=== PATIENT | female | born 1950 | race Caucasian/White ===

== ENCOUNTER → 2018-09-05 | Outpatient (CLI) | payer MEDICARE, OTHER ==
[2018-09-05 11:11] LABS: Basophils # (A) 0.1 k/uL (0-0.2); Basophils % (A) 1 %; Eosinophils # (A) 0.5 k/uL (0-0.7); Eosinophils % (A) 5 %; HGB 12.2 gm/dL (11.4-16.0); Lymphocytes # (A) 1.4 k/uL (1.0-4.8); Lymphocytes % (A) 13 %; MCH 28.2 pg (25.0-35.0); MCHC 31.3 g/dL (31.0-37.0); MCV 90.1 fL (80.0-100.0); Mean Platelet Volume 8.2; Monocytes # (A) 0.6 k/uL (0-1.0); Monocytes % (A) 5 %; Neutrophils # (A) 7.9 k/uL (1.3-7.7); Neutrophils % (A) 74 %; Platelet Count 255 k/uL (150-450); RBC 4.33 m/uL (3.80-5.40); RDW 14.7 % (11.5-15.5); WBC 10.7 k/uL (3.8-10.6)
[2018-09-05 11:19] LABS: Calcium 9.4 mg/dL (8.4-10.2); Potassium 4.6 mmol/L (3.5-5.1)
--- NOTE | 2018-09-05 11:22 | XR ---
EXAMINATION TYPE: XR chest 2V DATE OF EXAM: 09/05/2018 COMPARISON: NONE HISTORY: Preadmission testing. History of COPD. TECHNIQUE: Frontal and lateral views of the chest are obtained. FINDINGS: There is no focal air space opacity, pleural effusion, or pneumothorax seen. Bibasilar per ibronchial cuffing is more pronounced on the lateral view. The cardiac silhouette size is upper limi ts of normal. Mild to moderate degenerative changes of the spine are noted moderate degenerative herrera ges of the shoulders are also seen. IMPRESSION: Bibasilar peribronchial cuffing on the lateral view may represent reactive airway diseas e and COPD or infectious airway disease. No focal consolidation to suggest pneumonia.
[2018-09-05 11:44] LABS: INR 0.9 (<1.2); Partial Thromboplastin Time 23.2 sec (22.0-30.0); Prothrombin Time 9.7 sec (9.0-12.0)
[2018-09-05 12:51] LABS: Appearance,Urine Clear (Clear); Bacteria,Urine Occasional /hpf; Bilirubin,Urine Negative (Negative); Blood,Urine Negative (Negative); Color,Urine Yellow; Glucose,Urine (UA) Negative (Negative); Hyaline Casts,Urine 13 /lpf (0-2); Ketones,Urine Negative (Negative); Leukocyte Esterase,Urine Moderate (Negative); Mucus,Urine Rare /hpf; Nitrite,Urine Negative (Negative); Protein,Urine Negative (Negative); RBC,Urine 2 /hpf (0-5); Specific Gravity,Urine 1.021 (1.001-1.035); Squamous Epithelial Cell,Urine 3 /hpf (0-4); Urobilinogen,Urine <2.0 mg/dL (<2.0); WBC,Urine 6 /hpf (0-5)
== END ==
LOC: LABPAT 10:21
PROVIDERS: ATTEND Orthopaedic Surgery Orthopaedic Surgery of the Spine
DX: Z01.818 Encounter for other preprocedural examination (principal)
CPT/HCPCS: 71046; 80048; 81001; 85025; 85610; 85730; 86850; 86900; 86901; 93005

== ENCOUNTER → 2018-09-14 | Outpatient (CLI) | payer MEDICARE, OTHER ==
[2018-09-14 10:30] LABS: Anion Gap 7 mmol/L; Blood Urea Nitrogen 29 mg/dL (7-17); Calcium 9.7 mg/dL (8.4-10.2); Carbon Dioxide 30 mmol/L (22-30); Chloride 102 mmol/L (98-107); Glucose 126 mg/dL (74-99); Potassium 4.5 mmol/L (3.5-5.1); Sodium 139 mmol/L (137-145)
== END | disposition home or self-care (01) ==
LOC: LABWHC1 09:32
PROVIDERS: ATTEND Internal Medicine Nephrology
DX: N18.3 Chronic kidney disease, stage 3 (moderate) (principal)
CPT/HCPCS: 36415; 80048

== ENCOUNTER 2018-09-16 11:21 | Day surgery (SDC) | payer MEDICARE, OTHER ==
[~2018-09-16 11:21] MED LIST: BACITRACIN 50,000 UNIT, POLYMYXIN B 500,000 UNIT in SODIUM CHLORIDE 0.9% IRRIGATIO 1,00... IRRIGATION ONE; LIDOCAINE 1% 20 ML VIAL (10MG/ML) FOR IV START INTRADERMA PRN; ONDANSETRON 4 MG/2 ML VIAL IVP ONE; ceFAZolin IN SWFI 2 GM/20 ML SYRINGE IVP ONE
[2018-09-16] MEDS: LACTATED RINGERS 1,000 ML IV SCH (11:56)
[2018-09-16] MEDS ORDERED: SCOPOLAMINE 1.5MG/72HR PATCH TRANSDERM ONE (12:03)
[2018-09-16] MEDS ORDERED: SUCCINYLCHOLINE CHLORIDE 100 MG/5 ML SYR IV ONE (12:50)
[2018-09-16] MEDS ORDERED: KETAMINE 10 MG/ML 20 ML VIAL ONE (12:50)
[2018-09-16] MEDS ORDERED: PROPOFOL 10 MG/ML 20 ML VIAL IV ONE (12:50)
[2018-09-16] MEDS ORDERED: MIDAZOLAM 2 MG/2 ML VIAL ONE (12:50)
[2018-09-16] MEDS ORDERED: LIDOCAINE 1% INJ 10MG/ML (20 ML MDV) ONE (12:50)
[2018-09-16] MEDS ORDERED: fentaNYL (PF) 50 MCG/ML 2 ML AMP ONE (12:50)
[2018-09-16] MEDS ORDERED: ePHEDrine SULFATE/0.9% NACL/PF 50 MG/5 ML SYRINGE IV ONE (12:50)
[2018-09-16] MEDS ORDERED: DEXAMETHASONE SOD PHOS (MDV) 100 MG/10 ML VIAL ONE (12:50)
[2018-09-16] MEDS ORDERED: ceFAZolin 1,000 MG VIAL ONE (12:50)
[2018-09-16] MEDS ORDERED: PHENYLEPHRINE-0.9% NACL SYG 1 MG/10 ML SYRINGE ONE (12:50)
[2018-09-16] MEDS ORDERED: BUPIVACAINE-EPI 0.5%-1:200,000 10 ML VIAL SQ ONE (13:33)
[2018-09-16] MEDS ORDERED: GELATIN SPONGE,ABSORB (LARGE) 1 EACH SPONGE MISCELLANE ONE (13:56)
[2018-09-16] MEDS ORDERED: THROMBIN (BOVINE) 5,000 UNIT VIAL TOPICAL ONE (14:20)
--- NOTE | 2018-09-16 14:20 | XR ---
Cervical spine HISTORY: Needle placement Single lateral view of the cervical spine submitted. There is a probe present within the posterior nasopharynx region or oropharynx. Endotracheal tube is in place. There is a needle present overlying the region of the C3-4 disc space, superimposed soft ti ssues limits the exam. There are overlying artifacts, leads. IMPRESSION: Orthopedic localization.
[2018-09-16] MEDS ORDERED: LACTATED RINGERS 1,000 ML IV ONE (14:34)
--- NOTE | 2018-09-16 15:33 | XR ---
EXAMINATION TYPE: XR cervical spine 1V DATE OF EXAM: 09/16/2018 COMPARISON: NONE HISTORY: 68-year-old female heart replacement TECHNIQUE: Crosstable lateral intraoperative view FINDINGS: Very limited assessment due to large patient body habitus. There seems to be ACDF placement from C3 t hrough C6 levels. IMPRESSION: Very limited assessment due to large patient body habitus. ACDF C6 to be present from C3 through C6 l evels. Exact positioning of the hardware is difficult to evaluate.
[2018-09-16] MEDS ORDERED: HYDROmorphone 0.5 MG/0.5 ML SYRINGE IVP PRN (15:44)
[2018-09-16] MEDS ORDERED: MAGNESIUM HYDROXIDE 2,400 MG/10 ML CUP PO PRN (15:44)
[2018-09-16] MEDS ORDERED: BENZOCAINE/MENTHOL LOZENG 1 EACH LOZENGE MUCOUS MEM PRN (15:44)
[2018-09-16] MEDS ORDERED: ONDANSETRON 4 MG/2 ML VIAL IVP PRN (15:44)
[2018-09-16] MEDS ORDERED: LISINOPRIL-HCTZ 20-25 MG 1 EACH TAB PO PRN (15:45)
[2018-09-16] MEDS ORDERED: HYDROcodone/APAP 7.5-325MG 1 EACH TAB PO PRN (15:45)
[2018-09-16] MEDS ORDERED: ALBUTEROL NEBULIZED 2.5 MG/3 ML INHALATION PRN (15:45)
--- NOTE | 2018-09-16 15:52 | P.OP ---
Date of Procedure: 09/16/18 Preoperative Diagnosis: Cervical stenosis C3 4 C4 5 C5 6, cervical myelopathy, herniated nucleus pulposis C3 4 C4 5 C5 6, upper tremor radiculopathy, neck pain, degenerative disc disease Postoperative Diagnosis: Same Anesthesia: GETA Pathology: none sent Condition: stable Disposition: PACU Description of Procedure: BRIEF OPERATIVE NOTE Preoperative Diagnosis:Cervical stenosis C3 4 C4 5 C5 6, cervical myelopathy, herniated nucleus pulposis C3 4 C4 5 C5 6, upper tremor radiculopathy, neck pain, degenerative disc disease Postoperative Diagnosis: Same Procedure: Anterior cervical decompression with discectomy and fusion C3 4 C4 5 C5 6 Placement of interbody graft C3 4 C4 5 C5 6 Application of anterior cervical plate C3 4 5 6 Surgeon: Dr. Rivers Power Brake Operator: Daniel Krishnamurthy is present throughout the entire the case persistence during positioning, dissection, exposure, visualization, and all crucial elements of the case as well as closure. Anesthesia: General anesthesia per Dr. Scott Estimated blood loss: Approximately 200 mL K2M [place] anterior cervical plate system measuring 54 mm screws measuring 12 and 14 mm and Vikos interbody allograft bone graft with 1 mL of DBX bone putty to supplemental allograft bone graft Complications: None apparent Components implanted: Disposition: To recovery room in good stable condition. OPERATIVE INDICATIONS The patient has had long-standing issues in their neck and upper extremities. She is having worsening symptoms and demonstrating some early myelopathic issues. She was found have disc herniation at C3 4 C4 5 C5 6 with stenosis at those levels which correlated with her neck and upper extremity symptoms. She is having worsening despite aggressive conservative care. The patient has been through conservative treatment. We discussed various treatment options including surgery, and the patient wishes to proceed with surgery We discussed the risk, patient's alternatives and benefits of surgery including but not limited to, risk of bleeding risk of infection, risk of need for further surgery, risk of decreased, loss of motion, muscle function, malunion nonunion, hardware failure, nerve damage, paralysis, heart attack, and . OPERATIVE SUMMARY After discussing all the risks, patient alternatives and benefits at length, the patient elected to proceed with surgical intervention, signed informed consent, and presented for their procedure. The patient was seen and examined in the preoperative holding area and the surgical site was marked. The patient was given antibiotics and brought to the operating room. The patient was positioned on the operating room table in a supine position being careful to pad any bony prominences and pressure points. The patient was sedated and intubated by anesthesia in standard fashion. Once the airway and C- spine were stabilized the patient's arms were padded and tucked at her side, with her shoulders gently taped. The head was placed in a donut pad with the neck in good neutral alignment and position. We were careful to maintain the patient's cervical spine and good neutral alignment and position throughout. The patient was prepped and draped in a normal standard fashion. An appropriate timeout and keystone protocol performed. We were able to proceed with the surgery. The local wound area was infiltrated with local anesthetic. An incision was made transversely approximately 2-1/2 cm over the appropriate levels at approximately C4. Dissection was taken down subcutaneously to the level of the platysma which was split in line with its fibers. Dissection was taken with a carotid approach, with the trachea and esophagus medial and the carotid sheath laterally. We dissected down to the anterior surface of the vertebral bodies. Intraoperative x-ray was taken which showed a marker at the appropriate level of C4 5. With the appropriate level positively confirmed, we were able to proceed with discectomy at the appropriate levels starting at C3 4 and then moving C4 5 and then C5 6. All of the operative levels were exposed appropriately. The patient had all their twitches back, and there was no evidence of recurrent laryngeal issue. The wound was copiously irrigated and suctioned dry as had been done periodically throughout the case. At the appropriate level/levels, starting at C3 4 and C4 5 and C5 6 I established an annulotomy with an 11 blade scalpel. A discectomy was performed with a combination of pituitary rongeurs, curettes, a high-speed bur, and Kerrison rongeurs. The posterior longitudinal ligament was taken down as were any posterior osteophytes. This gave good central and bilateral foraminal decompression. There is no evidence of any dural tear or leak. The endplates were prepared with a high-speed bur. With the endplates in good parallel position, I was able to size for the appropriate size interbody graft. The wound was irrigated and suctioned dry the graft was prepared and malleted into position. It had good alignment and position with the anterior surface flush with the anterior surface of the vertebral bodies. This was done similarly the appropriate levels at C3 4 C4 5 C5 6. With the grafts intact, I was able to measure and contour and appropriate sized plate. The plate was positioned at the midline over the appropriate levels from C3 to C6. Screw holes were established with a hand drill and drill guide. Screws were placed in good alignment and position with excellent bony purchase. They were seated under the locking device. The construct was checked and found to be stable. Intraoperative x-ray was taken which showed good alignment and position of the implants at the appropriate levels. It seemed as though the lef t-sided screws were slightly long in a switch them out from 14 mm screws to 12 mm screws on the left screws at C3 4 5 and 6. Repeat imaging showed excellent alignment and positioning with no evidence of proud screws. There was no evidence of any dural tear or leak. Good hemostasis was maintained. The wound was copiously irrigated and suctioned dry as had been done periodically throughout the case. The platysma was closed with absorbable suture. The subcutaneous tissue was closed. The subcuticular tissue was closed with absorbable suture. The wound was cleaned and dried and dressed appropriately. A soft cervical collar was placed appropriately. The patient was woken up by anesthesia, extubated, transferred back gently to their hospital bed and brought to the recovery room in good stable condition. The patient will be admitted to the hospital for appropriate postoperative care, medical management and monitoring. We will continue to follow them closely about the postoperative course.
--- NOTE | 2018-09-16 15:56 | XR ---
Cervical spine HISTORY: Hardware placement Single lateral cervical spine view submitted and correlated to prior exam the same dated earlier time . Patient is status post anterior cervical fusion and discectomy at what is believed to be C3-C5. Detai ls obscured by overlying soft tissue. Underlying degenerative disc changes and facet arthropathy note d. There appears to be satisfactory alignment in this single view. IMPRESSION: Limitations as described. Orthopedic follow-up.
[2018-09-16] MEDS: HYDROmorphone 0.5 MG/0.5 ML SYRINGE IVP PRN ×5 (16:07→16:35)
[2018-09-16] MEDS ORDERED: MEPERIDINE 50 MG/ML SYRINGE IVP ONE (16:44)
[2018-09-16 16:48] VITALS: RESP 16
[2018-09-16] MEDS: CARVEDILOL 12.5 MG TAB PO SCH (18:08)
[2018-09-16] MEDS: GABAPENTIN 300 MG CAP PO SCH ×2 (18:09→21:09)
[2018-09-16] MEDS: SODIUM CHLORIDE 0.9% 1,000 ML IV SCH (18:12)
[2018-09-16] MEDS: SYMBICORT 80-4.5 MCG INHALER INHALATION SCH (19:45)
[2018-09-16] MEDS ORDERED: CITALOPRAM HYDROBROMIDE 20 MG TAB PO SCH (21:00)
[2018-09-16] MEDS: HYDROcodone/APAP 5-325MG 1 EACH TAB PO PRN (21:09)
[2018-09-16 22:44] VITALS: BMI 55.7
[2018-09-16] MEDS: ceFAZolin 3 GM in SODIUM CHLORIDE 0.9% 100 ML IVPB SCH (23:09)
[2018-09-17] MEDS: SODIUM CHLORIDE 0.9% 1,000 ML IV SCH (05:14)
[2018-09-17] MEDS: LACTATED RINGERS 1,000 ML IV SCH (05:14)
[2018-09-17] MEDS: CARVEDILOL 12.5 MG TAB PO SCH (08:36)
[2018-09-17] MEDS: GABAPENTIN 300 MG CAP PO SCH (08:37)
[2018-09-17] MEDS: ceFAZolin 3 GM in SODIUM CHLORIDE 0.9% 100 ML IVPB SCH (08:39)
[2018-09-17] MEDS ORDERED: SENNOSIDES-DOCUSATE SODIUM 1 EACH TAB PO SCH (09:00)
[2018-09-17] MEDS ORDERED: CYANOCOBALAMIN 500 MCG TAB PO SCH (09:00)
[2018-09-17] MEDS ORDERED: LISINOPRIL-HCTZ 20-25 MG 1 EACH TAB PO SCH (09:00)
--- NOTE | 2018-09-17 09:06 | P.DS ---
Providers Date of admission: 09/16/2018 Expected date of discharge: 09/17/18 Attending physician: Olesya Rivers Primary care physician: Sheeba Nathan Charbal - Discharge Diagnosis(es) (1) Cervical myelopathy Current Visit: Yes Status: Acute (2) Degenerative disc disease, cervical Current Visit: Yes Status: Acute (3) Herniated nucleus pulposus, cervical Current Visit: Yes Status: Acute (4) Cervicalgia Current Visit: Yes Status: Acute (5) Radiculopathy affecting upper extremity Current Visit: Yes Status: Acute (6) Hypertension Current Visit: Yes Status: Acute (7) Cervical stenosis of spine Current Visit: Yes Status: Acute Hospital Course: This is a pleasant 68-year-old female who presented with C3-4, C4-5, C5-6 herniated nucleus pulposus and cervical canal stenosis with cervical myelopathy, cervical pain, cervical degenerative disc disease, and upper extremity radiculopathy who failed outpatient conservative therapy. She was admitted for a C3-4, C4-5, and C5-6 anterior cervical decompression and fusion. Her symptoms continue to be present postoperatively. She does feel her pain has been adequately controlled. She's been able to eat and void without difficulty. She does have some increased hoarseness of her voice postoperatively. She has been to tolerate a soft cervical collar. She does feel she is ready for discharge home today. Condition on day of discharge stable. Patient will be discharged home. Patient was cleared preoperatively for surgery by Dr. Aly and Dr. Stephens. Patient currently denies any nausea, vomiting, fever, or chills. Patient is eating and voiding freely without difficulty. Patient may shower Tegaderm dressing intact. Patient may remove Tegaderm dressing in 3 days and shower without a dressing at that time. Patient should keep Steri-Strips intact and allow them to fall off naturally. Patient should refrain from driving until at least after their first follow-up appointment in the office. Patient should avoid excessive neck flexion, extension, rotation, and lateral sidebending; no overhead lifting; no lifting greater than 10 pounds. MAPS has been reviewed today, 09/17/2018, with an Overall Overdose Risk Score of 260. An "Opiod Start Talking" Forn has been signed by the patient and myself in place in the patient's chart. A prescription has been written for Hugoton 7.5 mg /325 mg take 1 tablet every 6 hours as needed for pain, dispensed #28. She does follow with Dr. Flores in the outpatient setting for pain control. He is where she may receive a prescription for narcotics postoperatively. After the completion of her prescription by myself she'll plan to continue following with Dr. Flores for long-term pain control. Patient does have a past medical history which includes hypertension and takes lisinopril and Cozaar in the outpatient setting. She states her lisinopril was reduced prior to surgical intervention and she has had slightly increased blood pressure since that time. Her 2 pills per day had been resumed yesterday. She was experiencing some increased systolic blood pressure postoperatively which has improved today. Her most recent dictated blood pressure was 127/64. We discussed she should continue to follow primary care providers in the outpatient setting for her other medical diagnoses including hypertension. Physical Exam on day of discharge: Patient is awake, alert, and oriented 3 Vital signs stable Good chest excursion with deep inspiration and expiration Abdomen soft nontender No signs or symptoms of DVT; no calf pain Full range of motion of the cervical spine with adequate flexion, extension, and bilateral rotation Shuttlecock Feather Trimmer strength, thumb strength, interosseous strength, biceps strength, triceps strength, and shoulder strength positive sustained bilaterally Soft cervical collar intact Incision is clean, dry, and intact; no erythema, purulence, or signs of infection Tegaderm dressing and non-stick Telfa intact Procedures: C3-4, C4-5, and C5-6 anterior cervical decompression and fusion Patient Condition at Discharge: Stable Plan - Discharge Summary Discharge Rx Participant: No New Discharge Prescriptions: New HYDROcodone/APAP 7.5-325MG [Hugoton 7.5-325] 1 each PO Q6HR PRN #28 tab PRN Reason: Pain No Action Fluticasone/Salmeterol [Advair 250-50 Diskus] 1 inhalation PO BID rOPINIRole HCL [Requip] 0.5 - 1 mg PO HS PRN PRN Reason: restless leg Citalopram Hydrobromide [CeleXA] 20 mg PO HS Meloxicam 7.5 mg PO BID HYDROcodone/APAP 7.5-325MG [Hugoton 7.5-325] 1 tab PO TID PRN PRN Reason: Pain Gabapentin 300 mg PO TID Carvedilol 25 mg PO BID Lisinopril-Hctz 20-25 mg [Zestoretic 20-25] 1 tab PO QAM Albuterol Sulfate [Proair Hfa] 2 puff INHALATION Q6H PRN PRN Reason: sob Cyanocobalamin (Vitamin B-12) [Vitamin B-12] 1,000 mcg PO DAILY Lisinopril-Hctz 20-25 mg [Zestoretic 20-25] 1 tab PO HS PRN PRN Reason: elevated b/p Discharge Medication List Albuterol Sulfate [Proair Hfa] 2 puff INHALATION Q6H PRN 09/11/18 [History] Carvedilol 25 mg PO BID 09/11/18 [History] Citalopram Hydrobromide [CeleXA] 20 mg PO HS 09/11/18 [History] Cyanocobalamin (Vitamin B-12) [Vitamin B-12] 1,000 mcg PO DAILY 09/11/18 [History] Fluticasone/Salmeterol [Advair 250-50 Diskus] 1 inhalation PO BID 09/11/18 [History] Gabapentin 300 mg PO TID 09/11/18 [History] HYDROcodone/APAP 7.5-325MG [Hugoton 7.5-325] 1 tab PO TID PRN 09/11/18 [History] Lisinopril-Hctz 20-25 mg [Zestoretic 20-25] 1 tab PO QAM 09/11/18 [History] Meloxicam 7.5 mg PO BID 09/11/18 [History] rOPINIRole HCL [Requip] 0.5 - 1 mg PO HS PRN 09/11/18 [History] Lisinopril-Hctz 20-25 mg [Zestoretic 20-25] 1 tab PO HS PRN 09/12/18 [History] HYDROcodone/APAP 7.5-325MG [Hugoton 7.5-325] 1 each PO Q6HR PRN #28 tab 09/17/18 [Rx] Follow up Appointment(s)/Referral(s): Daniel Roth, LIV [PHYSICIAN COMPACT ASSEMBLER] - 2 Weeks (Patient may follow-up with Daniel Roth PA-C or Dr. Kamron Rivers at [facility] in 2-3 weeks following discharge. ) Patient Instructions/Handouts: *Surgery [facility] - Scopalamine Patch Instructions Activity/Diet/Wound Care/Special Instructions: 1. Patient may shower with Tegaderm dressing intact. 2. Patient may remove Tegaderm dressing in 3 days and shower without a dressing at that time. 3. Patient should keep Steri-Strips intact and allow them to fall off naturally. 4. Patient should refrain from driving until at least after their first follow- up appointment in the office. 5. Patient should avoid excessive cervical flexion, extension, rotation, sidebending; avoid overhead lifting; no lifting greater than 10 pounds 6. May soft cervical collar for comfort support as needed 7. Take medications as prescribed 8. Do not soak in tub Discharge Disposition: HOME SELF-CARE
[2018-09-17] MEDS: HYDROcodone/APAP 5-325MG 1 EACH TAB PO PRN (09:15)
[2018-09-17] MEDS: SYMBICORT 80-4.5 MCG INHALER INHALATION SCH (09:17)
[2018-09-17 10:52] VITALS: BP 152/82; PULSE 91; TEMP 98.2
== END 2018-09-17 12:07 | disposition home or self-care (01) ==
LOC: OR 11:21 → 4SSUR 15:37 → OR 09-17 12:07
PROVIDERS: ATTEND Orthopaedic Surgery Orthopaedic Surgery of the Spine
DX: M50.01 Cervical disc disorder with myelopathy, high cervical region (principal); M50.11 Cervical disc disorder with radiculopathy, high cervical region; I10 Essential (primary) hypertension; M48.02 Spinal stenosis, cervical region; J44.9 Chronic obstructive pulmonary disease, unspecified; G47.33 Obstructive sleep apnea (adult) (pediatric); F39 Unspecified mood [affective] disorder; Z79.899 Other long term (current) drug therapy; Z79.1 Long term (current) use of non-steroidal anti-inflammatories (NSAID); Z79.891 Long term (current) use of opiate analgesic
CPT/HCPCS: 94640; 94760 ×2; 72020; 22551; 22552 ×2; 22845; 20930; C1713 ×2; C1762 ×2; J2250; J2175; J0690 ×3; J2405; J2001; J3010; J1100; J2370; J0330; J2704; J1170; 86850; 86900; 86901

== ENCOUNTER 2019-03-24 08:46 | Emergency (ER) | payer MEDICARE, OTHER ==
[2019-03-24 09:02] VITALS: RESP 18; TEMP 98
--- NOTE | 2019-03-24 09:27 | ED ---
General Adult HPI - General Chief complaint: Fall Stated complaint: FALL, LEFT ANKLE, KNEE AND HIP PAIN Time Seen by Provider: 03/24/19 08:53 Source: patient, EMS, RN notes reviewed Mode of arrival: EMS Limitations: no limitations - History of Present Illness Initial comments: Patient is a pleasant 6 he 9-year-old female presenting to the emergency [facility] following fall. Incident occurred or to arrival. Patient was walking on her ramp when she slipped and fell. Patient states he inverted her left ankle. Patient had some discomfort of her left hip and left knee however those have essentially resolved. No head injury or loss of consciousness. No neck or back pain. No chest pain or dyspnea. No abdominal pain. No history of significant injury to this area previously. - Related Data Home Medications Medication Instructions Recorded Confirmed Albuterol Sulfate [Proair Hfa] 2 puff INHALATION Q6H PRN 09/11/18 09/16/18 Carvedilol 25 mg PO BID 09/11/18 09/16/18 Citalopram Hydrobromide [CeleXA] 20 mg PO HS 09/11/18 09/16/18 Cyanocobalamin (Vitamin B-12) 1,000 mcg PO DAILY 09/11/18 09/16/18 [Vitamin B-12] Fluticasone/Salmeterol [Advair 1 inhalation PO BID 09/11/18 09/16/18 250-50 Diskus] Gabapentin 300 mg PO TID 09/11/18 09/16/18 HYDROcodone/APAP 7.5-325MG [[place] 1 tab PO TID PRN 09/11/18 09/16/18 7.5-325] Lisinopril-Hctz 20-25 mg 1 tab PO QAM 09/11/18 09/16/18 [Zestoretic 20-25] Meloxicam 7.5 mg PO BID 09/11/18 09/16/18 rOPINIRole HCL [Requip] 0.5 - 1 mg PO HS PRN 09/11/18 09/16/18 Lisinopril-Hctz 20-25 mg 1 tab PO HS PRN 09/12/18 09/16/18 [Zestoretic 20-25] Previous Rx's Medication Instructions Recorded HYDROcodone/APAP 7.5-325MG [[place] 1 each PO Q6HR PRN #28 tab 05/14/19 7.5-325] Allergies Allergy/AdvReac Type Severity Reaction Status Date / Time No Known Allergies Allergy Verified 09/16/18 11:41 Review of Systems ROS Statement: Those systems with pertinent positive or pertinent negative responses have been documented in the HPI. ROS Other: All systems not noted in ROS Statement are negative. Constitutional: Denies: fever Eyes: Denies: eye pain ENT: Denies: ear pain Respiratory: Denies: cough Cardiovascular: Denies: chest pain Endocrine: Denies: fatigue Gastrointestinal: Denies: abdominal pain Genitourinary: Denies: dysuria Musculoskeletal: Denies: back pain Skin: Denies: rash Neurological: Denies: weakness Past Medical History Past Medical History: Hypertension History of Any Multi-Drug Resistant Organisms: None Reported Past Surgical History: Hysterectomy, Tonsillectomy Additional Past Surgical History / Comment(s): Vertebrae surgery Past Psychological History: Anxiety Smoking Status: Never smoker Past Alcohol Use History: None Reported Past Drug Use History: None Reported General Exam Limitations: no limitations General appearance: alert, in no apparent distress Head exam: Present: normocephalic Eye exam: Present: normal appearance Neck exam: Present: normal inspection. Absent: tenderness Respiratory exam: Present: normal lung sounds bilaterally Cardiovascular Exam: Present: regular rate, normal rhythm Expanded Peripheral pulses: 2+: Dorsalis Pedis (L) GI/Abdominal exam: Present: soft. Absent: tenderness Extremities exam: Present: full ROM, tenderness (Tenderness limited to the medial and lateral ankle. No foot tenderness. No other lower extremity tenderness. No knee or hip tenderness.), other (Distally the extremity is neurovascular intact.) Neurological exam: Present: alert Psychiatric exam: Present: normal affect, normal mood Skin exam: Present: normal color Course Vital Signs 03/24/19 03/24/19 08:54 09:53 Temperature 98.0 F Pulse Rate 69 79 Respiratory 18 18 Rate Blood Pressure 176/81 172/79 O2 Sat by Pulse 98 98 Oximetry Medical Decision Making - Medical Decision Making Patient reevaluated and updated. Patient states she has a walker at home. - Radiology Data Interpreted by me: (Ankle x-ray shows distal fibula fracture Disposition Clinical Impression: Fall, Fractured lateral malleolus Disposition: HOME SELF-CARE Condition: Stable Instructions (If sedation given, give patient instructions): Ankle Fracture (ED) Additional Instructions: Please follow-up with orthopedics in the next couple days for recheck. Return for increased pain, swelling, worsening symptoms or other concerns. [id number] Tylenol or Motrin as needed. Ice to affected area. No weightbearing on the left leg. Is patient prescribed a controlled substance at d/c from ED?: No Referrals: Tobias Aly MD [Primary Care Provider] - 1-2 days Michel Castro MD [STAFF PHYSICIAN] - 1-2 days Time of Disposition: 10:03
[2019-03-24 09:54] VITALS: BP 172/79; PULSE 79
[2019-03-24] MEDS ORDERED: ACET/COD 300 MG/30 MG STARTER PACK 6 TAB BTL PO STA (10:03)
--- NOTE | 2019-03-24 10:05 | XR ---
EXAMINATION TYPE: XR ankle complete LT, 3 views DATE OF EXAM: 03/24/2019 COMPARISON: NONE HISTORY: 69-year-old female with slip and twisting injury, pain and swelling. TECHNIQUE: 3 views FINDINGS: Generalized soft tissue swelling at the ankle. Minimally offset oblique fracture distal fibula. Addit ional minimally offset fracture posterior malleolus. No medial clear space widening is apparent. Marge r dome is intact. Small plantar calcaneal spur. IMPRESSION: Minimally offset posterior malleolar and oblique distal fibular fractures. Correlate as to mechanism of injury and possible Maisonneuve injury pattern. Imaging to exclude a proximal fibular fracture may be indicated.
== END 2019-03-24 10:16 | disposition home or self-care (01) ==
LOC: EC 08:46
DX: S82.62XA Displaced fracture of lateral malleolus of left fibula, initial encounter for closed fracture (principal); I10 Essential (primary) hypertension; F41.9 Anxiety disorder, unspecified; Z79.899 Other long term (current) drug therapy; Z79.1 Long term (current) use of non-steroidal anti-inflammatories (NSAID); W01.0XXA Fall on same level from slipping, tripping and stumbling without subsequent striking against object, initial encounter; Y93.01 Activity, walking, marching and hiking; Y92.009 Unspecified place in unspecified non-institutional (private) residence as the place of occurrence of the external cause
CPT/HCPCS: 99284

== ENCOUNTER → 2019-03-27 | Outpatient (CLI) | payer MEDICARE, OTHER ==
--- NOTE | 2019-03-27 13:15 | CT ---
EXAMINATION TYPE: CT ankle LT wo con DATE OF EXAM: 03/27/2019 COMPARISON: 03/24/2019 radiographs HISTORY: 69 year-old female left ankle pain after fall TECHNIQUE: Contiguous axial scanning of the left ankle without IV contrast. Coronal and sagittal haider nstructions performed. 3-D reconstructions generated on a dedicated independent workstation. CT DLP: 229 mGycm Automated exposure control for dose reduction was used. FINDINGS: Redemonstrated oblique fracture of the distal fibula with minimal posterior offset of 3 mm. Also, red emonstrated nondisplaced fracture of the posterior malleolus. The fracture fragment measures 2.4 cm w cristina by 2.5 cm craniocaudal by 0.7 cm AP. The fracture extends to the margin of the posterior articula r surface. Additional punctate avulsion fracture fragments in the region of the anterior inferior tibiofibular l igament. No additional acute fracture is seen. Plantar calcaneal spur. Smooth delineation to the Achilles tend on. Subtalar joint is aligned. Dorsal mid to hindfoot soft tissue swelling. Suspect a 1.5 cm ganglion cyst dorsal laterally extendin g from the sinus Tarsi. IMPRESSION: 1. OBLIQUE FRACTURE OF THE DISTAL FIBULA WITH MINIMAL POSTERIOR OFFSET OF 3 MM. 2. NONDISPLACED FRACTURE OF THE POSTERIOR MALLEOLUS. FRACTURE EXTENDS TO THE MARGIN OF THE POSTERIOR ARTICULAR SURFACE. 3. ADDITIONAL PUNCTATE AVULSION FRACTURE FRAGMENTS IN THE REGION OF THE AITFL.
== END ==
LOC: RADCTMAIN 09:52
PROVIDERS: ATTEND Orthopaedic Surgery
DX: S82.432A Displaced oblique fracture of shaft of left fibula, initial encounter for closed fracture (principal); S82.892A Other fracture of left lower leg, initial encounter for closed fracture

== ENCOUNTER → 2019-05-15 | Outpatient (CLI) | payer MEDICARE, OTHER ==
--- NOTE | 2019-05-15 23:47 | CONS ---
CONSULTATION DATE OF SERVICE: 05/15/2019 69-year-old lady who has [facility] for obstructive sleep apnea- hypopnea syndrome. HISTORY OF PRESENT ILLNESS/SLEEP WAKE EVALUATION: The patient has history of obstructive sleep apnea for 3 years, is on treatment with CPAP every night for the whole night. SLEEP SCHEDULE: Her sleep schedule usually from 1 to 2:00 am until 9:00 or 10 am. FALLING ASLEEP: No problems with falling asleep although she has TV in bedroom. DURING SLEEP: She sleeps in different positions. She wakes up from sleep up to 2 times with nocturia. She has history of restless legs and she is taking ropinirole at bedtime to prevent any symptoms from the legs. On a dopaminergic agonist, she feels better. She sleeps better with relationship to her symptoms of her legs. [place] Sleepiness Scale today is 2, which is absolutely normal. I checked her CPAP unit. CPAP pressure is 12 cm of water. Ramp in automatic regimen. Usage is 30 out of 30 nights for more than 4 hours with average usage 9.9 hours per night. Leak is 19 L/minute, which is borderline. She is using the nasal pillow mask. Apnea-hypopnea index only 1.2, which is absolutely perfect. PAST MEDICAL HISTORY: Positive for hypertension, anxiety, neck problems recently, fracture of left lower leg. PAST SURGICAL HISTORY: Neck surgery with 4 discs replaced in September of 2018. MEDICATIONS: Citalopram, ropinirole, carvedilol, lisinopril, meloxicam, tramadol, trazodone. SOCIAL HISTORY: Positive for smoking in the past; quit 15 years ago. Alcohol consumption none at the present time. FAMILY HISTORY: Hypertension, fibromyalgia, arthritis, pneumonia, lung problems, restless legs. REVIEW OF SYSTEMS: Some awakenings from sleep with nocturia. PHYSICAL EXAM: lady without distress. BP 147/61, HR 70, RR 18, height 5 feet 1-1/2 inches, weight 285 pounds. Body mass index 52.9, temperature 98.4, oxygen saturation at room air 95%. Oropharynx extremely low position of soft palate. [place] 4. PERRLA positive for white neck, 17 inches in circumference. ABDOMEN: Obese. EXTREMITIES: 1+ ankle edema. IMPRESSION: 1. Obstructive sleep apnea-hypopnea syndrome for 3 years. The patient demonstrated 100% compliance with treatment benefitting from treatment on CPAP with CPAP pressure 12 cm of water. No history of snoring. Apnea-hypopnea index only 1.2. 2. History of restless legs syndrome on sufficient control with epidural. 3. History of anxiety. 4. Hypertension. 5. Status post neck surgery for four discs replacement in September of 2018. PLAN: 1. Patient will continue to use her CPAP equipment every night for the whole night. 2. Losing weight. 3. Sleep hygiene with regular time in bed for at least 7.5 to 8 hours. 4. No driving if feeling sleepiness. 5. Prescription for all necessary CPAP supplies including heated to a [employer] FX medium size nasal pillow mask filters. 6. 7. Sincerely. MMODL / IJN: [id number] /
== END | disposition home or self-care (01) ==
LOC: SLEEP 15:24
PROVIDERS: ATTEND Internal Medicine
DX: G47.33 Obstructive sleep apnea (adult) (pediatric) (principal); I10 Essential (primary) hypertension; Z86.69 Personal history of other diseases of the nervous system and sense organs; Z86.59 Personal history of other mental and behavioral disorders; Z87.891 Personal history of nicotine dependence; Z98.890 Other specified postprocedural states; Z99.89 Dependence on other enabling machines and devices; Z79.1 Long term (current) use of non-steroidal anti-inflammatories (NSAID); Z79.891 Long term (current) use of opiate analgesic; Z79.899 Other long term (current) drug therapy
CPT/HCPCS: 99211

== ENCOUNTER 2019-06-08 15:21 | Inpatient (IN) | payer MEDICARE, OTHER ==
[2019-06-08] MEDS ORDERED: HYDROmorphone 0.5 MG/0.5 ML SYRINGE IVP STA (15:58)
[2019-06-08] MEDS ORDERED: SODIUM CHLORIDE 0.9% 500 ML 500 ML IV STA (15:58)
[2019-06-08] MEDS ORDERED: PANTOPRAZOLE 40 MG/10 ML VIAL IVP STA (16:00)
--- NOTE | 2019-06-08 16:03 | ED ---
General Adult HPI - General Chief complaint: Abdominal Pain Stated complaint: Abd pain Time Seen by Provider: 06/08/19 15:53 Source: patient, RN notes reviewed, old records reviewed Mode of arrival: ambulatory Limitations: no limitations - History of Present Illness Initial comments: 69-year-old female presenting for evaluation of epigastric and left upper abdominal pain. Pain has been present for 36 hours. She describes it as a constant pain similar to previous peptic ulcer. She has had nausea and dry heaving. No blood and no bile in her emesis. She has had normal bowel movements, 3 bowel movements yesterday and one today, no melena, no rectal bleeding, no diarrhea. She denies fever or chills. She does describe the pain as epigastric and lower chest. She has had 2 crackers approximately 12 hours ago with immediate nausea and vomiting. Denies history of CAD, currently on lisinopril for hypertension. - Related Data Home Medications Medication Instructions Recorded Confirmed Albuterol Sulfate [Proair Hfa] 2 puff INHALATION RT-Q6H PRN 09/11/18 06/08/19 Carvedilol 25 mg PO BID 09/11/18 06/08/19 Citalopram Hydrobromide [CeleXA] 20 mg PO DAILY 09/11/18 06/08/19 Fluticasone/Salmeterol [Advair 1 puff INHALATION RT-BID PRN 09/11/18 06/08/19 250-50 Diskus] Lisinopril-Hctz 20-25 mg 1 tab PO BID 09/11/18 06/08/19 [Zestoretic 20-25] Meloxicam 7.5 mg PO DAILY 09/11/18 06/08/19 Acetaminophen Tab [Tylenol Tab] 650 mg PO Q6H PRN 06/08/19 06/08/19 Artificial Tears-Hypromellose 1 drop BOTH EYES TID PRN 06/08/19 06/08/19 [Artificial Tear Drops] Lidocaine HCl [Aspercreme] 1 applic TOPICAL DAILY PRN 06/08/19 06/08/19 Magnesium 400 mg PO HS 06/08/19 06/08/19 rOPINIRole HCL [Requip] 2 mg PO HS 06/08/19 06/08/19 traZODone HCL 50 mg PO HS 06/08/19 06/08/19 Allergies Allergy/AdvReac Type Severity Reaction Status Date / Time No Known Allergies Allergy Verified 06/08/19 17:58 Review of Systems ROS Statement: Those systems with pertinent positive or pertinent negative responses have been documented in the HPI. ROS Other: All systems not noted in ROS Statement are negative. Past Medical History Past Medical History: Hypertension History of Any Multi-Drug Resistant Organisms: None Reported Past Surgical History: Hysterectomy, Tonsillectomy Additional Past Surgical History / Comment(s): Vertebrae surgery Past Psychological History: Anxiety Smoking Status: Never smoker Past Alcohol Use History: None Reported Past Drug Use History: None Reported General Exam Limitations: no limitations General appearance: alert, in no apparent distress Head exam: Present: atraumatic, normocephalic Eye exam: Present: normal appearance, PERRL ENT exam: Present: normal exam Neck exam: Present: normal inspection. Absent: tenderness, meningismus Respiratory exam: Present: normal lung sounds bilaterally. Absent: respiratory distress, wheezes Cardiovascular Exam: Present: regular rate, normal rhythm GI/Abdominal exam: Present: soft, distended, tenderness (Epigastric and left upper quadrant abdominal tenderness). Absent: guarding, rebound Extremities exam: Present: normal inspection, normal capillary refill. Absent: pedal edema, calf tenderness Back exam: Present: normal inspection, full ROM Neurological exam: Present: alert, oriented X3, CN II-XII intact. Absent: motor sensory deficit Psychiatric exam: Present: normal affect, normal mood Skin exam: Present: warm, dry, intact. Absent: cyanosis, diaphoretic Course Vital Signs 06/08/19 06/08/19 15:25 17:21 Temperature 99.2 F 98.4 F Pulse Rate 73 78 Respiratory 16 18 Rate Blood Pressure 146/74 142/82 O2 Sat by Pulse 96 95 Oximetry EKG Findings - EKG Comments: EKG Findings:: EKG: Normal sinus rhythm, sinus arrhythmia, no ST segment elevation, rate of 72, DC interval 168, QRS duration 80, QTC 459 Medical Decision Making - Medical Decision Making 69-year-old female presenting for evaluation of epigastric and left upper quadrant abdominal pain. Laboratory testing reveals white blood cell count 16.4. Mil elevations or creatinine 1.18. She has elevation of both amylase and lipase consistent with an acute pancreatitis. X-rays obtained is negative for obstruction or free air. Ultrasound is negative for gallstones or acute cholecystitis, the radiologist does indicate that there is some heterogeneity to the pancreas consistent with acute pancreatitis. Patient will be admitted for symptom control, IV fluids, and GI consultation. - Lab Data Result diagrams: 06/08/19 15:37 06/08/19 15:37 Lab Results 06/08/19 06/08/19 06/08/19 Range/Units 15:37 15:37 15:37 WBC 16.4 H (3.8-10.6) k/uL RBC 4.73 (3.80-5.40) m/uL Hgb 13.0 (11.4-16.0) gm/dL Hct 41.0 (34.0-46.0) % MCV 86.7 (80.0-100.0) fL MCH 27.6 (25.0-35.0) pg MCHC 31.8 (31.0-37.0) g/dL RDW 12.8 (11.5-15.5) % Plt Count 326 (150-450) k/uL Neutrophils % 81 % Lymphocytes % 10 % Monocytes % 6 % Eosinophils % 2 % Basophils % 2 % Neutrophils # 13.2 H (1.3-7.7) k/uL Lymphocytes # 1.6 (1.0-4.8) k/uL Monocytes # 1.0 (0-1.0) k/uL Eosinophils # 0.3 (0-0.7) k/uL Basophils # 0.3 H (0-0.2) k/uL PT (9.0-12.0) sec INR (<1.2) APTT (22.0-30.0) sec Sodium 137 (137-145) mmol/L Potassium 3.9 (3.5-5.1) mmol/L Chloride 98 (98-107) mmol/L Carbon Dioxide 29 (22-30) mmol/L Anion Gap 10 mmol/L BUN 17 (7-17) mg/dL Creatinine 1.18 H (0.52-1.04) mg/dL Est GFR (CKD-EPI)AfAm 55 (>60 ml/min/1.73 sqM) Est GFR (CKD-EPI)NonAf 47 (>60 ml/min/1.73 sqM) Glucose 116 H (74-99) mg/dL Plasma Lactic Acid [place] 1.7 (0.7-2.0) mmol/L Calcium 9.4 (8.4-10.2) mg/dL Total Bilirubin 0.7 (0.2-1.3) mg/dL AST 22 (14-36) U/L ALT 13 (4-34) U/L Alkaline Phosphatase 76 (38-126) U/L Troponin I (0.000-0.034) ng/mL Total Protein 7.0 (6.3-8.2) g/dL Albumin 4.0 (3.5-5.0) g/dL Amylase 525 H* (30-110) U/L Lipase 1773 H (23-300) U/L Urine Color Urine Appearance (Clear) Urine pH (5.0-8.0) Ur Specific [place] (1.001-1.035) Urine Protein (Negative) Urine Glucose (UA) (Negative) Urine Ketones (Negative) Urine Blood (Negative) Urine Nitrite (Negative) Urine Bilirubin (Negative) Urine Urobilinogen (<2.0) mg/dL Ur Leukocyte Esterase (Negative) Urine RBC (0-5) /hpf Urine WBC (0-5) /hpf Ur Squamous Epith Cells (0-4) /hpf Urine Bacteria (None) /hpf Hyaline Casts (0-2) /lpf Urine Mucus (None) /hpf 06/08/19 06/08/19 06/08/19 Range/Units 15:37 15:37 15:37 WBC (3.8-10.6) k/uL RBC (3.80-5.40) m/uL Hgb (11.4-16.0) gm/dL Hct (34.0-46.0) % MCV (80.0-100.0) fL MCH (25.0-35.0) pg MCHC (31.0-37.0) g/dL RDW (11.5-15.5) % Plt Count (150-450) k/uL Neutrophils % % Lymphocytes % % Monocytes % % Eosinophils % % Basophils % % Neutrophils # (1.3-7.7) k/uL Lymphocytes # (1.0-4.8) k/uL Monocytes # (0-1.0) k/uL Eosinophils # (0-0.7) k/uL Basophils # (0-0.2) k/uL PT 10.3 (9.0-12.0) sec INR 1.0 (<1.2) APTT 24.1 (22.0-30.0) sec Sodium (137-145) mmol/L Potassium (3.5-5.1) mmol/L Chloride (98-107) mmol/L Carbon Dioxide (22-30) mmol/L Anion Gap mmol/L BUN (7-17) mg/dL Creatinine (0.52-1.04) mg/dL Est GFR (CKD-EPI)AfAm (>60 ml/min/1.73 sqM) Est GFR (CKD-EPI)NonAf (>60 ml/min/1.73 sqM) Glucose (74-99) mg/dL Plasma Lactic Acid [place] (0.7-2.0) mmol/L Calcium (8.4-10.2) mg/dL Total Bilirubin (0.2-1.3) mg/dL AST (14-36) U/L ALT (4-34) U/L Alkaline Phosphatase (38-126) U/L Troponin I <0.012 (0.000-0.034) ng/mL Total Protein (6.3-8.2) g/dL Albumin (3.5-5.0) g/dL Amylase (30-110) U/L Lipase (23-300) U/L Urine Color Yellow Urine Appearance Cloudy H (Clear) Urine pH 6.5 (5.0-8.0) Ur Specific [place] 1.012 (1.001-1.035) Urine Protein Trace H (Negative) Urine Glucose (UA) Negative (Negative) Urine Ketones Negative (Negative) Urine Blood Negative (Negative) Urine Nitrite Negative (Negative) Urine Bilirubin Negative (Negative) Urine Urobilinogen <2.0 (<2.0) mg/dL Ur Leukocyte Esterase Large H (Negative) Urine RBC 3 (0-5) /hpf Urine WBC 111 H (0-5) /hpf Ur Squamous Epith Cells 9 H (0-4) /hpf Urine Bacteria Many H (None) /hpf Hyaline Casts 1 (0-2) /lpf Urine Mucus Rare H (None) /hpf Disposition Clinical Impression: Acute appendicitis Disposition: ADMITTED IP TO THIS HOSP Condition: Stable Is patient prescribed a controlled substance at d/c from ED?: No Referrals: Tobias Aly MD [Primary Care Provider] - 1-2 days Decision to Admit Reason: Admit from EC Decision Date: 06/08/19 Decision Time: 18:12
[2019-06-08 16:19] LABS: Basophils # (A) 0.3 k/uL (0-0.2); Basophils % (A) 2 %; Eosinophils # (A) 0.3 k/uL (0-0.7); Eosinophils % (A) 2 %; Lymphocytes # (A) 1.6 k/uL (1.0-4.8); Lymphocytes % (A) 10 %; MCH 27.6 pg (25.0-35.0); MCHC 31.8 g/dL (31.0-37.0); MCV 86.7 fL (80.0-100.0); Mean Platelet Volume 10.1; Monocytes % (A) 6 %; Neutrophils # (A) 13.2 k/uL (1.3-7.7); Neutrophils % (A) 81 %; Platelet Count 326 k/uL (150-450); RBC 4.73 m/uL (3.80-5.40); RDW 12.8 % (11.5-15.5); WBC 16.4 k/uL (3.8-10.6)
[2019-06-08 16:29] LABS: Partial Thromboplastin Time 24.1 sec (22.0-30.0); Prothrombin Time 10.3 sec (9.0-12.0)
[2019-06-08 16:32] LABS: Calcium 9.4 mg/dL (8.4-10.2); Potassium 3.9 mmol/L (3.5-5.1); Total Bilirubin 0.7 mg/dL (0.2-1.3)
[2019-06-08 16:38] LABS: Appearance,Urine Cloudy (Clear); Bacteria,Urine Many /hpf; Bilirubin,Urine Negative (Negative); Blood,Urine Negative (Negative); Color,Urine Yellow; Glucose,Urine (UA) Negative (Negative); Hyaline Casts,Urine 1 /lpf (0-2); Ketones,Urine Negative (Negative); Leukocyte Esterase,Urine Large (Negative); Mucus,Urine Rare /hpf; Nitrite,Urine Negative (Negative); PH, Urine 6.5 (5.0-8.0); Protein,Urine Trace (Negative); RBC,Urine 3 /hpf (0-5); Specific Gravity,Urine 1.012 (1.001-1.035); Squamous Epithelial Cell,Urine 9 /hpf (0-4); Urobilinogen,Urine <2.0 mg/dL (<2.0); WBC,Urine 111 /hpf (0-5)
--- NOTE | 2019-06-08 17:00 | XR ---
EXAMINATION TYPE: XR KUB DATE OF EXAM: 06/08/2019 4:54 PM CLINICAL HISTORY: Mid abdominal pain TECHNIQUE: Single upright image of the abdomen is obtained. COMPARISON: None. FINDINGS: Scattered gas is seen in non-distended small bowel loops. Gas and fecal material is seen in non-distended colon. No abnormal calcification or pneumoperitoneum. The lung bases are clear and the osseous structures are intact. Moderate degenerative changes of lumbar spine and hips. IMPRESSION: Nonobstructive bowel gas pattern.
[2019-06-08] MEDS ORDERED: cefTRIAXone IN SWFI 1,000 MG/10 ML SYRINGE IVP STA (17:17)
--- NOTE | 2019-06-08 17:55 | US ---
EXAMINATION TYPE: US gallbladder DATE OF EXAM: 06/08/2019 COMPARISON: NONE CLINICAL HISTORY: Acute pancreatitis. EXAM MEASUREMENTS: Liver Length: 14.9 cm Gallbladder Wall: 0.2 cm CBD: 0.6 cm Right Kidney: 10.9 x 5.5 x 5.4 cm Pancreas: visualized portions appear echogenic Liver: There is increased echogenicity of the hepatic parenchyma with diminished visualization of th e portal triads most commonly relating to hepatic steatosis and limiting evaluation for underlying he patic masses. Gallbladder: No stones seen Evidence for sonographic Castro's sign: No CBD: wnl Right Kidney: No hydronephrosis or masses seen IMPRESSION: 1. Heterogenous echotexture of the visualized pancreas, although some portions are obscured by bowel gas. Findings are likely on the basis of this patient's known pancreatitis. No peripancreatic fluid c ollection is imaged. 2. Diffusely heterogenous coarsened echotexture of the liver. This may be on the basis of hepatic shivani atosis or other hepatocellular disease.
[2019-06-08] MEDS ORDERED: NALOXONE 0.4 MG/ML 1 ML VIAL IV PRN (18:07)
[2019-06-08] MEDS ORDERED: ARTIFICIAL TEARS-HYPROMELLOSE DROPS 15 ML BTL BOTH EYES PRN (19:11)
[2019-06-08] MEDS ORDERED: LIDOCAINE 4% CREAM 5 GM TUBE TOPICAL PRN (19:11)
[2019-06-08] MEDS: SODIUM CHLORIDE 0.9% 1,000 ML IV SCH (19:20)
[2019-06-08] MEDS: CARVEDILOL 12.5 MG TAB PO SCH (22:31)
[2019-06-08] MEDS: traZODone HCL 50 MG TAB PO SCH (22:31)
[2019-06-08] MEDS: LISINOPRIL-HCTZ 20-25 MG 1 EACH TAB PO SCH (22:32)
[2019-06-08] MEDS: MAGNESIUM OXIDE 400 MG TAB PO SCH (22:32)
[2019-06-08] MEDS: HYDROmorphone 0.5 MG/0.5 ML SYRINGE IVP PRN (22:39)
[2019-06-09] MEDS: HYDROmorphone 0.5 MG/0.5 ML SYRINGE IVP PRN ×5 (03:02→20:11)
[2019-06-09] MEDS: SODIUM CHLORIDE 0.9% 1,000 ML IV SCH ×2 (03:28→12:51)
[2019-06-09] MEDS: ALBUTEROL NEBULIZED 2.5 MG/3 ML INHALATION PRN ×2 (07:22→19:25)
[2019-06-09] MEDS: SYMBICORT 80-4.5 MCG INHALER INHALATION PRN ×2 (07:23→19:25)
[2019-06-09] MEDS: CITALOPRAM HYDROBROMIDE 20 MG TAB PO SCH (07:52)
[2019-06-09] MEDS: CARVEDILOL 12.5 MG TAB PO SCH ×2 (07:52→15:37)
[2019-06-09] MEDS: PANTOPRAZOLE 40 MG/10 ML VIAL IV SCH (07:52)
[2019-06-09] MEDS: LISINOPRIL-HCTZ 20-25 MG 1 EACH TAB PO SCH ×2 (07:53→20:24)
[2019-06-09 10:00] LABS: Basophils # (A) 0.1 k/uL (0-0.2); Basophils % (A) 1 %; Eosinophils # (A) 0.4 k/uL (0-0.7); Eosinophils % (A) 3 %; HGB 11.5 gm/dL (11.4-16.0); Lymphocytes # (A) 1.2 k/uL (1.0-4.8); Lymphocytes % (A) 9 %; MCH 27.5 pg (25.0-35.0); MCHC 31.2 g/dL (31.0-37.0); MCV 88.1 fL (80.0-100.0); Mean Platelet Volume 9.4; Monocytes # (A) 0.7 k/uL (0-1.0); Monocytes % (A) 5 %; Neutrophils # (A) 10.5 k/uL (1.3-7.7); Neutrophils % (A) 81 %; Platelet Count 202 k/uL (150-450); RBC 4.19 m/uL (3.80-5.40); RDW 13.1 % (11.5-15.5)
--- NOTE | 2019-06-09 10:14 | P.HPIM ---
History of Present Illness This is a pleasant 69 years old female with past medical history of asthma/COPD, GI bleed, hypertension, osteoarthritis, sleep apnea on CPAP, tinnitus. Presents because of abdominal pain of 2 day duration, the patient is an epigastric, radiating to the left flank and to the back, felt like dull with statin., It was severe when she came in currently is better with pain medication associated with nausea but no vomiting, and regular bowel movements. No urinary symptoms like no dysuria or change in frequency No chest pain or dyspnea. No previous episodes of similar pain or increasing otitis No smoking alcohol or illicit drugs Vitals stable and patient is afebrile. On admission her WBC was 16.4 K, currently 13 K. Risks of CBC, INR are unremarkable. Creatinine 1.18 which is slightly elevated over its at baseline of 1.3-1.4. Amylase is 525, lipase elevated at 1773,urinalysis is suspicious of infection, urine culture is pending. EKG showing normal sinus rhythm at [address]-T changes. KUB: Nonobstructive bowel gas pattern. Gallbladder ultrasound: Common bile duct within normal limits at 0.6 cm, possible pancreatitis and hepatic steatosis or hepatocellular disease In the emergency room patient was started on Rocephin, started on Dilaudid and IV fluids normal saline at 200 mL per hour, also she is on IV Protonix Review of Systems CONSTITUTIONAL: No fever, no malaise, no fatigue. HEENT: No recent visual problems or hearing problems. Denied any sore throat. CARDIOVASCULAR: No orthopnea, PND, no palpitations, no syncope. PULMONARY: No shortness of breath, no cough, no hemoptysis. GASTROINTESTINAL: No diarrhea, Normoactive bowel sounds. NEUROLOGICAL: No headaches, no weakness, no numbness. HEMATOLOGICAL: Denies any bleeding or petechiae. GENITOURINARY: Denies any burning micturition, frequency, or urgency. MUSCULOSKELETAL/RHEUMATOLOGICAL: Denies any joint pain, swelling, or any muscle pain. ENDOCRINE: Denies any polyuria or polydipsia. Past Medical History Past Medical History: Asthma, COPD, GI Bleed, Hypertension, Osteoarthritis (OA), Sleep Apnea/CPAP/BIPAP Additional Past Medical History / Comment(s): Tinnitus; OA in backs, knees, hands; COPD; uses home CPAP; gastric ulcers in her 30s History of Any Multi-Drug Resistant Organisms: None Reported Past Surgical History: Hysterectomy, Tonsillectomy Additional Past Surgical History / Comment(s): Vertebral (neck) surgery Past Psychological History: Anxiety Smoking Status: Former smoker Past Alcohol Use History: None Reported Past Drug Use History: None Reported - Past Family History Father Family Medical History: Unable to Obtain Mother Family Medical History: No Reported History, Cancer Additional Family Medical History / Comment(s): Esophageal cancer, arthritis Medications and Allergies Home Medications Medication Instructions Recorded Confirmed Type Albuterol Sulfate [Proair Hfa] 2 puff INHALATION RT-Q6H PRN 09/11/18 06/08/19 History Carvedilol 25 mg PO BID 09/11/18 06/08/19 History Citalopram Hydrobromide [CeleXA] 20 mg PO DAILY 09/11/18 06/08/19 History Fluticasone/Salmeterol [Advair 1 puff INHALATION RT-BID PRN 09/11/18 06/08/19 History 250-50 Diskus] Lisinopril-Hctz 20-25 mg 1 tab PO BID 09/11/18 06/08/19 History [Zestoretic 20-25] Meloxicam 7.5 mg PO DAILY 09/11/18 06/08/19 History Acetaminophen Tab [Tylenol Tab] 650 mg PO Q6H PRN 06/08/19 06/08/19 History Artificial Tears-Hypromellose 1 drop BOTH EYES TID PRN 06/08/19 06/08/19 History [Artificial Tear Drops] Lidocaine HCl [Aspercreme] 1 applic TOPICAL DAILY PRN 06/08/19 06/08/19 History Magnesium 400 mg PO HS 06/08/19 06/08/19 History rOPINIRole HCL [Requip] 2 mg PO HS 06/08/19 06/08/19 History traZODone HCL 50 mg PO HS 06/08/19 06/08/19 History Allergies Allergy/AdvReac Type Severity Reaction Status Date / Time No Known Allergies Allergy Verified 06/08/19 17:58 Physical Exam Vitals: Vital Signs Temp Pulse Pulse Resp BP BP Pulse Ox 06/09/19 07:33 84 06/09/19 07:23 83 18 06/09/19 04:45 97.8 F 80 20 106/64 92 L 06/09/19 00:00 72 20 06/08/19 21:00 98.6 F 72 20 148/66 95 06/08/19 19:36 18 06/08/19 19:35 98.1 F 74 18 142/82 93 L 06/08/19 17:21 98.4 F 78 18 142/82 95 06/08/19 15:25 99.2 F 73 16 146/74 96 Intake and Output 06/08/19 06/09/19 06/09/19 22:59 06:59 14:59 Intake Total 0 0 Balance 0 0 Intake: Oral 0 0 Other: # Voids 2 # Bowel Movements 0 0 Weight 133.81 kg GENERAL: The patient is alert and oriented x3, not in any acute distress. Well developed, well nourished. HEENT: Pupils are round and equally reacting to light. EOMI. No scleral icterus. No conjunctival pallor. Normocephalic, atraumatic. No pharyngeal erythema. No thyromegaly. CARDIOVASCULAR: S1 and S2 present. No murmurs, rubs, or gallops. PULMONARY: Chest is clear to auscultation, no wheezing or crackles. -ABDOMEN: Soft, mild epigastric tenderness with no guarding or rebound tenderness, nondistended, normoactive bowel sounds. No palpable organomegaly. 2 vertebral angle tenderness, mild left flank tenderness MUSCULOSKELETAL: No joint swelling or deformity. EXTREMITIES: No cyanosis, clubbing, or pedal edema. NEUROLOGICAL: Gross neurological examination did not reveal any focal deficits. SKIN: No rashes. No petechiae Results CBC & Chem 7: 06/09/19 09:11 06/08/19 15:37 Labs: Abnormal Lab Results - Last 24 Hours (Table) 06/08/19 06/08/19 06/08/19 Range/Units 15:37 15:37 15:37 WBC 16.4 H (3.8-10.6) k/uL Neutrophils # 13.2 H (1.3-7.7) k/uL Basophils # 0.3 H (0-0.2) k/uL Creatinine 1.18 H (0.52-1.04) mg/dL Glucose 116 H (74-99) mg/dL Amylase 525 H* (30-110) U/L Lipase 1773 H (23-300) U/L Urine Appearance Cloudy H (Clear) Urine Protein Trace H (Negative) Ur Leukocyte Esterase Large H (Negative) Urine WBC 111 H (0-5) /hpf Ur Squamous Epith Cells 9 H (0-4) /hpf Urine Bacteria Many H (None) /hpf Urine Mucus Rare H (None) /hpf 06/09/19 Range/Units 09:11 WBC 13.0 H (3.8-10.6) k/uL Neutrophils # 10.5 H (1.3-7.7) k/uL Basophils # (0-0.2) k/uL Creatinine (0.52-1.04) mg/dL Glucose (74-99) mg/dL Amylase (30-110) U/L Lipase (23-300) U/L Urine Appearance (Clear) Urine Protein (Negative) Ur Leukocyte Esterase (Negative) Urine WBC (0-5) /hpf Ur Squamous Epith Cells (0-4) /hpf Urine Bacteria (None) /hpf Urine Mucus (None) /hpf Microbiology - Last 24 Hours (Table) 06/08/19 15:37 Urine Culture - Preliminary Urine,Voided Thrombosis Risk Factor Assmnt - Choose All That Apply Any of the Below Risk Factors Present?: Yes Each Factor Represents 1 point: Obesity (BMI >25) Other Risk Factors: Yes Each Risk Factor Represents 2 Points: Age 61-74 years Other congenital or acquired thrombophilia - If yes, enter type in comment: No Thrombosis Risk Factor Assessment Total Risk Factor Score: 3 Thrombosis Risk Factor Assessment Level: Moderate Risk Assessment and Plan Assessment: Acute pancreatitis Possible Acute urinary tract infection Hypertension Osteoarthritis History of asthma/COPD, not in acute process History of GI bleed secondary to peptic ulcer disease, not an active issue Sleep apnea on CPAP History of tinnitus Plan: This is a pleasant 69 years old female who presents with acute pancreatitis. Continue with IV fluids, pain management, bowel rest. GI consult Labs and medication were reviewed.. Continue same treatment. Continue with symptomatic treatment. Resume home medication. Monitor lytes and vitals. DVT and GI prophylaxis. Further recommendations of the clinical course of the patient DVT prophylaxis: Subcutaneous heparin GI Prophylaxis: Pepcid
[2019-06-09 10:24] LABS: Albumin 3.3 g/dL (3.5-5.0); Calcium 8.4 mg/dL (8.4-10.2); Potassium 3.3 mmol/L (3.5-5.1); Total Bilirubin 0.8 mg/dL (0.2-1.3)
[2019-06-09] MEDS ORDERED: Potassium Replacement Protocol 1 EACH MISC MISCELLANE PRN (12:56)
[2019-06-09] MEDS: POTASSIUM CHLORIDE ER 20 MEQ TAB.ER PO SCH ×2 (13:38→14:20)
--- NOTE | 2019-06-09 19:03 | CONS ---
CONSULTATION DATE OF DICTATION: June 09, 2019. REASON FOR CONSULTATION: Acute pancreatitis. HISTORY OF PRESENT ILLNESS: The patient is a 69-year-old pleasant white female admitted to hospital with acute onset of severe epigastric pain that started at 2:00 am yesterday. The pain continued to progressively get worse and the pain radiated to the left upper quadrant and into her back. She had some nausea but no emesis. Never had these symptoms in the past. She came into the emergency room and was noted to have elevated lipase consistent with acute pancreatitis. The patient is feeling somewhat better today. Still has some epigastric discomfort. No further episodes of nausea, vomiting. She has no history of alcohol use. No history of hypercholesterolemia. No history of gallbladder pathology. She did have an ultrasound of the gallbladder done that showed normal gallbladder with no gallstones or biliary ductal dilation. No family history of acute pancreatitis. PAST MEDICAL HISTORY: Significant for hypertension, COPD, degenerative joint disease, anxiety, depression. MEDICATIONS: At home include albuterol, carvedilol, Celexa, Advair, Zestoretic, meloxicam, Tylenol, Artificial Tears, magnesium, Requip, and trazodone. ALLERGIES: None. SOCIAL HISTORY: Former smoker. No alcohol use. FAMILY HISTORY: Father unable to obtain. Mother had esophageal cancer. PAST SURGICAL HISTORY: Hysterectomy tonsillectomy and neck surgery. REVIEW OF SYMPTOMS: CARDIOPULMONARY: No chest pain, shortness of breath. no dysuria or hematuria. MUSCULOSKELETAL unremarkable. SKIN unremarkable. ENDOCRINE unremarkable. PSYCHIATRIC unremarkable other than anxiety and depression. NEUROLOGY unremarkable. ENT/vision unremarkable. CONSTITUTIONAL: No recent weight loss. No fever, chills, night sweats. PHYSICAL EXAMINATION: Blood pressure is 106/64, pulse rate 80, temperature 97.8. HEENT examination unremarkable. Conjunctivae pink. Sclerae anicteric. Oral cavity no lesions. NECK: No JVD or lymph node enlargement. CHEST: Clear to auscultation. HEART: Regular rate and rhythm. ABDOMEN: Soft, it was obese. There was mild tenderness in the epigastric area and in the left upper quadrant area. The rest of the abdomen was benign. Bowel sounds are positive. No organomegaly. EXTREMITIES: No pedal edema. SKIN: No rashes. NEUROLOGIC: Alert and oriented x3. No focal deficits. LABS: WBC at the time of admission, 16.4, hemoglobin 13, platelets normal, basic metabolic panel is within normal limits. PT/INR normal. ALT, AST, T-bilirubin and alkaline phosphatase are normal. Amylase 525, lipase is 1773. Repeat labs today, amylase is down to 202 and lipase is 316. Rest of the labs are within normal limits. WBC count is 13. IMPRESSION: 1. This lady presents to the hospital with acute onset of severe epigastric pain, left upper quadrant abdominal pain radiating to the back for the last 2 days duration with the sudden onset of symptoms and elevated lipase and amylase consistent with acute pancreatitis. She has no history of alcohol use. Ultrasound of the gallbladder did not show any evidence of gallstones or biliary ductal dilation. She has no history of hypercholesteremia in the past. No family history of acute pancreatitis. At this time, etiology of pancreatitis remains unclear, which needs to be investigated. The symptoms have significantly improved and so did the lipase and amylase. 2. History of hypertension. 3. Anxiety and depression. 4. Chronic obstructive pulmonary disease. RECOMMENDATIONS: 1. We will start on a clear liquid diet. 2. Repeat labs in the morning. 3. Requested for fasting serum triglycerides and IgG4 levels to evaluate for autoimmune pancreatitis. 4. If labs improve by tomorrow, she can be discharged home with an outpatient followup for possible endoscopic ultrasound of the pancreas on an outpatient basis. Thank you for this consultation. MMQUINNL / MARION: [id number] /
[2019-06-09] MEDS: traZODone HCL 50 MG TAB PO SCH (20:15)
[2019-06-09] MEDS: MAGNESIUM OXIDE 400 MG TAB PO SCH (20:15)
[2019-06-09] MEDS: ONDANSETRON 4 MG/2 ML VIAL IVP PRN (21:10)
[2019-06-10] MEDS: SODIUM CHLORIDE 0.9% 1,000 ML IV SCH ×3 (02:49→22:17)
[2019-06-10] MEDS: HYDROmorphone 0.5 MG/0.5 ML SYRINGE IVP PRN ×4 (03:19→20:58)
--- NOTE | 2019-06-10 07:13 | P.PN ---
Subjective This is a pleasant 69 years old female with past medical history of asthma/COPD, GI bleed, hypertension, osteoarthritis, sleep apnea on CPAP, tinnitus. Presents because of abdominal pain of 2 day duration, the patient is an epigastric, radiating to the left flank and to the back, felt like dull with statin., It was severe when she came in currently is better with pain medication associated with nausea but no vomiting, and regular bowel movements. No urinary symptoms like no dysuria or change in frequency No chest pain or dyspnea. No previous episodes of similar pain or increasing otitis No smoking alcohol or illicit drugs Vitals stable and patient is afebrile. On admission her WBC was 16.4 K, currently 13 K. Risks of CBC, INR are unremarkable. Creatinine 1.18 which is slightly elevated over its at baseline of 1.3-1.4. Amylase is 525, lipase elevated at 1773,urinalysis is suspicious of infection, urine culture is pending. EKG showing normal sinus rhythm at [address]-T changes. KUB: Nonobstructive bowel gas pattern. Gallbladder ultrasound: Common bile duct within normal limits at 0.6 cm, possible pancreatitis and hepatic steatosis or hepatocellular disease In the emergency room patient was started on Rocephin, started on Dilaudid and IV fluids normal saline at 200 mL per hour, also she is on IV Protonix 06/10/2019 Patient has slight worsening of epigastric abdominal pain after started on a clear liquid diet yesterday. No nausea vomiting, no change in bowel movement. Urine culture are still pending and patient remains on Rocephin for now. Patient remains on IV fluids and to 100 and pain medication. gi input is appreciated and they recommended outpatient follow-up, patient informed and agr ees Review of systems CONSTITUTIONAL: No fever, no malaise, no fatigue. HEENT: No recent visual problems or hearing problems. Denied any sore throat. CARDIOVASCULAR: No orthopnea, PND, no palpitations, no syncope. PULMONARY: No shortness of breath, no cough, no hemoptysis. GASTROINTESTINAL: No diarrhea, Normoactive bowel sounds. NEUROLOGICAL: No headaches, no weakness, no numbness. HEMATOLOGICAL: Denies any bleeding or petechiae. GENITOURINARY: Denies any burning micturition, frequency, or urgency. MUSCULOSKELETAL/RHEUMATOLOGICAL: Denies any joint pain, swelling, or any muscle pain. ENDOCRINE: Denies any polyuria or polydipsia. Objective - Vital Signs Vital signs: Vital Signs Temp 98.4 F 06/10/19 04:45 Pulse 75 06/10/19 04:45 Resp 20 06/10/19 04:45 BP 117/71 06/10/19 04:45 Pulse Ox 92 L 06/10/19 04:45 Intake & Output 06/09/19 06/10/19 06/10/19 18:59 06:59 18:59 Intake Total 1390 300 Output Total 1 Balance 1390 299 Intake: IV 850 Sodium Chloride 0.9% 1, 800 000 ml @ 100 mls/hr IV . Q10H LOIS Rx#:[id number] cefTRIAXone 1 gm In 50 Sodium Chloride 0.9% 50 ml @ 100 mls/hr IVPB Q24H LOIS Rx#:[id number] Oral 540 300 Output: Stool 1 Other: # Voids 3 1 # Bowel Movements 0 - Exam GENERAL: The patient is alert and oriented x3, not in any acute distress. Well developed, well nourished. HEENT: Pupils are round and equally reacting to light. EOMI. No scleral icterus. No conjunctival pallor. Normocephalic, atraumatic. No pharyngeal erythema. No thyromegaly. CARDIOVASCULAR: S1 and S2 present. No murmurs, rubs, or gallops. PULMONARY: Chest is clear to auscultation, no wheezing or crackles. -ABDOMEN: Soft, mild epigastric tenderness with no guarding or rebound tenderness, nondistended, normoactive bowel sounds. No palpable organomegaly. 2 vertebral angle tenderness, mild left flank tenderness MUSCULOSKELETAL: No joint swelling or deformity. EXTREMITIES: No cyanosis, clubbing, or pedal edema. NEUROLOGICAL: Gross neurological examination did not reveal any focal deficits. SKIN: No rashes. No petechiae - Labs CBC & Chem 7: 06/09/19 09:11 06/09/19 17:16 Labs: Abnormal Lab Results - Last 24 Hours (Table) 06/09/19 06/09/19 Range/Units 09:11 09:11 WBC 13.0 H (3.8-10.6) k/uL Neutrophils # 10.5 H (1.3-7.7) k/uL Potassium 3.3 L (3.5-5.1) mmol/L Creatinine 1.27 H (0.52-1.04) mg/dL Glucose 114 H (74-99) mg/dL Total Protein 6.0 L (6.3-8.2) g/dL Albumin 3.3 L (3.5-5.0) g/dL LDL Cholesterol, Calc 117 H (0-99) mg/dL Amylase 202 H (30-110) U/L Lipase 316 H (23-300) U/L Microbiology - Last 24 Hours (Table) 06/08/19 15:37 Urine Culture - Final Urine,Voided Assessment and Plan Assessment: Acute pancreatitis Possible Acute urinary tract infection Hypertension Osteoarthritis History of asthma/COPD, not in acute process History of GI bleed secondary to peptic ulcer disease, not an active issue Sleep apnea on CPAP History of tinnitus Plan: This is a pleasant 69 years old female who presents with acute pancreatitis. Continue with IV fluids, pain management, bowel rest. GI consult Labs and medication were reviewed.. Continue same treatment. Continue with symptomatic treatment. Resume home medication. Monitor lytes and vitals. DVT and GI prophylaxis. Further recommendations of the clinical course of the patient DVT prophylaxis: Subcutaneous heparin GI Prophylaxis: Pepcid
[2019-06-10 07:51] LABS: Basophils # (A) 0.1 k/uL (0-0.2); Basophils % (A) 0 %; Eosinophils # (A) 0.6 k/uL (0-0.7); Eosinophils % (A) 5 %; HCT 34.9 % (34.0-46.0); HGB 10.9 gm/dL (11.4-16.0); Lymphocytes # (A) 1.5 k/uL (1.0-4.8); Lymphocytes % (A) 13 %; MCH 28.1 pg (25.0-35.0); MCHC 31.4 g/dL (31.0-37.0); MCV 89.7 fL (80.0-100.0); Mean Platelet Volume 9.6; Monocytes # (A) 0.6 k/uL (0-1.0); Monocytes % (A) 5 %; Neutrophils # (A) 8.6 k/uL (1.3-7.7); Neutrophils % (A) 75 %; Platelet Count 196 k/uL (150-450); RBC 3.89 m/uL (3.80-5.40); RDW 13.1 % (11.5-15.5); WBC 11.5 k/uL (3.8-10.6)
[2019-06-10 08:03] LABS: Calcium 8.1 mg/dL (8.4-10.2); Potassium 3.5 mmol/L (3.5-5.1); Total Bilirubin 0.7 mg/dL (0.2-1.3); Total Protein 5.6 g/dL (6.3-8.2)
[2019-06-10] MEDS: LISINOPRIL-HCTZ 20-25 MG 1 EACH TAB PO SCH ×3 (08:38→21:12)
[2019-06-10] MEDS: PANTOPRAZOLE 40 MG/10 ML VIAL IV SCH (08:38)
[2019-06-10] MEDS: CITALOPRAM HYDROBROMIDE 20 MG TAB PO SCH (08:38)
[2019-06-10] MEDS: CARVEDILOL 12.5 MG TAB PO SCH ×2 (08:38→17:47)
[2019-06-10] MEDS: ACETAMINOPHEN TAB 325 MG TAB PO PRN (08:49)
--- NOTE | 2019-06-10 17:24 | PN ---
PROGRESS NOTE DATE OF DICTATION: 06/10/2019 Patient is a 69-year-old pleasant white female admitted to the hospital with acute onset of severe epigastric pain radiating to the left upper quadrant area and to the back for the last 2 days' duration. She was noted to have elevated lipase consistent with acute pancreatitis. The patient felt much better yesterday but this morning started having more epigastric pain and pain in the left back area. She denies any nausea or vomiting. She also feels very constipated and bloated; did not have any bowel movements for the last 2 days. She reports no fever, chills or night sweats. PHYSICAL EXAMINATION: She appears comfortable. No apparent distress. VITAL SIGNS: Stable. Blood pressure is 91/88, pulse rate 71, temperature 98.9. HEENT examination unremarkable. Conjunctivae pink. Sclerae anicteric. Oral cavity no lesions. NECK: No JVD or lymph node enlargement. CHEST: Clear to auscultation. HEART: Regular rate and rhythm. ABDOMEN: Soft. It was slightly distended. There was tenderness in the epigastric area. Tenderness in the left upper quadrant area. Bowel sounds were positive. EXTREMITIES: No pedal edema. SKIN: No rashes. NEUROLOGIC: Alert and oriented x3. No focal deficits. LABS: Labs from today show WBC 11.5, hemoglobin 10.9, platelets normal. BUN is 19, creatinine 1.42. Amylase is down to 76 and lipase is down to 144. IMPRESSION: 1. Acute pancreatitis with elevated amylase and lipase, which have normalized. The patient continues to have persistent epigastric pain radiating from the left upper quadrant area into the back, probably related to pancreatitis. She did have an ultrasound of the gallbladder done at the time of admission to the hospital that showed no gallstones. Her serum transaminases are within normal limits. Amylase and lipase have normalized. Presently on a low-fat diet, tolerating well. 2. Slightly elevated BUN and creatinine, which have been slowly progressively getting worse since admission to the hospital. RECOMMENDATIONS: 1. Continue with low-fat diet. 2. Pain medications as needed. 3. MiraLAX for constipation. 4. If she still has persistent symptoms requiring pain medications, we will consider a CT of the abdomen and pelvis to evaluate the pancreas. Plan was discussed with the patient. She is agreeable to it. Thank you for this consultation. MMODL / IJN: [id number] /
[2019-06-10] MEDS: POLYETHYLENE GLYCOL 3350 17 GM POWD.PACK PO SCH (17:47)
[2019-06-10] MEDS: traZODone HCL 50 MG TAB PO SCH (20:56)
[2019-06-10] MEDS: MAGNESIUM OXIDE 400 MG TAB PO SCH (20:56)
[2019-06-11] MEDS: HYDROmorphone 0.5 MG/0.5 ML SYRINGE IVP PRN ×3 (02:59→13:03)
[2019-06-11] MEDS: SODIUM CHLORIDE 0.9% 1,000 ML IV SCH ×3 (05:52→21:54)
--- NOTE | 2019-06-11 07:21 | P.PN ---
Subjective This is a pleasant 69 years old female with past medical history of asthma/COPD, GI bleed, hypertension, osteoarthritis, sleep apnea on CPAP, tinnitus. Presents because of abdominal pain of 2 day duration, the patient is an epigastric, radiating to the left flank and to the back, felt like dull with statin., It was severe when she came in currently is better with pain medication associated with nausea but no vomiting, and regular bowel movements. No urinary symptoms like no dysuria or change in frequency No chest pain or dyspnea. No previous episodes of similar pain or increasing otitis No smoking alcohol or illicit drugs Vitals stable and patient is afebrile. On admission her WBC was 16.4 K, currently 13 K. Risks of CBC, INR are unremarkable. Creatinine 1.18 which is slightly elevated over its at baseline of 1.3-1.4. Amylase is 525, lipase elevated at 1773,urinalysis is suspicious of infection, urine culture is pending. EKG showing normal sinus rhythm at [address]-T changes. KUB: Nonobstructive bowel gas pattern. Gallbladder ultrasound: Common bile duct within normal limits at 0.6 cm, possible pancreatitis and hepatic steatosis or hepatocellular disease In the emergency room patient was started on Rocephin, started on Dilaudid and IV fluids normal saline at 200 mL per hour, also she is on IV Protonix 06/10/2019 Patient has slight worsening of epigastric abdominal pain after started on a clear liquid diet yesterday. No nausea vomiting, no change in bowel movement. Urine culture are still pending and patient remains on Rocephin for now. Patient remains on IV fluids and to 100 and pain medication. gi input is appreciated and they recommended outpatient follow-up, patient informed and agr ees 06/11/2019 Patient still complaining of from abdominal pain in the upper abdomen and to the left side she needed pain medication and 3 AM, 5 AM, she is using ice pack and this morning which is down her pain. No nausea vomiting and she is tolerating soft diet, she had 1 dark brown bowel movement since yesterday. No fever and her blood pressure is 108/59. WBC is coming down to 11.5 K yesterday, however her creatinine went up to 1.4, however patient creatinine was ranging between 1.3-1.4 and 2019. She is on normal saline at 1 50 mL/h, Protonix daily and pain medication. GI team are following the case closely. No abdominal pain persists patient might need repeat CAT scan of the abdomen Objective - Vital Signs Vital signs: Vital Signs Temp 98.1 F 06/11/19 04:54 Pulse 73 06/11/19 04:54 Resp 18 06/11/19 04:54 BP 108/59 06/11/19 04:54 Pulse Ox 92 L 06/11/19 04:54 Intake & Output 06/10/19 06/11/19 06/11/19 18:59 06:59 18:59 Output Total 1 Balance -1 Output: Stool 1 Other: # Voids 3 3 # Bowel Movements 1 - Exam GENERAL: The patient is alert and oriented x3, not in any acute distress. Well developed, well nourished. HEENT: Pupils are round and equally reacting to light. EOMI. No scleral icterus. No conjunctival pallor. Normocephalic, atraumatic. No pharyngeal erythema. No thyromegaly. CARDIOVASCULAR: S1 and S2 present. No murmurs, rubs, or gallops. PULMONARY: Chest is clear to auscultation, no wheezing or crackles. -ABDOMEN: Soft, mild epigastric tenderness with no guarding or rebound tenderness, nondistended, normoactive bowel sounds. No palpable organomegaly. 2 vertebral angle tenderness, mild left flank tenderness MUSCULOSKELETAL: No joint swelling or deformity. EXTREMITIES: No cyanosis, clubbing, or pedal edema. NEUROLOGICAL: Gross neurological examination did not reveal any focal deficits. SKIN: No rashes. No petechiae - Labs CBC & Chem 7: 06/10/19 07:20 06/10/19 07:20 Labs: Abnormal Lab Results - Last 24 Hours (Table) 06/10/19 06/10/19 Range/Units 07:20 07:20 WBC 11.5 H (3.8-10.6) k/uL Hgb 10.9 L (11.4-16.0) gm/dL Neutrophils # 8.6 H (1.3-7.7) k/uL BUN 19 H (7-17) mg/dL Creatinine 1.42 H (0.52-1.04) mg/dL Calcium 8.1 L (8.4-10.2) mg/dL Total Protein 5.6 L (6.3-8.2) g/dL Albumin 3.0 L (3.5-5.0) g/dL Assessment and Plan Assessment: Acute pancreatitis Possible Acute urinary tract infection Hypertension Osteoarthritis possible chronic kidney disease, stage III History of asthma/COPD, not in acute process History of GI bleed secondary to peptic ulcer disease, not an active issue Sleep apnea on CPAP History of tinnitus Plan: This is a pleasant 69 years old female who presents with acute pancreatitis. Continue with IV fluids, pain management, advance diet as tolerated. GI consult. Patient might benefit from CAT scan of the abdomen if pain persists, follow-up recommendation by GI team Labs and medication were reviewed.. Continue same treatment. Continue with symptomatic treatment. Resume home medication. Monitor lytes and vitals. DVT and GI prophylaxis. Further recommendations of the clinical course of the patient DVT prophylaxis: Subcutaneous heparin GI Prophylaxis: Pepcid
[2019-06-11 08:30] LABS: IgG Subclass 3 45.8 mg/dL (11.0-85.0); IgG Subclass 4 28.5 mg/dL (3.0-175.0)
[2019-06-11] MEDS: CARVEDILOL 12.5 MG TAB PO SCH ×2 (08:58→17:24)
[2019-06-11] MEDS: PANTOPRAZOLE 40 MG/10 ML VIAL IV SCH (08:58)
[2019-06-11] MEDS: POLYETHYLENE GLYCOL 3350 17 GM POWD.PACK PO SCH (08:58)
[2019-06-11] MEDS: CITALOPRAM HYDROBROMIDE 20 MG TAB PO SCH (08:58)
[2019-06-11] MEDS: LISINOPRIL-HCTZ 20-25 MG 1 EACH TAB PO SCH ×2 (08:58→21:04)
[2019-06-11] MEDS: ONDANSETRON 4 MG/2 ML VIAL IVP PRN (09:07)
[2019-06-11 09:34] LABS: Basophils # (A) 0.2 k/uL (0-0.2); Basophils % (A) 2 %; Eosinophils # (A) 0.5 k/uL (0-0.7); Eosinophils % (A) 5 %; HCT 34.2 % (34.0-46.0); HGB 10.7 gm/dL (11.4-16.0); Hypochromasia Slight; Lymphocytes % (A) 10 %; MCH 28.1 pg (25.0-35.0); MCHC 31.2 g/dL (31.0-37.0); Mean Platelet Volume 10.2; Monocytes # (A) 0.6 k/uL (0-1.0); Monocytes % (A) 6 %; Neutrophils # (A) 7.5 k/uL (1.3-7.7); Neutrophils % (A) 75 %; Platelet Count 200 k/uL (150-450); RDW 13.3 % (11.5-15.5); WBC 9.9 k/uL (3.8-10.6)
[2019-06-11 09:48] LABS: Albumin 2.9 g/dL (3.5-5.0); Calcium 7.9 mg/dL (8.4-10.2); Magnesium 2.1 mg/dL (1.6-2.3); Potassium 3.7 mmol/L (3.5-5.1); Total Bilirubin 0.7 mg/dL (0.2-1.3); Total Protein 5.6 g/dL (6.3-8.2)
[2019-06-11] MEDS: IOPAMIDOL CONTRAST (ORAL USE) VIAL PO PRN ×2 (11:46→12:57)
--- NOTE | 2019-06-11 14:27 | CT ---
EXAMINATION TYPE: CT abdomen pelvis w con DATE OF EXAM: 06/11/2019 COMPARISON: None HISTORY: LUQ pain, pancreatitis CT DLP: 2516.5 mGycm CONTRAST: CT scan of the abdomen and pelvis is performed with Oral Contrast and with IV Contrast, patient injec codi with 80 mL of Isovue 300. FINDINGS: LUNG BASES-: No visible nodule. No infiltrate. LIVER/GB: No calcified gallstones. No space occupying hepatic lesion. Biliary tree is of normal ca liber. PANCREAS: There is edema and appear a pancreatic inflammatory change noted to involve the pancreatic tail and distal body. No evidence for a peripancreatic collection such as pseudocyst or abscess. SPLEEN: No splenic enlargement. No lesion seen. ADRENALS: No nodule. No thickening. KIDNEYS/BLADDER: Mild atrophic changes of the left kidney. No hydronephrosis. No nephrolithiasis. No distinct renal mass. Urinary bladder grossly unremarkable. BOWEL: Normal appendix. Normal bowel caliber. No inflammation. GENITAL ORGANS: No gross abnormality. LYMPH NODES: No greater than 1cm abdominal or pelvic lymph nodes are appreciated. AORTA: No significant abnormality. OSSEOUS STRUCTURES: No significant abnormality is seen. OTHER: No significant additional abnormality is seen. IMPRESSION: 1. Findings compatible with uncomplicated pancreatitis.
[2019-06-11] MEDS ORDERED: HYDROcodone/APAP 5-325MG 1 EACH TAB PO PRN (15:16)
--- NOTE | 2019-06-11 16:35 | PN ---
PROGRESS NOTE DATE OF SERVICE: 06/11/2019 Patient is a 69-year-old, pleasant, white female admitted to the hospital with acute pancreatitis. She was doing better until yesterday. This morning she had severe epigastric and left upper quadrant abdominal pain. She was scheduled for a CT of the abdomen and pelvis that showed inflammatory changes in the pancreas with edema noted in the pancreatic tail and distal body consistent with acute pancreatitis. No pancreatic fluid collection noted. No abscess identified. The rest of the CT scan was unremarkable. She got some pain medications and since then she is feeling much better. She denies any nausea or vomiting. PHYSICAL EXAMINATION: She appears comfortable. No apparent distress. VITAL SIGNS: Stable. Blood pressure 116/52, pulse rate 70, temperature 98.2. HEENT: Unremarkable. Conjunctivae pink. Sclerae anicteric. Oral cavity no lesions. NECK: No JVD or lymph node enlargement. CHEST: Clear to auscultation. HEART: Regular rate and rhythm. ABDOMEN: Soft. Mild tenderness in the left upper quadrant. EXTREMITIES: No pedal edema. SKIN: No rashes. NEUROLOGIC: Alert and oriented x3. No focal deficits. LABS: Labs done today show hemoglobin 10.7, WBC 9.9, platelets normal. Amylase and lipase yesterday were normal. ALT and AST were slightly elevated at 60 and 52 respectively. Alkaline phosphatase 135. IMPRESSION: Acute pancreatitis, gradually improving. She had some abdominal pain this morning. CT still shows persistent inflammatory changes in the pancreas. On a low fat diet, tolerating well with some abdominal pain. Etiology of pancreatitis remains unclear. RECOMMENDATIONS: Patient is requesting to be discharged home today. Suggested that she can take Tylenol for pain management at home. Advised on small, frequent meals and she can be discharged home today with an outpatient followup in two weeks. Thank you for this consultation. MMODL / IJN: [id number] /
[2019-06-11] MEDS: traZODone HCL 50 MG TAB PO SCH (21:04)
[2019-06-11] MEDS: MAGNESIUM OXIDE 400 MG TAB PO SCH (21:04)
[2019-06-11] MEDS: ACETAMINOPHEN TAB 325 MG TAB PO PRN (22:03)
[2019-06-12] MEDS: ONDANSETRON 4 MG/2 ML VIAL IVP PRN (02:23)
[2019-06-12] MEDS: HYDROmorphone 0.5 MG/0.5 ML SYRINGE IVP PRN (04:09)
[2019-06-12] MEDS: SODIUM CHLORIDE 0.9% 1,000 ML IV SCH ×2 (04:09→07:14)
[2019-06-12 05:31] VITALS: BP 113/64; PULSE 71; RESP 16; TEMP 97.7
[2019-06-12] MEDS ORDERED: HYDROcodone/APAP 7.5-325MG 1 EACH TAB PO PRN (07:13)
[2019-06-12] MEDS: POLYETHYLENE GLYCOL 3350 17 GM POWD.PACK PO SCH (07:13)
[2019-06-12] MEDS: LISINOPRIL-HCTZ 20-25 MG 1 EACH TAB PO SCH (07:13)
[2019-06-12] MEDS: CARVEDILOL 12.5 MG TAB PO SCH (07:13)
[2019-06-12] MEDS: CITALOPRAM HYDROBROMIDE 20 MG TAB PO SCH (07:13)
[2019-06-12] MEDS ORDERED: TRIMETHOBENZAMIDE 300 MG CAP PO PRN (07:18)
[2019-06-12] MEDS ORDERED: PANTOPRAZOLE 40 MG TABLET PO SCH (09:00)
[2019-06-12 10:28] LABS: Albumin 2.8 g/dL (3.5-5.0); Calcium 8.2 mg/dL (8.4-10.2); Magnesium 2.2 mg/dL (1.6-2.3); Total Bilirubin 0.5 mg/dL (0.2-1.3); Total Protein 5.4 g/dL (6.3-8.2)
--- NOTE | 2019-06-12 13:00 | P.DS ---
Providers Date of admission: 06/08/19 18:07 Attending physician: Callie Pardo Consults: 06/08/19 18:09 Consult Physician Routine Consulting Provider: Yanna Heredia Consult Reason/Comments: Acute pancreatitis Do you want consulting provider notified?: Yes Primary care physician: Sheeba Collado [facility] Course: Diagnoses: Acute pancreatitis Possible Acute urinary tract infection. Urine culture showing alyce, patient will finish her course of antibiotic therapy Hypertension Osteoarthritis possible chronic kidney disease, stage III History of asthma/COPD, not in acute process History of GI bleed secondary to peptic ulcer disease, not an active issue Sleep apnea on CPAP History of tinnitus Hospital course: This is a pleasant 69 years old female with past medical history of asthma/COPD, GI bleed, hypertension, osteoarthritis, sleep apnea on CPAP, tinnitus. Presents because of abdominal pain of 2 day duration, Amylase is 525, lipase elevated at 1773, Gallbladder ultrasound: Common bile duct within normal limits at 0.6 cm, possible pancreatitis and hepatic steatosis or hepatocellular disease, no history of alcoholism. Patient has been evaluated by GI team, patient has been treated with IV fluid, pain management and bowel rest, then diet is advanced gradually, patient had persistent abdominal pain, so CAT scan of the abdomen is ordered showing pancreatitis with no abscess or pseudocyst. Eventually patient keep improving and spark plug tester Dr. Heredia cleared her for discharge. On the day of discharge patient denies other symptoms like no chest pain or dyspnea, no fever, she is tolerating diet well, her abdominal pain is controlled, no diarrhea, patient is passing gases. Patient feels she can go home today. Problems and management plan were discussed with the patient and he verbalized understanding and acceptance Patient was found stable and can be discharged home however he needs follow-up as an outpatient. Patient was instructed to follow up with PCP within one week a nd patient agrees. Patient also instructed to follow up with GI team Dr. Heredia as an outpatient in 2 weeks and she agrees, i informed pt about her 2 appointments with on 06/19 and on 06/23 and she agrees with them and their timing Gen: patient is a AAOx3, no distress CVS: S1-S2, RRR, no murmur Lungs: B/L CTA, no wheezing Abdomen: soft, no distention, no tenderness, positive bowel sounds Extremity: no leg edema or induration Time spent more than 35 minutes Patient Condition at Discharge: Stable Plan - Discharge Summary New Discharge Prescriptions: New Cefuroxime Axetil [Ceftin] 500 mg PO BID 3 Days #6 tab Polyethylene Glycol 3350 [Miralax] 17 gm PO DAILY PRN 2 Days #2 powd.pack PRN Reason: Constipation HYDROcodone/APAP 7.5-325MG [Douglas 7.5-325] 1 each PO Q8H PRN 3 Days #8 tab PRN Reason: Pain Pantoprazole [Protonix] 40 mg PO DAILY #21 tablet.dr Continue Fluticasone/Salmeterol [Advair 250-50 Diskus] 1 puff INHALATION RT-BID PRN PRN Reason: Shortness Of Breath Citalopram Hydrobromide [CeleXA] 20 mg PO DAILY Carvedilol 25 mg PO BID Lisinopril-Hctz 20-25 mg [Zestoretic 20-25] 1 tab PO BID Albuterol Sulfate [Proair Hfa] 2 puff INHALATION RT-Q6H PRN PRN Reason: Shortness Of Breath Magnesium 400 mg PO HS Lidocaine HCl [Aspercreme Lidocaine] 1 applic TOPICAL DAILY PRN PRN Reason: Pain Artificial Tears-Hypromellose [Artificial Tear Drops] 1 drop BOTH EYES TID PRN PRN Reason: Allergy Symptoms Acetaminophen Tab [Tylenol] 650 mg PO Q6H PRN PRN Reason: Pain traZODone HCL 50 mg PO HS rOPINIRole HCL [Requip] 2 mg PO HS Discontinued Meloxicam 7.5 mg PO DAILY Discharge Medication List Albuterol Sulfate [Proair Hfa] 2 puff INHALATION RT-Q6H PRN 09/11/18 [History] Carvedilol 25 mg PO BID 09/11/18 [History] Citalopram Hydrobromide [CeleXA] 20 mg PO DAILY 09/11/18 [History] Fluticasone/Salmeterol [Advair 250-50 Diskus] 1 puff INHALATION RT-BID PRN 09/11/18 [History] Lisinopril-Hctz 20-25 mg [Zestoretic 20-25] 1 tab PO BID 09/11/18 [History] Acetaminophen Tab [Tylenol] 650 mg PO Q6H PRN 06/08/19 [History] Artificial Tears-Hypromellose [Artificial Tear Drops] 1 drop BOTH EYES TID PRN 06/08/19 [History] Lidocaine HCl [Aspercreme Lidocaine] 1 applic TOPICAL DAILY PRN 06/08/19 [History] Magnesium 400 mg PO HS 06/08/19 [History] rOPINIRole HCL [Requip] 2 mg PO HS 06/08/19 [History] traZODone HCL 50 mg PO HS 06/08/19 [History] Cefuroxime Axetil [Ceftin] 500 mg PO BID 3 Days #6 tab 06/12/19 [Rx] HYDROcodone/APAP 7.5-325MG [Douglas 7.5-325] 1 each PO Q8H PRN 3 Days #8 tab 06/12/19 [Rx] Pantoprazole [Protonix] 40 mg PO DAILY #21 tablet.dr 06/12/19 [Rx] Polyethylene Glycol 3350 [Miralax] 17 gm PO DAILY PRN 2 Days #2 powd.pack 06/12/19 [Rx] Follow up Appointment(s)/Referral(s): Tobias Aly MD [Primary Care Provider] - 06/19/19 1:30 pm Yanna Heredia MD [STAFF PHYSICIAN] - 06/23/19 4:00 pm Patient Instructions/Handouts: Pancreatitis (DC) Discharge Disposition: HOME SELF-CARE
== END 2019-06-12 13:28 | disposition home or self-care (01) | DRG 439 ==
LOC: EC 15:21 → 6NMEDSUR 18:07
PROVIDERS: ADMIT Hospitalist; ATTEND Hospitalist
DX: K85.90 Acute pancreatitis without necrosis or infection, unspecified (principal); N39.0 Urinary tract infection, site not specified; N18.3 Chronic kidney disease, stage 3 (moderate); F32.9 Major depressive disorder, single episode, unspecified; I12.9 Hypertensive chronic kidney disease with stage 1 through stage 4 chronic kidney disease, or unspecified chronic kidney disease; F41.9 Anxiety disorder, unspecified; J44.9 Chronic obstructive pulmonary disease, unspecified; K59.00 Constipation, unspecified; M17.0 Bilateral primary osteoarthritis of knee; G47.30 Sleep apnea, unspecified; H93.19 Tinnitus, unspecified ear; M19.042 Primary osteoarthritis, left hand; M19.041 Primary osteoarthritis, right hand; M47.9 Spondylosis, unspecified; Z79.1 Long term (current) use of non-steroidal anti-inflammatories (NSAID); Z79.899 Other long term (current) drug therapy; Z90.710 Acquired absence of both cervix and uterus; Z87.11 Personal history of peptic ulcer disease; Z87.891 Personal history of nicotine dependence; Z82.61 Family history of arthritis; Z80.0 Family history of malignant neoplasm of digestive organs
CPT/HCPCS: 36415; 74018; 74177; 76705; 80053; 80061; 81001; 82150; 82787; 83605; 83690; 83735; 84132; 84484; 85025; 85610; 85730; 87086; 93005; 94640; 94660; 96361; 96374; 96375; 99285

== ENCOUNTER → 2020-04-02 | Outpatient (CLI) | payer MEDICARE, OTHER ==
--- NOTE | 2020-04-02 10:30 | ECHOF ---
Referral Reason:R07.9 Chest Pain,R06.02 Short of Breath MEASUREMENTS -------- HEIGHT: 152.4 cm WEIGHT: 136.1 kg BP: IVSd: 1.4 cm (0.6 - 1.1) LVIDd: 4.5 cm (3.9 - 5.3) LVPWd: 1.4 cm (0.6 - 1.1) EDV(Teich): 92 ml IVSs: 1.9 cm LVIDs: 3.5 cm LVPWs: 1.8 cm %IVS Thck: 32 % ESV(Teich): 49 ml EF(Teich): 46 % %FS: 23 % SV(Teich): 42 ml RVIDd: 3.2 cm (< 3.3) Ao Diam: 3.0 cm (2.0 - 3.7) LA Diam: 3.9 cm (2.7 - 3.8) EPSS: 0.9 cm MV E Ahmet: 0.70 m/s MV DecT: 187 ms MV Dec [place]: 3.8 m/s MV A Ahmet: 0.58 m/s MV E/A Ratio: 1.21 MV PHT: 54 ms MR Vmax: 1.04 m/s MR maxP.35 mmHg AV Vmax: 1.15 m/s AV maxP.33 mmHg TR Vmax: 1.47 m/s TR maxP.59 mmHg RAP: 5.00 mmHg RVSP: 13.59 mmHg MV EF SLOPE: 59.24 mm/s (70 - 150) MV EXCURSION: 12.49 mm (> 18.000) FINDINGS -------- Sinus rhythm. This was a technically difficult study with suboptimal views. The left ventricular size is normal. There is moderate concentric left ventricular hypertrophy. O verall left ventricular systolic function is low-normal with, an EF between 50 - 55 %. The right ventricle is normal in size. The left atrial size is normal. The right atrial size is normal. 5.0mg OF [place] UTLIZED: 2 OR MORE WALL SEGMENTS NOT VISUALIZED. The aortic valve was not well visualized. The mitral valve is normal. There is trace mitral regurgitation. The tricuspid valve appears structurally normal. Trace tricuspid regurgitation present. Right iwona tricular systolic pressure is normal at < 35 mmHg. The pulmonic valve was not well visualized. There is no pulmonic regurgitation present. The aortic root size is normal. IVC Not well visulized. Echo free space may represent effusion or a pericardial fat pad. CONCLUSIONS -------- 1. This was a technically difficult study with suboptimal views. 2. There is moderate concentric left ventricular hypertrophy. 3. Overall left ventricular systolic function is low-normal with, an EF between 50 - 55 %. 4. The left atrial size is normal. 5. The aortic valve was not well visualized. 6. There is trace mitral regurgitation. 7. Trace tricuspid regurgitation present. 8. Echo free space may represent effusion or a pericardial fat pad. FIRE EXTINGUISHER REPAIRER INSPECTOR: Vilma Cunningham RDCS
== END | disposition home or self-care (01) ==
LOC: RADECHMAIN 07:59
PROVIDERS: ATTEND Internal Medicine
DX: I51.7 Cardiomegaly (principal)
CPT/HCPCS: C8929; Q9950; 93306

== ENCOUNTER 2020-05-13 08:00 | Emergency (ER) | payer MEDICARE, OTHER ==
[2020-05-13 08:13] VITALS: RESP 18
--- NOTE | 2020-05-13 08:14 | ED ---
General Adult HPI - General Stated complaint: hypertension, nausea/vomiting Time Seen by Provider: 05/13/20 08:00 Source: patient, RN notes reviewed, old records reviewed - History of Present Illness Initial comments: This is a 70-year-old female presents emergency department stating that she got up this morning and the whole room was spinning. Patient states she couldn't even get up and walk around because she was so spinning. Patient states she also had a mild headache. Patient denies any lightheadedness or weakness. P atient denies any fever chills or cough. Patient denies any chest pain palpitations difficulty breathing. Patient denies any abdominal pain patient denies nausea vomiting or diarrhea. She did not take her morning meds up if she states she takes about 10:00. - Related Data Home Medications Medication Instructions Recorded Confirmed Albuterol Sulfate [Proair Hfa] 2 puff INHALATION RT-Q6H PRN 09/11/18 05/13/20 Citalopram Hydrobromide [CeleXA] 20 mg PO DAILY 09/11/18 05/13/20 Fluticasone/Salmeterol [Advair 1 puff INHALATION RT-BID PRN 09/11/18 05/13/20 250-50 Diskus] Lisinopril-Hctz 20-25 mg 1 tab PO BID 09/11/18 05/13/20 [Zestoretic 20-25] carvediloL [Carvedilol] 25 mg PO BID 09/11/18 05/13/20 Artificial Tears-Hypromellose 1 drop BOTH EYES TID PRN 06/08/19 05/13/20 [Artificial Tear Drops] rOPINIRole HCL [Requip] 2 mg PO HS 06/08/19 05/13/20 traZODone HCL 50 mg PO HS 06/08/19 05/13/20 Acetaminophen Tab [Tylenol Tab] 1,000 mg PO Q6HR PRN 05/13/20 05/13/20 Allopurinol [Zyloprim] 100 mg PO DAILY 05/13/20 05/13/20 Diclofenac Sodium Gel [Voltaren 2 gm TOPICAL BID 05/13/20 05/13/20 Gel] Ergocalciferol [Vitamin D2] 50,000 unit PO WE 05/13/20 05/13/20 Meloxicam [Mobic] 7.5 mg PO BID 05/13/20 05/13/20 Previous Rx's Medication Instructions Recorded Meclizine [Antivert] 25 mg PO TID #20 tab 05/13/20 Allergies Allergy/AdvReac Type Severity Reaction Status Date / Time No Known Allergies Allergy Verified 05/13/20 09:08 Review of Systems ROS Statement: Those systems with pertinent positive or pertinent negative responses have been documented in the HPI. ROS Other: All systems not noted in ROS Statement are negative. Past Medical History Past Medical History: Asthma, COPD, GI Bleed, Hypertension, Osteoarthritis (OA), Sleep Apnea/CPAP/BIPAP Additional Past Medical History / Comment(s): Tinnitus; OA in backs, knees, hands; uses home CPAP; gastric ulcers in her 30s, HX LT MACULAR HOLE-REPAIRED History of Any Multi-Drug Resistant Organisms: None Reported Past Surgical History: Hysterectomy, Orthopedic Surgery, Tonsillectomy Additional Past Surgical History / Comment(s): Vertebral (neck) surgery. RT CTR. EGD. REPAIR LT MACULAR HOLE AND LT CATARACT REMOVED Past Anesthesia/Blood Transfusion Reactions: Motion Sickness Past Psychological History: Anxiety Past Alcohol Use History: None Reported Additional Past Alcohol Use History / Comment(s): QUIT SMOKING 1989 Past Drug Use History: None Reported - Past Family History Father Family Medical History: Unable to Obtain Mother History Unknown: Yes Family Medical History: No Reported History, Cancer Additional Family Medical History / Comment(s): Esophageal cancer, arthritis General Exam - General Exam Comments Initial Comments: GENERAL: Patient is well-developed and well-nourished. Patient is nontoxic and well- hydrated and is in no acute distress. ENT: Neck is soft and supple. No significant lymphadenopathy is noted. Oropharynx is clear. Moist mucous membranes. Neck has full range of motion without eliciting any pain. EYES: The sclera were anicteric and conjunctiva were pink and moist. Extraocular movements were intact and pupils were equal round and reactive to light. Eyelids were unremarkable. PULMONARY: Unlabored respirations. Good breath sounds bilaterally. No audible rales rhonchi or wheezing was noted. CARDIOVASCULAR: There is a regular rate and rhythm without any murmurs gallops or rubs. ABDOMEN: Soft and nontender with normal bowel sounds. SKIN: Skin is clear with no lesions or rashes and otherwise unremarkable. NEUROLOGIC: Patient is alert and oriented x3. Cranial nerves II through XII are grossly intact. Motor and sensory are also intact. Normal speech, volume and content. Symmetrical smile. Patient did not have good finger to nose testing. I reevaluated the patient finger testing and realized that the patient was not look at my finger for some reason and now she passed with flying colors. MUSCULOSKELETAL: Normal extremities with adequate strength and full range of motion. No lower extremity swelling or edema. No calf tenderness. LYMPHATICS: No significant lymphadenopathy is noted PSYCHIATRIC: Normal psychiatric evaluation. Course Vital Signs 05/13/20 05/13/20 08:03 08:07 Temperature 97.7 F Pulse Rate 63 Respiratory 18 Rate Blood Pressure 152/65 154/74 O2 Sat by Pulse 95 Oximetry Medical Decision Making - Medical Decision Making EKG shows sinus bradycardia at [address] interval is 102 QRS is 80 QT interval 436 QTC is 428. Patient's EKG shows no ST segment elevation or depression. Patient's CAT scan shows no acute abnormality. Patient's x-ray of the chest shows no acute abnormality. Patient received fluids and Zofran and Antivert in the emergency department. And prior to discharge patient was feeling considerably better. - Lab Data Result diagrams: 05/13/20 08:29 05/13/20 08:29 Lab Results 05/13/20 05/13/20 05/13/20 Range/Units 08:29 08:29 08:29 WBC 7.7 (3.8-10.6) k/uL RBC 4.33 (3.80-5.40) m/uL Hgb 12.6 (11.4-16.0) gm/dL Hct 38.2 (34.0-46.0) % MCV 88.2 (80.0-100.0) fL MCH 29.0 (25.0-35.0) pg MCHC 32.9 (31.0-37.0) g/dL RDW 13.9 (11.5-15.5) % Plt Count 189 (150-450) k/uL MPV 8.7 Neutrophils % 65 % Lymphocytes % 20 % Monocytes % 5 % Eosinophils % 8 % Basophils % 1 % Neutrophils # 5.0 (1.3-7.7) k/uL Lymphocytes # 1.6 (1.0-4.8) k/uL Monocytes # 0.4 (0-1.0) k/uL Eosinophils # 0.6 (0-0.7) k/uL Basophils # 0.1 (0-0.2) k/uL PT 9.9 (9.0-12.0) sec INR 0.9 (<1.2) APTT 20.7 L (22.0-30.0) sec Sodium 139 (137-145) mmol/L Potassium 4.1 (3.5-5.1) mmol/L Chloride 106 (98-107) mmol/L Carbon Dioxide 28 (22-30) mmol/L Anion Gap 5 mmol/L BUN 34 H (7-17) mg/dL Creatinine 1.47 H (0.52-1.04) mg/dL Est GFR (CKD-EPI)AfAm 41 (>60 ml/min/1.73 sqM) Est GFR (CKD-EPI)NonAf 36 (>60 ml/min/1.73 sqM) Glucose 187 H (74-99) mg/dL Calcium 9.3 (8.4-10.2) mg/dL Magnesium 1.6 (1.6-2.3) mg/dL Total Bilirubin 0.3 (0.2-1.3) mg/dL AST 17 (14-36) U/L ALT 17 (4-34) U/L Alkaline Phosphatase 68 (38-126) U/L Troponin I (0.000-0.034) ng/mL Total Protein 5.9 L (6.3-8.2) g/dL Albumin 3.3 L (3.5-5.0) g/dL 05/13/20 Range/Units 08:29 WBC (3.8-10.6) k/uL RBC (3.80-5.40) m/uL Hgb (11.4-16.0) gm/dL Hct (34.0-46.0) % MCV (80.0-100.0) fL MCH (25.0-35.0) pg MCHC (31.0-37.0) g/dL RDW (11.5-15.5) % Plt Count (150-450) k/uL MPV Neutrophils % % Lymphocytes % % Monocytes % % Eosinophils % % Basophils % % Neutrophils # (1.3-7.7) k/uL Lymphocytes # (1.0-4.8) k/uL Monocytes # (0-1.0) k/uL Eosinophils # (0-0.7) k/uL Basophils # (0-0.2) k/uL PT (9.0-12.0) sec INR (<1.2) APTT (22.0-30.0) sec Sodium (137-145) mmol/L Potassium (3.5-5.1) mmol/L Chloride (98-107) mmol/L Carbon Dioxide (22-30) mmol/L Anion Gap mmol/L BUN (7-17) mg/dL Creatinine (0.52-1.04) mg/dL Est GFR (CKD-EPI)AfAm (>60 ml/min/1.73 sqM) Est GFR (CKD-EPI)NonAf (>60 ml/min/1.73 sqM) Glucose (74-99) mg/dL Calcium (8.4-10.2) mg/dL Magnesium (1.6-2.3) mg/dL Total Bilirubin (0.2-1.3) mg/dL AST (14-36) U/L ALT (4-34) U/L Alkaline Phosphatase (38-126) U/L Troponin I <0.012 (0.000-0.034) ng/mL Total Protein (6.3-8.2) g/dL Albumin (3.5-5.0) g/dL Disposition Clinical Impression: Vertigo Disposition: HOME SELF-CARE Condition: Good Instructions (If sedation given, give patient instructions): Vertigo (ED) Prescriptions: Meclizine [Antivert] 25 mg PO TID #20 tab Is patient prescribed a controlled substance at d/c from ED?: No Referrals: Tobias Aly MD [Primary Care Provider] - 1-2 days Time of Disposition: 10:30
[2020-05-13 08:17] VITALS: BP 154/74
[2020-05-13 08:39] LABS: Basophils # (A) 0.1 k/uL (0-0.2); Basophils % (A) 1 %; Eosinophils # (A) 0.6 k/uL (0-0.7); Eosinophils % (A) 8 %; HCT 38.2 % (34.0-46.0); HGB 12.6 gm/dL (11.4-16.0); Lymphocytes # (A) 1.6 k/uL (1.0-4.8); Lymphocytes % (A) 20 %; MCHC 32.9 g/dL (31.0-37.0); MCV 88.2 fL (80.0-100.0); Mean Platelet Volume 8.7; Monocytes # (A) 0.4 k/uL (0-1.0); Monocytes % (A) 5 %; Neutrophils % (A) 65 %; Platelet Count 189 k/uL (150-450); RBC 4.33 m/uL (3.80-5.40); RDW 13.9 % (11.5-15.5); WBC 7.7 k/uL (3.8-10.6)
[2020-05-13 08:51] LABS: Albumin 3.3 g/dL (3.5-5.0); Calcium 9.3 mg/dL (8.4-10.2); Magnesium 1.6 mg/dL (1.6-2.3); Potassium 4.1 mmol/L (3.5-5.1); Total Bilirubin 0.3 mg/dL (0.2-1.3); Total Protein 5.9 g/dL (6.3-8.2)
[2020-05-13 08:57] LABS: INR 0.9 (<1.2); Prothrombin Time 9.9 sec (9.0-12.0)
[2020-05-13 08:59] LABS: Partial Thromboplastin Time 20.7 sec (22.0-30.0)
--- NOTE | 2020-05-13 09:02 | CT ---
EXAMINATION TYPE: CT brain wo con DATE OF EXAM: 05/13/2020 COMPARISON: 12/24/2015 HISTORY: 70-year-old female Headache, acute TECHNIQUE: Examination was done in axial plane without intravenous contrast. Coronal and sagittal r econstructions performed. CT DLP: 1188.4 mGycm Automated exposure control for dose reduction was used. FINDINGS: There is no evidence of acute intracranial hemorrhage, acute ischemic changes, mass, mass-effect, or extra-axial fluid collection. There is no effacement of cerebral sulci or basal subarachnoid cister ns. There is no hydrocephalus. There is no midline shift. Dee-white matter distinction is preserv ed. Mild age-related bifrontal cerebral cortical volume loss. Paranasal sinuses and mastoid air cells well pneumatized. Orbits and globes are intact. IMPRESSION: No acute intracranial abnormality seen.
--- NOTE | 2020-05-13 09:11 | XR ---
EXAMINATION TYPE: XR chest 2V DATE OF EXAM: 05/13/2020 COMPARISON: 09/05/2018 INDICATION: Nausea TECHNIQUE: Frontal and lateral views of the chest are obtained. FINDINGS: The heart size is enlarged. The pulmonary vasculature is normal. The lungs are clear. Anterior cervical fusion is noted. IMPRESSION: 1. No acute pulmonary process.
[2020-05-13] MEDS ORDERED: MECLIZINE 12.5 MG TAB PO STA (09:59)
[2020-05-13] MEDS ORDERED: ONDANSETRON 4 MG/2 ML VIAL IVP STA (10:00)
[2020-05-13 11:17] VITALS: PULSE 71; TEMP 98.4
== END 2020-05-13 11:17 | disposition home or self-care (01) ==
LOC: EC 08:00
DX: R42 Dizziness and giddiness (principal); R00.1 Bradycardia, unspecified; R51.9 Headache, unspecified; J44.9 Chronic obstructive pulmonary disease, unspecified; I10 Essential (primary) hypertension; M19.90 Unspecified osteoarthritis, unspecified site; F41.9 Anxiety disorder, unspecified; Z99.89 Dependence on other enabling machines and devices; G47.30 Sleep apnea, unspecified; Z79.1 Long term (current) use of non-steroidal anti-inflammatories (NSAID); Z79.51 Long term (current) use of inhaled steroids; Z79.899 Other long term (current) drug therapy; Z87.891 Personal history of nicotine dependence
CPT/HCPCS: 36415; 93005; 80053; 83735; 84484; 85025; 85610; 85730; 71046; 70450; 96374; 99284; J2405

== ENCOUNTER → 2020-11-19 | Outpatient (CLI) | payer MEDICARE, OTHER ==
--- NOTE | 2020-11-24 12:50 | P.ARTDOP ---
Arterial Doppler LOWER EXTREMITY ARTERIAL DOPPLER: DATE OF SERVICE: 11/19/2020 Reason for study: Burning both feet. Doppler waveforms: Multiphasic bilaterally throughout. Pulse volume recording: []. Pressure gradients: Only below the knee on the left. Ankle-brachial indices: Greater than 1 on the right and 0.9 on the left. Toe brachial indices: [] on the right, [] on the left Impression: . Mild left fem-pop disease. Not likely related to symptoms..
== END | disposition home or self-care (01) ==
LOC: RADUSWWP 06:53
PROVIDERS: ATTEND Internal Medicine Nephrology
DX: T25.022A Burn of unspecified degree of left foot, initial encounter (principal); T25.021A Burn of unspecified degree of right foot, initial encounter
CPT/HCPCS: 93923

== ENCOUNTER → 2020-12-06 | Outpatient (CLI) | payer MEDICARE, OTHER ==
[2020-12-06 14:35] LABS: Basophils # (A) 0.1 k/uL (0-0.2); Basophils % (A) 1 %; Eosinophils # (A) 0.5 k/uL (0-0.7); Eosinophils % (A) 5 %; HCT 37.9 % (34.0-46.0); HGB 12.5 gm/dL (11.4-16.0); Lymphocytes # (A) 1.7 k/uL (1.0-4.8); Lymphocytes % (A) 17 %; MCH 30.4 pg (25.0-35.0); MCHC 32.9 g/dL (31.0-37.0); MCV 92.4 fL (80.0-100.0); Mean Platelet Volume 9.1; Monocytes # (A) 0.5 k/uL (0-1.0); Monocytes % (A) 5 %; Neutrophils # (A) 7.4 k/uL (1.3-7.7); Neutrophils % (A) 71 %; Platelet Count 227 k/uL (150-450); RDW 13.6 % (11.5-15.5); WBC 10.4 k/uL (3.8-10.6)
[2020-12-06 14:48] LABS: Albumin 3.8 g/dL (3.5-5.0); Calcium 9.6 mg/dL (8.4-10.2); Potassium 4.4 mmol/L (3.5-5.1); Uric Acid 11.5 mg/dL (3.7-7.4)
[2020-12-06 14:53] LABS: Phosphorus 4.3 mg/dL (2.5-4.5)
[2020-12-06 14:58] LABS: Creatinine,Urine Random 81.5 mg/dL; Protein/Creatinine Ratio,Urine 0.123
--- NOTE | 2020-12-06 18:45 | US ---
EXAMINATION TYPE: US kidneys/renal and bladder DATE OF EXAM: 12/06/2020 COMPARISON: None CLINICAL HISTORY: 70-year-old female I73.9 PVD. Patient states having kidney disease TECHNIQUE: Multiple sonographic images of the kidneys and bladder are obtained. Bony spine EXAM MEASUREMENTS: Right Kidney: 11.5 x 5.5 x 5.3 cm Left Kidney: 10.3 x 3.3 x 3.8 cm Right Kidney: No hydronephrosis or masses seen Left Kidney: No hydronephrosis or masses seen Bladder: Underdistention limits its evaluation. Bilateral Jets not seen IMPRESSION: No hydronephrosis. Underdistention of the bladder limits its evaluation.
[2020-12-06 22:58] LABS: % Iron Saturation 17.02 (12.00-45.00)
[2020-12-06 23:07] LABS: Ferritin 159.9 ng/mL (10.0-291.0)
== END | disposition home or self-care (01) ==
LOC: RADUSWWP 12:55
PROVIDERS: ATTEND Internal Medicine Nephrology
DX: I73.9 Peripheral vascular disease, unspecified (principal); N28.9 Disorder of kidney and ureter, unspecified
CPT/HCPCS: 36415; 76770; 80048; 82040; 82306; 82570; 82728; 83540; 83550; 83735; 83970; 84100; 84156; 84550; 85025

== ENCOUNTER → 2021-09-08 | Outpatient (CLI) | payer MEDICARE, OTHER ==
--- NOTE | 2021-09-08 19:08 | SFUN ---
SLEEP CENTER FOLLOW UP NOTE DATE OF SERVICE: 09/08/2021 This 71-year-old lady has been followed in Sleep Center for treatment of obstructive sleep apnea-hypopnea syndrome. I did not see this patient for about two years. The patient continues to use her CPAP equipment every night; she cannot sleep without the machine. [place] Sleepiness Scale today is 6, which is normal. I checked her CPAP unit. The pressure is 12 cm of water, usage 30/30 nights for more than 4 hours, average 9 hours per night. Leak is 23 L/minute, which is borderline. Apnea-hypopnea index is only 1.2, which is normal. MEDICATIONS: 1. Lisinopril/hydrochlorothiazide 20/25 mg twice a day. 2. Carvedilol 25 mg twice a day. 3. Trazodone once a day. 4. Citalopram once a day. PHYSICAL EXAMINATION: GENERAL: Pleasant patient in no distress. VITAL SIGNS: BP 132/71, HR 80, RR 16, height 5 feet 2 inches, weight 268. The patient lost about 20 pounds since her previous visit. Body mass index 49. Temperature 98.2, oxygen saturation at room air 95%. HEENT: PERRLA, EOMI, evaluation of oropharynx showed tongue protrudes midline. Extremely low position of soft palate; Mallampati IV. NECK: Supple, no JVD. Thyroid is not palpable. Neck measures 17 inches in circumference. LUNGS: Clear to percussion and to auscultation. Good air exchange. No wheezing or rhonchi. HEART: S1, S2 regular. No murmurs, gallops, or rubs. ABDOMEN: Obese. EXTREMITIES: No clubbing or cyanosis. LAW OFFICE ASSISTANT: Awake, alert, and oriented X3. Cranial nerves 2 to 7 intact. There is no fasciculation or atrophy. noted. No focal deficits observed. IMPRESSION: 1. Obstructive sleep apnea-hypopnea syndrome. The patient demonstrated great compliance with treatment, benefitting from treatment. Normal respiration on CPAP. 2. History of restless legs syndrome. 3. History of anxiety. 4. Hypertension. 5. Status post neck surgery for disk replacement in September of 2018. PLAN: 1. Patient will continue to use PAP equipment every night for the whole night. 2. Sleep hygiene with regular time in bed for at least 7-1/2 to 8 hours. 3. Precautions related to driving. No driving if feeling sleepiness. 4. I will maintain all necessary prescription for PAP supplies including mask, tube, filters. 5. Watching weight. 6. Follow-up visit in 6 months or earlier if patient has any problems. Thank you very much for allowing me to participate in the management of your patient. Sincerely, Zhang Krishnamurthy MD, PhD, FAASM Diplomat of [place] [employer] Sleep Medicine Board of [place] [employer] Dairy Cattle Farm Manager of [facility] [place] MMODL / MARION: [id number] /
== END ==
LOC: SLEEP 16:48
PROVIDERS: ATTEND Internal Medicine
DX: G47.33 Obstructive sleep apnea (adult) (pediatric) (principal); Z99.89 Dependence on other enabling machines and devices; G25.81 Restless legs syndrome; F41.9 Anxiety disorder, unspecified; I10 Essential (primary) hypertension; Z98.890 Other specified postprocedural states

== ENCOUNTER → 2022-05-11 | Outpatient (CLI) | payer MEDICARE, OTHER ==
--- NOTE | 2022-05-11 15:06 | P.PN ---
Subjective DATE: 05/11/2022 FOLLOW UP VISIT. Patient with obstructive sleep apnea hypopnea syndrome return to sleep center for follow-up visit. Information from previous visit have been reviewed. Patient is using PAP equipment every night for the whole night, getting PAP supplies in time. The patient does not have significant problems with the mask, PAP unit and humidification. [place] sleepiness scale is 4, which is normal. I checked information from PAP unit. Pap unit is old. Motor life expectancy was exceeded. CPAP unit started to create some noise. PAP unit pressure 12 cm H2O. Usage is 100 % for more then 4 hours, average 9.5 hours per night. Leak is 14 l/m, which is in acceptable range. Apnea Hypopnea Index is 0.8, which is normal. MEDICATIONS:1. Allopurinol 100 mg once a day 2. Ropinirole 2 mg once a day 3. Carvedilol 25 mg twice a day 4. Lisinopril/hydrochlorothiazide 20-25 mg twice a day 5. Citalopram 20 mg once a day 6. Trazodone 20 mg once a day 7. Ozempic once a week During physical exam: GENERAL: A pleasant patient without any distress. VITAL SIGNS: BP 180/82, HR 77, RR 18 , weight 274.8, temperature 96.8, oxygen sa turation at room air 97 % . HEENT: PERRLA, EOMI.low position of soft palate, Mallapati 4 . NECK: Supple. No JVD. LUNGS: Clear to percussion and to auscultation. Good air exchange. No wheezing or rhonchi. HEART: S1, S2 regular. ABDOMEN: Soft and nontender. Obese EXTREMITIES: No clubbing or cyanosis. COUNTRY PRINTER APPRENTICE: Awake, alert, and oriented x3. No focal deficit. Impressions: 1. Obstructive sleep apnea-hypopnea syndrome. Patient demonstrated great compliance with treatment, benefiting from treatment. 2. History of anxiety. 3. History of restless leg syndrome. 4. Hypertension. 5. Status post neck surgery for disc problems in September 2018. Plan: 1. Continue using PAP equipment every night for the whole night. Prescription to replace CPAP unit. 2. To change air filter at least 1-2 times per month. 3. PAP unit should stay lower then position of the head. 4. Advised patient to remove all remaining water from humidifier canister daily and make it dry after each usage. Refill canister with fresh distilled water before each usage. 5. Sleep hygiene with regular time in bed for at least 8 hours. 6. Precautions related to driving. No driving if feel any sleepiness. 7. I will maintain prescription for PAP supplies including mask, tube, filters. 8. Follow up visit in 1-2 months after patient will get new CPAP unit. 9. Watching and losing weight. Thank you very much for allowing me to participate in the management of your patient. Zhang Krishnamurthy MD, PhD, FAASM. Diplomat of [place] [employer], Sleep Medicine Board by [place] [employer]er System Supervisor of [facility] [place]
== END ==
LOC: SLEEP 14:18
PROVIDERS: ATTEND Internal Medicine
DX: G47.33 Obstructive sleep apnea (adult) (pediatric) (principal); Z99.89 Dependence on other enabling machines and devices; I10 Essential (primary) hypertension; Z98.890 Other specified postprocedural states; F41.9 Anxiety disorder, unspecified; G25.81 Restless legs syndrome; Z87.891 Personal history of nicotine dependence
CPT/HCPCS: 99212

== ENCOUNTER 2022-07-29 23:15 | Inpatient (IN) | payer MEDICARE, OTHER ==
[~2022-07-29 23:15] MED LIST changes: -BACITRACIN 50,000 UNIT, POLYMYXIN B 500,000 UNIT in SODIUM CHLORIDE 0.9% IRRIGATIO 1,00... IRRIGATION ONE; -LIDOCAINE 1% 20 ML VIAL (10MG/ML) FOR IV START INTRADERMA PRN; -ONDANSETRON 4 MG/2 ML VIAL IVP ONE; +SODIUM CHLORIDE 0.9% 1,000 ML IV ONE; -ceFAZolin IN SWFI 2 GM/20 ML SYRINGE IVP ONE
[2022-07-29] MEDS ORDERED: SODIUM CHLORIDE 0.9% 1,000 ML IV STA (23:19)
[2022-07-29] MEDS ORDERED: HEPARIN SODIUM 1,000 UN/ML (10ML VL) IV STA (23:19)
[2022-07-29] MEDS ORDERED: NITROGLYCERIN SL TABS 0.4 MG TAB SUBLINGUAL PRN (23:19)
--- NOTE | 2022-07-29 23:22 | ED ---
General Adult HPI - General Stated complaint: STEMI Time Seen by Provider: 07/29/22 23:19 Source: patient, EMS, RN notes reviewed, old records reviewed - History of Present Illness Initial comments: Patient is a 72-year-old female who presents emergency Department complaining of chest pain. Has been ongoing since this afternoon, worsening since that time. No known palliative or provocative factors.. Describes it as significant substernal and left-sided chest pain with radiation towards her left shoulder and somewhat towards her right shoulder. Describes it as a heavy, sharp sensation. Was sweaty earlier as well. Began having nausea and vomiting with it as well. Called EMS and initially EKG by EMS appeared within acceptable limits. She had another episode of emesis in front of EMS, and they saw dynamic EKG changes. EKG did not arrive prior to the patient's arrival in the ER. She was immediately placed in trauma 1. Her EKG revealed a STEMI. Patient is currently complaining of substernal and left-sided chest pain with radiation to left shoulder and a little bit towards the right. Endorses shortness breath and mild nausea. With past medical history is diabetes, hypertension, CKD. No history of cardiac disease. Patient has been noticing some diarrhea, but otherwise has no other acute complaints. Primary complaint at this time as her significant chest pain. - Related Data Home Medications Medication Instructions Recorded Confirmed Albuterol Sulfate [Proair Hfa] 2 puff INHALATION RT-Q6H PRN 09/11/18 05/13/20 Citalopram Hydrobromide [CeleXA] 20 mg PO DAILY 09/11/18 05/13/20 Fluticasone Propion/Salmeterol 1 puff INHALATION RT-BID PRN 09/11/18 05/13/20 [Advair 250-50 Diskus] Lisinopril-Hctz 20-25 mg 1 tab PO BID 09/11/18 05/13/20 [Zestoretic 20-25] carvediloL 25 mg PO BID 09/11/18 05/13/20 Artificial Tears-Hypromellose 1 drop BOTH EYES TID PRN 06/08/19 05/13/20 [Artificial Tear Drops] rOPINIRole HCL [Requip] 2 mg PO HS 06/08/19 05/13/20 traZODone HCL 50 mg PO HS 06/08/19 05/13/20 Acetaminophen Tab [Tylenol Tab] 1,000 mg PO Q6HR PRN 05/13/20 05/13/20 Diclofenac Sodium Gel [Voltaren 2 gm TOPICAL BID 05/13/20 05/13/20 Gel] Ergocalciferol [Vitamin D2] 50,000 unit PO WE 05/13/20 05/13/20 Meloxicam [Mobic] 7.5 mg PO BID 05/13/20 05/13/20 allopurinoL [Zyloprim] 100 mg PO DAILY 05/13/20 05/13/20 Previous Rx's Medication Instructions Recorded Meclizine [Antivert] 25 mg PO TID #20 tab 05/13/20 Allergies Allergy/AdvReac Type Severity Reaction Status Date / Time No Known Allergies Allergy Verified 05/13/20 09:08 Review of Systems ROS Statement: Those systems with pertinent positive or pertinent negative responses have been documented in the HPI. Review of Systems: CONST: Denies fever EYES: Denies blurry vision ENT: Denies nasal congestion C/V: Endorses chest pain RESP: Denies shortness of breath GI: Denies abdominal pain : Denies dysuria SKIN: Denies rash. MSK: Denies joint pain. NEURO: Denies headache ROS Other: All systems not noted in ROS Statement are negative. Past Medical History Past Medical History: Asthma, COPD, GI Bleed, Hypertension, Osteoarthritis (OA), Sleep Apnea/CPAP/BIPAP Additional Past Medical History / Comment(s): Tinnitus; OA in backs, knees, hands; uses home CPAP; gastric ulcers in her 30s, HX LT MACULAR HOLE-REPAIRED History of Any Multi-Drug Resistant Organisms: None Reported Past Surgical History: Hysterectomy, Orthopedic Surgery, Tonsillectomy Additional Past Surgical History / Comment(s): Vertebral (neck) surgery. RT CTR. EGD. REPAIR LT MACULAR HOLE AND LT CATARACT REMOVED Past Anesthesia/Blood Transfusion Reactions: Motion Sickness Past Psychological History: Anxiety Past Alcohol Use History: None Reported Additional Past Alcohol Use History / Comment(s): QUIT SMOKING 1989 Past Drug Use History: None Reported - Past Family History Father Family Medical History: Unable to Obtain Mother History Unknown: Yes Family Medical History: No Reported History, Cancer Additional Family Medical History / Comment(s): Esophageal cancer, arthritis General Exam - General Exam Comments Initial Comments: General: Appears in moderate distress secondary to chest pain. HEAD: Normal with no signs of head trauma. EYES: PERRLA, EOMI, conjunctiva normal, no discharge. ENT: Hearing grossly intact, normal oropharynx. RESPIRATORY: Clear breath sounds bilaterally. No wheezes, rales, or rhonchi. C/V: Regular rate and rhythm. S1 and S2 auscultated, peripheral pulses 2+ and intact throughout ABD: Abd is soft, nontender, nondistended EXT: Normal range of motion, no obvious deformity SKIN: No rashes or lesions observed on exposed skin. NEURO: Alert and oriented 4. Course Vital Signs 07/29/22 23:19 Pulse Rate 83 Respiratory 16 Rate Blood Pressure 115/91 O2 Sat by Pulse 98 Oximetry Medical Decision Making - Medical Decision Making Was pt. sent in by a medical professional or institution (, PA, SENIOR COURTROOM CLERK, urgent care, hospital, or senior living...) When possible be specific @ -No Did you speak to anyone other than the patient for history (EMS, parent, family, police, friend...)? What history was obtained from this source @ -EMS provided additional patient history including the dynamic EKG changes. We were unable to see the patient's EKGs until after she had already arrived. Did you review nursing and triage notes (agree or disagree)? Why? @ -I reviewed and agree with nursing and triage notes Were old charts reviewed (outside hosp., previous admission, EMS record, old EKG, old radiological studies, urgent care reports/EKG's, senior living records)? Report findings @ -Old EKG and chart reviewed from May 2020. Differential Diagnosis (chest pain, altered mental status, abdominal pain women, abdominal pain men, vaginal bleeding, weakness, fever, dyspnea, syncope, headache, dizziness, GI bleed, back pain, seizure, CVA, palpatations, mental health, musculoskeletal)? @ -Differential Chest Pain: Stable Angina, Unstable Angina, STEMI, NSTEMI Aortic Dissection, Pneumothorax, Musculoskeletal, Esophageal Spasm GERD, Cholecystitis, Pancreatitis, Zoster, this is not meant to be an all-inclusive list. EKG interpreted by me (3pts min.). @ -As above X-rays interpreted by me (1pt min.). @ -Chest x-ray reveals no obvious acute cardio pulmonary process. CT interpreted by me (1pt min.). @ -None done U/S interpreted by me (1pt. min.). @ -None done What testing was considered but not performed or refused? (CT, X-rays, U/S, labs)? Why? @ -None What meds were considered but not given or refused? Why? @ -None Did you discuss the management of the patient with other professionals (professionals i.e. Dr., PA, SENIOR COURTROOM CLERK, lab, RT, psych nurse, social worker psychiatric, heel burnisher, teacher, environmental protection officer, top case assembler)? Give summary @ -No Was smoking cessation discussed for >3mins.? @ -No Was critical care preformed (if so, how long)? @ -yes, 35 minutes. Were there social determinants of health that impacted care today? How? (H omelessness, low income, unemployed, alcoholism, drug addiction, transportation, low edu. Level, literacy, decrease access to med. care, long term, rehab)? @ -No Was there de-escalation of care discussed even if they declined (Discuss DNR or withdrawal of care, Hospice)? DNR status @ -No What co-morbidities impacted this encounter? (DM, HTN, Smoking, COPD, CAD, Cancer, CVA, ARF, Chemo, Hep., AIDS, mental health diagnosis, sleep apnea, morbid obesity)? @ -Diabetes, hypertension Was patient admitted / discharged? Hospital course, mention meds given and route, prescriptions, significant lab abnormalities, going to OR and other pertinent info. @ -Based on the patient's presentation and physical exam, there is concern for an acute OK. EKG was immediately obtained after the patient is placed in trauma bay 1 and revealed an acute STEMI. STEMI pager was activated. 2 large-bore IVs were placed. Patient was placed on oxygen. It appears to be a lateral wall OK and therefore she was given a nitroglycerin tablet for pain however patient did have a brief episode of hypotension after administration, therefore additional nitro tablets were not administered. She was given a fluid bolus, a heparin bolus. Patient was placed on the portable traffic monitor specialist/defibrillator with pads. She is already received 324mg aspirin from EMS. Vital signs otherwise are within acceptable limits. Dr. Dupree immediately for return the phone call and was in agreement with the [email or web address]note 3] n for transfer the patient to the catheterization suite. We will be awaiting notification for when they are ready. I did the patient and informed her she is having an OK. She expressed understanding. Labs are drawn and sent. Chest x- ray revealed no obvious process. Patient was transferred to the cardiac Problem Manager in serious condition at 2354. Patient will be admitted following heart cath and procedure. I spoke with the admitting team, Camelia of [facility] who accepted the admission. Patient's labs did return after admission and after she was transported to the catheterization lab. Patient was hypokalemic. Patient's hypocalcemic. Troponin is undetectable. Undiagnosed new problem with uncertain prognosis? @ -No Drug Therapy requiring intensive monitoring for toxicity (Heparin, Nitro, Insulin, Cardizem)? @ -No Were any procedures done? @ -No Diagnosis/symptom? @ -STEMI, chest pain Acute, or Chronic, or Acute on Chronic? @ -Acute Uncomplicated (without systemic symptoms) or Complicated (systemic symptoms)? @ -Complicated Side effects of treatment? @ -No Exacerbation, Progression, or Severe Exacerbation? @ -No Poses a threat to life or bodily function? How? (Chest pain, USA, OK, pneumonia, PE, COPD, DKA, ARF, appy, cholecystitis, CVA, Diverticulitis, Homicidal, Suicidal, threat to staff... and all critical care pts) @ -Yes, if untreated can result in significant morbidity as well as . Diagnosis/symptom? @ -Hypokalemia, hypocalcemia Acute, or Chronic, or Acute on Chronic? @ -Acute Uncomplicated (without systemic symptoms) or Complicated (systemic symptoms)? @ -uncomplicated Side effects of treatment? @ -none Exacerbation, Progression, or Severe Exacerbation] @ -no Poses a threat to life or bodily function? @ -potentially - Lab Data Result diagrams: 07/29/22 23:23 07/29/22 23:23 Lab Results 07/29/22 07/29/22 07/29/22 Range/Units 23:23 23: 23: WBC 13.0 H (3.8-10.6) k/uL RBC 3.46 L (3.80-5.40) m/uL Hgb 10.0 L (11.4-16.0) gm/dL Hct 30.7 L (34.0-46.0) % MCV 88.8 (80.0-100.0) fL MCH 29.0 (25.0-35.0) pg MCHC 32.7 (31.0-37.0) g/dL RDW 14.1 (11.5-15.5) % Plt Count 226 (150-450) k/uL MPV 10.0 Neutrophils % 76 % Lymphocytes % 13 % Monocytes % 5 % Eosinophils % 4 % Basophils % 0 % Neutrophils # 9.9 H (1.3-7.7) k/uL Lymphocytes # 1.7 (1.0-4.8) k/uL Monocytes # 0.7 (0-1.0) k/uL Eosinophils # 0.5 (0-0.7) k/uL Basophils # 0.0 (0-0.2) k/uL PT 11.7 (9.0-12.0) sec INR 1.1 (<1.2) APTT 23.6 (22.0-30.0) sec Sodium 141 (137-145) mmol/L Potassium 2.4 L* (3.5-5.1) mmol/L Chloride 119 H (98-107) mmol/L Carbon Dioxide 17 L (22-30) mmol/L Anion Gap 5 mmol/L BUN 26 H (7-17) mg/dL Creatinine 1.01 (0.52-1.04) mg/dL Est GFR (CKD-EPI)AfAm 64 (>60 ml/min/1.73 sqM) Est GFR (CKD-EPI)NonAf 56 (>60 ml/min/1.73 sqM) Glucose 105 H (74-99) mg/dL Calcium 4.7 L* (8.4-10.2) mg/dL Magnesium 1.1 L (1.6-2.3) mg/dL Total Bilirubin 0.1 L (0.2-1.3) mg/dL AST 10 L (14-36) U/L ALT 10 (4-34) U/L Alkaline Phosphatase 32 L (38-126) U/L Troponin I (0.000-0.034) ng/mL Total Protein 3.2 L (6.3-8.2) g/dL Albumin 1.6 L (3.5-5.0) g/dL 07/29/22 Range/Units 23:23 WBC (3.8-10.6) k/uL RBC (3.80-5.40) m/uL Hgb (11.4-16.0) gm/dL Hct (34.0-46.0) % MCV (80.0-100.0) fL MCH (25.0-35.0) pg MCHC (31.0-37.0) g/dL RDW (11.5-15.5) % Plt Count (150-450) k/uL MPV Neutrophils % % Lymphocytes % % Monocytes % % Eosinophils % % Basophils % % Neutrophils # (1.3-7.7) k/uL Lymphocytes # (1.0-4.8) k/uL Monocytes # (0-1.0) k/uL Eosinophils # (0-0.7) k/uL Basophils # (0-0.2) k/uL PT (9.0-12.0) sec INR (<1.2) APTT (22.0-30.0) sec Sodium (137-145) mmol/L Potassium (3.5-5.1) mmol/L Chloride (98-107) mmol/L Carbon Dioxide (22-30) mmol/L Anion Gap mmol/L BUN (7-17) mg/dL Creatinine (0.52-1.04) mg/dL Est GFR (CKD-EPI)AfAm (>60 ml/min/1.73 sqM) Est GFR (CKD-EPI)NonAf (>60 ml/min/1.73 sqM) Glucose (74-99) mg/dL Calcium (8.4-10.2) mg/dL Magnesium (1.6-2.3) mg/dL Total Bilirubin (0.2-1.3) mg/dL AST (14-36) U/L ALT (4-34) U/L Alkaline Phosphatase (38-126) U/L Troponin I <0.012 (0.000-0.034) ng/mL Total Protein (6.3-8.2) g/dL Albumin (3.5-5.0) g/dL - EKG Data -: EKG Interpreted by Me EKG Comments: 12-lead Electrocardiogram Interpretation Note EKG was reviewed and interpreted by myself. 12-lead ECG performed at 2317 is interpreted by me as revealing normal sinus rhythm at a rate of 78 beats per minute. Left axis deviation. [place] interval is 202 ms, QRS duration is 152 ms. QTC is [address] segment elevations in V4, V5, V6 and also present in aVL and I. reciprocal depression seen in leads II, III, aVF. . By my interpretation, this EKG is concerning for a lateral wall STEMI. Critical Care Time Critical Care Time: Yes Total Critical Care Time: 35 Critical Care Time: Upon my evaluation, this patient had a high probability of imminent or life- threatening deterioration due to STEMI, chest pain, which required my direct a ttention, intervention, and personal management. I have personally provided 35 minutes of critical care time exclusive of time spent on separately billable procedures. Time includes review of laboratory data, radiology results, discussion with consultants, and monitoring for potential decompensation. Interventions were performed as documented in my note. Disposition Clinical Impression: ST elevation myocardial infarction (STEMI), Chest pain, Hypokalemia Disposition: ADMITTED IP TO THIS HOSP Condition: Serious Time of Disposition: 23:54
[2022-07-29] MEDS ORDERED: HEPARIN SOD,PORK IN 0.45% NACL 25,000 UNIT in 0.45% NACL 1 250ML.BAG IV SCH (23:30)
[2022-07-29] MEDS ORDERED: NALOXONE 0.4 MG/ML 1 ML VIAL IV PRN (23:51)
--- NOTE | 2022-07-29 23:52 | XR ---
EXAMINATION TYPE: XR chest 1V portable DATE OF EXAM: 07/29/2022 COMPARISON: 05/13/2020 HISTORY: Chest pain TECHNIQUE: FINDINGS: There is no heart failure nor confluent pneumonic infiltrate. There are chest leads. Costophrenic ang les are clear. There is cervical spine fusion surgery. Bony thorax is intact. Thoracic aorta is ather omatous. IMPRESSION: No active cardiopulmonary disease. No change.
[2022-07-29] MEDS ORDERED: VERAPAMIL 2.5 MG/ML 2 ML AMP ONE (23:55)
[2022-07-29] MEDS ORDERED: HEPARIN SODIUM 1,000 UN/ML (10ML VL) ONE (23:56)
[2022-07-29] MEDS ORDERED: fentaNYL (PF) 50 MCG/ML 2 ML AMP ONE (23:57)
[2022-07-30] MEDS ORDERED: LIDOCAINE 1% INJ 10MG/ML (5 ML VIAL-PF) SQ ONE
[2022-07-30] MEDS ORDERED: VERAPAMIL SYRINGE (5 MG/10 ML) INTRAARTER ONE (00:01)
[2022-07-30] MEDS ORDERED: LIDOCAINE 1% INJ 10MG/ML (30 ML VIAL-PF) SQ ONE (00:23)
[2022-07-30 00:26] LABS: Basophils % (A) 0 %; Eosinophils # (A) 0.5 k/uL (0-0.7); Eosinophils % (A) 4 %; HCT 30.7 % (34.0-46.0); Lymphocytes # (A) 1.7 k/uL (1.0-4.8); Lymphocytes % (A) 13 %; MCHC 32.7 g/dL (31.0-37.0); MCV 88.8 fL (80.0-100.0); Monocytes # (A) 0.7 k/uL (0-1.0); Monocytes % (A) 5 %; Neutrophils # (A) 9.9 k/uL (1.3-7.7); Neutrophils % (A) 76 %; Platelet Count 226 k/uL (150-450); RBC 3.46 m/uL (3.80-5.40); RDW 14.1 % (11.5-15.5)
[2022-07-30 00:30] LABS: Albumin 1.6 g/dL (3.5-5.0); Magnesium 1.1 mg/dL (1.6-2.3); Total Bilirubin 0.1 mg/dL (0.2-1.3); Total Protein 3.2 g/dL (6.3-8.2)
[2022-07-30] MEDS ORDERED: fentaNYL (PF) 50 MCG/ML 2 ML AMP IV ONE (00:30)
[2022-07-30] MEDS ORDERED: HEPARIN SODIUM 1,000 UN/ML (10ML VL) IV ONE (00:30)
[2022-07-30] MEDS ORDERED: IOPAMIDOL-370 125ML BTL INJ ONE (00:33)
[2022-07-30 00:39] LABS: INR 1.1 (<1.2); Partial Thromboplastin Time 23.6 sec (22.0-30.0); Prothrombin Time 11.7 sec (9.0-12.0)
[2022-07-30] MEDS ORDERED: HYDROmorphone 0.5 MG/0.5 ML SYRINGE IVP ONE (00:48)
[2022-07-30] MEDS: MIDAZOLAM 2 MG/2 ML VIAL IV ONE ×2 (00:51)
[2022-07-30 00:53] LABS: Calcium 4.7 mg/dL (8.4-10.2); Potassium 2.4 mmol/L (3.5-5.1)
[2022-07-30] MEDS ORDERED: POTASSIUM CHLORIDE 10 MEQ in WATER FOR INJECTION 1 100ML.BAG IVPB STA ×2 (00:55→01:19)
[2022-07-30] MEDS ORDERED: IOPAMIDOL-370 100ML BTL INJ ONE (00:56)
[2022-07-30] MEDS ORDERED: ONDANSETRON 4 MG/2 ML VIAL ONE (01:06)
[2022-07-30] MEDS ORDERED: ONDANSETRON 4 MG/2 ML VIAL IVP ONE (01:08)
[2022-07-30] MEDS ORDERED: RX INFO: IV CONTRAST WAS GIVEN 1 EACH MISC MISCELLANE PRN (01:12)
[2022-07-30] MEDS ORDERED: SODIUM CHLORIDE 0.9% 1,000 ML IV SCH (01:15)
--- NOTE | 2022-07-30 01:32 | P.PCN ---
Date of Procedure: 07/30/22 Operative Findings: CARDIAC CATHETERIZATION AND PERCUTANEOUS CORONARY INTERVENTION PERFORMING PHYSICIAN: Milton Dupree MD, RPVI PROCEDURE PERFORMED: 1. Selective right and left coronary angiogram 2. PTCA of the distal left anterior descending artery 3. Selective right common femoral artery angiogram INDICATION: This is a 72-year-old female patient with diabetes and hypertension and dysli pidemia and obesity presented to the hospital complaining of chest discomfort and EKG concerning for lateral ST segment elevation beach she had about [address] segment elevation in 1 and aVL as well as in V5 and V6. For that reason the decision was made toward an emergent heart catheterization COMPLICATION: None APPROACH: Right radial artery Right common femoral artery LEVEL OF SEDATION: Moderate with the sedation time off 63 minutes PROCEDURE DESCRIPTION: After obtaining an informed consent the patient was brought to cardiac director of cardiac cath lab. The right radial artery was cannulated using micropuncture technique, the micropuncture wire passed easily then I placed a 6-Thai sheath. Subsequently I gave the patient 2 mg of verapamil intra-arterial and 4000 use of heparin and intravenous. Attempting doing selective left coronary angiogram from right radial approach was unsuccessful. The patient has extremely tortuous right subclavian artery. I was able to engage the right coronary artery from right radial approach using a JL 3.5 catheter. I did selective right coronary angiogram using this catheter. Subsequently and because of the difficulties engaging the left coronary system from right radial approach I did decide to a port the right radial approach and accessed the femoral artery. I did access the right common femoral artery using micropuncture technique, the micropuncture wire passed easily then I placed a 6-Thai sheath at the right common femoral artery. Selective left coronary angiogram was performed using JL4 catheters. After that I did intervene on the distal left anterior descending artery. Then after that I did engage the right coronary artery again using JR 3.5 guiding catheter. At that point the procedure was completed was no complication. I did by the end selective right common femoral artery angiogram SELECTIVE CORONARY ANGIOGRAM: The right coronary artery: Large caliber vessel and dominant vessel. The RCA in the midportion appears to have a lesion in the range of 60-70% was mostly identified on the VEGA view. Left main: Is angiographically normal. Bifurcates into an LCx and LAD The left circumflex: Large caliber vessel and nondominant vessel. The left circumflex has mild disease only. Gives rises into a large OM branch which appeared to be angiographically normal. The left anterior descending artery: The proximal LAD appeared to be angiographically normal. The mid LAD by the bifurcation of the large diagonal branch has a disease appeared to be in the range of 20-30%. The LAD distally is probably occluded. The LAD definitely does not reach the apex. The first and large diagonal branch the LAD gives has mild disease in the proximal and midportion but distally also appear to be occluded. Both the LAD and diuretics becomes small caliber vessel in the very distal portion. PCI OF THE LAD: Anticoagulation was initiated using heparin and the patient was given at the beginning 4000 use of heparin intravenous. Subsequently I did engage the left main coronary artery using JL4 guiding catheter. After that I did wire the LAD using a run-through wire. Attempting crossing the lesion in the distal portion was performed and the wire was advanced to the distal LAD. I did advance 2.0 x 12 mm balloon and I did PTCA ballooning for about 10 second of the distal left anterior descending artery and that did not restore any flow in the LAD. At that point I had a concern if the LAD was occluded or the LAD becomes very small caliber vessel distally and in the right ear. For that reason I decided not to ballooning again. I attempted wiring the LAD distally using a whisper wire and with that I was able to advance the wire to the very distal LAD. For that reason I decided to stop at that point. After that I did engage the right coronary artery again using a JR4 guiding catheter. I want to make sure that the PLV branch of the right coronary artery is not occluded and explaining the lateral ST segment elevation. I did engage the RCA using JR 3.5 guiding catheter. I did selective right coronary angiogram and that revealed that the mid right coronary artery on the VEGA view appears to have a concerning lesion in the range of 60-70%. CONCLUSION: 1. Intermediate to severe disease involving the mid right coronary artery which is a large caliber vessel and a dominant vessel. 2. The very distal left anterior descending artery and a very distal diagonal branche of the LAD appears to be occluded. They became small caliber vessels. POSTPROCEDURE MANAGEMENT: 1. Assess the hemodynamic significance of the RCA by doing FFR of the right coronary artery in the next 24-48 hours. 2. Rule out intra-abdominal process responsible for the abdominal discomfort. The patient started experiencing abdominal discomfort by the end of the procedure
--- NOTE | 2022-07-30 01:38 | P.CRDCN ---
History of Present Illness Consult date: 07/30/22 Chief complaint: Chest discomfort History of present illness: The patient is a 72-year-old female patient with a past medical history significant for diabetes as well as hypertension as well as dyslipidemia as well as morbid obesity. She also does have chronic kidney disease. The patient presented to the hospital complaining of chest discomfort. She stated that she was in her usual state of health until last night when she woke up from sleep complaining of discomfort in the middle of the chest as a pressure on the chest with radiation toward the shoulders. Also she did have some radiation toward the back. No associated symptoms of sweating or presyncope or syncope but she did have the feeling of being nauseated. The pain lasted more than 15 minutes. The patient called EMS and an EKG was performed and revealed sinus rhythm with ST segment elevation in the lateral leads, in 1 and aVL as well as V5 and V6 with reciprocal ST segment depression inferiorly. In the light of that an emergent heart catheterization was advised. The patient underwent a heart catheterization and that revealed dominant right coronary system with in termediate to severe disease involving the mid right coronary artery as well as the possible occlusion of a very distal left anterior descending artery and the very distal of the first diagonal branch, both arteries becomes small caliber vessel at that point. Because she continues to have ongoing chest discomfort I did attempt balloon angioplasty of the distal LAD. Initially the procedure was performed from the right radial approach but the patient does have extremely tortuous right subclavian artery and engaging the left coronary system from right radial approach was very difficult and for that reason I accessed the right common femoral artery and finished the procedure from the right groin. The patient tolerated the procedure very well. When she was brought to the hospital and presented to the hospital she had no pain in the abdomen. After the procedure was completed, she was experiencing some abdominal discomfort. Her abdomen is somewhat distended on examination but appears to be soft. Is mildly tender. Beside that she stated that she has been experiencing diarrhea for the last 24 hours. Her potassium has been low. Her vitals are stable during the examination. The exam revealed extremely distant heart sounds with diminished breathing sounds bilaterally and distended abdomen appears to be soft with mild tenderness. Assessment Chest discomfort which has improved Coronary artery disease as described above Abdominal discomfort associated with abdominal distention associated with nausea and diarrhea Multiple comorbid conditions including morbid obesity and hypertension and dyslipidemia and diabetes and chronic kidney disease Hypokalemia and hypocalcemia Plan Continue the current medical regimen Obtain an echo to assess ejection fraction Rule out intra-abdominal process and rule out small bowel obstruction. That is to be addressed by the internal medicine team Replace the electrolytes Consider rule out hemodynamically significant disease involving the RCA. Consider FFR of the RCA Follow-up with the serial cardiac enzymes Follow-up with the patient The plan was addressed with the patient as well as with her family. Past Medical History Past Medical History: Asthma, COPD, GI Bleed, Hypertension, Osteoarthritis (OA), Sleep Apnea/CPAP/BIPAP Additional Past Medical History / Comment(s): Tinnitus; OA in backs, knees, hands; uses home CPAP; gastric ulcers in her 30s, HX LT MACULAR HOLE-REPAIRED History of Any Multi-Drug Resistant Organisms: None Reported Past Surgical History: Hysterectomy, Orthopedic Surgery, Tonsillectomy Additional Past Surgical History / Comment(s): Vertebral (neck) surgery. RT CTR. EGD. REPAIR LT MACULAR HOLE AND LT CATARACT REMOVED Past Anesthesia/Blood Transfusion Reactions: Motion Sickness Past Psychological History: Anxiety Past Alcohol Use History: None Reported Additional Past Alcohol Use History / Comment(s): QUIT SMOKING 1989 Past Drug Use History: None Reported - Past Family History Father Family Medical History: Unable to Obtain Mother History Unknown: Yes Family Medical History: No Reported History, Cancer Additional Family Medical History / Comment(s): Esophageal cancer, arthritis Medications and Allergies Home Medications Medication Instructions Recorded Confirmed Type Albuterol Sulfate [Proair Hfa] 2 puff INHALATION RT-Q6H PRN 09/11/18 05/13/20 History Citalopram Hydrobromide [CeleXA] 20 mg PO DAILY 09/11/18 05/13/20 History Fluticasone Propion/Salmeterol 1 puff INHALATION RT-BID PRN 09/11/18 05/13/20 History [Advair 250-50 Diskus] Lisinopril-Hctz 20-25 mg 1 tab PO BID 09/11/18 05/13/20 History [Zestoretic 20-25] carvediloL 25 mg PO BID 09/11/18 05/13/20 History Artificial Tears-Hypromellose 1 drop BOTH EYES TID PRN 06/08/19 05/13/20 History [Artificial Tear Drops] rOPINIRole HCL [Requip] 2 mg PO HS 06/08/19 05/13/20 History traZODone HCL 50 mg PO HS 06/08/19 05/13/20 History Acetaminophen Tab [Tylenol Tab] 1,000 mg PO Q6HR PRN 05/13/20 05/13/20 History Diclofenac Sodium Gel [Voltaren 2 gm TOPICAL BID 05/13/20 05/13/20 History Gel] Ergocalciferol [Vitamin D2] 50,000 unit PO WE 05/13/20 05/13/20 History Meclizine [Antivert] 25 mg PO TID #20 tab 05/13/20 Rx Meloxicam [Mobic] 7.5 mg PO BID 05/13/20 05/13/20 History allopurinoL [Zyloprim] 100 mg PO DAILY 05/13/20 05/13/20 History Allergies Allergy/AdvReac Type Severity Reaction Status Date / Time No Known Allergies Allergy Verified 05/13/20 09:08 Physical Exam Vitals: Vital Signs Pulse Resp BP Pulse Ox 07/29/22 23:19 83 16 115/91 98 Intake and Output 07/29/22 07/29/22 07/30/22 14:59 22:59 06:59 Other: Weight 124.738 kg Results 07/29/22 23:23 07/29/22 23:23 Cardiac Enzymes 07/29/22 07/29/22 Range/Units 23:23 23:23 AST 10 L (14-36) U/L Troponin I <0.012 (0.000-0.034) ng/mL Coagulation 07/29/22 Range/Units 23:23 PT 11.7 (9.0-12.0) sec APTT 23.6 (22.0-30.0) sec CBC 07/29/22 Range/Units 23:23 WBC 13.0 H (3.8-10.6) k/uL RBC 3.46 L (3.80-5.40) m/uL Hgb 10.0 L (11.4-16.0) gm/dL Hct 30.7 L (34.0-46.0) % Plt Count 226 (150-450) k/uL Comprehensive Metabolic Panel 07/29/22 Range/Units 23:23 Sodium 141 (137-145) mmol/L Potassium 2.4 L* (3.5-5.1) mmol/L Chloride 119 H (98-107) mmol/L Carbon Dioxide 17 L (22-30) mmol/L BUN 26 H (7-17) mg/dL Creatinine 1.01 (0.52-1.04) mg/dL Glucose 105 H (74-99) mg/dL Calcium 4.7 L* (8.4-10.2) mg/dL AST 10 L (14-36) U/L ALT 10 (4-34) U/L Alkaline Phosphatase 32 L (38-126) U/L Total Protein 3.2 L (6.3-8.2) g/dL Albumin 1.6 L (3.5-5.0) g/dL Current Medications Generic Name Dose Route Start Last Admin Trade Name Freq PRN Reason Stop Dose Admin Potassium Chloride 10 meq/ IV 100 mls @ 100 mls/hr 07/30/22 00:55 Solution IVPB 07/30/22 01:54 ONCE STA Sodium Chloride 1,000 mls @ 75 mls/hr 07/30/22 01:15 Saline 0.9% IV 07/30/22 09:16 .[id number] LOIS Potassium Chloride 10 meq/ IV 100 mls @ 100 mls/hr 07/30/22 01:19 Solution IVPB 07/30/22 02:18 ONCE STA Miscellaneous Information 1 each 07/30/22 01:12 Rx Info: Iv Contrast Was Given 1 Each Misc MISCELLANE 08/01/22 01:13 DAILY PRN Per Protocol Naloxone HCl 0.2 mg 07/29/22 23:51 Naloxone 0.4 Mg/Ml 1 Ml Vial IV Q2M PRN Opioid Reversal Nitroglycerin 0.4 mg 07/29/22 23:19 07/29/22 23:21 Nitroglycerin Sl Tabs 0.4 Mg Tab SUBLINGUAL 0.4 mg Q5M PRN Administration Chest Pain Intake and Output 07/29/22 07/29/22 07/30/22 14:59 22:59 06:59 Other: Weight 124.738 kg Patient Weight 07/30/22 06:59 Weight 124.738 kg 07/29/22 23:23 07/29/22 23:23
[2022-07-30 01:41] LABS: Glucose,Whole Blood 191 mg/dL (70-110)
[2022-07-30] MEDS ORDERED: METOCLOPRAMIDE 5 MG/ML 2 ML VIAL IVP STA (02:23)
[2022-07-30] MEDS ORDERED: POTASSIUM CHLORIDE 60 MEQ in WATER FOR INJECTION 1 100ML.BAG IVPB STA ×2 (02:26→02:29)
[2022-07-30] MEDS: HYDROmorphone 0.5 MG/0.5 ML SYRINGE IVP PRN ×5 (02:44→20:19)
[2022-07-30] MEDS ORDERED: CALCIUM GLUCONATE IN NACL 2 GM in SALINE 1 100ML.BAG IVPB ONE (03:00)
[2022-07-30] MEDS ORDERED: Potassium Replacement Protocol 1 EACH MISC MISCELLANE PRN (03:55)
[2022-07-30] MEDS: POTASSIUM CHLORIDE 10 MEQ in WATER FOR INJECTION 1 100ML.BAG IVPB SCH ×5 (04:00→09:10)
[2022-07-30] MEDS ORDERED: POTASSIUM CHLORIDE 20 MEQ in WATER FOR INJECTION 1 100ML.BAG IVPB SCH (04:00)
[2022-07-30 06:55] LABS: Basophils % (A) 0 %; Eosinophils # (A) 0.5 k/uL (0-0.7); Eosinophils % (A) 3 %; HCT 40.4 % (34.0-46.0); Lymphocytes # (A) 1.4 k/uL (1.0-4.8); Lymphocytes % (A) 8 %; MCH 27.9 pg (25.0-35.0); MCHC 32.2 g/dL (31.0-37.0); MCV 86.6 fL (80.0-100.0); Mean Platelet Volume 9.2; Monocytes # (A) 0.7 k/uL (0-1.0); Monocytes % (A) 4 %; Neutrophils # (A) 14.5 k/uL (1.3-7.7); Neutrophils % (A) 84 %; Platelet Count 224 k/uL (150-450); RBC 4.67 m/uL (3.80-5.40); WBC 17.3 k/uL (3.8-10.6)
[2022-07-30 07:02] LABS: Calcium 8.8 mg/dL (8.4-10.2); Potassium 5.1 mmol/L (3.5-5.1)
[2022-07-30] MEDS ORDERED: ALBUTEROL NEBULIZED 2.5 MG/3 ML INHALATION PRN (07:10)
[2022-07-30] MEDS ORDERED: MECLIZINE 25 MG TAB PO PRN (07:10)
[2022-07-30] MEDS ORDERED: ARTIFICIAL TEARS-HYPROMELLOSE DROPS 15 ML BTL BOTH EYES PRN (07:10)
[2022-07-30] MEDS ORDERED: SYMBICORT 80-4.5 MCG INHALER INHALATION PRN (07:10)
[2022-07-30] MEDS ORDERED: DEXTROSE 50% SYRINGE 50 ML IVP PRN ×2 (07:13)
[2022-07-30] MEDS: POTASSIUM CHLORIDE ER 20 MEQ TAB.ER PO SCH ×2 (07:41→08:08)
[2022-07-30 08:15] LABS: Glucose,Whole Blood 183 mg/dL (70-110)
[2022-07-30] MEDS: carvediloL 12.5 MG TAB PO SCH ×2 (08:20→16:46)
[2022-07-30] MEDS: INSULIN ASPART (NovoLOG) 100 UNIT/ML VIAL SQ SCH ×4 (08:21→19:58)
[2022-07-30] MEDS: allopurinoL 100 MG TAB PO SCH (08:21)
[2022-07-30] MEDS: CITALOPRAM HYDROBROMIDE 20 MG TAB PO SCH (08:21)
--- NOTE | 2022-07-30 09:45 | P.PN ---
Subjective Progress Note Date: 07/30/22 Principal diagnosis: ACS The patient is a 72-year-old female patient with a past medical history significant for diabetes as well as hypertension as well as dyslipidemia as well as morbid obesity. She also does have chronic kidney disease. The patient presented to the hospital complaining of chest discomfort. She stated that she was in her usual state of health until last night when she woke up from sleep complaining of discomfort in the middle of the chest as a pressure on the chest with radiation toward the shoulders. Also she did have some radiation toward the back. No associated symptoms of sweating or presyncope or syncope but she did have the feeling of being nauseated. The pain lasted more than 15 minutes. The patient called EMS and an EKG was performed and revealed sinus rhythm with ST segment elevation in the lateral leads, in 1 and aVL as well as V5 and V6 with reciprocal ST segment depression inferiorly. In the light of that an emergent heart catheterization was advised. The patient underwent a heart catheterization and that revealed dominant right coronary system with intermediate to severe disease involving the mid right coronary artery as well as the possible occlusion of a very distal left anterior descending artery and the very distal of the first diagonal branch, both arteries becomes small caliber vessel at that point. Because she continues to have ongoing chest discomfort I did attempt balloon angioplasty of the distal LAD. Initially the procedure was performed from the right radial approach but the patient does have extremely tortuous right subclavian artery and engaging the left coronary system from right radial approach was very difficult and for that reason I accessed the right common femoral artery and finished the procedure from the right groin. The patient tolerated the procedure very well. When she was brought to the hospital and presented to the hospital she had no pain in the abdomen. After the procedure was completed, she was experiencing some abdominal discomfort. Her abdomen is somewhat distended on examination but appears to be soft. Is mildly tender. Beside that she stated that she has been experiencing diarrhea for the last 24 hours. Her potassium has been low. Her vitals are stable dur ing the examination. The exam revealed extremely distant heart sounds with diminished breathing sounds bilaterally and distended abdomen appears to be soft with mild tenderness. July [id number] The patient was seen and evaluated this morning. She stated that the chest discomfort has improved. She is experiencing abdominal tenderness on examination. Clinically she is stable in terms of blood pressure and heart rate. The creatinine is a slightly worse likely related to the contrast was given the day before. Echo still pending. Currently I'm going to obtain 2 more sets of serial cardiac enzymes. Add aspirin and statin to the current medical regimen. Continue beta shelby. Further investigation regarding the abdominal tenderness and rule out intra-abdominal process to be done by the internal medicine team. Continue following up with the patient Assessment Chest discomfort which has improved Coronary artery disease as described above Abdominal discomfort associated with abdominal distention associated with nausea and diarrhea Multiple comorbid conditions including morbid obesity and hypertension and dyslipidemia and diabetes and chronic kidney disease Hypokalemia and hypocalcemia Plan Continue the current medical regimen Obtain an echo to assess ejection fraction Rule out intra-abdominal process and rule out small bowel obstruction. That is to be addressed by the internal medicine team Add aspirin and statin and continue beta shelby Consider rule out hemodynamically significant disease involving the RCA. Consider FFR of the RCA Follow-up with the serial cardiac enzymes Follow-up with the patient Objective - Vital Signs Vital signs: Vital Signs Temp 98.2 F 07/30/22 08:00 Pulse 82 07/30/22 09:00 Resp 16 07/30/22 09:00 BP 127/67 07/30/22 09:00 Pulse Ox 94 L 07/30/22 09:00 FiO2 Intake & Output 07/29/22 07/30/22 07/30/22 18:59 06:59 18:59 Intake Total 505 250 Output Total 400 100 Balance 105 150 Weight 125 kg Intake: IV 5 150 Sodium Chloride 0.9% 1, 150 000 ml @ 75 mls/hr IV . [id number] LOIS Rx#:[id number] Intake, IV Titration 500 100 Amount Potassium Chloride 10 meq 500 100 In Water For Injection 1 100ml.bag @ 100 mls/hr IVPB Q1HR LOIS Rx#: [id number] Output: Urine 400 100 Other: # Bowel Movements 1 - Labs CBC & Chem 7: 07/30/22 06:36 07/30/22 08:20 Labs: Abnormal Lab Results - Last 24 Hours (Table) 07/29/22 07/29/22 07/30/22 Range/Units 23:23 23:23 01:38 WBC 13.0 H (3.8-10.6) k/uL RBC 3.46 L (3.80-5.40) m/uL Hgb 10.0 L (11.4-16.0) gm/dL Hct 30.7 L (34.0-46.0) % Neutrophils # 9.9 H (1.3-7.7) k/uL Sodium (137-145) mmol/L Potassium 2.4 L* (3.5-5.1) mmol/L Chloride 119 H (98-107) mmol/L Carbon Dioxide 17 L (22-30) mmol/L BUN 26 H (7-17) mg/dL Creatinine (0.52-1.04) mg/dL Glucose 105 H (74-99) mg/dL POC Glucose (mg/dL) 191 H (70-110) mg/dL Calcium 4.7 L* (8.4-10.2) mg/dL Magnesium 1.1 L (1.6-2.3) mg/dL Total Bilirubin 0.1 L (0.2-1.3) mg/dL AST 10 L (14-36) U/L Alkaline Phosphatase 32 L (38-126) U/L Total Protein 3.2 L (6.3-8.2) g/dL Albumin 1.6 L (3.5-5.0) g/dL 07/30/22 07/30/22 07/30/22 Range/Units 06:36 06:36 08:13 WBC 17.3 H (3.8-10.6) k/uL RBC (3.80-5.40) m/uL Hgb (11.4-16.0) gm/dL Hct (34.0-46.0) % Neutrophils # 14.5 H (1.3-7.7) k/uL Sodium 136 L (137-145) mmol/L Potassium (3.5-5.1) mmol/L Chloride (98-107) mmol/L Carbon Dioxide (22-30) mmol/L BUN 35 H (7-17) mg/dL Creatinine 1.68 H (0.52-1.04) mg/dL Glucose 183 H (74-99) mg/dL POC Glucose (mg/dL) 183 H (70-110) mg/dL Calcium (8.4-10.2) mg/dL Magnesium (1.6-2.3) mg/dL Total Bilirubin (0.2-1.3) mg/dL AST (14-36) U/L Alkaline Phosphatase (38-126) U/L Total Protein (6.3-8.2) g/dL Albumin (3.5-5.0) g/dL
[2022-07-30] MEDS: ASPIRIN 81 MG PO SCH (10:46)
--- NOTE | 2022-07-30 11:03 | XR ---
EXAMINATION TYPE: XR abdomen acute w cxr DATE OF EXAM: 07/30/2022 COMPARISON: None HISTORY: Abdomen pain TECHNIQUE: Abdomen is examined in the supine and upright views and supplemented with a frontal chest. FINDINGS: Heart size is upper limits of normal. Pulmonary vasculature is normal. No focal consolidati on is evident. No free air is under the diaphragm ABDOMEN: Organomegaly is not evident. Psoas margins are not well visualized. There are dilated prominent air-filled small bowel loops. Differential air-fluid levels are not ident ified. Mass effect is not evident. Small amount of colonic bowel gas appears to be present. Contrast is within the urinary bladder. Report was called to the ICU, Whitney the patient's nurse, by Dr. Vasquez by telephone at the time of i nterpretation. IMPRESSION: 1. Clinical correlation recommended for partial small bowel obstruction versus ileus. Follow-up is r ecommended.
--- NOTE | 2022-07-30 11:32 | US ---
EXAMINATION TYPE: US kidneys/renal and bladder DATE OF EXAM: 07/30/2022 COMPARISON: 12/06/2020, ultrasound dated 07/25/2022 [facility]. CLINICAL HISTORY: EDDIE. EXAM MEASUREMENTS: Right Kidney: 10.5 x 5.6 x 6.2 cm Left Kidney: -- cm. Not identified due to bowel gas. Right Kidney: wnl Left Kidney: Obscured by overlying bowel gas Bladder: Non distended, with lemus catheter Bilateral Jets seen: No There is no evidence for hydronephrosis at this point in time. No nephrolithiasis is seen. No anita s are identified. The urinary bladder is anechoic but non distended. Lemus catheter is present. Jaleel ateral ureteral jets are not seen. IMPRESSION: 1. No acute right renal abnormality. 2. Nonvisualization left kidney.
--- NOTE | 2022-07-30 12:29 | CT ---
EXAMINATION TYPE: CT abdomen pelvis wo con DATE OF EXAM: 07/30/2022 COMPARISON: 06/11/2019 INDICATION: Possible small bowel obstruction DLP: 3707 mGycm, Automated exposure control for dose reduction was used. CONTRAST: 0 mL of Isovue 300. Study performed without Oral Contrast TECHNIQUE: Axial images were obtained from above the diaphragm to the pubic rami in the axial plane a t 5 mm thick sections. Reconstructed images are reviewed on the computer in the coronal plane. FINDINGS: Limited CT sections are obtained the lung bases. Bibasilar infiltrates are present. Correlate for at electasis. Mild pneumonia could be considered.. CT ABDOMEN: Subcutaneous tissue increased density is present posterior to the paraspinal region. Yvan elate for infection or hematoma. No abscess formation is evident. Liver: Normal Spleen: Normal Pancreas: Normal. Prior tibial of the pancreas pancreatitis is not identified. Adrenal glands: The adrenal glands are normal. Gallbladder: There is some excretion of oral contrast through the biliary system resides within the g allbladder. Kidneys: Left kidney appears somewhat atrophic. 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 No hy dronephrosis is present. No cysts are present. Contrast was present with excretion through the kid neys. Aorta: Vascular calcification is within the aorta. Inferior vena cava: Normal. CT PELVIS: Small bowel loops are fluid-filled and somewhat prominent. The more distal ileum has a more normal ca liber. Terminal ileum appears unremarkable scattered diverticuli within the colon. Previous inflammat ory changes within the mesentery are not identified. The study is lateral contrast limiting bowel dario luation. Appendix: Normal as visualized. Urinary bladder: Urinary bladder contains excreted contrast. No filling defects are identified. Genitourinary structures: Uterus and ovaries are not identified. Osseous structures: No suspicious lytic or sclerotic lesions. Degenerative disc changes are present. IMPRESSIONS: 1. Diverticulosis without acute diverticulitis. 2. Resolution of previous inflammatory changes adjacent to the tail of the pancreas. 3. Correlate for bibasilar atelectasis within the lung bases. Pneumonia could be considered within th e differential. 4. Mild prominence of small bowel loops with fluid with a more normal caliber at the terminal ileum. Correlate for ileus. No discrete zone of transition is identified. No definite obstruction on this no n oral contrast study is evident
[2022-07-30 12:51] LABS: Glucose,Whole Blood 154 mg/dL (70-110)
--- NOTE | 2022-07-30 14:22 | P.HPIM ---
History of Present Illness H&P Date: 07/30/22 History of present illness; patient is a 72-year-old lady with past medical history significant for diabetes mellitus, hypertension, and dyslipidemia who presented to the ER because of chest discomfort. This chest pain has been going on since yesterday afternoon, it's left-sided with radiation to his left shoulder. Patient described it as heavy and sharp in sensation. Chest pain was associated with nausea and vomiting. Patient was also complaining of sweating at that time as well. Patient was able to tolerate this chest pain but last night she woke up from her sleep with worsening chest pain. At that time EMS was called. EKG performed at that time was concerning for STEMI with ST elev ation in the lateral leads, in 1 and aVL as well as V5 and V6 with reciprocal ST segment changes. Patient was brought to the ER and woods laborer was activated. Patient went for emergent cardiac cath,that revealed dominant right coronary system with intermediate to severe disease involving the mid right coronary artery as well as the possible occlusion of a very distal left anterior descending artery and the very distal of the first diagonal branch, both arteries becomes small caliber vessel at that point, patient underwent balloon angioplasty of the distal LAD. Post cardiac cath patient was admitted to ICU. Patient complains of abdominal pain. X-ray abdominal done showed small bowel obstruction versus ileus CT abdominal and pelvis done showed diverticulosis without acute diverticulitis, mild prominence of small bowel loops with fluid with a more normal caliber at the terminal ileum, correlate for ileus. No discrete transition zone identified. No definite obstruction seen REVIEW OF SYSTEMS: CONSTITUTIONAL: No fever, no malaise, no fatigue. HEENT: No recent visual problems or hearing problems. Denied any sore throat. CARDIOVASCULAR: As mentioned in HPI PULMONARY: No shortness of breath, no cough, no hemoptysis. GASTROINTESTINAL: Complaining of abdominal pain. No nausea or vomiting NEUROLOGICAL: No headaches, no weakness, no numbness. HEMATOLOGICAL: Denies any bleeding or petechiae. GENITOURINARY: Denies any burning micturition, frequency, or urgency. MUSCULOSKELETAL/RHEUMATOLOGICAL: Denies any joint pain, swelling, or any muscle pain. ENDOCRINE: Denies any polyuria or polydipsia. The rest of the 14-point review of systems is negative. PHYSICAL EXAMINATION: GENERAL: The patient is alert and oriented x3, not in any acute distress. Well developed, well nourished. HEENT: Pupils are round and equally reacting to light. EOMI. No scleral icterus. No conjunctival pallor. Normocephalic, atraumatic. No pharyngeal erythema. No thyromegaly. CARDIOVASCULAR: S1 and S2 present. No murmurs, rubs, or gallops. PULMONARY: Chest is clear to auscultation, no wheezing or crackles. ABDOMEN: Soft, nontender, nondistended, normoactive bowel sounds. No palpable organomegaly. MUSCULOSKELETAL: No joint swelling or deformity. EXTREMITIES: No cyanosis, clubbing, or pedal edema. NEUROLOGICAL: Gross neurological examination did not reveal any focal deficits. SKIN: No rashes. Assessment and plan Chest pain Abdominal pain Small bowel obstruction versus ileus Coronary artery disease Hypokalemia Abdominal pain Hypertension Hyperlipidemia Diabetes mellitus Chronic kidney disease Morbid obesity Plan Monitor vital signs Monitor CBC Monitor CMP Continue telemetry monitoring 2-D echo ordered Trend troponins Results of X-ray abdominal and CT abdominal pelvis noted. Consulted general surgery Keep patient nothing by mouth Continue home meds Past Medical History Past Medical History: Asthma, COPD, GI Bleed, Hypertension, Osteoarthritis (OA), Sleep Apnea/CPAP/BIPAP Additional Past Medical History / Comment(s): Tinnitus; OA in backs, knees, hands; uses home CPAP; gastric ulcers in her 30s, HX LT MACULAR HOLE-REPAIRED History of Any Multi-Drug Resistant Organisms: None Reported Past Surgical History: Hysterectomy, Orthopedic Surgery, Tonsillectomy Additional Past Surgical History / Comment(s): Vertebral (neck) surgery. RT CTR. EGD. REPAIR LT MACULAR HOLE AND LT CATARACT REMOVED Past Anesthesia/Blood Transfusion Reactions: Motion Sickness Past Psychological History: Anxiety Past Alcohol Use History: None Reported Additional Past Alcohol Use History / Comment(s): QUIT SMOKING 1989 Past Drug Use History: None Reported - Past Family History Father Family Medical History: Unable to Obtain Mother History Unknown: Yes Family Medical History: No Reported History, Cancer Additional Family Medical History / Comment(s): Esophageal cancer, arthritis Medications and Allergies Home Medications Medication Instructions Recorded Confirmed Type Albuterol Sulfate [Proair Hfa] 2 puff INHALATION RT-QID PRN 09/11/18 07/30/22 History Citalopram Hydrobromide [CeleXA] 20 mg PO DAILY 09/11/18 07/30/22 History Lisinopril-Hctz 20-25 mg 1 tab PO BID 09/11/18 07/30/22 History [Zestoretic 20-25] carvediloL 25 mg PO BID 09/11/18 07/30/22 History rOPINIRole HCL [Requip] 2 mg PO HS 06/08/19 07/30/22 History traZODone HCL 50 mg PO HS 06/08/19 07/30/22 History allopurinoL [Zyloprim] 100 mg PO DAILY 05/13/20 07/30/22 History Cyclobenzaprine [Flexeril] 5 mg PO TID PRN 07/30/22 07/30/22 History Ergocalciferol [Vitamin D2 (1250 1,250 mcg PO TU 07/30/22 07/30/22 History Mcg = 07198 Iu)] Fluticasone/Umeclidin/Vilanter 1 puff INHALATION RT-DAILY 07/30/22 07/30/22 History [Trelegy Ellipta 200-62.5-25] Gabapentin [Neurontin] 300 mg PO BID 07/30/22 07/30/22 History HYDROcodone/APAP 5-325MG [[place] 1 tab PO BID PRN 07/30/22 07/30/22 History 5-325] Magnesium Oxide [Magnesium] 500 mg PO HS 07/30/22 07/30/22 History Semaglutide [Ozempic] 0.5 mg SQ WE 07/30/22 07/30/22 History Allergies Allergy/AdvReac Type Severity Reaction Status Date / Time No Known Allergies Allergy Verified 07/30/22 11:32 Physical Exam Vitals: Vital Signs Temp Pulse Pulse Resp BP Pulse Ox 07/30/22 08:30 82 14 127/67 95 07/30/22 08:00 98.2 F 85 21 138/93 94 L 07/30/22 07:30 85 17 144/88 92 L 07/30/22 07:00 75 19 137/88 96 07/30/22 06:30 79 14 144/93 94 L 07/30/22 06:00 79 23 147/85 95 07/30/22 05:30 77 16 127/77 95 07/30/22 05:15 76 15 93 L 07/30/22 05:10 77 9 L 94 L 07/30/22 05:05 77 13 121/79 92 L 07/30/22 05:00 79 22 93 L 07/30/22 04:55 79 21 94 L 07/30/22 04:50 82 20 133/88 94 L 07/30/22 04:45 81 19 93 L 07/30/22 04:40 81 18 94 L 07/30/22 04:35 79 19 141/85 94 L 07/30/22 04:30 82 20 93 L 07/30/22 04:25 85 18 92 L 07/30/22 04:20 85 19 93 L 07/30/22 04:15 83 13 95 07/30/22 04:10 74 19 128/81 93 L 07/30/22 04:05 98.2 F 82 15 128/81 93 L 07/30/22 04:00 75 18 94 L 07/30/22 03:55 80 17 94 L 07/30/22 03:50 80 13 94 L 07/30/22 03:45 85 17 07/30/22 03:40 80 14 93 L 07/30/22 03:35 84 18 147/94 94 L 07/30/22 03:30 85 7 L 136/74 93 L 07/30/22 03:25 86 24 94 L 07/30/22 03:20 83 18 136/74 95 07/30/22 03:15 89 13 94 L 07/30/22 03:10 87 10 L 93 L 07/30/22 03:05 86 12 152/97 94 L 07/30/22 03:02 85 19 07/30/22 03:00 84 12 95 07/30/22 02:55 81 14 93 L 07/30/22 02:50 80 9 L 96 07/30/22 02:45 81 7 L 97 07/30/22 02:40 79 15 97 07/30/22 02:35 79 15 147/86 96 07/30/22 02:30 80 19 95 07/30/22 02:25 82 16 97 07/30/22 02:20 81 19 130/89 97 07/30/22 02:15 81 19 96 07/30/22 02:10 80 19 97 07/30/22 02:05 81 16 95 07/30/22 02:00 79 16 129/78 96 07/30/22 01:55 80 22 89/69 96 07/30/22 01:50 97.8 F 82 21 89/69 95 07/30/22 01:45 80 21 103/71 94 L 07/30/22 01:40 80 7 L 84/30 90 L 07/30/22 01:38 82 22 88 L 07/29/22 23:19 83 16 115/91 98 Intake and Output 07/29/22 07/30/22 07/30/22 22:59 06:59 14:59 Intake Total 505 175 Output Total 400 100 Balance 105 75 Intake: IV 5 75 Sodium Chloride 0.9% 1, 75 000 ml @ 75 mls/hr IV . [id number] [facility] Rx#:[id number] Intake, IV Titration 500 100 Amount Potassium Chloride 10 meq 500 100 In Water For Injection 1 100ml.bag @ 100 mls/hr IVPB Q1HR [facility] Rx#: [id number] Output: Urine 400 100 Other: # Bowel Movements 1 Weight 125 kg Results CBC & Chem 7: 07/30/22 06:36 07/30/22 08:20 Labs: Abnormal Lab Results - Last 24 Hours (Table) 07/29/22 07/29/22 07/30/22 Range/Units 23:23 23:23 01:38 WBC 13.0 H (3.8-10.6) k/uL RBC 3.46 L (3.80-5.40) m/uL Hgb 10.0 L (11.4-16.0) gm/dL Hct 30.7 L (34.0-46.0) % Neutrophils # 9.9 H (1.3-7.7) k/uL Sodium (137-145) mmol/L Potassium 2.4 L* (3.5-5.1) mmol/L Chloride 119 H (98-107) mmol/L Carbon Dioxide 17 L (22-30) mmol/L BUN 26 H (7-17) mg/dL Creatinine (0.52-1.04) mg/dL Glucose 105 H (74-99) mg/dL POC Glucose (mg/dL) 191 H (70-110) mg/dL Calcium 4.7 L* (8.4-10.2) mg/dL Magnesium 1.1 L (1.6-2.3) mg/dL Total Bilirubin 0.1 L (0.2-1.3) mg/dL AST 10 L (14-36) U/L Alkaline Phosphatase 32 L (38-126) U/L Total Protein 3.2 L (6.3-8.2) g/dL Albumin 1.6 L (3.5-5.0) g/dL 07/30/22 07/30/22 07/30/22 Range/Units 06:36 06:36 08:13 WBC 17.3 H (3.8-10.6) k/uL RBC (3.80-5.40) m/uL Hgb (11.4-16.0) gm/dL Hct (34.0-46.0) % Neutrophils # 14.5 H (1.3-7.7) k/uL Sodium 136 L (137-145) mmol/L Potassium (3.5-5.1) mmol/L Chloride (98-107) mmol/L Carbon Dioxide (22-30) mmol/L BUN 35 H (7-17) mg/dL Creatinine 1.68 H (0.52-1.04) mg/dL Glucose 183 H (74-99) mg/dL POC Glucose (mg/dL) 183 H (70-110) mg/dL Calcium (8.4-10.2) mg/dL Magnesium (1.6-2.3) mg/dL Total Bilirubin (0.2-1.3) mg/dL AST (14-36) U/L Alkaline Phosphatase (38-126) U/L Total Protein (6.3-8.2) g/dL Albumin (3.5-5.0) g/dL Thrombosis Risk Factor Assmnt - Choose All That Apply Any of the Below Risk Factors Present?: Yes Each Factor Represents 1 point: Abnormal pulmonary function (COPD), Obesity (BMI >25) Each Risk Factor Represents 2 Points: Age 61-74 years Thrombosis Risk Factor Assessment Total Risk Factor Score: 4 Thrombosis Risk Factor Assessment Level: Moderate Risk
[2022-07-30] MEDS: CYCLOBENZAPRINE 5 MG TAB PO PRN (14:41)
[2022-07-30] MEDS: ACETAMINOPHEN TAB 325 MG TAB PO PRN (16:18)
[2022-07-30 16:51] LABS: Glucose,Whole Blood 125 mg/dL (70-110)
[2022-07-30 19:53] LABS: Glucose,Whole Blood 146 mg/dL (70-110)
[2022-07-30] MEDS: ATORVASTATIN 40 MG TAB PO SCH (20:15)
[2022-07-30] MEDS: traZODone HCL 50 MG TAB PO SCH (21:00)
[2022-07-31 00:10] LABS: Glucose,Whole Blood 154 mg/dL (70-110)
[2022-07-31] MEDS: HYDROmorphone 0.5 MG/0.5 ML SYRINGE IVP PRN ×4 (01:06→17:36)
[2022-07-31 06:36] LABS: Glucose,Whole Blood 178 mg/dL (70-110)
[2022-07-31] MEDS: carvediloL 12.5 MG TAB PO SCH ×2 (06:50→17:37)
[2022-07-31] MEDS: CYCLOBENZAPRINE 5 MG TAB PO PRN (06:51)
[2022-07-31] MEDS: INSULIN ASPART (NovoLOG) 100 UNIT/ML VIAL SQ SCH ×4 (06:51→20:54)
[2022-07-31 07:51] LABS: Calcium 8.2 mg/dL (8.4-10.2); Potassium 4.4 mmol/L (3.5-5.1)
[2022-07-31] MEDS: allopurinoL 100 MG TAB PO SCH (08:35)
[2022-07-31] MEDS: ASPIRIN 81 MG PO SCH (08:35)
[2022-07-31] MEDS: CITALOPRAM HYDROBROMIDE 20 MG TAB PO SCH (08:35)
--- NOTE | 2022-07-31 09:32 | P.PN ---
Subjective Progress Note Date: 07/31/22 The patient is a 72-year-old female who presented to the emergency room with acute onset of chest discomfort. She was ruled in for non-ST elevated myocardial infarction. She underwent coronary angiogram with Dr. Bravo, where she was found to have multivessel disease. She did undergo PTCA of the distal L AD and had a residual 60-70 % lesion in the mid RCA. Echocardiogram is currently pending. The patient was interviewed and examined lying in bed. She states she is currently having sharp chest discomfort, which is worsened with deep inspiration. She also reports left upper and lower quadrant pain to palpation. No difficulty breathing. She states she has had diarrhea this morning GENERAL: Well-appearing, obese female in acute pain. NECK: Supple without JVD or thyromegaly. LUNGS: Breath sounds diminished to auscultation bilaterally. Respiration equal and unlabored. No wheezes, rales or rhonchi. HEART: Regular rate and rhythm without murmurs, rubs or gallops. S1 and S2 heard. EXTREMITIES: Normal range of motion, no edema. No clubbing or cyanosis. Peripheral pulses intact and strong. ABDOMEN: Left upper and lower quadrant pain. VITALS: Blood pressure 124/68, SpO2 94% on 2 L nasal cannula, respiratory rate 22, pulse 82 TELEMETRY: Sinus rhythm overnight LABS: Sodium 136, potassium 4.4, BUN 30, creatinine 1.66 IMPRESSION: ST elevated myocardial infarction, status post PTCA of distal LAD Multivessel coronary artery disease, residual intermediate lesion in the RCA, consider FFR Abdominal discomfort, possible bowel obstruction Morbid obesity Hypertension Dyslipidemia Diabetes Chronic kidney disease PLAN: Increase fluids to 50 MLS per hour for elevated creatinine post-cath Start beta shelby for residual chest discomfort. Patient had hypotension with nitroglycerin in the emergency room. Echocardiogram results pending Defer abdominal pain to primary team to rule out ischemic bowel disease Continue to monitor hemoglobin Consider FFR on RCA lesion if she continues to be symptomatic Further recommendations to be responding clinical course I am dictating on behalf of Dr Larry Rodriguez's history/physical and assessment/plan. Objective - Vital Signs Vital signs: Vital Signs Temp 98.9 F 07/31/22 08:00 Pulse 82 07/31/22 09:00 Resp 22 07/31/22 09:00 BP 124/68 07/31/22 09:00 Pulse Ox 94 L 07/31/22 09:00 FiO2 Intake & Output 07/30/22 07/31/22 07/31/22 18:59 06:59 18:59 Intake Total 925 380 30 Output Total 900 210 0 Balance 25 170 30 Weight 129.9 kg Intake: IV 825 380 30 0.9 @ KVO 80 30 Sodium Chloride 0.9% 1, 825 300 000 ml @ 75 mls/hr IV . [id number] [facility] Rx#:[id number] Intake, IV Titration 100 Amount Potassium Chloride 10 meq 100 In Water For Injection 1 100ml.bag @ 100 mls/hr IVPB Q1HR [facility] Rx#: [id number] Output: Urine 900 210 0 Other: # Voids 0 1 # Bowel Movements 1 1 - Labs CBC & Chem 7: 07/30/22 06:36 07/31/22 06:17 Labs: Abnormal Lab Results - Last 24 Hours (Table) 07/30/22 07/30/22 07/30/22 Range/Units 06:36 10:42 12:49 Sodium (137-145) mmol/L BUN (7-17) mg/dL Creatinine (0.52-1.04) mg/dL Glucose (74-99) mg/dL POC Glucose (mg/dL) 154 H (70-110) mg/dL Hemoglobin A1c 7.7 H (0.0-6.0) % Calcium (8.4-10.2) mg/dL Troponin I 37.200 H* (0.000-0.034) ng/mL 07/30/22 07/30/22 07/30/22 Range/Units 14:14 16:49 19:51 Sodium (137-145) mmol/L BUN (7-17) mg/dL Creatinine (0.52-1.04) mg/dL Glucose (74-99) mg/dL POC Glucose (mg/dL) 125 H 146 H (70-110) mg/dL Hemoglobin A1c (0.0-6.0) % Calcium (8.4-10.2) mg/dL Troponin I 50.200 H* (0.000-0.034) ng/mL 07/31/22 07/31/22 07/31/22 Range/Units 00:09 06:17 06:34 Sodium 136 L (137-145) mmol/L BUN 30 H (7-17) mg/dL Creatinine 1.66 H (0.52-1.04) mg/dL Glucose 166 H (74-99) mg/dL POC Glucose (mg/dL) 154 H 178 H (70-110) mg/dL Hemoglobin A1c (0.0-6.0) % Calcium 8.2 L (8.4-10.2) mg/dL Troponin I (0.000-0.034) ng/mL
[2022-07-31 11:21] LABS: Basophils % (A) 0 %; Eosinophils # (A) 0.5 k/uL (0-0.7); Eosinophils % (A) 3 %; HCT 36.6 % (34.0-46.0); HGB 11.8 gm/dL (11.4-16.0); Lymphocytes # (A) 1.1 k/uL (1.0-4.8); Lymphocytes % (A) 8 %; MCH 28.2 pg (25.0-35.0); MCHC 32.2 g/dL (31.0-37.0); MCV 87.6 fL (80.0-100.0); Mean Platelet Volume 9.5; Monocytes # (A) 0.7 k/uL (0-1.0); Monocytes % (A) 5 %; Neutrophils # (A) 11.4 k/uL (1.3-7.7); Neutrophils % (A) 82 %; Platelet Count 177 k/uL (150-450); RBC 4.18 m/uL (3.80-5.40); RDW 14.1 % (11.5-15.5); WBC 13.9 k/uL (3.8-10.6)
[2022-07-31 11:47] LABS: Glucose,Whole Blood 136 mg/dL (70-110)
--- NOTE | 2022-07-31 12:14 | P.GSCN ---
History of Present Illness Consult date: 07/31/22 History of present illness: CHIEF COMPLAINT: Chest pain HISTORY OF PRESENT ILLNESS: This is a 72-year-old presented with chest pain radiating into the shoulders and back. She was found have evidence of an ST elevated SC. She underwent heart catheterization with angioplasty. Patient had complained of abdominal pain and abdominal distention yesterday. Patient repor ts that she's had intermittent abdominal pain and distention over the last 6 months. She reports the pain is mostly in the bilateral lower abdominal quadrants and along the sides. And epigastric area. She complains of nausea and dry heaves. Patient wakes up almost every morning with extreme nausea. She reports symptoms truly started after cold that. She does report having diarrhea and this does relieve her pain. She had diarrhea yesterday morning and this morning. Past surgical history does include a hysterectomy. She does report prior history of pancreatitis as well. Patient reports that they did not have the etiology of the pancreatitis. She had a computed tomography scan abdomen and pelvis without contrast had shown evidence of ileus. She's never had a colonoscopy. She had an EGD in 2019 that showed gastritis and small to moderate hiatal hernia. She denies any blood in her stools. Patient does continue to complain of chest pain on the left side of her chest. PAST MEDICAL HISTORY: See below PAST SURGICAL HISTORY: See below MEDICATIONS: See below ALLERGIES: See below SOCIAL HISTORY: No illicit drug use. REVIEW OF SYSTEMS: CONSTITUTIONAL: Denies fever or chills. HEENT: Denies blurred vision, vision changes, or eye pain. Denies hemoptysis CARDIOVASCULAR: Denies chest pain or pressure. RESPIRATORY: No shortness of breath. GASTROINTESTINAL: See HPI for pertinent findings HEMATOLOGIC: Denies bleeding disorders. GENITOURINARY: Denies any blood in urine or increased urinary frequency. SKIN: Denies pruitis. Denies rash. PHYSICAL EXAM: VITAL SIGNS: Reviewed GENERAL: Well-developed in no acute distress. HEENT: No sclera icterus. Extraocular movements grossly intact. Moist buccal mucosa. Head is atraumatic, normocephalic. No nasal drainage. ABDOMEN: Obese. Distended with tenderness of the epigastric area and right lower quadrant NEUROLOGIC: Alert and oriented. Cranial nerves II through XII grossly intact. LABORATORY DATA: CBC 13 up to 17.3 Hgb 10-13 platelets 224 Sodium 136 potassium 2.4 up to 4.4 creatinine 1.66 Magnesium 1.1-2.1 Elevated troponins AST 10 ALT 10 alk phos 32 Total bilirubin 0.1 IMAGING: Computed tomography scan abdomen and pelvis diverticulosis without acute diverticulitis. Resolution of previous inflammatory changes adjacent to the tail of the pancreas. Correlate for bibasilar atelectasis with the lung bases. Pneumonia could be considered within the differential. Mild prominence of small bowel loops with fluid with a more normal caliber at the terminal ileum. Correlate for ileus. No discrete zone of transition identified. No definite obstruction on this nonoral contrast study. Abdominal x-ray clinical correlation recommended for partial small bowel structure versus ileus ASSESSMENT: 1. Abdominal pain with abdominal distention 2. Ileus 3. STEMI status post heart catheterization with angioplasty 4. Acute kidney injury 5. Hypokalemia resolved 6. Hypocalcemia PLAN: -Further recommendations forthcoming per surgeon -Keep patient nothing by mouth -Continue IV fluids -Continue supportive care Physician Sales Team Manager note has been reviewed by physician. Signing provider agrees with the documented findings, assessment, and plan of care. I have personally seen and examined the patient, reviewed the WINDOWS SERVER ARCHITECT /PAs history, exam and MDM and agree with the assessment and plan as written. Based on total visit time, I have performed more than 50% of the visit. As above: Patient having abdominal pain with some bloating although patient states she has symptoms similar to this intermittent over the last few years. Most of her pain is in the chest radiating to the left shoulder. Significant elevation of troponin. CAT scan without contrast reviewed showing no definite abnormalities. Patient's white blood cell count 13 down from 17. Mild diffuse tenderness on exam. We'll check lactic acid level. Begin clear liquid diet. Patient's symptoms could be attributable to global ischemia from cardiac event. We'll follow closely Past Medical History Past Medical History: Asthma, COPD, GI Bleed, Hypertension, Osteoarthritis (OA), Sleep Apnea/CPAP/BIPAP Additional Past Medical History / Comment(s): Tinnitus; OA in backs, knees, hands; uses home CPAP; gastric ulcers in her 30s, HX LT MACULAR HOLE-REPAIRED History of Any Multi-Drug Resistant Organisms: None Reported Past Surgical History: Hysterectomy, Orthopedic Surgery, Tonsillectomy Additional Past Surgical History / Comment(s): Vertebral (neck) surgery. RT CTR. EGD. REPAIR LT MACULAR HOLE AND LT CATARACT REMOVED Past Anesthesia/Blood Transfusion Reactions: Motion Sickness Past Psychological History: Anxiety Past Alcohol Use History: None Reported Additional Past Alcohol Use History / Comment(s): QUIT SMOKING 1989 Past Drug Use History: None Reported - Past Family History Father Family Medical History: Unable to Obtain Mother History Unknown: Yes Family Medical History: No Reported History, Cancer Additional Family Medical History / Comment(s): Esophageal cancer, arthritis Medications and Allergies Home Medications Medication Instructions Recorded Confirmed Type Albuterol Sulfate [Proair Hfa] 2 puff INHALATION RT-QID PRN 09/11/18 07/30/22 History Citalopram Hydrobromide [CeleXA] 20 mg PO DAILY 09/11/18 07/30/22 History Lisinopril-Hctz 20-25 mg 1 tab PO BID 09/11/18 07/30/22 History [Zestoretic 20-25] carvediloL 25 mg PO BID 09/11/18 07/30/22 History rOPINIRole HCL [Requip] 2 mg PO HS 06/08/19 07/30/22 History traZODone HCL 50 mg PO HS 06/08/19 07/30/22 History allopurinoL [Zyloprim] 100 mg PO DAILY 05/13/20 07/30/22 History Cyclobenzaprine [Flexeril] 5 mg PO TID PRN 07/30/22 07/30/22 History Ergocalciferol [Vitamin D2 (1250 1,250 mcg PO TU 07/30/22 07/30/22 History Mcg = 34838 Iu)] Fluticasone/Umeclidin/Vilanter 1 puff INHALATION RT-DAILY 07/30/22 07/30/22 History [Trelegy Ellipta 200-62.5-25] Gabapentin [Neurontin] 300 mg PO BID 07/30/22 07/30/22 History HYDROcodone/APAP 5-325MG [[place] 1 tab PO BID PRN 07/30/22 07/30/22 History 5-325] Magnesium Oxide [Magnesium] 500 mg PO HS 07/30/22 07/30/22 History Semaglutide [Ozempic] 0.5 mg SQ WE 07/30/22 07/30/22 History Allergies Allergy/AdvReac Type Severity Reaction Status Date / Time No Known Allergies Allergy Verified 07/30/22 11:32 Surgical - Exam Vital Signs Pulse Resp BP Pulse Ox 83 16 115/91 98 07/29/22 23:19 07/29/22 23:19 07/29/22 23:19 07/29/22 23:19 Results - Labs 07/31/22 10:32 07/31/22 06:17 Abnormal Lab Results - Last 24 Hours (Table) 07/30/22 07/30/22 07/30/22 Range/Units 06:36 10:42 12:49 Sodium (137-145) mmol/L BUN (7-17) mg/dL Creatinine (0.52-1.04) mg/dL Glucose (74-99) mg/dL POC Glucose (mg/dL) 154 H (70-110) mg/dL Hemoglobin A1c 7.7 H (0.0-6.0) % Calcium (8.4-10.2) mg/dL Troponin I 37.200 H* (0.000-0.034) ng/mL 07/30/22 07/30/22 07/30/22 Range/Units 14:14 16:49 19:51 Sodium (137-145) mmol/L BUN (7-17) mg/dL Creatinine (0.52-1.04) mg/dL Glucose (74-99) mg/dL POC Glucose (mg/dL) 125 H 146 H (70-110) mg/dL Hemoglobin A1c (0.0-6.0) % Calcium (8.4-10.2) mg/dL Troponin I 50.200 H* (0.000-0.034) ng/mL 07/31/22 07/31/22 07/31/22 Range/Units 00:09 06:17 06:34 Sodium 136 L (137-145) mmol/L BUN 30 H (7-17) mg/dL Creatinine 1.66 H (0.52-1.04) mg/dL Glucose 166 H (74-99) mg/dL POC Glucose (mg/dL) 154 H 178 H (70-110) mg/dL Hemoglobin A1c (0.0-6.0) % Calcium 8.2 L (8.4-10.2) mg/dL Troponin I (0.000-0.034) ng/mL Diabetes panel 07/30/22 07/31/22 Range/Units 06:36 06:17 Sodium 136 L (137-145) mmol/L Potassium 4.4 (3.5-5.1) mmol/L Chloride 106 (98-107) mmol/L Carbon Dioxide 24 (22-30) mmol/L BUN 30 H (7-17) mg/dL Creatinine 1.66 H (0.52-1.04) mg/dL Glucose 166 H (74-99) mg/dL Hemoglobin A1c 7.7 H (0.0-6.0) % Calcium 8.2 L (8.4-10.2) mg/dL Calcium panel 07/31/22 Range/Units 06:17 Calcium 8.2 L (8.4-10.2) mg/dL Pituitary panel 07/31/22 Range/Units 06:17 Sodium 136 L (137-145) mmol/L Potassium 4.4 (3.5-5.1) mmol/L Chloride 106 (98-107) mmol/L Carbon Dioxide 24 (22-30) mmol/L BUN 30 H (7-17) mg/dL Creatinine 1.66 H (0.52-1.04) mg/dL Glucose 166 H (74-99) mg/dL Calcium 8.2 L (8.4-10.2) mg/dL Adrenal panel 07/31/22 Range/Units 06:17 Sodium 136 L (137-145) mmol/L Potassium 4.4 (3.5-5.1) mmol/L Chloride 106 (98-107) mmol/L Carbon Dioxide 24 (22-30) mmol/L BUN 30 H (7-17) mg/dL Creatinine 1.66 H (0.52-1.04) mg/dL Glucose 166 H (74-99) mg/dL Calcium 8.2 L (8.4-10.2) mg/dL
--- NOTE | 2022-07-31 13:43 | CA ---
Transthoracic Echo Report Name: Radha Guadarrama Age: 72 Gender: F : 1950 Exam Date: 07/31/2022 07:40 Exam Location: [facility] Ht (in): 61 Wt (lb): 286 Ordering Physician: Milton Dupree MD ([id number]) Attending/Referring Phys: Heavy Duty Mechanic Niko Navarrete RDCS Procedure CPT: Indications: CP Cardiac Hx: COPD; HTN; CAD: Technical Quality: Technically difficult study; the patient coud not cooperate; Contrast 1: Total Dose (mL): Contrast 2: Total Dose (mL): MEASUREMENTS (Male / Female) Normal Values 2D ECHO LV Diastolic Diameter PLAX 4.6 cm 4.2 - 5.9 / 3.9 - 5.3 cm LV Systolic Diameter PLAX 3.1 cm LV Fractional Shortening PLAX 33.0 % IVS Diastolic Thickness 1.3 cm 0.6 - 1.0 / 0.6 - 0.9 cm IVS Systolic Thickness 2.1 cm LVPW Diastolic Thickness 1.5 cm 0.6 - 1.0 / 0.6 - 0.9 cm LVPW Systolic Thickness 1.9 cm LV Relative Wall Thickness 0.6 RV Internal Dim ED PLAX 3.3 cm LVOT Diameter 2.0 cm LA Systolic Diameter LX 4.1 cm 3.0 - 4.0 / 2.7 - 3.8 cm Ascending Aorta Diameter 3.0 cm M-MODE Aortic Root Diameter MM 3.2 cm LA Systolic Diameter MM 4.2 cm LA Ao Ratio MM 1.3 MV E Point Septal Separation 1.0 cm AV Cusp Separation MM 1.5 cm DOPPLER AV Peak Velocity 102.5 cm/s AV Peak Gradient 4.2 mmHg MV Deceleration Owen 455.6 cm/s??? Mitral E Point Velocity 68.2 cm/s Mitral A Point Velocity 77.6 cm/s Mitral E to A Ratio 0.9 MV Deceleration Time 149.7 ms MV E' Velocity 6.5 cm/s Mitral E to MV E' Ratio 10.5 TR Peak Velocity 326.6 cm/s TR Peak Gradient 42.7 mmHg Right Ventricular Systolic Press 50.7 mmHg PV Peak Velocity 97.3 cm/s PV Peak Gradient 3.8 mmHg FINDINGS Left Ventricle Left ventricular ejection fraction is estimated at 40-45 %. Mild concentric left ventricular hypertrophy. Grade 1 diastolic dysfunction. Mildly reduced global left ventricular systolic function. [place] hypokinetic. Right Ventricle Normal right ventricular size. RVSP-51 mm Hg. Right Atrium Mild right atrial dilatation. Left Atrium Normal left atrial size. Mitral Valve Mitral valve thickened. Mild mitral stenosis. Trace to mild mitral regurgitation. Aortic Valve Trileaflet aortic valve. Diffuse thickening (sclerosis) of the aortic valve cusps without reduced excursion. Tricuspid Valve [id number] tricuspid regurgitation. Pulmonic Valve Pulmonic valve not well visualized. Pericardium Normal pericardium. Echo free space anterior to the right ventricle likely represents a fat pad. Aorta Normal size aortic root and proximal ascending aorta. CONCLUSIONS Left ventricular ejection fraction with more apical hypokinesis RVSP 51 Trace to mild mitral regurgitation Mild to moderate tricuspid regurgitation No pericardial effusion Previewed by: Dr. Edy Dunne DO (Electronically Signed) Final Date: 31 July 2022 13:42
--- NOTE | 2022-07-31 14:08 | P.PN ---
Subjective Progress Note Date: 07/31/22 patient is a 72-year-old lady with past medical history significant for diabetes mellitus, hypertension, and dyslipidemia who presented to the ER because of chest discomfort. This chest pain has been going on since yesterday afternoon, it's left-sided with radiation to his left shoulder. Patient described it as heavy and sharp in sensation. Chest pain was associated with nausea and vomiting. Patient was also complaining of sweating at that time as well. Patient was able to tolerate this chest pain but last night she woke up from her sleep with worsening chest pain. At that time EMS was called. EKG performed at that time was concerning for STEMI with ST elevation in the lateral leads, in 1 and aVL as well as V5 and V6 with reciprocal ST segment changes. Patient was brought to the ER and labor commissioner was activated. Patient went for emergent cardiac cath,that revealed dominant right coronary system with intermediate to severe disease involving the mid right coronary artery as well as the possible occlusion of a very distal left anterior descending artery and the very distal of the first diagonal branch, both arteries becomes small caliber vessel at that point, patient underwent balloon angioplasty of the distal LAD. Post cardiac cath patient was admitted to ICU. Patient complains of abdominal pain. X-ray abdominal done showed small bowel obstruction versus ileus CT abdominal and pelvis done showed diverticulosis without acute diverticulitis, mild prominence of small bowel loops with fluid with a more normal caliber at the terminal ileum, correlate for ileus. No discrete transition zone identified. No definite obstruction seen 07/31/22. Patient seen and examined. Denies any abdominal pain. Passing gas. Had bowel movement this morning REVIEW OF SYSTEMS: CONSTITUTIONAL: No fever, no malaise,. CARDIOVASCULAR: No chest pain, no palpitations, no syncope. PULMONARY: No shortness of breath, no cough, GASTROINTESTINAL: No diarrhea, no nausea, no vomiting, no abdominal pain. NEUROLOGICAL: No headaches, no weakness, PHYSICAL EXAMINATION: GENERAL: The patient is alert and oriented x3, not in any acute distress. Well developed, well nourished. HEENT: Pupils are round and equally reacting to light. EOMI. No scleral icterus. No conjunctival pallor. Normocephalic, atraumatic. No pharyngeal erythema. No thyromegaly. CARDIOVASCULAR: S1 and S2 present. No murmurs, rubs, or gallops. PULMONARY: Chest is clear to auscultation, no wheezing or crackles. ABDOMEN: Soft, nontender, nondistended, normoactive bowel sounds. No palpable organomegaly. MUSCULOSKELETAL: No joint swelling or deformity. EXTREMITIES: No cyanosis, clubbing, or pedal edema. NEUROLOGICAL: Gross neurological examination did not reveal any focal deficits. SKIN: No rashes. Assessment and plan Chest pain Abdominal pain Small bowel obstruction versus ileus Coronary artery disease Hypokalemia Abdominal pain Hypertension Hyperlipidemia Diabetes mellitus Chronic kidney disease Morbid obesity Plan Monitor vital signs Monitor CBC Monitor CMP Continue telemetry monitoring Follow-up on 2-D echo Keep patient nothing by mouth. Continue IV fluids Continue aspirin, Lipitor, Coreg Follow-up on cardiology recommendations Follow-up on surgery recommendations Objective - Vital Signs Vital signs: Vital Signs Temp 98.9 F 07/31/22 08:00 Pulse 82 07/31/22 09:00 Resp 22 07/31/22 09:00 BP 124/68 07/31/22 09:00 Pulse Ox 94 L 07/31/22 09:00 FiO2 Intake & Output 07/30/22 07/31/22 07/31/22 18:59 06:59 18:59 Intake Total 925 380 30 Output Total 900 210 0 Balance 25 170 30 Weight 129.9 kg Intake: IV 825 380 30 0.9 @ KVO 80 30 Sodium Chloride 0.9% 1, 825 300 000 ml @ 75 mls/hr IV . [id number] [facility] Rx#:[id number] Intake, IV Titration 100 Amount Potassium Chloride 10 meq 100 In Water For Injection 1 100ml.bag @ 100 mls/hr IVPB Q1HR LO[facility] Rx#: [id number] Output: Urine 900 210 0 Other: # Voids 0 1 # Bowel Movements 1 1 - Labs CBC & Chem 7: 07/31/22 10:32 07/31/22 06:17 Labs: Abnormal Lab Results - Last 24 Hours (Table) 07/30/22 07/30/22 07/30/22 Range/Units 06:36 10:42 12:49 Sodium (137-145) mmol/L BUN (7-17) mg/dL Creatinine (0.52-1.04) mg/dL Glucose (74-99) mg/dL POC Glucose (mg/dL) 154 H (70-110) mg/dL Hemoglobin A1c 7.7 H (0.0-6.0) % Calcium (8.4-10.2) mg/dL Troponin I 37.200 H* (0.000-0.034) ng/mL 07/30/22 07/30/22 07/30/22 Range/Units 14:14 16:49 19:51 Sodium (137-145) mmol/L BUN (7-17) mg/dL Creatinine (0.52-1.04) mg/dL Glucose (74-99) mg/dL POC Glucose (mg/dL) 125 H 146 H (70-110) mg/dL Hemoglobin A1c (0.0-6.0) % Calcium (8.4-10.2) mg/dL Troponin I 50.200 H* (0.000-0.034) ng/mL 07/31/22 07/31/22 07/31/22 Range/Units 00:09 06:17 06:34 Sodium 136 L (137-145) mmol/L BUN 30 H (7-17) mg/dL Creatinine 1.66 H (0.52-1.04) mg/dL Glucose 166 H (74-99) mg/dL POC Glucose (mg/dL) 154 H 178 H (70-110) mg/dL Hemoglobin A1c (0.0-6.0) % Calcium 8.2 L (8.4-10.2) mg/dL Troponin I (0.000-0.034) ng/mL
[2022-07-31] MEDS: SODIUM CHLORIDE 0.9% 1,000 ML IV SCH (17:37)
[2022-07-31 17:47] LABS: Glucose,Whole Blood 197 mg/dL (70-110)
[2022-07-31 20:51] LABS: Glucose,Whole Blood 155 mg/dL (70-110)
[2022-07-31] MEDS: traZODone HCL 50 MG TAB PO SCH (20:52)
[2022-07-31] MEDS: ATORVASTATIN 40 MG TAB PO SCH (20:52)
[2022-08-01] MEDS: HYDROmorphone 0.5 MG/0.5 ML SYRINGE IVP PRN ×2 (00:53→20:20)
[2022-08-01 06:36] LABS: Glucose,Whole Blood 128 mg/dL (70-110)
[2022-08-01] MEDS: INSULIN ASPART (NovoLOG) 100 UNIT/ML VIAL SQ SCH ×4 (06:44→20:05)
[2022-08-01] MEDS: carvediloL 12.5 MG TAB PO SCH ×2 (06:50→16:52)
[2022-08-01 07:16] LABS: HCT 34.7 % (34.0-46.0); HGB 11.1 gm/dL (11.4-16.0); MCH 28.2 pg (25.0-35.0); MCHC 32.1 g/dL (31.0-37.0); MCV 87.6 fL (80.0-100.0); Mean Platelet Volume 9.6; Platelet Count 183 k/uL (150-450); RBC 3.96 m/uL (3.80-5.40); RDW 14.1 % (11.5-15.5); WBC 13.5 k/uL (3.8-10.6)
[2022-08-01 07:33] LABS: Albumin 2.9 g/dL (3.5-5.0); Calcium 8.1 mg/dL (8.4-10.2); Total Bilirubin 0.5 mg/dL (0.2-1.3); Total Protein 5.3 g/dL (6.3-8.2)
[2022-08-01] MEDS: allopurinoL 100 MG TAB PO SCH (09:40)
[2022-08-01] MEDS: ASPIRIN 81 MG PO SCH (09:40)
[2022-08-01] MEDS: CITALOPRAM HYDROBROMIDE 20 MG TAB PO SCH (09:40)
--- NOTE | 2022-08-01 10:19 | P.PN ---
Subjective Progress Note Date: 08/01/22 CHIEF COMPLAINT: Abdominal pain HISTORY OF PRESENT ILLNESS: Patient remains in the ICU. Patient reports that her abdominal pain is improving. She is having flatus. Diarrhea has resolved. Denies any nausea or vomiting. She still reports having chest pain. Afebrile. WBC is 13.5 Hgb 11.1 plan a 183 sodium is 135 creatinine 1.55 lactic acid 0.6 lipase 43 PHYSICAL EXAM: VITAL SIGNS: Reviewed. GENERAL: Well-developed in no acute distress. HEENT: No sclera icterus. Extraocular movements grossly intact. Moist buccal mucosa. Head is atraumatic, normocephalic. ABDOMEN: Soft. Nondistended. Tenderness with palpation upper middle abdomen NEUROLOGIC: Alert and oriented. Cranial nerves II through XII grossly intact. ASSESSMENT: 1. Abdominal pain with abdominal distention. Patient's symptoms could be attributed to global ischemia from cardiac event 3. STEMI status post heart catheterization with angioplasty PLAN: -Continue to monitor -Continue clear liquid diet -Continue supportive care -Further recommendations forthcoming per surgeon Physician Small Arms Repairer note has been reviewed by physician. Signing provider agrees with the documented findings, assessment, and plan of care. I have personally seen and examined the patient, reviewed the ANTIQUE FURNITURE RESTORER /PAs history, exam and MDM and agree with the assessment and plan as written. Based on total visit time, I have performed more than 50% of the visit. As above: Patient seen in the afternoon sitting in the chair. Denies pain at this time. Says her bloating has resolved. She is tolerating her liquid diet. Plans are for cardiac catheterization tomorrow with stent placement. I do not see any contraindication from a general surgery point of view for that. We'll follow. Objective - Vital Signs Vital signs: Vital Signs Temp 98.6 F 08/01/22 08:00 Pulse 80 08/01/22 09:00 Resp 13 08/01/22 09:00 BP 95/67 08/01/22 09:00 Pulse Ox 95 08/01/22 09:00 FiO2 Intake & Output 07/31/22 08/01/22 08/01/22 18:59 06:59 18:59 Intake Total 490 650 100 Output Total 500 600 50 Balance -10 50 50 Weight 131 kg Intake: IV 490 50 0.9 @ KVO 490 Sodium Chloride 0.9% 1, 50 000 ml @ 50 mls/hr IV . Q20H [facility] Rx#:[id number] Intake, IV Titration 550 50 Amount Sodium Chloride 0.9% 1, 550 50 000 ml @ 50 mls/hr IV . Q20H [facility] Rx#:[id number] Oral 100 Output: Urine 500 600 50 - Labs CBC & Chem 7: 08/01/22 06:41 08/01/22 06:41 Labs: Abnormal Lab Results - Last 24 Hours (Table) 07/31/22 07/31/22 07/31/22 Range/Units 10:32 11:45 17:46 WBC 13.9 H (3.8-10.6) k/uL Hgb (11.4-16.0) gm/dL Neutrophils # 11.4 H (1.3-7.7) k/uL Sodium (137-145) mmol/L BUN (7-17) mg/dL Creatinine (0.52-1.04) mg/dL Glucose (74-99) mg/dL POC Glucose (mg/dL) 136 H 197 H (70-110) mg/dL Plasma Lactic Acid Chano (0.7-2.0) mmol/L Calcium (8.4-10.2) mg/dL AST (14-36) U/L Total Protein (6.3-8.2) g/dL Albumin (3.5-5.0) g/dL 07/31/22 08/01/22 08/01/22 Range/Units 20:49 06:34 06:41 WBC 13.5 H (3.8-10.6) k/uL Hgb 11.1 L (11.4-16.0) gm/dL Neutrophils # (1.3-7.7) k/uL Sodium (137-145) mmol/L BUN (7-17) mg/dL Creatinine (0.52-1.04) mg/dL Glucose (74-99) mg/dL POC Glucose (mg/dL) 155 H 128 H (70-110) mg/dL Plasma Lactic Acid Chano (0.7-2.0) mmol/L Calcium (8.4-10.2) mg/dL AST (14-36) U/L Total Protein (6.3-8.2) g/dL Albumin (3.5-5.0) g/dL 08/01/22 08/01/22 Range/Units 06:41 06:41 WBC (3.8-10.6) k/uL Hgb (11.4-16.0) gm/dL Neutrophils # (1.3-7.7) k/uL Sodium 135 L (137-145) mmol/L BUN 23 H (7-17) mg/dL Creatinine 1.55 H (0.52-1.04) mg/dL Glucose 124 H (74-99) mg/dL POC Glucose (mg/dL) (70-110) mg/dL Plasma Lactic Acid Chano 0.6 L (0.7-2.0) mmol/L Calcium 8.1 L (8.4-10.2) mg/dL AST 69 H (14-36) U/L Total Protein 5.3 L (6.3-8.2) g/dL Albumin 2.9 L (3.5-5.0) g/dL
[2022-08-01] MEDS ORDERED: NITROGLYCERIN SL TABS 0.4 MG TAB SUBLINGUAL PRN (10:33)
[2022-08-01] MEDS ORDERED: ATORVASTATIN 80 MG TAB PO STA (10:33)
[2022-08-01] MEDS ORDERED: ALPRAZolam 0.5 MG TAB PO PRN (10:33)
[2022-08-01] MEDS ORDERED: ALPRAZolam 0.25 MG TAB PO PRN (10:33)
[2022-08-01] MEDS ORDERED: ASPIRIN 325 MG TAB PO STA (10:33)
--- NOTE | 2022-08-01 11:04 | P.PN ---
Progress Note - Text Patient is resting in bed. She has mild abdominal discomfort beats a little better than yesterday She has pleuritic chest discomfort On examination respirations of 14-16, pulse rate in the 80s Blood pressure 118/60 mmHg Morbid obesity Heart sounds S1 and S2 are soft Breath sounds are reduced bilaterally Abdomen is distended soft no guarding or rigidity Mild upper abdominal tenderness White count 13.5 thousand, hemoglobin 11.1, platelet count 183,000 Sodium 135, potassium 4.0 BUN 23 and creatinine 1.55 Impression Acute myocardial infarction Ischemic cardiomyopathy ejection fraction 40-45% Patient awaiting reevaluation stenting of the mid RCA which is a large caliber vessel, dominant She underwent angioplasty of the very distal LAD stenosis and a very distal diagonal branch stenosis Both these vessels were small caliber vessels Diverticulosis without acute diverticulitis on CT of the abdomen Resolution of inflammatory changes in the tail of the pancreas Ileus of the small intestine Suggest If patient is stable tomorrow and does not need abdominal surgery we will proceed with FRR RCA and if appropriate, proceed with coronary stenting Start Plavix 75 mg by mouth daily today Discussed with Dr. Dupree Discussed with Dr. Iniguez
[2022-08-01 11:29] LABS: Glucose,Whole Blood 126 mg/dL (70-110)
[2022-08-01] MEDS: CLOPIDOGREL 75 MG TAB PO SCH (12:51)
--- NOTE | 2022-08-01 13:09 | P.PN ---
Subjective Progress Note Date: 08/01/22 patient is a 72-year-old lady with past medical history significant for diabetes mellitus, hypertension, and dyslipidemia who presented to the ER because of chest discomfort. This chest pain has been going on since yesterday afternoon, it's left-sided with radiation to his left shoulder. Patient described it as heavy and sharp in sensation. Chest pain was associated with nausea and vomiting. Patient was also complaining of sweating at that time as well. Patient was able to tolerate this chest pain but last night she woke up from her sleep with worsening chest pain. At that time EMS was called. EKG performed at that time was concerning for STEMI with ST elevation in the lateral leads, in 1 and aVL as well as V5 and V6 with reciprocal ST segment changes. Patient was brought to the ER and label fuser tender was activated. Patient went for emergent cardiac cath,that revealed dominant right coronary system with intermediate to severe disease involving the mid right coronary artery as well as the possible occlusion of a very distal left anterior descending artery and the very distal of the first diagonal branch, both arteries becomes small caliber vessel at that point, patient underwent balloon angioplasty of the distal LAD. Post cardiac cath patient was admitted to ICU. Patient complains of abdominal pain. X-ray abdominal done showed small bowel obstruction versus ileus CT abdominal and pelvis done showed diverticulosis without acute diverticulitis, mild prominence of small bowel loops with fluid with a more normal caliber at the terminal ileum, correlate for ileus. No discrete transition zone identified. No definite obstruction seen 07/31/22. Patient seen and examined. Denies any abdominal pain. Passing gas. Had bowel movement this morning 08/01 Patient seen and examined. Creatinine this morning is 1.55, potassium is 4, hemoglobin 11.1. Denies any abdominal pain. Passing gas. REVIEW OF SYSTEMS: CONSTITUTIONAL: No fever, no malaise,. CARDIOVASCULAR: No chest pain, no palpitations, no syncope. PULMONARY: No shortness of breath, no cough, GASTROINTESTINAL: No diarrhea, no nausea, no vomiting, no abdominal pain. NEUROLOGICAL: No headaches, no weakness, PHYSICAL EXAMINATION: GENERAL: The patient is alert and oriented x3, not in any acute distress. Well developed, well nourished. HEENT: Pupils are round and equally reacting to light. EOMI. No scleral icterus. No conjunctival pallor. Normocephalic, atraumatic. No pharyngeal erythema. No thyromegaly. CARDIOVASCULAR: S1 and S2 present. No murmurs, rubs, or gallops. PULMONARY: Chest is clear to auscultation, no wheezing or crackles. ABDOMEN: Soft, nontender, nondistended, normoactive bowel sounds. No palpable organomegaly. MUSCULOSKELETAL: No joint swelling or deformity. EXTREMITIES: No cyanosis, clubbing, or pedal edema. NEUROLOGICAL: Gross neurological examination did not reveal any focal deficits. SKIN: No rashes. Assessment and plan Chest pain Abdominal pain Small bowel obstruction versus ileus Coronary artery disease Hypokalemia Abdominal pain Hypertension Hyperlipidemia Diabetes mellitus Chronic kidney disease Morbid obesity Plan Monitor vital signs Monitor CBC Monitor CMP Continue telemetry monitoring 2-D echo done showed LVEF of 40-45%, mild concentric left ventricular hypertrophy, grade 1 diastolic dysfunction, apical hypokinesis Continue IV fluids Continue aspirin, Lipitor, Coreg Follow-up on cardiology recommendations, cardiology recommended that if patient does not need abdominal surgery they will proceed with FRR RCA and if appropriate, proceed with coronary stenting Follow-up on surgery recommendations Objective - Vital Signs Vital signs: Vital Signs Temp 98.6 F 08/01/22 08:00 Pulse 80 08/01/22 09:00 Resp 13 08/01/22 09:00 BP 95/67 08/01/22 09:00 Pulse Ox 95 08/01/22 09:00 FiO2 Intake & Output 07/31/22 08/01/22 08/01/22 18:59 06:59 18:59 Intake Total 490 650 100 Output Total 500 600 50 Balance -10 50 50 Weight 131 kg Intake: IV 490 50 0.9 @ KVO 490 Sodium Chloride 0.9% 1, 50 000 ml @ 50 mls/hr IV . Q20H [facility] Rx#:[id number] Intake, IV Titration 550 50 Amount Sodium Chloride 0.9% 1, 550 50 000 ml @ 50 mls/hr IV . Q20H [facility] Rx#:[id number] Oral 100 Output: Urine 500 600 50 - Labs CBC & Chem 7: 08/01/22 06:41 08/01/22 06:41 Labs: Abnormal Lab Results - Last 24 Hours (Table) 07/31/22 07/31/22 07/31/22 Range/Units 10:32 11:45 17:46 WBC 13.9 H (3.8-10.6) k/uL Hgb (11.4-16.0) gm/dL Neutrophils # 11.4 H (1.3-7.7) k/uL Sodium (137-145) mmol/L BUN (7-17) mg/dL Creatinine (0.52-1.04) mg/dL Glucose (74-99) mg/dL POC Glucose (mg/dL) 136 H 197 H (70-110) mg/dL Plasma Lactic Acid Chano (0.7-2.0) mmol/L Calcium (8.4-10.2) mg/dL AST (14-36) U/L Total Protein (6.3-8.2) g/dL Albumin (3.5-5.0) g/dL 07/31/22 08/01/22 08/01/22 Range/Units 20:49 06:34 06:41 WBC 13.5 H (3.8-10.6) k/uL Hgb 11.1 L (11.4-16.0) gm/dL Neutrophils # (1.3-7.7) k/uL Sodium (137-145) mmol/L BUN (7-17) mg/dL Creatinine (0.52-1.04) mg/dL Glucose (74-99) mg/dL POC Glucose (mg/dL) 155 H 128 H (70-110) mg/dL Plasma Lactic Acid Chano (0.7-2.0) mmol/L Calcium (8.4-10.2) mg/dL AST (14-36) U/L Total Protein (6.3-8.2) g/dL Albumin (3.5-5.0) g/dL 08/01/22 08/01/22 Range/Units 06:41 06:41 WBC (3.8-10.6) k/uL Hgb (11.4-16.0) gm/dL Neutrophils # (1.3-7.7) k/uL Sodium 135 L (137-145) mmol/L BUN 23 H (7-17) mg/dL Creatinine 1.55 H (0.52-1.04) mg/dL Glucose 124 H (74-99) mg/dL POC Glucose (mg/dL) (70-110) mg/dL Plasma Lactic Acid Chano 0.6 L (0.7-2.0) mmol/L Calcium 8.1 L (8.4-10.2) mg/dL AST 69 H (14-36) U/L Total Protein 5.3 L (6.3-8.2) g/dL Albumin 2.9 L (3.5-5.0) g/dL
[2022-08-01 16:26] LABS: Glucose,Whole Blood 153 mg/dL (70-110)
[2022-08-01 19:51] LABS: Glucose,Whole Blood 148 mg/dL (70-110)
[2022-08-01] MEDS: SODIUM CHLORIDE 0.9% 1,000 ML IV SCH (20:05)
[2022-08-01] MEDS: GABAPENTIN 300 MG CAP PO SCH (20:20)
[2022-08-01] MEDS: ATORVASTATIN 40 MG TAB PO SCH (20:20)
[2022-08-01] MEDS: traZODone HCL 50 MG TAB PO SCH (20:45)
[2022-08-02] MEDS: HYDROmorphone 0.5 MG/0.5 ML SYRINGE IVP PRN ×3 (04:34→18:18)
[2022-08-02] MEDS: INSULIN ASPART (NovoLOG) 100 UNIT/ML VIAL SQ SCH ×4 (04:48→19:57)
[2022-08-02 06:37] LABS: Basophils % (A) 0 %; Eosinophils # (A) 0.5 k/uL (0-0.7); Eosinophils % (A) 4 %; HCT 35.6 % (34.0-46.0); HGB 11.2 gm/dL (11.4-16.0); Lymphocytes # (A) 1.6 k/uL (1.0-4.8); Lymphocytes % (A) 13 %; MCH 28.5 pg (25.0-35.0); MCHC 31.6 g/dL (31.0-37.0); MCV 90.2 fL (80.0-100.0); Mean Platelet Volume 9.2; Monocytes # (A) 0.8 k/uL (0-1.0); Monocytes % (A) 7 %; Neutrophils % (A) 74 %; Platelet Count 197 k/uL (150-450); RBC 3.94 m/uL (3.80-5.40); WBC 12.2 k/uL (3.8-10.6)
[2022-08-02] MEDS: carvediloL 12.5 MG TAB PO SCH ×2 (06:38→18:18)
[2022-08-02 06:43] LABS: Glucose,Whole Blood 128 mg/dL (70-110)
[2022-08-02] MEDS ORDERED: HEPARIN SODIUM,PORCINE 2,500 UNIT in SODIUM CHLORIDE 0.9% 250 ML IRRIGATION PRN (07:00)
[2022-08-02] MEDS ORDERED: HEPARIN SODIUM,PORCINE 10,000 UNIT in SODIUM CHLORIDE 0.9% 1,000 ML IRRIGATION PRN (07:00)
[2022-08-02 07:01] LABS: Albumin 2.8 g/dL (3.5-5.0); Calcium 8.2 mg/dL (8.4-10.2); Potassium 4.4 mmol/L (3.5-5.1); Total Bilirubin 0.6 mg/dL (0.2-1.3); Total Protein 5.3 g/dL (6.3-8.2)
[2022-08-02] MEDS: ASPIRIN 81 MG PO SCH (09:13)
[2022-08-02] MEDS: CITALOPRAM HYDROBROMIDE 20 MG TAB PO SCH (09:13)
[2022-08-02] MEDS: CLOPIDOGREL 75 MG TAB PO SCH (09:13)
[2022-08-02] MEDS: SODIUM CHLORIDE 0.9% 1,000 ML IV SCH (09:13)
[2022-08-02] MEDS: GABAPENTIN 300 MG CAP PO SCH ×2 (09:13→20:15)
[2022-08-02] MEDS: allopurinoL 100 MG TAB PO SCH (09:13)
--- NOTE | 2022-08-02 09:31 | P.PN ---
Subjective Progress Note Date: 08/02/22 The patient is a 72-year-old female who presented to the emergency room with acute onset of chest discomfort. She was ruled in for non-ST elevated myocardial infarction. She underwent coronary angiogram with Dr. Bravo, where she was found to have multivessel disease. She did undergo PTCA of the distal L AD and had a residual 60-70 % lesion in the mid RCA. Echocardiogram reveals reduced LV function of 40-45% The patient was interviewed and examined lying in bed. She states she did have an episode of chest discomfort overnight and continues to have pain with deep inspiration. She states her abdominal discomfort has improved. She believes her abdomen is not as distended. GENERAL: Well-appearing, obese female in acute pain. NECK: Supple without JVD or thyromegaly. LUNGS: Breath sounds diminished to auscultation bilaterally. Respiration equal and unlabored. No wheezes, rales or rhonchi. HEART: Regular rate and rhythm without murmurs, rubs or gallops. S1 and S2 heard. EXTREMITIES: Normal range of motion, no edema. No clubbing or cyanosis. Peripheral pulses intact and strong. ABDOMEN: Soft and nontender. VITALS: Blood pressure 111/57, pulse 75, respiratory rate 12, SpO2 95% on 2 L nasal cannula TELEMETRY: Sinus rhythm overnight LABS: W BC 12.2, hemoglobin 11.2, hematocrit 35.6, platelet 197, sodium 137, potassium 4.4, BUN 20, creatinine 1.63, AST 46, ALT 22 IMPRESSION: ST elevated myocardial infarction, status post PTCA of distal LAD Multivessel coronary artery disease, residual intermediate lesion in the RCA, consider FFR Abdominal discomfort, ileus of small intestine Morbid obesity Hypertension Dyslipidemia Diabetes Chronic kidney disease PLAN: Continue nothing by mouth Plan for FFR of RCA with Dr. Dupree later today I am dictating on behalf of Dr Larry Rodriguez's history/physical and assessment/plan. Objective - Vital Signs Vital signs: Vital Signs Temp 98.1 F 08/02/22 08:00 Pulse 75 08/02/22 09:00 Resp 21 08/02/22 09:00 BP 111/57 08/02/22 09:00 Pulse Ox 95 08/02/22 09:00 FiO2 Intake & Output 03/28/23 03/29/23 03/29/23 18:59 06:59 18:59 Intake Total 1050 600 150 Output Total 600 350 0 Balance 450 250 150 Weight 129 kg Intake: IV 550 600 150 Sodium Chloride 0.9% 1, 550 600 150 000 ml @ 50 mls/hr IV . Q20H [facility] Rx#:[id number] Intake, IV Titration 50 Amount Sodium Chloride 0.9% 1, 50 000 ml @ 50 mls/hr IV . Q20H [facility] Rx#:[id number] Oral 450 Output: Urine 600 350 0 - Labs CBC & Chem 7: 08/02/22 05:48 08/02/22 05:48 Labs: Abnormal Lab Results - Last 24 Hours (Table) 08/01/22 08/01/22 08/01/22 Range/Units 11:28 16:25 19:49 WBC (3.8-10.6) k/uL Hgb (11.4-16.0) gm/dL Neutrophils # (1.3-7.7) k/uL BUN (7-17) mg/dL Creatinine (0.52-1.04) mg/dL Glucose (74-99) mg/dL POC Glucose (mg/dL) 126 H 153 H 148 H (70-110) mg/dL Calcium (8.4-10.2) mg/dL AST (14-36) U/L Total Protein (6.3-8.2) g/dL Albumin (3.5-5.0) g/dL 08/02/22 08/02/22 08/02/22 Range/Units 05:48 05:48 06:42 WBC 12.2 H (3.8-10.6) k/uL Hgb 11.2 L (11.4-16.0) gm/dL Neutrophils # 9.0 H (1.3-7.7) k/uL BUN 20 H (7-17) mg/dL Creatinine 1.63 H (0.52-1.04) mg/dL Glucose 131 H (74-99) mg/dL POC Glucose (mg/dL) 128 H (70-110) mg/dL Calcium 8.2 L (8.4-10.2) mg/dL AST 46 H (14-36) U/L Total Protein 5.3 L (6.3-8.2) g/dL Albumin 2.8 L (3.5-5.0) g/dL
--- NOTE | 2022-08-02 11:15 | P.PN ---
Subjective Progress Note Date: 08/02/22 CHIEF COMPLAINT: Abdominal pain HISTORY OF PRESENT ILLNESS: Patient remains in the ICU. She is scheduled for heart catheterization today. Patient reports that her abdominal pain is better. She reports that her abdomen is softer. Pain on the lower side since resolved. She denies any nausea or vomiting. She's had no further diarrhea last 24 hours. Afebrile. WBC 13.5 down to 12.2 hgb 11.2 platelets 197. Sodium is 137 potassium 4.4 creatinine 1.63 PHYSICAL EXAM: VITAL SIGNS: Reviewed. GENERAL: Well-developed in no acute distress. HEENT: No sclera icterus. Extraocular movements grossly intact. Moist buccal mucosa. Head is atraumatic, normocephalic. ABDOMEN: Soft. Nondistended. Tenderness with palpation upper middle abdomen NEUROLOGIC: Alert and oriented. Cranial nerves II through XII grossly intact. ASSESSMENT: 1. Abdominal pain with abdominal distention. Patient's symptoms could be attributed to global ischemia from cardiac event 3. STEMI status post heart catheterization with angioplasty PLAN: -Patient can proceed with heart catheterization from surgical standpoint -Continue to monitor -Continue clear liquid diet -Continue supportive care Physician [employer] Printing Machinist note has been reviewed by physician. Signing provider agrees with the documented findings, assessment, and plan of care. Objective - Vital Signs Vital signs: Vital Signs Temp 98.1 F 08/02/22 08:00 Pulse 74 08/02/22 10:00 Resp 20 08/02/22 10:00 BP 114/74 08/02/22 10:00 Pulse Ox 91 L 08/02/22 10:00 FiO2 Intake & Output 08/01/22 08/02/22 08/02/22 18:59 06:59 18:59 Intake Total 1050 600 200 Output Total 600 350 0 Balance 450 250 200 Weight 129 kg Intake: IV 550 600 200 Sodium Chloride 0.9% 1, 550 600 200 000 ml @ 50 mls/hr IV . Q20H [facility] Rx#:[id number] Intake, IV Titration 50 Amount Sodium Chloride 0.9% 1, 50 000 ml @ 50 mls/hr IV . Q20H [facility] Rx#:[id number] Oral 450 Output: Urine 600 350 0 - Labs CBC & Chem 7: 08/02/22 05:48 08/02/22 05:48 Labs: Abnormal Lab Results - Last 24 Hours (Table) 08/01/22 08/01/22 08/01/22 Range/Units 11:28 16:25 19:49 WBC (3.8-10.6) k/uL Hgb (11.4-16.0) gm/dL Neutrophils # (1.3-7.7) k/uL BUN (7-17) mg/dL Creatinine (0.52-1.04) mg/dL Glucose (74-99) mg/dL POC Glucose (mg/dL) 126 H 153 H 148 H (70-110) mg/dL Calcium (8.4-10.2) mg/dL AST (14-36) U/L Total Protein (6.3-8.2) g/dL Albumin (3.5-5.0) g/dL 08/02/22 08/02/22 08/02/22 Range/Units 05:48 05:48 06:42 WBC 12.2 H (3.8-10.6) k/uL Hgb 11.2 L (11.4-16.0) gm/dL Neutrophils # 9.0 H (1.3-7.7) k/uL BUN 20 H (7-17) mg/dL Creatinine 1.63 H (0.52-1.04) mg/dL Glucose 131 H (74-99) mg/dL POC Glucose (mg/dL) 128 H (70-110) mg/dL Calcium 8.2 L (8.4-10.2) mg/dL AST 46 H (14-36) U/L Total Protein 5.3 L (6.3-8.2) g/dL Albumin 2.8 L (3.5-5.0) g/dL
[2022-08-02 11:44] LABS: Glucose,Whole Blood 122 mg/dL (70-110)
--- NOTE | 2022-08-02 15:15 | P.PN ---
Subjective Progress Note Date: 08/02/22 patient is a 72-year-old lady with past medical history significant for diabetes mellitus, hypertension, and dyslipidemia who presented to the ER because of chest discomfort. This chest pain has been going on since yesterday afternoon, it's left-sided with radiation to his left shoulder. Patient described it as heavy and sharp in sensation. Chest pain was associated with nausea and vomiting. Patient was also complaining of sweating at that time as well. Patient was able to tolerate this chest pain but last night she woke up from her sleep with worsening chest pain. At that time EMS was called. EKG performed at that time was concerning for STEMI with ST elevation in the lateral leads, in 1 and aVL as well as V5 and V6 with reciprocal ST segment changes. Patient was brought to the ER and microbiology lab technician was activated. Patient went for emergent cardiac cath,that revealed dominant right coronary system with intermediate to severe disease involving the mid right coronary artery as well as the possible occlusion of a very distal left anterior descending artery and the very distal of the first diagonal branch, both arteries becomes small caliber vessel at that point, patient underwent balloon angioplasty of the distal LAD. Post cardiac cath patient was admitted to ICU. Patient complains of abdominal pain. X-ray abdominal done showed small bowel obstruction versus ileus CT abdominal and pelvis done showed diverticulosis without acute diverticulitis, mild prominence of small bowel loops with fluid with a more normal caliber at the terminal ileum, correlate for ileus. No discrete transition zone identified. No definite obstruction seen 07/31/22. Patient seen and examined. Denies any abdominal pain. Passing gas. Had bowel movement this morning 08/01 Patient seen and examined. Creatinine this morning is 1.55, potassium is 4, hemoglobin 11.1. Denies any abdominal pain. Passing gas. 08/02. Patient seen and examined. States she feels better today. Denies any abdominal pain. Denies nausea or vomiting. Currently nothing by mouth REVIEW OF SYSTEMS: CONSTITUTIONAL: No fever, no malaise,. CARDIOVASCULAR: No chest pain, no palpitations, no syncope. PULMONARY: No shortness of breath, no cough, NEUROLOGICAL: No headaches, no weakness, PHYSICAL EXAMINATION: GENERAL: The patient is alert and oriented x3, not in any acute distress. Well developed, well nourished. HEENT: Pupils are round and equally reacting to light. EOMI. No scleral icterus. No conjunctival pallor. Normocephalic, atraumatic. No pharyngeal erythema. No thyromegaly. CARDIOVASCULAR: S1 and S2 present. No murmurs, rubs, or gallops. PULMONARY: Chest is clear to auscultation, no wheezing or crackles. ABDOMEN: Soft, nontender, nondistended, normoactive bowel sounds. No palpable organomegaly. MUSCULOSKELETAL: No joint swelling or deformity. EXTREMITIES: No cyanosis, clubbing, or pedal edema. NEUROLOGICAL: Gross neurological examination did not reveal any focal deficits. SKIN: No rashes. Assessment and plan Chest pain Abdominal pain Small bowel obstruction versus ileus Coronary artery disease Hypokalemia Abdominal pain Hypertension Hyperlipidemia Diabetes mellitus Chronic kidney disease Morbid obesity Plan Monitor vital signs Monitor CBC Monitor CMP Continue telemetry monitoring 2-D echo done showed LVEF of 40-45%, mild concentric left ventricular hypertrophy, grade 1 diastolic dysfunction, apical hypokinesis Continue IV fluids Continue aspirin, Lipitor, Coreg Follow-up on cardiology recommendations, plan for patient to undergo cardiac cath today Surgery cleared the patient to undergo cardiac cath Objective - Vital Signs Vital signs: Vital Signs Temp 98.1 F 08/02/22 12:00 Pulse 73 08/02/22 13:00 Resp 18 08/02/22 13:00 BP 103/50 08/02/22 13:00 Pulse Ox 96 08/02/22 13:00 FiO2 Intake & Output 08/01/22 08/02/22 08/02/22 18:59 06:59 18:59 Intake Total 1050 600 350 Output Total 600 350 0 Balance 450 250 350 Weight 129 kg Intake: IV 550 600 350 Sodium Chloride 0.9% 1, 550 600 350 000 ml @ 50 mls/hr IV . Q20H [facility] Rx#:[id number] Intake, IV Titration 50 Amount Sodium Chloride 0.9% 1, 50 000 ml @ 50 mls/hr IV . Q20H [facility] Rx#:[id number] Oral 450 Output: Urine 600 350 0 - Labs CBC & Chem 7: 08/02/22 05:48 08/02/22 05:48 Labs: Abnormal Lab Results - Last 24 Hours (Table) 08/01/22 08/01/22 08/02/22 Range/Units 16:25 19:49 05:48 WBC 12.2 H (3.8-10.6) k/uL Hgb 11.2 L (11.4-16.0) gm/dL Neutrophils # 9.0 H (1.3-7.7) k/uL BUN (7-17) mg/dL Creatinine (0.52-1.04) mg/dL Glucose (74-99) mg/dL POC Glucose (mg/dL) 153 H 148 H (70-110) mg/dL Calcium (8.4-10.2) mg/dL AST (14-36) U/L Total Protein (6.3-8.2) g/dL Albumin (3.5-5.0) g/dL 08/02/22 08/02/22 08/02/22 Range/Units 05:48 06:42 11:43 WBC (3.8-10.6) k/uL Hgb (11.4-16.0) gm/dL Neutrophils # (1.3-7.7) k/uL BUN 20 H (7-17) mg/dL Creatinine 1.63 H (0.52-1.04) mg/dL Glucose 131 H (74-99) mg/dL POC Glucose (mg/dL) 128 H 122 H (70-110) mg/dL Calcium 8.2 L (8.4-10.2) mg/dL AST 46 H (14-36) U/L Total Protein 5.3 L (6.3-8.2) g/dL Albumin 2.8 L (3.5-5.0) g/dL
[2022-08-02 16:22] LABS: Glucose,Whole Blood 129 mg/dL (70-110)
[2022-08-02 19:55] LABS: Glucose,Whole Blood 144 mg/dL (70-110)
[2022-08-02] MEDS: ATORVASTATIN 40 MG TAB PO SCH (20:15)
[2022-08-02] MEDS: traZODone HCL 50 MG TAB PO SCH (20:15)
[2022-08-03] MEDS: HYDROmorphone 0.5 MG/0.5 ML SYRINGE IVP PRN ×2 (00:37→21:20)
[2022-08-03] MEDS: ACETAMINOPHEN TAB 325 MG TAB PO PRN ×2 (05:11→22:19)
[2022-08-03] MEDS: SODIUM CHLORIDE 0.9% 1,000 ML IV SCH (05:12)
[2022-08-03 06:39] LABS: Glucose,Whole Blood 121 mg/dL (70-110)
[2022-08-03] MEDS: INSULIN ASPART (NovoLOG) 100 UNIT/ML VIAL SQ SCH ×4 (06:44→21:20)
[2022-08-03] MEDS: carvediloL 12.5 MG TAB PO SCH ×2 (06:44→17:19)
[2022-08-03] MEDS: CITALOPRAM HYDROBROMIDE 20 MG TAB PO SCH (08:30)
[2022-08-03] MEDS: GABAPENTIN 300 MG CAP PO SCH ×2 (08:30→21:19)
[2022-08-03] MEDS: CLOPIDOGREL 75 MG TAB PO SCH (08:30)
[2022-08-03] MEDS: allopurinoL 100 MG TAB PO SCH (08:30)
[2022-08-03] MEDS: ASPIRIN 81 MG PO SCH (08:30)
--- NOTE | 2022-08-03 08:52 | P.PN ---
Subjective Progress Note Date: 08/03/22 The patient is a 72-year-old female who presented to the emergency room with acute onset of chest discomfort. She was ruled in for non-ST elevated myocardial infarction. She underwent coronary angiogram with Dr. Bravo, where she was found to have multivessel disease. She did undergo PTCA of the distal L AD and had a residual 60-70 % lesion in the mid RCA. Echocardiogram reveals reduced LV function of 40-45%. Patient was scheduled to undergo FFR and possible intervention on mid RCA lesion yesterday with Dr. Bravo, however this was delayed due to her elevated creatinine level. The patient was interviewed and examined lying in bed. She states she did have chest discomfort overnight, which radiated into her right anterior chest wall. EKG was completed at that time which showed no new changes. She also continues to have pain with deep inspiration. She states her abdominal discomfort has imp roved. GENERAL: Well-appearing, obese female in acute pain. NECK: Supple without JVD or thyromegaly. LUNGS: Breath sounds diminished to auscultation bilaterally. Respiration equal and unlabored. No wheezes, rales or rhonchi. HEART: Regular rate and rhythm without murmurs, rubs or gallops. S1 and S2 heard. EXTREMITIES: Normal range of motion, no edema. No clubbing or cyanosis. Peripheral pulses intact and strong. ABDOMEN: Soft and nontender. VITALS: Blood pressure 110/59, pulse 74, respiratory rate 17, SpO2 94% on 2 L nasal cannula, afebrile TELEMETRY: Sinus rhythm overnight IMPRESSION: ST elevated myocardial infarction, status post PTCA of distal LAD Multivessel coronary artery disease, residual intermediate lesion in the RCA Abdominal discomfort, ileus of small intestine Morbid obesity Hypertension Dyslipidemia Diabetes Chronic kidney disease PLAN: Continue nothing by mouth Plan for FFR of RCA with Dr. Dupree later today Further recommendations will be based upon clinical course I am dictating on behalf of Dr Larry Rodriguez's history/physical and assessment/plan. Objective - Vital Signs Vital signs: Vital Signs Temp 98.2 F 08/03/22 08:00 Pulse 74 08/03/22 08:00 Resp 17 08/03/22 08:00 BP 110/59 08/03/22 08:00 Pulse Ox 94 L 08/03/22 08:43 FiO2 Intake & Output 08/02/22 08/03/22 08/03/22 18:59 06:59 18:59 Intake Total 600 600 50 Output Total 450 350 0 Balance 150 250 50 Weight 128.3 kg Intake: IV 600 600 50 Sodium Chloride 0.9% 1, 600 600 50 000 ml @ 50 mls/hr IV . Q20H [facility] Rx#:[id number] Output: Urine 450 350 0 - Labs CBC & Chem 7: 08/02/22 05:48 08/02/22 05:48 Labs: Abnormal Lab Results - Last 24 Hours (Table) 08/02/22 08/02/22 08/02/22 Range/Units 11:43 16:20 19:53 POC Glucose (mg/dL) 122 H 129 H 144 H (70-110) mg/dL 08/03/22 Range/Units 06:37 POC Glucose (mg/dL) 121 H (70-110) mg/dL
[2022-08-03] MEDS ORDERED: LIDOCAINE 1% INJ 10MG/ML (20 ML MDV) ONE (09:07)
[2022-08-03] MEDS ORDERED: fentaNYL (PF) 50 MCG/ML 2 ML AMP ONE (09:41)
[2022-08-03] MEDS ORDERED: HEPARIN SODIUM 1,000 UN/ML (10ML VL) ONE (09:45)
[2022-08-03] MEDS ORDERED: LIDOCAINE 1% INJ 10MG/ML (20 ML MDV) SQ ONE (09:47)
[2022-08-03] MEDS ORDERED: fentaNYL (PF) 50 MCG/ML 2 ML AMP IV ONE (09:48)
[2022-08-03] MEDS ORDERED: MIDAZOLAM 2 MG/2 ML VIAL IV ONE (09:48)
[2022-08-03] MEDS ORDERED: HEPARIN SODIUM 1,000 UN/ML (10ML VL) IV ONE ×2 (09:51→10:05)
[2022-08-03] MEDS ORDERED: IV FLUID CONTINUATION 600 ML IV ONE (10:16)
[2022-08-03] MEDS ORDERED: IOPAMIDOL-370 125ML BTL INJ ONE (10:20)
[2022-08-03] MEDS ORDERED: RX INFO: IV CONTRAST WAS GIVEN 1 EACH MISC MISCELLANE PRN (10:27)
--- NOTE | 2022-08-03 10:39 | P.PN ---
Subjective Progress Note Date: 08/03/22 CHIEF COMPLAINT: Abdominal pain HISTORY OF PRESENT ILLNESS: Patient remains in the ICU. She is rescheduled for heart catheterization today because of renal function. Patient denies any abdominal pain. Denies any nausea or vomiting. She's had no further diarrhea. She is having flatus. Afebrile. Labs for today pending PHYSICAL EXAM: VITAL SIGNS: Reviewed. GENERAL: Well-developed in no acute distress. ABDOMEN: Soft. Nondistended. Nontender NEUROLOGIC: Alert and oriented. Cranial nerves II through XII grossly intact. ASSESSMENT: 1. Abdominal pain with abdominal distention. Patient's symptoms could be attributed to global ischemia from cardiac event 3. STEMI status post heart catheterization with angioplasty PLAN: -Patient can proceed with heart catheterization from surgical standpoint -Continue to monitor -Continue supportive care -Agree with advancing diet to a consistent carbohydrate after cath Physician Yard Pilot note has been reviewed by physician. Signing provider agrees with the documented findings, assessment, and plan of care. I have personally seen and examined the patient, reviewed the FINGERNAIL TECHNICIAN /PAs history, exam and MDM and agree with the assessment and plan as written. Based on total visit time, I have performed more than 50% of the visit. As above: Patient doing well at this time. No abdominal pain. Catheterization today. We'll sign off. Please call if needed. Objective - Vital Signs Vital signs: Vital Signs Temp 98.2 F 08/03/22 08:00 Pulse 74 08/03/22 08:00 Resp 17 08/03/22 08:00 BP 110/59 08/03/22 08:00 Pulse Ox 94 L 08/03/22 08:43 FiO2 Intake & Output 08/02/22 08/03/22 08/03/22 18:59 06:59 18:59 Intake Total 600 600 150 Output Total 450 350 0 Balance 150 250 150 Weight 128.3 kg Intake: IV 600 600 150 Sodium Chloride 0.9% 1, 600 600 50 000 ml @ 50 mls/hr IV . Q20H [facility] Rx#:[id number] Output: Urine 450 350 0 - Labs CBC & Chem 7: 08/02/22 05:48 08/02/22 05:48 Labs: Abnormal Lab Results - Last 24 Hours (Table) 08/02/22 08/02/22 08/02/22 Range/Units 11:43 16:20 19:53 POC Glucose (mg/dL) 122 H 129 H 144 H (70-110) mg/dL 08/03/22 Range/Units 06:37 POC Glucose (mg/dL) 121 H (70-110) mg/dL
[2022-08-03 11:25] LABS: Glucose,Whole Blood 129 mg/dL (70-110)
[2022-08-03 13:09] LABS: Glucose,Whole Blood 134 mg/dL (70-110)
[2022-08-03 16:27] LABS: Glucose,Whole Blood 144 mg/dL (70-110)
[2022-08-03 19:59] LABS: Glucose,Whole Blood 137 mg/dL (70-110)
--- NOTE | 2022-08-03 20:30 | P.PCN ---
Date of Procedure: 08/03/22 Operative Findings: Selective Right Coronary Artery (RCA) Angiogram and IVUS of the RCA Performing physician Milton Dupree MD Procedure performed 1. Selective right coronary angiogram 2. Intravascular ultrasound (IVUS) of the RCA 3. Selective right coronary angiogram Indication This is a 72-year-old female patient who was admitted to the hospital a few days ago with acute coronary syndrome. She underwent a heart catheterization and she was found to have an occluded distal LAD and distal diagonal both are small caliber vessel. She was found to have intermediate disease involving a large dominant right coronary artery and she was brought today to assess the hemodynamic significance of the lesion in the right coronary artery Approach Right common femoral artery Complications None Level of sedation Moderate with sedation in length of 40 minutes Procedure description After obtaining an informed consent the patient was brought to the cardiac pharmaceutical laboratory technician. The right common femoral artery was cannulated using micropuncture technique, the micropuncture wire passed easily then I placed 6 [place] at the right common femoral artery. I did initially attempt to do iFR of the RCA with the machine was not working. Because we need to assess the hemodynamic significance of the RCA lesion with added to do intravascular ultrasound. I did start anticoagulation using heparin. Subsequently I did wire the right coronary artery using run-through wire. After that I did an intravascular ultrasound of the RCA where the catheter was advanced over the wire distally donated manual pullback. The procedure was completed with no complication in Selective coronary angiogram The RCA has intermediate lesion appeared to be in the range of 60% and appeared to be a long tubular lesion. IVUS imaging The area of stenosis was about 56% which is below 70% which is at that of of significant/flow-limiting disease. For that reason we decided to treat the patient medically. Conclusion 1. Intermediate non-obstructive tubular lesion involving the mid RCA. Postprocedure management Aggressive cholesterol control Risk factors modification Follow-up with the
[2022-08-03] MEDS: ATORVASTATIN 40 MG TAB PO SCH (21:19)
[2022-08-03] MEDS: traZODone HCL 50 MG TAB PO SCH (21:19)
[2022-08-04] MEDS: HYDROmorphone 0.5 MG/0.5 ML SYRINGE IVP PRN (05:22)
[2022-08-04 05:53] LABS: Appearance,Urine Clear (Clear); Bacteria,Urine Rare /hpf; Bilirubin,Urine Negative (Negative); Blood,Urine Negative (Negative); Color,Urine Yellow; Glucose,Urine (UA) Negative (Negative); Ketones,Urine Negative (Negative); Leukocyte Esterase,Urine Large (Negative); Nitrite,Urine Negative (Negative); PH, Urine 5.5 (5.0-8.0); Protein,Urine 1+ (Negative); RBC,Urine 2 /hpf (0-5); Specific Gravity,Urine 1.023 (1.001-1.035); Squamous Epithelial Cell,Urine 1 /hpf (0-4); WBC,Urine 50 /hpf (0-5)
[2022-08-04 06:08] LABS: Glucose,Whole Blood 139 mg/dL (70-110)
[2022-08-04] MEDS: carvediloL 12.5 MG TAB PO SCH (06:42)
--- NOTE | 2022-08-04 07:22 | XR ---
EXAMINATION TYPE: XR chest 2V DATE OF EXAM: 08/04/2022 COMPARISON: 07/29/2022 HISTORY: Shortness of breath TECHNIQUE: Frontal and lateral views of the chest are obtained. FINDINGS: Scattered senescent parenchymal changes noted. Hyperinflation compatible with COPD. There is increased right perihilar density which could reflect developing infiltrate. Correlate clini aleksandr and progress studies are advised. Heart size is stable. Mediastinal structures are stable and grossly unremarkable. No evidence for hilar prominence. Degenerative changes dorsal spine. IMPRESSION: 1. There is increased right perihilar density which could reflect developing infiltrate. Correlate cl inically and progress studies are advised.
[2022-08-04] MEDS: INSULIN ASPART (NovoLOG) 100 UNIT/ML VIAL SQ SCH ×2 (07:45→11:58)
[2022-08-04] MEDS: CLOPIDOGREL 75 MG TAB PO SCH (08:46)
[2022-08-04] MEDS: CITALOPRAM HYDROBROMIDE 20 MG TAB PO SCH (08:46)
[2022-08-04] MEDS: allopurinoL 100 MG TAB PO SCH (08:46)
[2022-08-04] MEDS: GABAPENTIN 300 MG CAP PO SCH (08:46)
[2022-08-04] MEDS: ASPIRIN 81 MG PO SCH (08:46)
[2022-08-04 10:48] LABS: Basophils % (A) 0 %; Eosinophils # (A) 0.6 k/uL (0-0.7); Eosinophils % (A) 6 %; HCT 33.4 % (34.0-46.0); HGB 10.7 gm/dL (11.4-16.0); Lymphocytes # (A) 1.1 k/uL (1.0-4.8); Lymphocytes % (A) 11 %; MCH 28.2 pg (25.0-35.0); MCHC 31.9 g/dL (31.0-37.0); MCV 88.3 fL (80.0-100.0); Mean Platelet Volume 9.1; Monocytes # (A) 0.6 k/uL (0-1.0); Monocytes % (A) 6 %; Neutrophils % (A) 76 %; Platelet Count 230 k/uL (150-450); RBC 3.78 m/uL (3.80-5.40); RDW 13.9 % (11.5-15.5); WBC 10.6 k/uL (3.8-10.6)
[2022-08-04 10:55] LABS: Potassium 4.1 mmol/L (3.5-5.1)
--- NOTE | 2022-08-04 11:30 | P.PN ---
Subjective Progress Note Date: 08/04/22 The patient is a 72-year-old female who presented to the emergency room with acute onset of chest discomfort. She was ruled in for non-ST elevated myocardial infarction. She underwent coronary angiogram with Dr. Bravo, where she was found to have multivessel disease. She did undergo PTCA of the distal LAD and had a residual 60-70 % lesion in the mid RCA. Echocardiogram reveals reduced LV function of 40-45%. Patient was scheduled to undergo FFR and possible intervention on mid RCA lesion yesterday with Dr. Bravo, however this was delayed due to her elevated creatinine level. The patient was interviewed and examined lying in bed. She states she did have chest discomfort overnight, which radiated into her right anterior chest wall. EKG was completed at that time which showed no new changes. She also continues to have pain with deep inspiration. She states her abdominal discomfort has im proved. 08/04 Yesterday, patient underwent right coronary artery angiogram and IVUS of the RCA that found intermediate nonobstructive tubular lesion with plan for aggressive cholesterol control, risk factor modification. Patient states that last evening she had pain across her abdomen and then it went up into her chest. She states it's all resolved and she has no pain today. She did have a bowel movement yesterday prior to that pain. Repeat blood work reveals hemoglobin 10.7. BUN 18 and creatinine 1.59. Blood pressure 93/60, heart rate in the 70s to 90s. Chest x-ray reveals increased right perihilar density which could reflect developing infiltrate. All really GENERAL: Well-appearing, obese female in acute pain. NECK: Supple without JVD or thyromegaly. LUNGS: Breath sounds diminished to auscultation bilaterally. Respiration equal and unlabored. No wheezes, rales or rhonchi. HEART: Regular rate and rhythm without murmurs, rubs or gallops. S1 and S2 heard. EXTREMITIES: Normal range of motion, no edema. No clubbing or cyanosis. Peripheral pulses intact and strong. ABDOMEN: Soft and nontender. IMPRESSION: ST elevated myocardial infarction, status post PTCA of distal LAD Multivessel coronary artery disease, residual intermediate lesion in the RCA Abdominal discomfort, ileus of small intestine Morbid obesity Hypertension Dyslipidemia Diabetes Chronic kidney disease PLAN: Continue patient on aspirin 81 mg daily, Lipitor 40 mg daily, Coreg which will be decreased to 12.5 mg twice daily due to hypotension Continue Plavix Patient is cleared from cardiology for discharge from cardiology perspective. No further cardiac workup planned. Cardiology will follow on an as-needed basis. Please reconsult for any new concerns. Patient to follow-up in the office with Dr. Dupree in 1-2 weeks. I am dictating on behalf of Dr Larry Rodriguez's history/physical and assessment /plan. Objective - Vital Signs Vital signs: Vital Signs Temp 98.2 F 08/04/22 07:20 Pulse 74 08/04/22 07:52 Resp 22 08/04/22 07:52 BP 93/60 08/04/22 07:20 Pulse Ox 96 08/04/22 08:23 FiO2 Intake & Output 08/03/22 08/04/22 08/04/22 18:59 06:59 18:59 Intake Total 1410 180 Output Total 0 500 Balance 1410 -500 180 Intake: IV 150 Sodium Chloride 0.9% 1, 50 000 ml @ 50 mls/hr IV . Q20H [facility] Rx#:[id number] Intake, IV Titration 600 Amount IV Fluid Continuation 600 600 ml @ 0 mls/hr IV .[facility] Rx#:[id number] Oral 660 180 Output: Urine 0 500 Other: Voiding Method External Catheter External Catheter - Labs CBC & Chem 7: 08/04/22 10:32 08/04/22 10:32 Labs: Abnormal Lab Results - Last 24 Hours (Table) 08/03/22 08/03/22 08/03/22 Range/Units 11:23 13:06 16:25 POC Glucose (mg/dL) 129 H 134 H 144 H (70-110) mg/dL Urine Protein (Negative) Ur Leukocyte Esterase (Negative) Urine WBC (0-5) /hpf Urine Bacteria (None) /hpf 08/03/22 08/04/22 08/04/22 Range/Units 19:57 05:17 06:06 POC Glucose (mg/dL) 137 H 139 H (70-110) mg/dL Urine Protein 1+ H (Negative) Ur Leukocyte Esterase Large H (Negative) Urine WBC 50 H (0-5) /hpf Urine Bacteria Rare H (None) /hpf
[2022-08-04 11:50] LABS: Glucose,Whole Blood 156 mg/dL (70-110)
[2022-08-04 12:14] VITALS: BMI 53.4
[2022-08-04 12:15] VITALS: BP 103/69; PULSE 70; RESP 20; TEMP 98.3
--- NOTE | 2022-08-04 14:56 | P.DS ---
Providers Date of admission: 07/29/22 23:54 Expected date of discharge: 08/04/22 Attending physician: Callie Pardo Consults: 07/29/22 23:51 Consult Physician Stat Consulting Provider: [facility] Consult Reason/Comments: stemi Do you want consulting provider notified?: Already Contacted Primary care physician: Sheeba Collado [facility] Course: Final diagnosis Chest pain, ST elevation myocardial infarction, status post PTCA of the distal LAD Multivessel coronary artery disease with residual intermediate lesion in the RCA Abdominal pain secondary to ileus, improved Coronary artery disease Hypokalemia, improved Morbid obesity with a BMI of 53.4 Hypertension Hyperlipidemia Diabetes mellitus Chronic kidney disease Morbid obesity Discharge disposition Patient is being discharged in a stable condition with guarded prognosis to [facility] . Patient will follow-up with Dr. Aly in the outpatient setting upon discharge. Patient is to continue on oral Ceftin twice daily for the next 4 days. Patient to follow-up with cardiology outpatient as scheduled. Total time taken is greater than 35 minutes. Hospital course This is a 72-year-old female who was recently admitted with chest discomfort along with some nausea and vomiting and was evaluated by cardiology and underwent cardiac catheterization that revealed dominant right coronary system with intermediate severe disease involving the right mid coronary artery as well as possible occlusion of the left anterior descending with balloon angioplasty of the distal LAD. Patient has been cleared by consultations and will follow-up with cardiology closely in the outpatient setting. Patient did have a low-grade temp yesterday and was started on ceftriaxone and will continue oral Ceftin twice daily for the next 4 days to complete the course. Please refer to consultation notes for further HPI. Would recommend repeat CBC, BMP, mag in the outpatient setting in 2-3 days. Currently no reports of chest pain, shortness of breath, or palpitations. Patient is afebrile. No reports of nausea or vomiting and patient is tolerating diet. [facility]. Guarded prognosis Physical exam: Gen: This is a 72-year-old female who is awake, alert and oriented 3, well- developed, well-nourished, morbidly obese HEENT: Head is atraumatic, normocephalic. Pupils equal, round. Sclerae is anicteric. NECK: Supple. No JVD. No lymphadenopathy. No thyromegaly. LUNGS: Diminished breath sounds bilaterally with no wheezes or rhonchi. No intercostal retractions. HEART: S1, S2 are muffled ABDOMEN: Soft. Bowel sounds are present. No masses. No tenderness. EXTREMITIES: No pedal edema. No calf tenderness. NEUROLOGICAL: Patient is awake, alert and oriented x3. Cranial nerves 2 through 12 are grossly intact. Diffusely weak Please refer to medication reconciliation sheet for a list of medications. The impression and plan of care has been dictated by Ami Lee, Nurse Practitioner as directed. Dr. Lidia MD I have performed a history and examination and MDM of this patient, discussed the same with the dictator, and agree with the dictator's assessment and plan as written ,documented as a scribe. Based on total visit time, I have performed more than 50% of the visit. Patient Condition at Discharge: Fair Plan - Discharge Summary Discharge Rx Participant: No New Discharge Prescriptions: New Aspirin 81 mg PO DAILY #30 tab carvediloL [Coreg*] 12.5 mg PO BID-W/MEALS #60 tab Atorvastatin [Lipitor] 40 mg PO HS #30 tab Nitroglycerin Sl Tabs [Nitrostat] 0.4 mg SUBLINGUAL Q5M PRN #30 tab PRN Reason: Chest Pain Clopidogrel [Plavix] 75 mg PO DAILY #30 tab cefUROXime axetiL [Ceftin] 500 mg PO BID 4 Days #8 tab Continue Citalopram Hydrobromide [CeleXA] 20 mg PO DAILY Albuterol Sulfate [Proair Hfa] 2 puff INHALATION RT-QID PRN PRN Reason: Shortness Of Breath traZODone HCL 50 mg PO HS rOPINIRole HCL [Requip] 2 mg PO HS allopurinoL [Zyloprim] 100 mg PO DAILY Cyclobenzaprine [Flexeril] 5 mg PO TID PRN PRN Reason: Muscle Spasm Semaglutide [Ozempic] 0.5 mg SQ WE Fluticasone/Umeclidin/Vilanter [Trelegy Ellipta 200-62.5-25] 1 puff INHALATION RT-DAILY HYDROcodone/APAP 5-325MG [[place] 5-325] 1 tab PO BID PRN PRN Reason: Pain Ergocalciferol [Vitamin D2 (1250 Mcg = 16000 Iu)] 1,250 mcg PO TU Gabapentin [Neurontin] 300 mg PO BID Magnesium Oxide [Magnesium] 500 mg PO HS Discontinued carvediloL 25 mg PO BID Lisinopril-Hctz 20-25 mg [Zestoretic 20-25] 1 tab PO BID Discharge Medication List Albuterol Sulfate [Proair Hfa] 2 puff INHALATION RT-QID PRN 09/11/18 [History] Citalopram Hydrobromide [CeleXA] 20 mg PO DAILY 09/11/18 [History] rOPINIRole HCL [Requip] 2 mg PO HS 06/08/19 [History] traZODone HCL 50 mg PO HS 06/08/19 [History] allopurinoL [Zyloprim] 100 mg PO DAILY 05/13/20 [History] Cyclobenzaprine [Flexeril] 5 mg PO TID PRN 07/30/22 [History] Ergocalciferol [Vitamin D2 (1250 Mcg = 84934 Iu)] 1,250 mcg PO TU 07/30/22 [History] Fluticasone/Umeclidin/Vilanter [Trelegy Ellipta 200-62.5-25] 1 puff INHALATION RT-DAILY 07/30/22 [History] Gabapentin [Neurontin] 300 mg PO BID 07/30/22 [History] HYDROcodone/APAP 5-325MG [[place] 5-325] 1 tab PO BID PRN 07/30/22 [History] Magnesium Oxide [Magnesium] 500 mg PO HS 07/30/22 [History] Semaglutide [Ozempic] 0.5 mg SQ WE 07/30/22 [History] Aspirin 81 mg PO DAILY #30 tab 08/04/22 [Rx] Atorvastatin [Lipitor] 40 mg PO HS #30 tab 08/04/22 [Rx] Clopidogrel [Plavix] 75 mg PO DAILY #30 tab 08/04/22 [Rx] Nitroglycerin Sl Tabs [Nitrostat] 0.4 mg SUBLINGUAL Q5M PRN #30 tab 08/04/22 [Rx] carvediloL [Coreg*] 12.5 mg PO BID-W/MEALS #60 tab 08/04/22 [Rx] cefUROXime axetiL [Ceftin] 500 mg PO BID 4 Days #8 tab 08/04/22 [Rx] Follow up Appointment(s)/Referral(s): Tobias Aly MD [Primary Care Provider] - 1-2 days Milton Dupree MD [STAFF PHYSICIAN] - 1 Week Discharge Disposition: TRANSFER TO SNF/ECF
[2022-08-04 16:47] LABS: Glucose,Whole Blood 176 mg/dL (70-110)
[2022-08-04] MEDS: ACETAMINOPHEN TAB 325 MG TAB PO PRN (17:26)
[2022-08-04] MEDS ORDERED: carvediloL 12.5 MG TAB PO SCH (17:30)
== END 2022-08-04 17:48 | DRG 251 ==
LOC: EC 23:15 → 2SICU 23:54 → 3SCARD 08-03 12:50
PROVIDERS: ADMIT Hospitalist; ATTEND Hospitalist
PROC: 02703ZZ Dilation of Coronary Artery, One Artery, Percutaneous Approach (ICD-10-PCS; principal; 2022-07-30)
PROC: 4A023N7 Measurement of Cardiac Sampling and Pressure, Left Heart, Percutaneous Approach (ICD-10-PCS; 2022-07-30)
PROC: B2111ZZ Fluoroscopy of Multiple Coronary Arteries using Low Osmolar Contrast (ICD-10-PCS; 2022-07-30)
PROC: B240ZZ3 Ultrasonography of Single Coronary Artery, Intravascular (ICD-10-PCS; 2022-08-03)
DX: I21.29 ST elevation (STEMI) myocardial infarction involving other sites (principal); K56.600 Partial intestinal obstruction, unspecified as to cause; N17.9 Acute kidney failure, unspecified; Z68.43 Body mass index [BMI] 50.0-59.9, adult; K56.7 Ileus, unspecified; E83.51 Hypocalcemia; I95.9 Hypotension, unspecified; E11.22 Type 2 diabetes mellitus with diabetic chronic kidney disease; I13.10 Hypertensive heart and chronic kidney disease without heart failure, with stage 1 through stage 4 chronic kidney disease, or unspecified chronic kidney disease; N18.9 Chronic kidney disease, unspecified; E66.01 Morbid (severe) obesity due to excess calories; I08.1 Rheumatic disorders of both mitral and tricuspid valves; E87.6 Hypokalemia; M15.9 Polyosteoarthritis, unspecified; I25.5 Ischemic cardiomyopathy; E78.5 Hyperlipidemia, unspecified; G47.30 Sleep apnea, unspecified; K57.90 Diverticulosis of intestine, part unspecified, without perforation or abscess without bleeding; I25.119 Atherosclerotic heart disease of native coronary artery with unspecified angina pectoris; Z53.8 Procedure and treatment not carried out for other reasons; Z87.891 Personal history of nicotine dependence; Z87.11 Personal history of peptic ulcer disease; Z79.899 Other long term (current) drug therapy; Z79.1 Long term (current) use of non-steroidal anti-inflammatories (NSAID); I25.2 Old myocardial infarction; Z87.19 Personal history of other diseases of the digestive system; Z28.310 Unvaccinated for COVID-19
CPT/HCPCS: 71045; 71046; 74022; 74176; 76770; 80048; 80053; 81001; 83036; 83605; 83690; 83735; 84132; 84145; 84484; 85025; 85027; 85610; 85730; 87040; 87502; 87634; 92920; 92978; 93005; 93306; 93454; 94660; 94760; 96374; 99291

== ENCOUNTER 2022-08-08 21:44 | Inpatient (IN) | payer MEDICARE, OTHER ==
[2022-08-08 22:31] LABS: VBG PH 7.4 (7.31-7.41)
[2022-08-08 22:37] LABS: Albumin 3.2 g/dL (3.5-5.0); Calcium 8.5 mg/dL (8.4-10.2); Total Bilirubin 0.5 mg/dL (0.2-1.3); Total Protein 5.9 g/dL (6.3-8.2)
[2022-08-08 22:38] LABS: Basophils % (A) 0 %; Eosinophils # (A) 0.7 k/uL (0-0.7); Eosinophils % (A) 7 %; HCT 35.6 % (34.0-46.0); HGB 11.6 gm/dL (11.4-16.0); Lymphocytes # (A) 0.9 k/uL (1.0-4.8); Lymphocytes % (A) 9 %; MCH 28.3 pg (25.0-35.0); MCHC 32.6 g/dL (31.0-37.0); MCV 86.7 fL (80.0-100.0); Mean Platelet Volume 9.1; Monocytes # (A) 0.5 k/uL (0-1.0); Monocytes % (A) 5 %; Neutrophils # (A) 7.8 k/uL (1.3-7.7); Neutrophils % (A) 77 %; Platelet Count 416 k/uL (150-450); RDW 14.1 % (11.5-15.5); WBC 10.1 k/uL (3.8-10.6)
[2022-08-08 22:44] LABS: INR 0.9 (<1.2); Partial Thromboplastin Time 23.4 sec (22.0-30.0); Prothrombin Time 10.1 sec (9.0-12.0)
[2022-08-08 22:55] LABS: Magnesium 1.9 mg/dL (1.6-2.3); Potassium 5.1 mmol/L (3.5-5.1)
--- NOTE | 2022-08-08 22:56 | XR ---
EXAMINATION TYPE: XR chest 2V DATE OF EXAM: 08/08/2022 10:49 PM COMPARISON: Chest radiographs from 08/04/2022, CT abdomen pelvis 07/30/2022 TECHNIQUE: XR chest 2V Frontal and lateral views of the chest. CLINICAL INDICATION:Female, 72 years old with history of Chest Pain; FINDINGS: Lungs/Pleura: There is no evidence of pleural effusion, focal consolidation, or pneumothorax. Pulmonary vascularity: Pulmonary vascular congestion. Heart/mediastinum: Cardiomediastinal silhouette is enlarged and stable. Atherosclerotic calcificatio ns are seen in the aorta. Musculoskeletal: No acute osseous pathology. IMPRESSION: 1. Increasing suspected pulmonary vascular congestion. Findings could represent volume overload. 2. Right lung base airspace opacities have increased on today's exam and could represent atelectasis versus developing pneumonia.
[2022-08-08] MEDS ORDERED: FUROSEMIDE 10 MG/ML 4 ML VIAL IV STA (23:30)
[2022-08-08] MEDS ORDERED: SODIUM CHLORIDE 0.9% 1,000 ML IV ONE (23:59)
--- NOTE | 2022-08-09 01:00 | CT ---
EXAM: CT Angiography Chest With Intravenous Contrast CLINICAL HISTORY: ITS.REASON CT Reason: SOB, r/o PE TECHNIQUE: Axial computed tomographic angiography images of the chest with intravenous contrast. CTDI is 33.6 mGy and DLP is 929.7 mGy-cm. This CT exam was performed using one or more of the following dose reduction techniques: automated exposure control, adjustment of the mA and/or kV according to patient size, and/or use of iterative reconstruction technique. MIP reconstructed images were created and reviewed. COMPARISON: No relevant prior studies available. FINDINGS: Pulmonary arteries: No acute pulmonary embolism. Evaluation is limited due to suboptimal contrast bolus timing. Aorta: Atherosclerotic changes of the aorta. No thoracic aortic aneurysm. Great vessels of aortic arch: Aberrant right subclavian artery. Lungs: Dependent airspace consolidations, likely represent atelectasis however, mild aspiration pneumonia cannot be excluded. Small bilateral pleural effusions, right greater than left. No pneumothorax. Pleural space: See above. Heart: Cardiomegaly. No pericardial effusion. No evidence of RV dysfunction. Bones/joints: Degenerative changes of the spine. No acute fracture. No dislocation. Soft tissues: Unremarkable. Lymph nodes: Unremarkable. No enlarged lymph nodes. Liver: Hepatic steatosis. IMPRESSION: 1. No acute pulmonary embolism. Evaluation is limited due to suboptimal contrast bolus timing. 2. Dependent airspace consolidations, likely represent atelectasis however, mild aspiration pneumonia cannot be excluded. Small bilateral pleural effusions, right greater than left. No pneumothorax.
[2022-08-09] MEDS ORDERED: NALOXONE 0.4 MG/ML 1 ML VIAL IV PRN (02:00)
--- NOTE | 2022-08-09 02:10 | ED ---
General Adult HPI - General Chief complaint: Chest Pain Stated complaint: Chest Pain Time Seen by Provider: 08/08/22 21:47 Source: EMS Mode of arrival: EMS - History of Present Illness Initial comments: This is a 72-year-old female with a past medical history including hypertension, previous coronary artery disease presents emergency department for chest pain via EMS. The patient was recently discharged from [facility] earlier in the day after the patient was admitted to this hospital for chest pain. The patient was ballooned twice without stenting. The patient stated that she does not have a medical history including congestive heart failure. The patient reported that she had sternal, pressure-like chest pain that started earlier in the afternoon around 4 PM. The patient stated this rash was consistent and when she had worsening she felt as if she could not breathe. EMS reported that when they arrived her oxygen level was 78%. The patient was given 4 doses of nitroglycerin as well as aspirin. The patient was also given a dose of fentanyl for pain control. On arrival, the patient stated her symptoms were improved with the medications. The patient denied any radiation of this chest pain and denied any nausea or vomiting or diaphoresis here the patient was resting in bed comfortably on my evaluation. - Related Data Home Medications Medication Instructions Recorded Confirmed Albuterol Sulfate [Proair Hfa] 2 puff INHALATION RT-QID PRN 09/11/18 08/08/22 Citalopram Hydrobromide [CeleXA] 20 mg PO DAILY 09/11/18 08/08/22 rOPINIRole HCL [Requip] 2 mg PO HS 06/08/19 08/08/22 traZODone HCL 50 mg PO HS 06/08/19 08/08/22 allopurinoL [Zyloprim] 100 mg PO DAILY 05/13/20 08/08/22 Cyclobenzaprine [Flexeril] 5 mg PO TID PRN 07/30/22 08/08/22 Ergocalciferol [Vitamin D2 (1250 1,250 mcg PO TU 07/30/22 08/08/22 Mcg = 40830 Iu)] Fluticasone/Umeclidin/Vilanter 1 puff INHALATION RT-DAILY 07/30/22 08/08/22 [Trelegy Ellipta 200-62.5-25] Magnesium Oxide [Magnesium] 500 mg PO HS 07/30/22 08/08/22 Semaglutide [Ozempic] 0.5 mg SQ WE 07/30/22 08/08/22 Lisinopril-Hctz 20-25 mg 1 tab PO BID 08/08/22 08/08/22 [Zestoretic 20-25] Previous Rx's Medication Instructions Recorded Aspirin 81 mg PO DAILY #30 tab 08/04/22 Atorvastatin [Lipitor] 40 mg PO HS #30 tab 08/04/22 Clopidogrel [Plavix] 75 mg PO DAILY #30 tab 08/04/22 Gabapentin [Neurontin] 300 mg PO BID #6 cap 08/04/22 HYDROcodone/APAP 5-325MG [[place] 1 tab PO BID PRN #4 tab 08/04/22 5-325] Nitroglycerin Sl Tabs [Nitrostat] 0.4 mg SUBLINGUAL Q5M PRN #30 tab 08/04/22 carvediloL [Coreg*] 12.5 mg PO BID-W/MEALS #60 tab 08/04/22 cefUROXime axetiL [Ceftin] 500 mg PO BID 4 Days #8 tab 08/04/22 Allergies Allergy/AdvReac Type Severity Reaction Status Date / Time No Known Allergies Allergy Verified 08/08/22 22:31 Review of Systems ROS Statement: Those systems with pertinent positive or pertinent negative responses have been documented in the HPI. ROS Other: All systems not noted in ROS Statement are negative. Past Medical History Past Medical History: Asthma, COPD, GI Bleed, Hypertension, Osteoarthritis (OA), Sleep Apnea/CPAP/BIPAP Additional Past Medical History / Comment(s): Tinnitus; OA in backs, knees, hands; uses home CPAP; gastric ulcers in her 30s, HX LT MACULAR HOLE-REPAIRED History of Any Multi-Drug Resistant Organisms: None Reported Past Surgical History: Hysterectomy, Orthopedic Surgery, Tonsillectomy Additional Past Surgical History / Comment(s): Vertebral (neck) surgery. RT CTR. EGD. REPAIR LT MACULAR HOLE AND LT CATARACT REMOVED Past Anesthesia/Blood Transfusion Reactions: Motion Sickness Past Psychological History: Anxiety Past Alcohol Use History: None Reported Additional Past Alcohol Use History / Comment(s): QUIT SMOKING 1989 Past Drug Use History: None Reported - Past Family History Father Family Medical History: Unable to Obtain Mother History Unknown: Yes Family Medical History: No Reported History, Cancer Additional Family Medical History / Comment(s): Esophageal cancer, arthritis General Exam Limitations: no limitations General appearance: alert, in no apparent distress, obese Head exam: Present: atraumatic, normocephalic, normal inspection Eye exam: Present: normal appearance, PERRL Pupils: Present: normal accommodation ENT exam: Present: normal exam, normal oropharynx, mucous membranes moist Neck exam: Present: normal inspection, full ROM Respiratory exam: Present: decreased breath sounds (Mildly decreased breath sounds bilaterally) Cardiovascular Exam: Present: normal rhythm, tachycardia GI/Abdominal exam: Present: soft, normal bowel sounds Extremities exam: Present: normal inspection, full ROM, pedal edema Back exam: Present: normal inspection, full ROM Neurological exam: Present: alert, oriented X3, CN II-XII intact Psychiatric exam: Present: normal affect, normal mood Skin exam: Present: warm, dry Course Vital Signs 08/08/22 08/08/22 08/09/22 21:46 23:53 01:42 Pulse Rate 113 H 78 82 Respiratory 18 18 18 Rate Blood Pressure 138/93 102/60 101/59 O2 Sat by Pulse 91 L 98 97 Oximetry EKG Findings - EKG Comments: EKG Findings:: In EKG was obtained and was interpreted by myself showing a rate of 111, TN interval 173, QRS duration of 78 and QTC of 367. This EKG showed a sinus tachycardia without ST segment elevation or depression noted. Medical Decision Making - Medical Decision Making Was pt. sent in by a medical professional or institution (, PA, LICENSED CLUB MANAGER, urgent care, hospital, or fpc...) When possible be specific @ -No Did you speak to anyone other than the patient for history (EMS, parent, family, police, friend...)? What history was obtained from this source @ -Yes, EMS Did you review nursing and triage notes (agree or disagree)? Why? @ -I reviewed and agree with nursing and triage notes Were old charts reviewed (outside hosp., previous admission, EMS record, old EKG, old radiological studies, urgent care reports/EKG's, fpc records)? Report findings @ -No old charts were reviewed Differential Diagnosis (chest pain, altered mental status, abdominal pain women, abdominal pain men, vaginal bleeding, weakness, fever, dyspnea, syncope, headache, dizziness, GI bleed, back pain, seizure, CVA, palpatations, mental health)? @ -ACS, pneumonia, CHF EKG interpreted by me (3pts min.). @ -As above X-rays interpreted by me (1pt min.). @ -Chest x-ray was obtained and was interpreted by myself showing increasing suspected pulmonary congestion. Findings could represent volume overload. There was right lung base airspace opacities of increased on today's exam and could represent atelectasis versus developing pneumonia. CT interpreted by me (1pt min.). @ -CTA of the chest was obtained and was interpreted by myself showing no acute PE. There was deep tendon airspace consolidations likely representing atelectasis. Mild aspiration one and cannot be excluded. There was small bilateral pleural effusions, right greater than left. U/S interpreted by me (1pt. min.). @ -None done What testing was considered but not performed or refused? (CT, X-rays, U/S, labs)? Why? @ -None What meds were considered but not given or refused? Why? @ -None Did you discuss the management of the patient with other professionals (professionals i.e. , PA, LICENSED CLUB MANAGER, lab, RT, psych nurse, protective services social worker, audience development manager, teacher, campus police officer, manager rn case)? Give summary @ -Yes, admitting physician Was smoking cessation discussed for >3mins.? @ -No Was critical care preformed (if so, how long)? @ -No Were there social determinants of health that impacted care today? How? (Homelessness, low income, unemployed, alcoholism, drug addiction, transportation, low edu. Level, literacy, decrease access to med. care, retirement, rehab)? @ -No Was there de-escalation of care discussed even if they declined (Discuss DNR or withdrawal of care, Hospice)? DNR status @ -No What co-morbidities impacted this encounter? (DM, HTN, Smoking, COPD, CAD, Cancer, CVA, ARF, Chemo, Hep., AIDS, mental health diagnosis, sleep apnea, morbid obesity)? @ -Previous cardiac ballooning, hypertension Was patient admitted / discharged? Hospital course, mention meds given and route, prescriptions, significant lab abnormalities, going to OR and other pertinent info. @ -The patient was seen and evaluated emergency department. Physical exam, the patient was resting in bed comfortably. Vital signs did show tachycardia and hypoxia. The patient was placed on nasal cannula oxygen and did remain stable. Laboratory workup was obtained that showed an elevated troponin however was appropriately decreasing from previous ballooning. The patient's d-dimer was also significantly elevated at 10.4 therefore a CTA of the chest was obtained. CTA of the chest was negative for a PE however showed likely pleural effusions and possibly mild aspiration pneumonia however the patient denied of any fevers, chills or coughing. ProBNP was also significantly elevated at 17,000 likely indicating CHF. The patient had soft blood pressures therefore Lasix were not given. The patient did however receive 1 L of normal saline fluid per protocol for the CTA study. Due to the patient's likely new onset CHF with exacerbation and hypoxia, the patient will be admitted for further workup and evaluation. The patient was agreeable to this plan and was admitted in stable condition. Undiagnosed new problem with uncertain prognosis? @ -No Drug Therapy requiring intensive monitoring for toxicity (Heparin, Nitro, Insulin, Cardizem)? @ -No Were any procedures done? @ -No Diagnosis/symptom? @ -New onset CHF with exacerbation and hypoxia Acute, or Chronic, or Acute on Chronic? @ -Acute Uncomplicated (without systemic symptoms) or Complicated (systemic symptoms)? @ -Complicated Side effects of treatment? @ -No Exacerbation, Progression, or Severe Exacerbation? @ -Exacerbation Poses a threat to life or bodily function? How? (Chest pain, [place], [place], pneumonia, PE, COPD, DKA, ARF, appy, cholecystitis, CVA, Diverticulitis, Homicidal, Suicidal, threat to staff... and all critical care pts) @ -Yes, continued CHF can cause continued hypoxia and permanent damage and possible . - Lab Data Result diagrams: 08/08/22 21:58 08/08/22 21:58 Lab Results 08/08/22 08/08/22 08/08/22 Range/Units 21:58 21:58 21:58 WBC 10.1 (3.8-10.6) k/uL RBC 4.10 (3.80-5.40) m/uL Hgb 11.6 (11.4-16.0) gm/dL Hct 35.6 (34.0-46.0) % MCV 86.7 (80.0-100.0) fL MCH 28.3 (25.0-35.0) pg MCHC 32.6 (31.0-37.0) g/dL RDW 14.1 (11.5-15.5) % Plt Count 416 (150-450) k/uL MPV 9.1 Neutrophils % 77 % Lymphocytes % 9 % Monocytes % 5 % Eosinophils % 7 % Basophils % 0 % Neutrophils # 7.8 H (1.3-7.7) k/uL Lymphocytes # 0.9 L (1.0-4.8) k/uL Monocytes # 0.5 (0-1.0) k/uL Eosinophils # 0.7 (0-0.7) k/uL Basophils # 0.0 (0-0.2) k/uL PT 10.1 (9.0-12.0) sec INR 0.9 (<1.2) APTT 23.4 (22.0-30.0) sec D-Dimer 2.93 H (<0.60) mg/L FEU VBG pH (7.31-7.41) VBG pCO2 (37-51) mmHg VBG HCO3 (24-28) mmol/L Sodium 136 L (137-145) mmol/L Potassium 5.1 (3.5-5.1) mmol/L Chloride 101 (98-107) mmol/L Carbon Dioxide 27 (22-30) mmol/L Anion Gap 8 mmol/L BUN 23 H (7-17) mg/dL Creatinine 1.43 H (0.52-1.04) mg/dL Est GFR (CKD-EPI)AfAm 42 (>60 ml/min/1.73 sqM) Est GFR (CKD-EPI)NonAf 37 (>60 ml/min/1.73 sqM) Glucose 182 H (74-99) mg/dL Calcium 8.5 (8.4-10.2) mg/dL Magnesium 1.9 (1.6-2.3) mg/dL Total Bilirubin 0.5 (0.2-1.3) mg/dL AST 48 H (14-36) U/L ALT 71 H (4-34) U/L Alkaline Phosphatase 184 H (38-126) U/L Troponin I (0.000-0.034) ng/mL NT-Pro-B Natriuret Pep pg/mL Total Protein 5.9 L (6.3-8.2) g/dL Albumin 3.2 L (3.5-5.0) g/dL 08/08/22 08/08/22 08/08/22 Range/Units 21:58 22:01 22:09 WBC (3.8-10.6) k/uL RBC (3.80-5.40) m/uL Hgb (11.4-16.0) gm/dL Hct (34.0-46.0) % MCV (80.0-100.0) fL MCH (25.0-35.0) pg MCHC (31.0-37.0) g/dL RDW (11.5-15.5) % Plt Count (150-450) k/uL MPV Neutrophils % % Lymphocytes % % Monocytes % % Eosinophils % % Basophils % % Neutrophils # (1.3-7.7) k/uL Lymphocytes # (1.0-4.8) k/uL Monocytes # (0-1.0) k/uL Eosinophils # (0-0.7) k/uL Basophils # (0-0.2) k/uL PT (9.0-12.0) sec INR (<1.2) APTT (22.0-30.0) sec D-Dimer (<0.60) mg/L FEU VBG pH 7.40 (7.31-7.41) VBG pCO2 44 (37-51) mmHg VBG HCO3 27 (24-28) mmol/L Sodium (137-145) mmol/L Potassium (3.5-5.1) mmol/L Chloride (98-107) mmol/L Carbon Dioxide (22-30) mmol/L Anion Gap mmol/L BUN (7-17) mg/dL Creatinine (0.52-1.04) mg/dL Est GFR (CKD-EPI)AfAm (>60 ml/min/1.73 sqM) Est GFR (CKD-EPI)NonAf (>60 ml/min/1.73 sqM) Glucose (74-99) mg/dL Calcium (8.4-10.2) mg/dL Magnesium (1.6-2.3) mg/dL Total Bilirubin (0.2-1.3) mg/dL AST (14-36) U/L ALT (4-34) U/L Alkaline Phosphatase (38-126) U/L Troponin I 1.090 H* (0.000-0.034) ng/mL NT-Pro-B Natriuret Pep 00427 pg/mL Total Protein (6.3-8.2) g/dL Albumin (3.5-5.0) g/dL Critical Care Time Critical Care Time: Yes Total Critical Care Time: 35 Disposition Clinical Impression: CHF exacerbation, Hypoxia Disposition: ADMITTED IP TO THIS [facility] Condition: Stable Is patient prescribed a controlled substance at d/c from ED?: No Referrals: Tobias Aly MD [Primary Care Provider] - 1-2 days Time of Disposition: 00:30 Decision to Admit Reason: Admit from EC Decision Date: 08/09/22 Decision Time: 00:30
[2022-08-09] MEDS ORDERED: DEXTROSE 50% SYRINGE 50 ML IVP PRN ×2 (09:33)
[2022-08-09] MEDS: carvediloL 3.125 MG TAB PO SCH ×2 (09:48→18:36)
[2022-08-09] MEDS: ASPIRIN 81 MG PO SCH (09:49)
[2022-08-09] MEDS: FUROSEMIDE 10 MG/ML 4 ML VIAL IV SCH ×3 (09:49→23:02)
[2022-08-09] MEDS: CLOPIDOGREL 75 MG TAB PO SCH (09:49)
[2022-08-09] MEDS: lisinopriL 10 MG TAB PO SCH (09:49)
--- NOTE | 2022-08-09 10:24 | CONS ---
CONSULTATION CHIEF COMPLAINT: Shortness of breath. HISTORY OF PRESENT ILLNESS: Radha is a 72-year-old lady with history of diabetes, hypertension, dyslipidemia, and morbid obesity, who was admitted to hospital on 07/29/2022 with sudden onset chest pressure and had evidence of acute anterolateral myocardial infarction. She underwent emergent cardiac catheterization that revealed intermediate disease involving right coronary artery and possible total occlusion of the distal LAD. The patient had attempted angioplasty of the LAD. Subsequently was taken back and looked at the right coronary artery and had IVUS of the right coronary artery, that was decided to treat medically. The patient was discharged home, was in the long term, was on O2 and when she went home yesterday from the long term, she became short of breath, hypoxic, called the EMS and came back in to the ER. When she first presented, her pulse ox was in the 70s. A chest x-ray showed evidence of pulmonary congestion and she has gradually gotten better with IV diuretics. She had a CT scan of the chest that did not reveal any pulmonary embolism. Her troponin was 1 but it was 50 at her recent admission. Creatinine [place] 1[place] [address]. An echocardiogram of the recent admission revealed moderate LV systolic dysfunction with evidence of apical hypokinesis, shortness of breath, had pulmonary congestion on chest x-ray, elevated troponin, was given intravenous diuretics with which her symptoms have improved. At the time of my evaluation in the emergency room, she appears comfortable at rest and stable hemodynamically. She was somewhat hypotensive earlier. PAST MEDICAL HISTORY: Significant for recent myocardial infarction, ischemic cardiomyopathy, hypertension, diabetes, and dyslipidemia. CURRENT MEDICATIONS: 1. Aspirin. 2. Lipitor. 3. Plavix. 4. Flexeril. 5. Neurontin. 6. [place]. 7. Requip. 8. Trazodone. 9. Ozempic. ALLERGIES: There are no known drug allergies. FAMILY HISTORY: Negative for premature coronary artery disease. SOCIAL HISTORY: Negative for current smoking, EtOH abuse, or drug abuse. REVIEW OF SYSTEMS: HEENT: Unremarkable. CARDIAC: As described above. RESPIRATORY: As described above. GI: Negative. GENITOURINARY: Negative. ALLERGY/IMMUNOLOGY: Negative. SKIN: Negative. MUSCULOSKELETAL: Negative for arthritis. PSYCHOSOCIAL: Negative. DERM: Negative. CONSTITUTIONAL: Negative. ONCOLOGICAL: Negative. DESIGN COORDINATOR: Negative. Rest of the system review is not relevant. PHYSICAL EXAMINATION: GENERAL: Patient is comfortable at rest. VITAL SIGNS: Stable. NECK: There is no jugular venous distention. Carotid upstroke is normal. There is no bruit. CHEST: Reveals good air entry bilaterally. HEART: Reveals first and second heart sounds. No gallop, no murmur. ABDOMEN: Soft. EXTREMITIES: Did not reveal any edema. Peripheral pulses are felt. LABORATORY DATA: Show that the hemoglobin is 11.6, platelet count is 416. Potassium is 5.1, creatinine is 1.4. Troponin is 1. BNP is 17,700. Chest x-ray showed acute pulmonary edema. ASSESSMENT: 1. Acute-onset systolic heart failure. 2. Recent myocardial infarction. 3. Ischemic cardiomyopathy. 4. Hypertension. 5. Dyslipidemia. PLAN: I will treat the patient with IV Lasix, beta blockers, DONATO inhibitors. I will repeat an echo on her to reassess the LV function and to rule out any valvular heart disease given the recent myocardial infarction. MMODL / IJN: [id number] /
[2022-08-09] MEDS: allopurinoL 100 MG TAB PO SCH (10:37)
[2022-08-09] MEDS: CITALOPRAM HYDROBROMIDE 20 MG TAB PO SCH (10:37)
--- NOTE | 2022-08-09 11:18 | P.HPIM ---
History of Present Illness Patient presented to the female was recently discharged from the hospital after she was treated for CHF, patient was discharged to subacute rehab was discharged from rehab yesterday started having shortness of breath and hypoxic with saturations going to 6% without apnea and patient came back to ER for found to have bilateral pleural effusions and diffuse pulmonary edema along with highly elevated BNP of 17,000 and her baseline BMP of around 150. Patient is also found to have elevated troponin of 1.0 9-0 repeat troponins are pending. Patient denied any chest pain patient was given nitroglycerin and was started on IV Lasix. Patient had EF of around 40-45% of the past. Repeat echocardiogram was ordered because of elevated troponin patient was given aspirin. Patient denied any fever chills patient was comparing of cough with clear sputum production patient has a baseline creatinine of around 1.4 present creatinine is around that patient has been taking her Lasix regularly and is compliant with the diet as per the patient. REVIEW OF SYSTEMS: CONSTITUTIONAL: No fever, no malaise, no fatigue. HEENT: No recent visual problems or hearing problems. Denied any sore throat. CARDIOVASCULAR: No chest pain, no palpitations, no syncope. PULMONARYno hemoptysis. GASTROINTESTINAL: No diarrhea, no nausea, no vomiting, no abdominal pain. NEUROLOGICAL: No headaches, no weakness, no numbness. HEMATOLOGICAL: Denies any bleeding or petechiae. GENITOURINARY: Denies any burning micturition, frequency, or urgency. MUSCULOSKELETAL/RHEUMATOLOGICAL: Denies any joint pain, swelling, or any muscle pain. ENDOCRINE: Denies any polyuria or polydipsia. The rest of the 14-point review of systems is negative. PHYSICAL EXAMINATION: GENERAL: The patient is alert and oriented x3, not in any acute distress. Well developed, well nourished. HEENT: Pupils are round and equally reacting to light. EOMI. No scleral icterus. No conjunctival pallor. Normocephalic, atraumatic. No pharyngeal erythema. No thyromegaly. CARDIOVASCULAR: S1 and S2 present. Patient does have systolic murmur and that would area and mitral area and there is an S3 gallop PULMONARY: Mild expiratory wheezing on exam ABDOMEN: Soft, nontender, nondistended, normoactive bowel sounds. No palpable organomegaly. MUSCULOSKELETAL: No joint swelling or deformity. EXTREMITIES: No cyanosis, clubbing, or pedal edema. NEUROLOGICAL: Gross neurological examination did not reveal any focal deficits. SKIN: No rashes. Assessment and plan -Congestive heart failure chronic systolic dysfunction with acute exacerbation and patient does have valvular abnormalities as well, patient was started on IV Lasix and lisinopril continue to monitor kidney function, input and output strictly. -Elevated troponin possibility of non-ST elevation microinfarction repeat echocardiogram is being up and cardiology is following the patient.-Chronic kidney disease stage III -Mild AST and ALP elevation secondary to hepatic congestion from heart failure expected to improve with Lasix -Acute on chronic hypoxic respiratory failure secondary to CHF exacerbation patient does have history of sleep apnea which is responsible for chronic respiratory failure -Hypertension. DVT prophylaxis: Subcutaneous heparin Past Medical History Past Medical History: Asthma, COPD, GI Bleed, Hypertension, Osteoarthritis (OA), Sleep Apnea/CPAP/BIPAP Additional Past Medical History / Comment(s): Tinnitus; OA in backs, knees, hands; uses home CPAP; gastric ulcers in her 30s, HX LT MACULAR HOLE-REPAIRED History of Any Multi-Drug Resistant Organisms: None Reported Past Surgical History: Hysterectomy, Orthopedic Surgery, Tonsillectomy Additional Past Surgical History / Comment(s): Vertebral (neck) surgery. RT CTR. EGD. REPAIR LT MACULAR HOLE AND LT CATARACT REMOVED Past Anesthesia/Blood Transfusion Reactions: Motion Sickness Past Psychological History: Anxiety Past Alcohol Use History: None Reported Additional Past Alcohol Use History / Comment(s): QUIT SMOKING 1989 Past Drug Use History: None Reported - Past Family History Father Family Medical History: Unable to Obtain Mother History Unknown: Yes Family Medical History: No Reported History, Cancer Additional Family Medical History / Comment(s): Esophageal cancer, arthritis Medications and Allergies Home Medications Medication Instructions Recorded Confirmed Type Albuterol Sulfate [Proair Hfa] 2 puff INHALATION RT-QID PRN 09/11/18 08/08/22 History Citalopram Hydrobromide [CeleXA] 20 mg PO DAILY 09/11/18 08/08/22 History rOPINIRole HCL [Requip] 2 mg PO HS 06/08/19 08/08/22 History traZODone HCL 50 mg PO HS 06/08/19 08/08/22 History allopurinoL [Zyloprim] 100 mg PO DAILY 05/13/20 08/08/22 History Cyclobenzaprine [Flexeril] 5 mg PO TID PRN 07/30/22 08/08/22 History Ergocalciferol [Vitamin D2 (1250 1,250 mcg PO TU 07/30/22 08/08/22 History Mcg = 83832 Iu)] Fluticasone/Umeclidin/Vilanter 1 puff INHALATION RT-DAILY 07/30/22 08/08/22 His tory [Trelegy Ellipta 200-62.5-25] Magnesium Oxide [Magnesium] 500 mg PO HS 07/30/22 08/08/22 History Semaglutide [Ozempic] 0.5 mg SQ WE 07/30/22 08/08/22 History Aspirin 81 mg PO DAILY #30 tab 08/04/22 08/08/22 Rx Atorvastatin [Lipitor] 40 mg PO HS #30 tab 08/04/22 08/08/22 Rx Clopidogrel [Plavix] 75 mg PO DAILY #30 tab 08/04/22 08/08/22 Rx Gabapentin [Neurontin] 300 mg PO BID #6 cap 08/04/22 08/08/22 Rx HYDROcodone/APAP 5-325MG [[place] 1 tab PO BID PRN #4 tab 08/04/22 08/08/22 Rx 5-325] Nitroglycerin Sl Tabs [Nitrostat] 0.4 mg SUBLINGUAL Q5M PRN #30 tab 08/04/22 08/08/22 Rx carvediloL [Coreg*] 12.5 mg PO BID-W/MEALS #60 tab 08/04/22 08/08/22 Rx cefUROXime axetiL [Ceftin] 500 mg PO BID 4 Days #8 tab 08/04/22 08/08/22 Rx Lisinopril-Hctz 20-25 mg 1 tab PO BID 08/08/22 08/08/22 History [Zestoretic 20-25] Allergies Allergy/AdvReac Type Severity Reaction Status Date / Time No Known Allergies Allergy Verified 08/08/22 22:31 Physical Exam Vitals: Vital Signs Pulse Resp BP Pulse Ox 08/09/22 09:30 79 18 102/54 99 08/09/22 07:44 76 16 117/74 97 08/09/22 06:44 70 14 95/56 96 08/09/22 04:04 74 18 98/54 99 08/09/22 01:42 82 18 101/59 97 08/08/22 23:53 78 18 102/60 98 08/08/22 21:46 113 H 18 138/93 91 L Intake and Output 08/08/22 08/09/22 08/09/22 22:59 06:59 14:59 Other: Weight 113.398 kg Results CBC & Chem 7: 08/08/22 21:58 08/08/22 21:58 Labs: Abnormal Lab Results - Last 24 Hours (Table) 08/08/22 08/08/22 08/08/22 Range/Units 21:58 21:58 21:58 Neutrophils # 7.8 H (1.3-7.7) k/uL Lymphocytes # 0.9 L (1.0-4.8) k/uL D-Dimer 2.93 H (<0.60) mg/L FEU Sodium 136 L (137-145) mmol/L BUN 23 H (7-17) mg/dL Creatinine 1.43 H (0.52-1.04) mg/dL Glucose 182 H (74-99) mg/dL AST 48 H (14-36) U/L ALT 71 H (4-34) U/L Alkaline Phosphatase 184 H (38-126) U/L Troponin I (0.000-0.034) ng/mL Total Protein 5.9 L (6.3-8.2) g/dL Albumin 3.2 L (3.5-5.0) g/dL 08/08/22 Range/Units 21:58 Neutrophils # (1.3-7.7) k/uL Lymphocytes # (1.0-4.8) k/uL D-Dimer (<0.60) mg/L FEU Sodium (137-145) mmol/L BUN (7-17) mg/dL Creatinine (0.52-1.04) mg/dL Glucose (74-99) mg/dL AST (14-36) U/L ALT (4-34) U/L Alkaline Phosphatase (38-126) U/L Troponin I 1.090 H* (0.000-0.034) ng/mL Total Protein (6.3-8.2) g/dL Albumin (3.5-5.0) g/dL
[2022-08-09] MEDS: INSULIN ASPART (NovoLOG) 100 UNIT/ML VIAL SQ SCH ×3 (12:24→20:14)
[2022-08-09 12:26] LABS: Glucose,Whole Blood 139 mg/dL (70-110)
[2022-08-09] MEDS: IPRATROPIUM 0.5 MG/2.5 ML NEBU INHALATION SCH ×3 (14:55→22:17)
[2022-08-09] MEDS: ALBUTEROL NEBULIZED 2.5 MG/3 ML INHALATION PRN ×2 (14:55→22:17)
[2022-08-09 16:53] LABS: Glucose,Whole Blood 151 mg/dL (70-110)
[2022-08-09 20:15] LABS: Glucose,Whole Blood 129 mg/dL (70-110)
[2022-08-09] MEDS: ATORVASTATIN 40 MG TAB PO SCH (20:16)
[2022-08-09] MEDS: HEPARIN SODIUM,PORCINE/PF 5,000 UNIT/0.5 ML SYRINGE SQ SCH (20:16)
[2022-08-09] MEDS: traZODone HCL 50 MG TAB PO SCH (20:16)
[2022-08-09] MEDS: GABAPENTIN 100 MG CAP PO SCH (20:16)
[2022-08-09] MEDS: SYMBICORT 80-4.5 MCG INHALER INHALATION SCH (22:18)
[2022-08-09] MEDS ORDERED: ONDANSETRON 4 MG/2 ML VIAL IVP PRN (22:37)
[2022-08-09] MEDS ORDERED: CALCIUM CARBONATE 500 MG CHEWABLE PO PRN (22:37)
[2022-08-09] MEDS: PANTOPRAZOLE 40 MG/10 ML VIAL IVP SCH (22:45)
[2022-08-10 06:01] LABS: Glucose,Whole Blood 145 mg/dL (70-110)
[2022-08-10] MEDS: INSULIN ASPART (NovoLOG) 100 UNIT/ML VIAL SQ SCH ×5 (06:04→21:19)
[2022-08-10] MEDS: carvediloL 3.125 MG TAB PO SCH ×2 (06:06→16:26)
[2022-08-10] MEDS ORDERED: PANTOPRAZOLE 40 MG TABLET PO SCH (07:30)
[2022-08-10] MEDS: PANTOPRAZOLE 40 MG/10 ML VIAL IVP SCH (08:06)
[2022-08-10] MEDS: allopurinoL 100 MG TAB PO SCH (08:07)
[2022-08-10] MEDS: FUROSEMIDE 10 MG/ML 4 ML VIAL IV SCH ×2 (08:07→21:19)
[2022-08-10] MEDS: ASPIRIN 81 MG PO SCH (08:07)
[2022-08-10] MEDS: HEPARIN SODIUM,PORCINE/PF 5,000 UNIT/0.5 ML SYRINGE SQ SCH ×2 (08:08→21:18)
[2022-08-10] MEDS: CITALOPRAM HYDROBROMIDE 20 MG TAB PO SCH (08:08)
[2022-08-10] MEDS: GABAPENTIN 100 MG CAP PO SCH ×2 (08:08→21:18)
[2022-08-10] MEDS: CLOPIDOGREL 75 MG TAB PO SCH (08:08)
[2022-08-10] MEDS: IPRATROPIUM 0.5 MG/2.5 ML NEBU INHALATION SCH ×4 (08:30→21:01)
[2022-08-10] MEDS: SYMBICORT 80-4.5 MCG INHALER INHALATION SCH ×2 (08:30→21:01)
[2022-08-10] MEDS: lisinopriL 10 MG TAB PO SCH (09:33)
--- NOTE | 2022-08-10 10:41 | CA ---
Transthoracic Echo Report Name: Radha Guadarrama Age: 72 Gender: F : 1950 Exam Date: 08/09/2022 10:13 Exam Location: [place] [facility] Ht (in): 63 Wt (lb): 250 Ordering Physician: Amadeo Heredia MD ([id number]) Attending/Referring Phys: Giovanna RAMOS Baker Test Sherry Pressley RDCS Procedure CPT: Indications: chf Cardiac Hx: Limited study Hx of angioplasty Technical Quality: Technically difficult study Contrast 1: Total Dose (mL): Contrast 2: Total Dose (mL): MEASUREMENTS (Male / Female) Normal Values DOPPLER AV Peak Velocity 120.6 cm/s AV Peak Gradient 5.8 mmHg FINDINGS Left Ventricle Limited study. Left ventricular ejection fraction is estimated at 40-45 %. Apical anterior hypokinesis. Apical septum hypokinesis Right Ventricle Mildly reduced right ventricular global systolic function. No TR unable to estimate the right ventricular systolic pressure. Right Atrium Left Atrium Mitral Valve Aortic Valve Tricuspid Valve Tricuspid valve not well visualized. Pulmonic Valve Pericardium Trace Pericardial effusion located posteriorly. Aorta CONCLUSIONS Technically difficult study. Echo contrast was used. Anteroapical septal hypokinesia ejection fraction of 45%. Doppler exam is suboptimal. Trivial pericardial effusion Previewed by: Dr. German Skelton MD (Electronically Signed) Final Date: 10 August 2022 10:40
[2022-08-10] MEDS: BENZOCAINE/MENTHOL LOZENG 1 EACH LOZENGE MUCOUS MEM PRN ×3 (10:50→22:20)
[2022-08-10] MEDS: lisinopriL 5 MG TAB PO SCH (10:50)
[2022-08-10 11:34] LABS: Glucose,Whole Blood 148 mg/dL (70-110)
[2022-08-10 11:35] LABS: HCT 34.4 % (34.0-46.0); HGB 10.9 gm/dL (11.4-16.0); MCH 28.1 pg (25.0-35.0); MCHC 31.6 g/dL (31.0-37.0); Mean Platelet Volume 8.2; Platelet Count 383 k/uL (150-450); RBC 3.86 m/uL (3.80-5.40); RDW 14.1 % (11.5-15.5); WBC 8.4 k/uL (3.8-10.6)
[2022-08-10 12:08] LABS: Calcium 8.4 mg/dL (8.4-10.2); Magnesium 1.8 mg/dL (1.6-2.3); Potassium 4.4 mmol/L (3.5-5.1)
[2022-08-10] MEDS: MAGNESIUM OXIDE 400 MG TAB PO SCH ×2 (12:26→21:19)
--- NOTE | 2022-08-10 12:50 | P.PN ---
Subjective Progress Note Date: 08/10/22 HISTORY OF PRESENT ILLNESS: This is a 72-year-old female with a history of hypertension, hyperlipidemia, morbid obesity, and coronary artery disease. Patient is admitted to the [facility] secondary to acute congestive heart failure. Patient examined this morning. She is sitting in the chair. Patient denies chest pain or pressure. She reports proven in her shortness of breath. She reports an occasional nonproductive cough. She reports improvement in her lower extremity edema compared to yesterday. She remains on Lasix 40 mg IV every 8 hours. Creatinine increased today to 1.91. Patient's blood pressures are soft this morning with a systolic in the 90s. Echocardiogram completed revealing ejection fraction 40- 45%, apical anterior hypokinesis, apical septal hypokinesis, and trivial pericardial effusion. PHYSICAL EXAM: VITAL SIGNS: Reviewed. GENERAL: Well-developed in no acute distress. NECK: Supple. No JVD or thyromegaly LUNGS: Respirations even and unlabored. Lungs essentially clear to auscultation bilaterally. HEART: Regular rate and rhythm. S1 and S2 heard. EXTREMITIES: Normal range of motion. No clubbing or cyanosis. Peripheral p ulses intact. No lower extremity edema ASSESSMENT: Shortness of breath Acute heart failure with reduced ejection fraction Ischemic cardiomyopathy, EF 40-45% Coronary artery disease with recent NM Hypertension Hyperlipidemia Acute kidney injury PLAN: Decrease lisinopril to 5 mg daily secondary to soft blood pressures Decrease Lasix to 40 mg twice a day secondary to rising creatinine Daily weights, accurate I&O, and monitoring of kidney function Continue additional cardiac medications Further recommendations pending patient's course Patient to follow-up post discharge with Dr. Dupree Nurse practitioner note has been reviewed by physician. Signing provider agrees with the documented findings, assessment, and plan of care. Objective - Vital Signs Vital signs: Vital Signs Temp 98.4 F 08/10/22 11:57 Pulse 78 08/10/22 12:20 Resp 20 08/10/22 11:57 BP 107/65 08/10/22 11:57 Pulse Ox 96 08/10/22 11:57 FiO2 Intake & Output 08/09/22 08/10/22 08/10/22 18:59 06:59 18:59 Intake Total 250 240 180 Output Total 1450 550 Balance 250 -1210 -370 Weight 126.552 kg 124.6 kg Intake: IV 10 Invasive Line 1 10 Oral 240 240 180 Output: Urine 1450 550 Other: Voiding Method External Catheter External Catheter # Voids 1 - Labs CBC & Chem 7: 08/10/22 10:19 08/10/22 10:19 Labs: Abnormal Lab Results - Last 24 Hours (Table) 08/08/22 08/09/22 08/09/22 Range/Units 21:58 16:51 20:13 Hgb (11.4-16.0) gm/dL Sodium (137-145) mmol/L Chloride (98-107) mmol/L Carbon Dioxide (22-30) mmol/L BUN (7-17) mg/dL Creatinine (0.52-1.04) mg/dL Glucose (74-99) mg/dL POC Glucose (mg/dL) 151 H 129 H (70-110) mg/dL Hemoglobin A1c 7.8 H (0.0-6.0) % 08/10/22 08/10/22 08/10/22 Range/Units 06:00 10:19 10:19 Hgb 10.9 L (11.4-16.0) gm/dL Sodium 135 L (137-145) mmol/L Chloride 95 L (98-107) mmol/L Carbon Dioxide 35 H (22-30) mmol/L BUN 25 H (7-17) mg/dL Creatinine 1.91 H (0.52-1.04) mg/dL Glucose 162 H (74-99) mg/dL POC Glucose (mg/dL) 145 H (70-110) mg/dL Hemoglobin A1c (0.0-6.0) % 08/10/22 Range/Units 11:33 Hgb (11.4-16.0) gm/dL Sodium (137-145) mmol/L Chloride (98-107) mmol/L Carbon Dioxide (22-30) mmol/L BUN (7-17) mg/dL Creatinine (0.52-1.04) mg/dL Glucose (74-99) mg/dL POC Glucose (mg/dL) 148 H (70-110) mg/dL Hemoglobin A1c (0.0-6.0) %
[2022-08-10] MEDS ORDERED: DAPAGLIFLOZIN PROPANEDIOL 5 MG TABLET PO SCH (14:15)
--- NOTE | 2022-08-10 14:19 | P.PN ---
Subjective Progress Note Date: 08/10/22 Patient presented to the female was recently discharged from the hospital after she was treated for CHF, patient was discharged to subacute rehab was discharged from rehab yesterday started having shortness of breath and hypoxic with saturations going to 6% without apnea and patient came back to ER for found to have bilateral pleural effusions and diffuse pulmonary edema along with highly elevated BNP of 17,000 and her baseline BMP of around 150. Patient is also found to have elevated troponin of 1.0 9-0 repeat troponins are pending. Patient denied any chest pain patient was given nitroglycerin and was started on IV Lasix. Patient had EF of around 40-45% of the past. Repeat echocardiogram was ordered because of elevated troponin patient was given aspirin. Patient denied any fever chills patient was comparing of cough with clear sputum production patient has a baseline creatinine of around 1.4 present creatinine is around that patient has been taking her Lasix regularly and is compliant with the diet as per the patient. 08/11/2022 Patient is evaluated today sitting up in chair. Overall reports breathing has improved. She continues on nasal cannula has been weaned down to 4L. Echocard iogram done showing an EF of 40-45% apical anterior hypokinesis, apical septal hypokinesis, and trivial pericardial effusion. Remains on IV lasix decreased to Q12 patient has significant lower extremity cramping mostly in the left thigh secondary to diuresis. We did add magnesium BID, level was 1.8 today. Creatinine is up to 1.91 today, sodium 135, Patient has an A1C of 7.8 there is no documented history of diabetes although patient is on ozempic weekly. Patient will be started on Farxiga and also levemir has been added. Urine output about 2L in the last 24 hours. Blood pressure 107/65 today. Review of Systems Constitutional: Denied any fatigue denied any fever. Cardio vascular: denied any chest pain, palpitations Gastrointestinal: denied any nausea, vomiting, diarrhea Pulmonary: Denied any shortness of breath cough Neurologic denied any new focal deficits All inpatient medications were reviewed and appropriate changes in these medications as dictated in the interval history and assessment and plan. PHYSICAL EXAMINATION: GENERAL: The patient is alert and oriented x3, not in any acute distress. Well developed, well nourished. HEENT: Pupils are round and equally reacting to light. EOMI. No scleral icterus. No conjunctival pallor. Normocephalic, atraumatic. No pharyngeal erythema. No thyromegaly. CARDIOVASCULAR: S1 and S2 present. Patient does have systolic murmur and that would area and mitral area and there is an S3 gallop PULMONARY: Mild expiratory wheezing on exam ABDOMEN: Soft, nontender, nondistended, normoactive bowel sounds. No palpable organomegaly. MUSCULOSKELETAL: No joint swelling or deformity. EXTREMITIES: No cyanosis, clubbing, or pedal edema. NEUROLOGICAL: Gross neurological examination did not reveal any focal deficits. SKIN: No rashes. Assessment and plan Assessment -Congestive Heart failure chronic systolic dysfunction with acute exacerbation -Elevated troponin -Ischemic cardiomyopathy EF of 40-45% -History of coronary artery disese -Chronic kidney disease stage III -Mild AST and ALP elevation secondary to hepatic congestion from heart failure expected to improve with Lasix -Acute on chronic hypoxic respiratory failure secondary to CHF exacerbation -History of sleep apnea -Hypertension. -Hyperlipidemia -Diabetes Mellitus type 2 DVT prophylaxis: Subcutaneous heparin GI prophylaxis: Full Code Plan Continue on IV lasix decreased to BID Repeat labs in the AM to monitor renal function Added on magnesium oral BID Cardiology following The impression and plan of care has been dictated by Camelia Delgado Nurse Practitioner as directed. Dr. Daphnie MD I have performed a history and physical examination and medical decision making of this patient, discussed the same with the dictator, and agree with the dictators assessment and plan as written, documented as a scribe. Based on total visit time, I have performed more than 50% of this visit. Objective - Vital Signs Vital signs: Vital Signs Temp 98.4 F 08/10/22 11:57 Pulse 75 08/10/22 13:25 Resp 20 08/10/22 11:57 BP 107/65 08/10/22 11:57 Pulse Ox 96 08/10/22 11:57 FiO2 Intake & Output 08/09/22 08/10/22 08/10/22 18:59 06:59 18:59 Intake Total 250 240 298 Output Total 1450 550 Balance 250 -1210 -252 Weight 126.552 kg 124.6 kg Intake: IV 10 Invasive Line 1 10 Oral 240 240 298 Output: Urine 1450 550 Other: Voiding Method External Catheter External Catheter # Voids 1 - Labs CBC & Chem 7: 08/10/22 10:19 08/10/22 10:19 Labs: Abnormal Lab Results - Last 24 Hours (Table) 08/08/22 08/09/22 08/09/22 Range/Units 21:58 16:51 20:13 Hgb (11.4-16.0) gm/dL Sodium (137-145) mmol/L Chloride (98-107) mmol/L Carbon Dioxide (22-30) mmol/L BUN (7-17) mg/dL Creatinine (0.52-1.04) mg/dL Glucose (74-99) mg/dL POC Glucose (mg/dL) 151 H 129 H (70-110) mg/dL Hemoglobin A1c 7.8 H (0.0-6.0) % 08/10/22 08/10/22 08/10/22 Range/Units 06:00 10:19 10:19 Hgb 10.9 L (11.4-16.0) gm/dL Sodium 135 L (137-145) mmol/L Chloride 95 L (98-107) mmol/L Carbon Dioxide 35 H (22-30) mmol/L BUN 25 H (7-17) mg/dL Creatinine 1.91 H (0.52-1.04) mg/dL Glucose 162 H (74-99) mg/dL POC Glucose (mg/dL) 145 H (70-110) mg/dL Hemoglobin A1c (0.0-6.0) % 08/10/22 Range/Units 11:33 Hgb (11.4-16.0) gm/dL Sodium (137-145) mmol/L Chloride (98-107) mmol/L Carbon Dioxide (22-30) mmol/L BUN (7-17) mg/dL Creatinine (0.52-1.04) mg/dL Glucose (74-99) mg/dL POC Glucose (mg/dL) 148 H (70-110) mg/dL Hemoglobin A1c (0.0-6.0) % Assessment and Plan Time with Patient: Less than 30
[2022-08-10] MEDS ORDERED: DOCUSATE 100 MG CAP PO PRN (15:26)
[2022-08-10] MEDS ORDERED: LACTULOSE 20 GM/30 ML CUP PO PRN (15:26)
[2022-08-10] MEDS: polyethylene glycoL 3350 17 GM POWD.PACK PO SCH (15:34)
[2022-08-10 16:20] LABS: Glucose,Whole Blood 189 mg/dL (70-110)
[2022-08-10] MEDS: HYDROcodone/APAP 5-325MG 1 EACH TAB PO PRN (18:52)
[2022-08-10 19:53] LABS: Glucose,Whole Blood 193 mg/dL (70-110)
[2022-08-10] MEDS ORDERED: INSULIN DETEMIR (LEVEMIR) 100 UNIT/ML SYR SQ SCH (21:00)
[2022-08-10] MEDS: ATORVASTATIN 40 MG TAB PO SCH (21:18)
[2022-08-10] MEDS: SENNOSIDES 8.6 MG TAB PO SCH (21:19)
[2022-08-10] MEDS: traZODone HCL 50 MG TAB PO SCH (21:19)
[2022-08-11 03:13] VITALS: RESP 18
[2022-08-11 05:56] LABS: Glucose,Whole Blood 141 mg/dL (70-110)
[2022-08-11] MEDS: INSULIN ASPART (NovoLOG) 100 UNIT/ML VIAL SQ SCH ×4 (05:57→12:00)
[2022-08-11] MEDS: carvediloL 3.125 MG TAB PO SCH (06:00)
[2022-08-11 07:11] LABS: Glucose,Whole Blood 142 mg/dL (70-110)
[2022-08-11] MEDS: BENZOCAINE/MENTHOL LOZENG 1 EACH LOZENGE MUCOUS MEM PRN (07:39)
[2022-08-11] MEDS: HYDROcodone/APAP 5-325MG 1 EACH TAB PO PRN (07:39)
[2022-08-11] MEDS: PANTOPRAZOLE 40 MG/10 ML VIAL IVP SCH (08:34)
[2022-08-11] MEDS: FUROSEMIDE 10 MG/ML 4 ML VIAL IV SCH (08:34)
[2022-08-11 08:45] LABS: Calcium 8.2 mg/dL (8.4-10.2); Magnesium 1.8 mg/dL (1.6-2.3); Potassium 4.2 mmol/L (3.5-5.1)
[2022-08-11] MEDS: allopurinoL 100 MG TAB PO SCH (08:49)
[2022-08-11] MEDS: GABAPENTIN 100 MG CAP PO SCH (08:49)
[2022-08-11] MEDS: ASPIRIN 81 MG PO SCH (08:49)
[2022-08-11] MEDS: lisinopriL 5 MG TAB PO SCH (08:49)
[2022-08-11] MEDS: CLOPIDOGREL 75 MG TAB PO SCH (08:49)
[2022-08-11] MEDS: SENNOSIDES 8.6 MG TAB PO SCH (08:49)
[2022-08-11] MEDS: CITALOPRAM HYDROBROMIDE 20 MG TAB PO SCH (08:49)
[2022-08-11] MEDS: MAGNESIUM OXIDE 400 MG TAB PO SCH (08:49)
[2022-08-11] MEDS: polyethylene glycoL 3350 17 GM POWD.PACK PO SCH (08:50)
[2022-08-11] MEDS: HEPARIN SODIUM,PORCINE/PF 5,000 UNIT/0.5 ML SYRINGE SQ SCH (08:50)
[2022-08-11] MEDS: ALBUTEROL NEBULIZED 2.5 MG/3 ML INHALATION PRN ×2 (09:30→12:15)
[2022-08-11] MEDS: IPRATROPIUM 0.5 MG/2.5 ML NEBU INHALATION SCH ×2 (09:30→12:15)
[2022-08-11] MEDS: SYMBICORT 80-4.5 MCG INHALER INHALATION SCH (09:31)
[2022-08-11 11:42] LABS: Glucose,Whole Blood 140 mg/dL (70-110)
--- NOTE | 2022-08-11 11:43 | P.EN ---
patient will need oxygen via nasal cannula to manage her CHF on discharge
[2022-08-11 12:18] VITALS: BP 107/58; TEMP 98.1
[2022-08-11 12:27] VITALS: PULSE 78
--- NOTE | 2022-08-11 12:35 | P.PN ---
Subjective Progress Note Date: 08/11/22 HISTORY OF PRESENT ILLNESS: This is a 72-year-old female with a history of hypertension, hyperlipidemia, morbid obesity, and coronary artery disease. Patient is admitted to the [facility] secondary to acute congestive heart failure. Patient examined this morning. She is sitting in the chair. Patient denies chest pain or pressure. She reports proven in her shortness of breath. She reports an occasional nonproductive cough. She reports improvement in her lower extremity edema compared to yesterday. She remains on Lasix 40 mg IV every 8 hours. Creatinine increased today to 1.91. Patient's blood pressures are soft this morning with a systolic in the 90s. Echocardiogram completed revealing ejection fraction 40- 45%, apical anterior hypokinesis, apical septal hypokinesis, and trivial pericardial effusion. 08/11/2022 Patient examined this point. She is sitting on the side of the bed. Patient denies chest pain or pressure. She denies shortness of breath. She remains on IV Lasix. Creatinine today is 1.9. Patient reports having some fluttering in her heart overnight. Telemetry reviewed revealing sinus rhythm with some PVCs. No evidence of atrial fibrillation noted. PHYSICAL EXAM: VITAL SIGNS: Reviewed. GENERAL: Well-developed in no acute distress. NECK: Supple. No JVD or thyromegaly LUNGS: Respirations even and unlabored. Lungs diminished with expiratory wheezing noted. HEART: Regular rate and rhythm. S1 and S2 heard. EXTREMITIES: Normal range of motion. No clubbing or cyanosis. Peripheral pulses intact. No lower extremity edema ASSESSMENT: Shortness of breath Acute heart failure with reduced ejection fraction Ischemic cardiomyopathy, EF 40-45% Coronary artery disease with recent [place] Hypertension Hyperlipidemia Acute kidney injury PLAN: Continue current cardiac medications Discontinue IV Lasix. Begin oral Lasix 40 mg daily Daily weights, accurate I&O, and monitoring of kidney function Continue additional cardiac medications Further recommendations pending patient's course Patient to follow-up post discharge with Dr. Dupree Nurse practitioner note has been reviewed by physician. Signing provider agrees with the documented findings, assessment, and plan of care. Objective - Vital Signs Vital signs: Vital Signs Temp 98.1 F 08/11/22 12:00 Pulse 78 08/11/22 12:26 Resp 18 08/11/22 12:00 BP 107/58 08/11/22 12:00 Pulse Ox 96 08/11/22 12:00 FiO2 Intake & Output 08/10/22 08/11/22 08/11/22 18:59 06:59 18:59 Intake Total 478 240 Output Total 850 700 Balance -372 -700 240 Weight 123 kg Intake: Oral 478 240 Output: Urine 850 700 Other: Voiding Method External Catheter Toilet Toilet - Labs CBC & Chem 7: 08/10/22 10:19 08/11/22 07:37 Labs: Abnormal Lab Results - Last 24 Hours (Table) 08/10/22 08/10/22 08/11/22 Range/Units 16:19 19:51 05:55 Chloride (98-107) mmol/L Carbon Dioxide (22-30) mmol/L BUN (7-17) mg/dL Creatinine (0.52-1.04) mg/dL Glucose (74-99) mg/dL POC Glucose (mg/dL) 189 H 193 H 141 H (70-110) mg/dL Calcium (8.4-10.2) mg/dL 08/11/22 08/11/22 08/11/22 Range/Units 07:10 07:37 11:41 Chloride 95 L (98-107) mmol/L Carbon Dioxide 34 H (22-30) mmol/L BUN 32 H (7-17) mg/dL Creatinine 1.91 H (0.52-1.04) mg/dL Glucose 151 H (74-99) mg/dL POC Glucose (mg/dL) 142 H 140 H (70-110) mg/dL Calcium 8.2 L (8.4-10.2) mg/dL
--- NOTE | 2022-08-11 12:39 | CDI ---
Documentation Clarification Form Date: 08/11/2022 12:10:38 PM From: Leighann Perez RN CCDS Phone: [phone] Admit Date: 08/09/2022 2:01:00 AM Patient Name: Radha Guadarrama Visit Number: [id number] Discharge Date: ATTENTION: The Clinical Documentation Specialists (CDI) and [facility] Coding Staff appreciate your assistance in clarifying documentation. Please respond to the clarification below the line at the bottom and electronically sign. The CDI & [facility] Coding staff will review the response and follow-up if needed. Please note: Queries are made part of the Legal Health Record. If you have any questions, please contact the author of this message via ITS. Dr. Callie Pardo Elevated troponin is documented 08/09, H&P. Additional clarification regarding the troponin is requested. History/Risk Factors: 72-year-old female presents to the ED after being discharged from the long-term for shortness of breath and hypoxic Clinical Indicators: Troponin: 08/08 1.090 EKG Results: 08/09 Sinus tachycardia, Low QRS Voltage. Possible Anterior Myocardial Infraction of Indeterminate age. 08/09, Cardiology consult: Who was admitted to hospital on 07/29/2022 the sudden onset chest pressure and had evidence of acute anterolateral myocardial infarction. Treatment:08/09 Coreg 08/09 08/11 ; Lasix IV, Is there an additional diagnosis and or clinical significance to the above lab result: [ ] Elevated troponin from recent [place] 07/29/2022 [ ] Type II [place] due to Acute CHF exacerbation [ ] Unable to determine [ ] Other Condition, please specify (Template Last Revised: July 2020) Unable to determine MTDD
[2022-08-12] MEDS ORDERED: FUROSEMIDE 40 MG TAB PO SCH (09:00)
--- NOTE | 2022-08-12 19:34 | P.DS ---
Providers Date of admission: 08/09/22 02:01 Expected date of discharge: 08/11/22 Attending physician: Callie Pardo Consults: 08/09/22 02:00 Consult Physician Routine Consulting Provider: [facility] Consult Reason/Comments: CHF exas with hypoxia Do you want consulting provider notified?: Yes, Notify in am Primary care physician: Sheeba Collado Hospital Course: Final diagnosis -Congestive Heart failure chronic systolic dysfunction with acute exacerbation -Elevated troponin most likely due to recent [place] on 07/29/2022 -Ischemic cardiomyopathy EF of 40-45% -History of coronary artery disese -Chronic kidney disease stage III -Mild AST and ALP elevation secondary to hepatic congestion from heart failure expected to improve with Lasix -Acute hypoxic respiratory failure secondary to CHF exacerbation -History of sleep apnea -Hypertension. -Hyperlipidemia -Diabetes Mellitus type 2 -DVT prophylaxis -GI prophylaxis -Full Code Discharge disposition Patient is being discharged in a stable condition with guarded prognosis to home. Patient will follow-up with Dr. Aly in the outpatient setting upon discharge. Patient is to continue with current medications as mentioned below along with close outpatient follow-up with cardiology as scheduled. Total time taken is greater than 35 minutes. Hospital course This is a 72-year-old female who was recently admitted and creasing shortness of breath with CHF exacerbation and being closely monitored. Cardiology following the patient she was recently admitted and discharged with myocardial infarction with significant cardiac issues. Patient is requiring oxygen and will be going home on oxygen and this is being arranged to manage her CHF. Patient has been cleared by consultations for discharge. Please refer to notes for further HPI. Patient will need close outpatient follow-up with cardiology this week. Currently no reports of chest pain, shortness of breath, or palpitations. Patient is afebrile. No reports of nausea or vomiting and patient is tolerating diet. Patient will be discharged home today.Guarded prognosis. High-risk for readmission given her multiple comorbidities. Physical exam: Gen: This is a 72-year-old female who is awake, alert and oriented 3, well- developed, well-nourished, morbidly obese HEENT: Head is atraumatic, normocephalic. Pupils equal, round. Sclerae is ani cteric. NECK: Supple. No JVD. No lymphadenopathy. No thyromegaly. LUNGS: Diminished breath sounds bilaterally with scattered rhonchi noted. No intercostal retractions. HEART S1, S2 are muffled ABDOMEN: Soft. Bowel sounds are present. No masses. No tenderness. EXTREMITIES: No pedal edema. No calf tenderness.Generalized lower extremity edema noted NEUROLOGICAL: Patient is awake, alert and oriented x3. Cranial nerves 2 through 12 are grossly intact. Please refer to medication reconciliation sheet for a list of medications. The impression and plan of care has been dictated by Ami Lee, Nurse Practitioner as directed. Dr Edvin MD I have performed a history and examination and MDM of this patient, discussed the same with the dictator, and agree with the dictator's assessment and plan as written ,documented as a scribe. Based on total visit time, I have performed more than 50% of the visit. Patient Condition at Discharge: Stable Plan - Discharge Summary Discharge Rx Participant: No New Discharge Prescriptions: New carvediloL [Coreg] 3.125 mg PO BID-W/MEALS #60 tab polyethylene glycoL 3350 [Miralax] 17 gm PO DAILY packet Gabapentin [Neurontin] 100 mg PO BID cap lisinopriL [Zestril] 5 mg PO DAILY #30 tab Furosemide [Lasix] 40 mg PO DAILY #30 tab Magnesium Oxide [Mag-Ox] 400 mg PO BID #60 tab Sennosides [Senokot] 8.6 mg PO BID #60 tab Continue Citalopram Hydrobromide [CeleXA] 20 mg PO DAILY Albuterol Sulfate [Proair Hfa] 2 puff INHALATION RT-QID PRN PRN Reason: Shortness Of Breath traZODone HCL 50 mg PO HS rOPINIRole HCL [Requip] 2 mg PO HS allopurinoL [Zyloprim] 100 mg PO DAILY Cyclobenzaprine [Flexeril] 5 mg PO TID PRN PRN Reason: Muscle Spasm Semaglutide [Ozempic] 0.5 mg SQ WE Fluticasone/Umeclidin/Vilanter [Trelegy Ellipta 200-62.5-25] 1 puff INHALATION RT-DAILY Aspirin 81 mg PO DAILY #30 tab HYDROcodone/APAP 5-325MG [[place] 5-325] 1 tab PO BID PRN #4 tab PRN Reason: Pain Ergocalciferol [Vitamin D2 (1250 Mcg = 89349 Iu)] 1,250 mcg PO TU Atorvastatin [Lipitor] 40 mg PO HS #30 tab Nitroglycerin Sl Tabs [Nitrostat] 0.4 mg SUBLINGUAL Q5M PRN #30 tab PRN Reason: Chest Pain Clopidogrel [Plavix] 75 mg PO DAILY #30 tab Discontinued Lisinopril-Hctz 20-25 mg [Zestoretic 20-25] 1 tab PO BID Magnesium Oxide [Magnesium] 500 mg PO HS carvediloL [Coreg*] 12.5 mg PO BID-W/MEALS #60 tab cefUROXime axetiL [Ceftin] 500 mg PO BID 4 Days #8 tab Gabapentin [Neurontin] 300 mg PO BID #6 cap Discharge Medication List Albuterol Sulfate [Proair Hfa] 2 puff INHALATION RT-QID PRN 09/11/18 [History] Citalopram Hydrobromide [CeleXA] 20 mg PO DAILY 09/11/18 [History] rOPINIRole HCL [Requip] 2 mg PO HS 06/08/19 [History] traZODone HCL 50 mg PO HS 06/08/19 [History] allopurinoL [Zyloprim] 100 mg PO DAILY 05/13/20 [History] Cyclobenzaprine [Flexeril] 5 mg PO TID PRN 07/30/22 [History] Ergocalciferol [Vitamin D2 (1250 Mcg = 76093 Iu)] 1,250 mcg PO TU 07/30/22 [History] Fluticasone/Umeclidin/Vilanter [Trelegy Ellipta 200-62.5-25] 1 puff INHALATION RT-DAILY 07/30/22 [History] Semaglutide [Ozempic] 0.5 mg SQ WE 07/30/22 [History] Aspirin 81 mg PO DAILY #30 tab 08/04/22 [Rx] Atorvastatin [Lipitor] 40 mg PO HS #30 tab 08/04/22 [Rx] Clopidogrel [Plavix] 75 mg PO DAILY #30 tab 08/04/22 [Rx] HYDROcodone/APAP 5-325MG [[place] 5-325] 1 tab PO BID PRN #4 tab 08/04/22 [Rx] Nitroglycerin Sl Tabs [Nitrostat] 0.4 mg SUBLINGUAL Q5M PRN #30 tab 08/04/22 [Rx] Furosemide [Lasix] 40 mg PO DAILY #30 tab 08/11/22 [Rx] Gabapentin [Neurontin] 100 mg PO BID cap 08/11/22 [Rx] Magnesium Oxide [Mag-Ox] 400 mg PO BID #60 tab 08/11/22 [Rx] Sennosides [Senokot] 8.6 mg PO BID #60 tab 08/11/22 [Rx] carvediloL [Coreg] 3.125 mg PO BID-W/MEALS #60 tab 08/11/22 [Rx] lisinopriL [Zestril] 5 mg PO DAILY #30 tab 08/11/22 [Rx] polyethylene glycoL 3350 [Miralax] 17 gm PO DAILY packet 08/11/22 [Rx] Follow up Appointment(s)/Referral(s): Tobias Aly MD [Primary Care Provider] - 08/17/22 10:00 am Milton Dupree MD [STAFF PHYSICIAN] - 08/18/22 9:00 am Candelario Resendiz [NON-STAFF] - Ambulatory/Diagnostic Orders: Basic Metabolic Panel [LAB.AMB] Time Frame: 3 Days, Location: None Selected Patient Instructions/Handouts: Heart Failure (DC) Activity/Diet/Wound Care/Special Instructions: Activity Limited until follow-up Follow-up with primary care provider this week Discuss hemoglobin A1c and possible medication start or diet controlled Continue heart healthy diabetic diet Follow-up with cardiology this week Discharge Disposition: HOME SELF-CARE
--- NOTE | 2022-08-14 09:00 | CDI ---
Documentation Clarification Form Date: 08/11/2022 12:10:00 PM From: eLighann Perez Phone: [phone] Admit Date: 08/09/2022 2:01:00 AM Patient Name: Radha Guadarrama Visit Number: [id number] Discharge Date: 08/11/2022 3:33:00 PM ATTENTION: The Clinical Documentation Specialists (CDI) and [facility] Coding Staff appreciate your assistance in clarifying documentation. Please respond to the clarification below the line at the bottom and electronically sign. The CDI & [facility] Coding staff will review the response and follow-up if needed. Please note: Queries are made part of the Legal Health Record. If you have any questions, please contact the author of this message via ITS. Dr. Amadeo Heredia Elevated troponin is documented 08/09, H&P. Additional clarification regarding the troponin is requested. History/Risk Factors: 72-year-old female presents to the ED after being discharged from the [facility] for shortness of breath and hypoxic Clinical Indicators: Troponin: 08/08 1.090 EKG Results: 08/09 Sinus tachycardia, Low QRS Voltage. Possible Anterior Myocardial Infraction of Indeterminate age. 08/09, Cardiology consult: Who was admitted to hospital on 07/29/2022 the sudden onset chest pressure and had evidence of acute anterolateral myocardial infarction. Treatment:08/09 Coreg 08/09 08/11 ; Lasix IV, Is there an additional diagnosis and or clinical significance to the above lab result: [ ] Elevated troponin from recent [place] 07/29/2022 [ ] Type II [place] due to Acute CHF exacerbation [ ] Unable to determine [ ] Other Condition, please specify please reachout to whowver documented elevated troponin in H@P (Template Last Reviewed: February 2021) MTDD
== END 2022-08-11 15:33 | disposition home or self-care (01) | DRG 280 ==
LOC: EC 21:44 → 3SCARD 08-09 02:01
PROVIDERS: ADMIT Hospitalist; ATTEND Hospitalist
DX: I13.0 Hypertensive heart and chronic kidney disease with heart failure and stage 1 through stage 4 chronic kidney disease, or unspecified chronic kidney disease (principal); I50.23 Acute on chronic systolic (congestive) heart failure; I21.09 ST elevation (STEMI) myocardial infarction involving other coronary artery of anterior wall; J69.0 Pneumonitis due to inhalation of food and vomit; J96.21 Acute and chronic respiratory failure with hypoxia; I31.39 Other pericardial effusion (noninflammatory); N17.9 Acute kidney failure, unspecified; Z68.42 Body mass index [BMI] 45.0-49.9, adult; I95.9 Hypotension, unspecified; K76.1 Chronic passive congestion of liver; E11.22 Type 2 diabetes mellitus with diabetic chronic kidney disease; J44.9 Chronic obstructive pulmonary disease, unspecified; N18.30 Chronic kidney disease, stage 3 unspecified; E66.01 Morbid (severe) obesity due to excess calories; R00.0 Tachycardia, unspecified; G47.30 Sleep apnea, unspecified; M15.9 Polyosteoarthritis, unspecified; M47.9 Spondylosis, unspecified; E78.5 Hyperlipidemia, unspecified; I25.5 Ischemic cardiomyopathy; T50.2X5A Adverse effect of carbonic-anhydrase inhibitors, benzothiadiazides and other diuretics, initial encounter; R25.2 Cramp and spasm; I49.3 Ventricular premature depolarization; I25.10 Atherosclerotic heart disease of native coronary artery without angina pectoris; Z87.891 Personal history of nicotine dependence; Z87.11 Personal history of peptic ulcer disease; Z79.899 Other long term (current) drug therapy; Z79.82 Long term (current) use of aspirin; Z79.02 Long term (current) use of antithrombotics/antiplatelets; Z79.891 Long term (current) use of opiate analgesic; Z79.85 Long-term (current) use of injectable non-insulin antidiabetic drugs; Z87.19 Personal history of other diseases of the digestive system
CPT/HCPCS: 36415; 71046; 71275; 80048; 80053; 82803; 83036; 83735; 83880; 84484; 85025; 85027; 85379; 85610; 85730; 93005; 93308; 94640; 94760; 96361; 96374; 96376; 99291

== ENCOUNTER → 2022-08-28 | Outpatient (CLI) | payer MEDICARE, OTHER ==
[2022-08-28 16:03] LABS: ALT 13 U/L (8-44); AST 14 U/L (13-35); BUN/Creat Ratio 12.53 Ratio (12.00-20.00); Blood Urea Nitrogen 23.8 mg/dL (9.0-27.0); Carbon Dioxide 26.4 mmol/L (20.0-27.5); Chloride 102 mmol/L (96-109); Chol/HDL Ratio 3.56 Ratio; Glucose 130 mg/dL (70-110); LDL Cholesterol,Calculated 71.4 mg/dL (0.0-131.0); Non-African American GFR(CKD) 25.9 (60.0-200.0); Potassium 4.7 mmol/L (3.5-5.5); Sodium 141 mmol/L (135-145)
== END | disposition home or self-care (01) ==
LOC: LABWHC1 10:55
PROVIDERS: ATTEND Internal Medicine Cardiovascular Disease
DX: I50.22 Chronic systolic (congestive) heart failure (principal); E78.2 Mixed hyperlipidemia
CPT/HCPCS: 36415; 80048; 80061; 83880; 84450; 84460

== ENCOUNTER → 2022-11-22 | Outpatient (CLI) | payer MEDICARE, OTHER ==
--- NOTE | 2022-11-22 11:28 | P.PN ---
Subjective DATE: 11/22/2022 FOLLOW UP VISIT. Patient with obstructive sleep apnea hypopnea syndrome return to sleep center for follow-up visit. This is first visit after patient received new CPAP unit. Information from previous visit have been reviewed. Patient is using PAP equipment every night for the whole night, getting PAP supplies in time. The patient does not have significant problems with the mask, PAP unit and humidification. [place] sleepiness scale is 7, which is normal. I checked information from PAP unit. PAP unit pressure 6-14, average 11.4 cm H2O. Usage is 100 % for more then 4 hours, average 8 hours per night. Leak is 4.1 l/m, which is in acceptable range. Apnea Hypopnea Index is 1.3, which is normal. MEDICATIONS:1. Carvedilol 2. Allopurinol 3. Lisinopril/hydrochlorothiazide 20/25 milligrams twice a day 4. Trazodone During physical exam: GENERAL: A pleasant patient without any distress. VITAL SIGNS: BP 154/87, HR 89, RR 16 , weight 270, temperature 97.3, oxygen saturation at room air 98 % . HEENT: PERRLA, EOMI.low position of soft palate, [place] 4 . NECK: Supple. No JVD. LUNGS: Clear to percussion and to auscultation. Good air exchange. No wheezing or rhonchi. HEART: S1, S2 regular. ABDOMEN: Soft and nontender. Obese EXTREMITIES: No clubbing or cyanosis. 1+ lower leg edema PATIENT REGISTRATION CLERK: Awake, alert, and oriented x3. No focal deficit. Impressions: 1. Obstructive sleep apnea-hypopnea syndrome. Patient demonstrated great compliance with treatment, benefiting from treatment. 2. Obesity. 3. Coronary artery disease, status post recent heart attack. 4. Hypertension. 5. History of anxiety. 6. History of restless leg syndrome. 7. Status post neck surgery. Plan: 1. Continue using PAP equipment every night for the whole night. 2. To change air filter at least 1-2 times per month. 3. PAP unit should stay lower then position of the head. 4. Advised patient to remove all remaining water from humidifier canister daily and make it dry after each usage. Refill canister with fresh distilled water before each usage. 5. Sleep hygiene with regular time in bed for at least 8 hours. 6. Precautions related to driving. No driving if feel any sleepiness. 7. I will maintain prescription for PAP supplies including mask, tube, filters. 8. Follow up visit in 6 months or earlier if patient has any problems. 9. Watching and losing weight. Thank you very much for allowing me to participate in the management of your patient. Zhang Krishnamurthy MD, PhD, FAASM. Diplomat of [place] [employer], Sleep Medicine Board by [place] [employer] Milk Delivery Driver of [facility] [place] using his visit to [place] from treatment
== END ==
LOC: 3 N SLEEP 10:21
PROVIDERS: ATTEND Internal Medicine
DX: G47.33 Obstructive sleep apnea (adult) (pediatric) (principal); F41.9 Anxiety disorder, unspecified; G25.81 Restless legs syndrome; I25.10 Atherosclerotic heart disease of native coronary artery without angina pectoris; E66.9 Obesity, unspecified; I10 Essential (primary) hypertension; I25.2 Old myocardial infarction; Z98.890 Other specified postprocedural states; Z99.89 Dependence on other enabling machines and devices; Z79.899 Other long term (current) drug therapy; Z79.01 Long term (current) use of anticoagulants; Z87.891 Personal history of nicotine dependence
CPT/HCPCS: 99212

== ENCOUNTER 2023-03-08 13:21 | Observation (INO) | payer MEDICARE, OTHER ==
[2023-03-08] MEDS ORDERED: NITROGLYCERIN OINT 1 INCH/GM PACKET TOPICAL STA (13:50)
[2023-03-08] MEDS ORDERED: ASPIRIN 81 MG PO STA (13:50)
--- NOTE | 2023-03-08 14:03 | ED ---
General Adult HPI - General Chief complaint: Nausea/Vomiting/Diarrhea Stated complaint: anxiety Time Seen by Provider: 03/08/23 13:40 Source: patient, RN notes reviewed, old records reviewed Mode of arrival: EMS Limitations: no limitations - History of Present Illness Initial comments: This is a 73-year-old female presents emergency department stating that this morning she woke up and felt really warm and started to sweat profusely. Patient states she then started having chest pressure and some shortness of breath per patient states at that point in time she called EMS and when they arrived they gave her nitroglycerin took the pain away for about 20 minutes but his back. Patient states she has a history of a couple of heart attacks with and requested but they were unable to stent her. Patient states this pain is similar to the pain. Patient denies any fever but states she doesn't have a little bit of chills right now. Patient denies any abdominal pain palpitations nausea vomiting. Patient denies any back pain. Patient denies any lig htheadedness or dizziness. - Related Data Home Medications Medication Instructions Recorded Confirmed Albuterol Sulfate [Proair Hfa] 2 puff INHALATION RT-QID PRN 09/11/18 08/08/22 Citalopram Hydrobromide [CeleXA] 20 mg PO DAILY 09/11/18 08/08/22 rOPINIRole HCL [Requip] 2 mg PO HS 06/08/19 08/08/22 traZODone HCL 50 mg PO HS 06/08/19 08/08/22 allopurinoL [Zyloprim] 100 mg PO DAILY 05/13/20 08/08/22 Cyclobenzaprine [Flexeril] 5 mg PO TID PRN 07/30/22 08/08/22 Ergocalciferol [Vitamin D2 (1250 1,250 mcg PO TU 07/30/22 08/08/22 Mcg = 71585 Iu)] Fluticasone/Umeclidin/Vilanter 1 puff INHALATION RT-DAILY 07/30/22 08/08/22 [Trelegy Ellipta 200-62.5-25] Semaglutide [Ozempic] 0.5 mg SQ WE 07/30/22 08/08/22 Previous Rx's Medication Instructions Recorded Aspirin 81 mg PO DAILY #30 tab 08/04/22 Atorvastatin [Lipitor] 40 mg PO HS #30 tab 08/04/22 Clopidogrel [Plavix] 75 mg PO DAILY #30 tab 08/04/22 HYDROcodone/APAP 5-325MG [[place] 1 tab PO BID PRN #4 tab 08/04/22 5-325] Nitroglycerin Sl Tabs [Nitrostat] 0.4 mg SUBLINGUAL Q5M PRN #30 tab 08/04/22 Furosemide [Lasix] 40 mg PO DAILY #30 tab 08/11/22 Gabapentin [Neurontin] 100 mg PO BID cap 08/11/22 Magnesium Oxide [Mag-Ox] 400 mg PO BID #60 tab 08/11/22 Sennosides [Senokot] 8.6 mg PO BID #60 tab 08/11/22 carvediloL [Coreg] 3.125 mg PO BID-W/MEALS #60 tab 08/11/22 lisinopriL [Zestril] 5 mg PO DAILY #30 tab 08/11/22 polyethylene glycoL 3350 [Miralax] 17 gm PO DAILY packet 08/11/22 Allergies Allergy/AdvReac Type Severity Reaction Status Date / Time No Known Allergies Allergy Verified 03/08/23 15:48 Review of Systems ROS Statement: Those systems with pertinent positive or pertinent negative responses have been documented in the HPI. ROS Other: All systems not noted in ROS Statement are negative. Past Medical History Past Medical History: Asthma, COPD, GI Bleed, Hypertension, Osteoarthritis (OA), Sleep Apnea/CPAP/BIPAP Additional Past Medical History / Comment(s): Tinnitus; OA in backs, knees, hands; uses home CPAP; gastric ulcers in her 30s, HX LT MACULAR HOLE-REPAIRED History of Any Multi-Drug Resistant Organisms: None Reported Past Surgical History: Hysterectomy, Orthopedic Surgery, Tonsillectomy Additional Past Surgical History / Comment(s): Vertebral (neck) surgery. RT CTR. EGD. REPAIR LT MACULAR HOLE AND LT CATARACT REMOVED Past Anesthesia/Blood Transfusion Reactions: Motion Sickness Past Psychological History: Anxiety Smoking Status: Former smoker Past Alcohol Use History: None Reported Past Drug Use History: None Reported - Past Family History Father Family Medical History: Unable to Obtain Mother History Unknown: Yes Family Medical History: No Reported History, Cancer Additional Family Medical History / Comment(s): Esophageal cancer, arthritis General Exam - General Exam Comments Initial Comments: GENERAL: Patient is well-developed and well-nourished. Patient is nontoxic and well- hydrated and is in mild distress. ENT: Neck is soft and supple. No significant lymphadenopathy is noted. Oropharynx is clear. Moist mucous membranes. Neck has full range of motion without eliciting any pain. EYES: The sclera were anicteric and conjunctiva were pink and moist. Extraocular movements were intact and pupils were equal round and reactive to light. Eyelids were unremarkable. PULMONARY: Unlabored respirations. Good breath sounds bilaterally. No audible rales rhonchi or wheezing was noted. CARDIOVASCULAR: There is a regular rate and rhythm without any murmurs gallops or rubs. ABDOMEN: Soft and nontender with normal bowel sounds. SKIN: Skin is clear with no lesions or rashes and otherwise unremarkable. NEUROLOGIC: Patient is alert and oriented x3. Cranial nerves II through XII are grossly i ntact. Motor and sensory are also intact. Normal speech, volume and content. Symmetrical smile. MUSCULOSKELETAL: Normal extremities with adequate strength and full range of motion. LYMPHATICS: No significant lymphadenopathy is noted PSYCHIATRIC: Normal psychiatric evaluation. Limitations: no limitations Course Vital Signs 03/08/23 03/08/23 03/08/23 13:37 15:00 15:01 Temperature 98.1 F 98 F Pulse Rate 78 75 Pulse Rate [ 78 Pulse Oximetery ] Respiratory 18 16 Rate Blood Pressure 166/90 126/67 O2 Sat by Pulse 99 96 Oximetry Medical Decision Making - Medical Decision Making EKG was interpreted by myself. EKG shows a sinus rhythm at 60 bpm LA interval 282 QRS is 97 QT interval intervals 414 QTC is 431. Patient's EKG shows no ST segment elevation or depression. Was pt. sent in by a medical professional or institution (, PA, EDGE POLISHER, urgent care, hospital, or intermediate...) When possible be specific @ -No Did you speak to anyone other than the patient for history (EMS, parent, family, police, friend...)? What history was obtained from this source @ -EMS gave is quite a bit of the history. Did you review nursing and triage notes (agree or disagree)? Why? @ -I reviewed and agree with nursing and triage notes Were old charts reviewed (outside hosp., previous admission, EMS record, old EKG, old radiological studies, urgent care reports/EKG's, intermediate records)? Report findings @ -I reviewed prior charts and lab work on this patient Differential Diagnosis (chest pain, altered mental status, abdominal pain women, abdominal pain men, vaginal bleeding, weakness, fever, dyspnea, syncope, headache, dizziness, GI bleed, back pain, seizure, CVA, palpatations, mental health, musculoskeletal)? @ -Differential Chest Pain: Stable Angina, Unstable Angina, STEMI, NSTEMI Aortic Dissection, Pneumothorax, Musculoskeletal, Esophageal Spasm GERD, Cholecystitis, Pancreatitis, Zoster, this is not meant to be an all-inclusive list. EKG interpreted by me (3pts min.). @ -As above X-rays interpreted by me (1pt min.). @ -Chest x-ray shows no acute abnormality CT interpreted by me (1pt min.). @ -None done U/S interpreted by me (1pt. min.). @ -None done What testing was considered but not performed or refused? (CT, X-rays, U/S, labs )? Why? @ -None What meds were considered but not given or refused? Why? @ -None Did you discuss the management of the patient with other professionals (professionals i.e. , PA, EDGE POLISHER, lab, RT, psych nurse, social service director, pavilion cutter, teacher, electronic warfare officer, geriatric case manager)? Give summary @ -I spoke with Dr. Gamez he agreed to admit the patient admitted the patient wrote admitting orders Was smoking cessation discussed for >3mins.? @ -No Was critical care preformed (if so, how long)? @ -No Were there social determinants of health that impacted care today? How? (Homelessness, low income, unemployed, alcoholism, drug addiction, transportation, low edu. Level, literacy, decrease access to med. care, senior care, rehab)? @ -No Was there de-escalation of care discussed even if they declined (Discuss DNR or withdrawal of care, Hospice)? DNR status @ -No What co-morbidities impacted this encounter? (DM, HTN, Smoking, COPD, CAD, Cancer, CVA, ARF, Chemo, Hep., AIDS, mental health diagnosis, sleep apnea, morbid obesity)? @ -None Was patient admitted / discharged? Hospital course, mention meds given and route, prescriptions, significant lab abnormalities, going to OR and other pertinent info. @ -Patient was chest pain-free when I initially saw her car she already received nitroglycerin. She was given Nitropaste here and aspirin. Patient remained chest pain-free throughout the duration but with her significant chest pain diaphoretic episodes and shortness of breath and her history of cardiac disease I decided to admit the patient I spoke with Dr. Gamez and Dr. Gamez agreed to admit the patient I wrote admitting orders and consult to cardiology Undiagnosed new problem with uncertain prognosis? @ -No Drug Therapy requiring intensive monitoring for toxicity (Heparin, Nitro, Insulin, Cardizem)? @ -No Were any procedures done? @ -No Diagnosis/symptom? @ -Chest pain Acute, or Chronic, or Acute on Chronic? @ -Acute Uncomplicated (without systemic symptoms) or Complicated (systemic symptoms)? @ -Complicated Side effects of treatment? @ -No Exacerbation, Progression, or Severe Exacerbation? @ -No Poses a threat to life or bodily function? How? (Chest pain, [place], PR, pneumonia, PE, COPD, DKA, ARF, appy, cholecystitis, CVA, Diverticulitis, Homicidal, Suicidal, threat to staff... and all critical care pts) @ -Yes patient could have an PR and had end organ dysfunction - Lab Data Result diagrams: 03/08/23 14:02 03/08/23 14:02 Lab Results 03/08/23 03/08/23 03/08/23 Range/Units 14:02 14:02 14:02 WBC 11.3 H (3.8-10.6) k/uL RBC 4.76 (3.80-5.40) m/uL Hgb 13.2 (11.4-16.0) gm/dL Hct 41.0 (34.0-46.0) % MCV 86.2 (80.0-100.0) fL MCH 27.8 (25.0-35.0) pg MCHC 32.2 (31.0-37.0) g/dL RDW 14.3 (11.5-15.5) % Plt Count 298 (150-450) k/uL MPV 9.5 Neutrophils % 72 % Lymphocytes % 16 % Monocytes % 5 % Eosinophils % 6 % Basophils % 1 % Neutrophils # 8.1 H (1.3-7.7) k/uL Lymphocytes # 1.8 (1.0-4.8) k/uL Monocytes # 0.5 (0-1.0) k/uL Eosinophils # 0.6 (0-0.7) k/uL Basophils # 0.1 (0-0.2) k/uL PT 10.1 (10.0-12.5) sec INR 0.9 (<1.2) APTT 23.4 (22.0-30.0) sec Sodium 140 (137-145) mmol/L Potassium 4.4 (3.5-5.1) mmol/L Chloride 105 (98-107) mmol/L Carbon Dioxide 25 (22-30) mmol/L Anion Gap 10 mmol/L BUN 30 H (7-17) mg/dL Creatinine 1.50 H (0.52-1.04) mg/dL Est GFR (CKD-EPI)AfAm 40 (>60 ml/min/1.73 sqM) Est GFR (CKD-EPI)NonAf 34 (>60 ml/min/1.73 sqM) Glucose 129 H (74-99) mg/dL Calcium 9.2 (8.4-10.2) mg/dL Magnesium 2.2 (1.6-2.3) mg/dL Total Bilirubin 0.4 (0.2-1.3) mg/dL AST 22 (14-36) U/L ALT 18 (4-34) U/L Alkaline Phosphatase 100 (38-126) U/L Troponin I (0.000-0.034) ng/mL Total Protein 6.3 (6.3-8.2) g/dL Albumin 3.7 (3.5-5.0) g/dL Influenza Type A (PCR) (Not Detectd) Influenza Type B (PCR) (Not Detectd) RSV (PCR) (Not Detectd) SARS-CoV-2 (PCR) (Not Detectd) 03/08/23 03/08/23 Range/Units 14:02 14:02 WBC (3.8-10.6) k/uL RBC (3.80-5.40) m/uL Hgb (11.4-16.0) gm/dL Hct (34.0-46.0) % MCV (80.0-100.0) fL MCH (25.0-35.0) pg MCHC (31.0-37.0) g/dL RDW (11.5-15.5) % Plt Count (150-450) k/uL MPV Neutrophils % % Lymphocytes % % Monocytes % % Eosinophils % % Basophils % % Neutrophils # (1.3-7.7) k/uL Lymphocytes # (1.0-4.8) k/uL Monocytes # (0-1.0) k/uL Eosinophils # (0-0.7) k/uL Basophils # (0-0.2) k/uL PT (10.0-12.5) sec INR (<1.2) APTT (22.0-30.0) sec Sodium (137-145) mmol/L Potassium (3.5-5.1) mmol/L Chloride (98-107) mmol/L Carbon Dioxide (22-30) mmol/L Anion Gap mmol/L BUN (7-17) mg/dL Creatinine (0.52-1.04) mg/dL Est GFR (CKD-EPI)AfAm (>60 ml/min/1.73 sqM) Est GFR (CKD-EPI)NonAf (>60 ml/min/1.73 sqM) Glucose (74-99) mg/dL Calcium (8.4-10.2) mg/dL Magnesium (1.6-2.3) mg/dL Total Bilirubin (0.2-1.3) mg/dL AST (14-36) U/L ALT (4-34) U/L Alkaline Phosphatase (38-126) U/L Troponin I 0.013 (0.000-0.034) ng/mL Total Protein (6.3-8.2) g/dL Albumin (3.5-5.0) g/dL Influenza Type A (PCR) Not Detected (Not Detectd) Influenza Type B (PCR) Not Detected (Not Detectd) RSV (PCR) Not Detected (Not Detectd) SARS-CoV-2 (PCR) Not Detected (Not Detectd) Disposition Clinical Impression: Chest pain Disposition: ADMITTED IP TO THIS [facility] Referrals: Charlene Johnson DO [Primary Care Provider] - 1-2 days Time of Disposition: 16:19
[2023-03-08 14:25] LABS: INR 0.9 (<1.2); Partial Thromboplastin Time 23.4 sec (22.0-30.0); Prothrombin Time 10.1 sec (10.0-12.5)
[2023-03-08 14:29] LABS: ALT 18 U/L (4-34); AST 22 U/L (14-36); African American GFR (CKD) 40 (>60 ml/min/1.73 sqM); Albumin 3.7 g/dL (3.5-5.0); Alkaline Phosphatase 100 U/L (38-126); Anion Gap 10 mmol/L; Blood Urea Nitrogen 30 mg/dL (7-17); Calcium 9.2 mg/dL (8.4-10.2); Carbon Dioxide 25 mmol/L (22-30); Chloride 105 mmol/L (98-107); Glucose 129 mg/dL (74-99); Magnesium 2.2 mg/dL (1.6-2.3); Non-African American GFR(CKD) 34 (>60 ml/min/1.73 sqM); Potassium 4.4 mmol/L (3.5-5.1); Sodium 140 mmol/L (137-145); Total Bilirubin 0.4 mg/dL (0.2-1.3); Total Protein 6.3 g/dL (6.3-8.2)
--- NOTE | 2023-03-08 14:51 | XR ---
EXAMINATION TYPE: XR chest 2V DATE OF EXAM: 03/08/2023 2:42 PM CLINICAL INDICATION:Female, 73 years old with history of Chest Pain; COMPARISON: Chest radiographs from 08/08/2022 TECHNIQUE: XR chest 2V Frontal and lateral views of the chest. FINDINGS: Lungs/Pleura: Low lung volumes are present. There is no evidence of pleural effusion, focal consolida tion, or pneumothorax. Pulmonary vascularity: Unremarkable. Heart/mediastinum: Cardiomediastinal silhouette is enlarged and stable. Atherosclerotic calcificatio ns are seen in the aorta. Musculoskeletal: No acute osseous pathology. There is fixation hardware in the lower cervical spine. IMPRESSION: Low lung volumes with a generalized hazy appearance which could represent atelectasis versus pulmonar y edema correlate with serum BNP.
[2023-03-08 14:59] LABS: Basophils # (A) 0.1 k/uL (0-0.2); Basophils % (A) 1 %; Eosinophils # (A) 0.6 k/uL (0-0.7); Eosinophils % (A) 6 %; HGB 13.2 gm/dL (11.4-16.0); Lymphocytes # (A) 1.8 k/uL (1.0-4.8); Lymphocytes % (A) 16 %; MCH 27.8 pg (25.0-35.0); MCHC 32.2 g/dL (31.0-37.0); MCV 86.2 fL (80.0-100.0); Mean Platelet Volume 9.5; Monocytes # (A) 0.5 k/uL (0-1.0); Monocytes % (A) 5 %; Neutrophils # (A) 8.1 k/uL (1.3-7.7); Neutrophils % (A) 72 %; Platelet Count 298 k/uL (150-450); RBC 4.76 m/uL (3.80-5.40); RDW 14.3 % (11.5-15.5); WBC 11.3 k/uL (3.8-10.6)
[2023-03-08] MEDS ORDERED: NITROGLYCERIN SL TABS 0.4 MG TAB SUBLINGUAL PRN (16:20)
[2023-03-08] MEDS: NITROGLYCERIN OINT 1 INCH/GM PACKET TOPICAL SCH (19:03)
[2023-03-08] MEDS ORDERED: LORazepam 2 MG/ML INJ IV STA (19:14)
[2023-03-08] MEDS ORDERED: CYCLOBENZAPRINE 5 MG TAB PO PRN (22:39)
[2023-03-08] MEDS ORDERED: ACETAMINOPHEN TAB 500 MG TAB PO PRN (22:41)
[2023-03-08] MEDS ORDERED: ATORVASTATIN 40 MG TAB PO SCH (22:45)
[2023-03-08] MEDS ORDERED: HYDROcodone/APAP 7.5-325MG 1 EACH TAB PO SCH (22:45)
[2023-03-08] MEDS ORDERED: traZODone HCL 50 MG TAB PO SCH (22:45)
[2023-03-08] MEDS ORDERED: allopurinoL 100 MG TAB PO SCH (22:45)
[2023-03-08] MEDS ORDERED: HYDROcodone/APAP 7.5-325MG 1 EACH TAB PO PRN (22:53)
[2023-03-08] MEDS: carvediloL 3.125 MG TAB PO SCH (23:08)
[2023-03-08] MEDS: GABAPENTIN 300 MG CAP PO SCH (23:09)
[2023-03-09] MEDS: NITROGLYCERIN OINT 1 INCH/GM PACKET TOPICAL SCH ×2 (01:14→06:02)
[2023-03-09 08:19] VITALS: RESP 12; TEMP 97.7
[2023-03-09 08:43] LABS: Chol/HDL Ratio 3.42 Ratio; LDL Cholesterol,Calculated 76.5 mg/dL (0.0-131.0)
[2023-03-09] MEDS: carvediloL 3.125 MG TAB PO SCH (08:58)
[2023-03-09] MEDS: GABAPENTIN 300 MG CAP PO SCH (08:58)
[2023-03-09] MEDS ORDERED: CLOPIDOGREL 75 MG TAB PO SCH (09:00)
[2023-03-09] MEDS ORDERED: ISOSORBIDE MONONITRATE ER 30 MG TAB.ER.24H PO SCH (09:00)
[2023-03-09] MEDS ORDERED: ASPIRIN 325 MG TAB PO SCH (09:00)
[2023-03-09] MEDS ORDERED: ALBUTEROL HFA INHALER INHALATION PRN (10:02)
[2023-03-09] MEDS ORDERED: DEXTROSE 50% SYRINGE 50 ML IVP PRN ×2 (10:14)
[2023-03-09] MEDS ORDERED: CITALOPRAM HYDROBROMIDE 20 MG TAB PO SCH (10:15)
--- NOTE | 2023-03-09 10:29 | P.CRDCN ---
History of Present Illness Consult date: 03/09/23 Consult reason: chest pain History of present illness: History of present illness: This is a 73-year-old female patient of Dr. Rasheed Heredia with past medical history of coronary artery disease with prior apical myocardial infarction, known to have occluded distal LAD on medical management, history of ischemic cardiomyopathy, hypertension, hyperlipidemia. We have been asked to evaluate the patient for chest pain. Patient states that she felt strange all night she got up and had pressure in her chest along with sweating and her blood pressure was high. She has similar episode about 2 months ago and called EMS. She denies any chest pain at this time, no shortness of breath. She has some chronic lower extremity edema. She states she urinated a lot yesterday and this is all improved. She had a cough started last night and a little bit of wheezing. She denies any blood in her urine or stools and no dysuria. Patient is not normally very active but ambulates with a walker. EKG sinus rhythm with no acute ST changes Chest x-ray: Atelectasis versus pulmonary edema. WBC 11.3, hemoglobin 13.2, platelet count 298. INR 0.9. Electrolytes normal. BUN 30 creatinine 1.5. Troponin negative 3. Triglycerides 191, cholesterol 162, LDL 76, HDL 47. Influenza A, influenza B, RSV, Covid 19 not detected. Home cardiac medications: Atorvastatin 40 mg at bedtime, Coreg 3.125 mg twice daily, Plavix 75 mg daily, Lasix 40 mg daily, Imdur 30 mg daily, lisinopril 5 mg daily. Echocardiogram performed in the office on 01/03/2023 revealed EF of 45-50%. Mild concentric left ventricular hypertrophy. Mild mitral regurgitation and mild tricuspid regurgitation. Normal pulmonary artery systolic pressure. Review Of Systems: At the time of my evaluation: Constitutional: No fever, no chills. No weakness, fatigue or lethargy. EENT: No headache. No dizziness. Lungs: No shortness of breath, cough, no sputum production. No wheezing. Cardiovascular: No chest pain, no lower extremity edema. No palpitations. No paroxysmal nocturnal dyspnea. No orthopnea. No lightheadedness or dizziness. No syncopal episodes. Abdominal: No abdominal pain. No nausea, vomiting. No diarrhea. No constipation. No bloody or tarry stools. Genitourinary: No dysuria.. No urinary retention. Musculoskeletal: No myalgias. No muscle weakness, no frequent falls. No back pain. No neck pain. Integumentary: No wounds. No rash. No unusual bruising. Neurologic: No aphasia. No facial droop. No change in mentation. No head injury. No headache. Physical examination: Gen: This is a 73-year-old female. She is resting bed and appears to be in no acute distress VS: reviewed HEENT: Head is atraumatic, normocephalic. Pupils equal, round. Sclerae is anicteric. NECK: Supple. No JVD. . LUNGS: Clear to auscultation. No wheezes or rhonchi. No intercostal retractions. HEART: Regular rate and rhythm. No murmur. ABDOMEN: Soft No tenderness. EXTREMITIES: No pedal edema. No calf tenderness. NEUROLOGICAL: Patient is awake, alert and oriented x3. Assessment: Atypical chest pain probably noncardiac History of coronary artery disease Ischemic cardiomyopathy Hypertension Hyperlipidemia Plan: Resume patient's home cardiac medications Add Imdur 30 mg daily and discontinue Nitropaste Ambulate patient and if patient does well, she is cleared from cardiology for discharge home. Patient to follow-up with Dr. Rasheed Heredia in 1-2 weeks. No need to repeat echocardiogram Thank you kindly for this consultation. Nurse practitioner note has been reviewed, I agree with documented findings and plan of care. Patient was seen and examined. Past Medical History Past Medical History: Asthma, COPD, GI Bleed, Hypertension, Myocardial Infarction (PR), Osteoarthritis (OA), Sleep Apnea/CPAP/BIPAP Additional Past Medical History / Comment(s): Tinnitus; OA in backs, knees, hands; uses home CPAP; gastric ulcers in her 30s, HX LT MACULAR HOLE-REPAIRED. 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 RT CTR. EGD. REPAIR LT MACULAR HOLE AND LT CATARACT REMOVED Past Anesthesia/Blood Transfusion Reactions: Motion Sickness Past Psychological History: Anxiety Smoking Status: Former smoker Past Alcohol Use History: None Reported Additional Past Alcohol Use History / Comment(s): QUIT SMOKING 1989 Past Drug Use History: None Reported - Past Family History Father Family Medical History: Unable to Obtain Mother History Unknown: Yes Family Medical History: No Reported History, Cancer Additional Family Medical History / Comment(s): Esophageal cancer, arthritis Medications and Allergies Home Medications Medication Instructions Recorded Confirmed Type Albuterol Sulfate [Proair Hfa] 2 puff INHALATION RT-QID PRN 09/11/18 03/08/23 History Citalopram Hydrobromide [CeleXA] 20 mg PO DAILY 09/11/18 03/08/23 History rOPINIRole HCL [Requip] 2 mg PO HS 06/08/19 03/08/23 History traZODone HCL 50 mg PO HS 06/08/19 03/08/23 History allopurinoL [Zyloprim] 100 mg PO HS 05/13/20 03/08/23 History Cyclobenzaprine [Flexeril] 5 mg PO TID PRN 07/30/22 03/08/23 History Fluticasone/Umeclidin/Vilanter 1 puff INHALATION RT-DAILY 07/30/22 03/08/23 History [Trelegy Ellipta 200-62.5-25] Semaglutide [Ozempic] 0.5 mg SQ SEBASTIAN 07/30/22 03/08/23 History Atorvastatin [Lipitor] 40 mg PO HS #30 tab 08/04/22 03/08/23 Rx Clopidogrel [Plavix] 75 mg PO DAILY #30 tab 08/04/22 03/08/23 Rx Furosemide [Lasix] 40 mg PO DAILY #30 tab 08/11/22 03/08/23 Rx lisinopriL [Zestril] 5 mg PO DAILY #30 tab 08/11/22 03/08/23 Rx Gabapentin [Neurontin] 300 mg PO TID 03/08/23 03/08/23 History HYDROcodone/APAP 7.5-325MG [[place] 1 tab PO BID 03/08/23 03/08/23 History 7.5-325] Magnesium Oxide [[place]] 500 mg PO DAILY 03/08/23 03/08/23 History carvediloL [Coreg] 3.125 mg PO BID 03/08/23 03/08/23 History hydrOXYzine HCL [Atarax] 10 mg PO DAILY PRN 03/08/23 03/08/23 History Isosorbide Mononitrate ER [Imdur] 30 mg PO DAILY #30 tab 03/09/23 Rx Allergies Allergy/AdvReac Type Severity Reaction Status Date / Time No Known Allergies Allergy Verified 03/08/23 16:17 Physical Exam Vitals: Vital Signs Temp Pulse Pulse Resp BP BP Pulse Ox 03/09/23 02:19 98.4 F 83 15 119/59 97 03/08/23 21:30 98.1 F 73 15 116/65 93 L 03/08/23 20:31 98.1 F 70 16 122/78 97 03/08/23 18:00 84 22 117/95 97 03/08/23 15:01 78 03/08/23 15:00 98 F 75 16 126/67 96 03/08/23 13:37 98.1 F 78 18 166/90 99 Intake and Output 03/08/23 03/09/23 03/09/23 22:59 06:59 14:59 Other: # Voids 1 1 Weight 122.47 kg Results 03/08/23 14:02 03/08/23 14:02 Cardiac Enzymes 03/08/23 03/08/23 03/08/23 Range/Units 14:02 14:02 16:31 AST 22 (14-36) U/L Troponin I 0.013 0.018 (0.000-0.034) ng/mL 03/08/23 Range/Units 20:28 AST (14-36) U/L Troponin I 0.016 (0.000-0.034) ng/mL Coagulation 03/08/23 Range/Units 14:02 PT 10.1 (10.0-12.5) sec APTT 23.4 (22.0-30.0) sec CBC 03/08/23 Range/Units 14:02 WBC 11.3 H (3.8-10.6) k/uL RBC 4.76 (3.80-5.40) m/uL Hgb 13.2 (11.4-16.0) gm/dL Hct 41.0 (34.0-46.0) % Plt Count 298 (150-450) k/uL Comprehensive Metabolic Panel 03/08/23 Range/Units 14:02 Sodium 140 (137-145) mmol/L Potassium 4.4 (3.5-5.1) mmol/L Chloride 105 (98-107) mmol/L Carbon Dioxide 25 (22-30) mmol/L BUN 30 H (7-17) mg/dL Creatinine 1.50 H (0.52-1.04) mg/dL Glucose 129 H (74-99) mg/dL Calcium 9.2 (8.4-10.2) mg/dL AST 22 (14-36) U/L ALT 18 (4-34) U/L Alkaline Phosphatase 100 (38-126) U/L Total Protein 6.3 (6.3-8.2) g/dL Albumin 3.7 (3.5-5.0) g/dL Current Medications Generic Name Dose Route Start Last Admin Trade Name Freq PRN Reason Stop Dose Admin Acetaminophen 500 mg 03/08/23 22:41 03/08/23 23:10 Acetaminophen Tab 500 Mg Tab PO 500 mg Q6HR PRN Administration Fever and/ or Pain Hydrocodone Bitart/Acetaminophen 1 each 03/08/23 22:53 Hydrocodone/Apap 7.5-325mg 1 Each Tab PO BID PRN Pain Allopurinol 100 mg 03/08/23 22:45 03/08/23 23:09 Allopurinol 100 Mg Tab PO 100 mg HS LOIS Administration Aspirin 325 mg 03/09/23 09:00 Aspirin 325 Mg Tab PO DAILY [facility] Atorvastatin Calcium 40 mg 03/08/23 22:45 03/08/23 23:09 Atorvastatin 40 Mg Tab PO 40 mg HS LOIS Administration Carvedilol 3.125 mg 03/08/23 22:45 03/08/23 23:08 Carvedilol 3.125 Mg Tab PO Not Given BID [facility] Cyclobenzaprine HCl 5 mg 03/08/23 22:39 Cyclobenzaprine 5 Mg Tab PO TID PRN Muscle Spasm Gabapentin 300 mg 03/08/23 22:45 03/08/23 23:09 Gabapentin 300 Mg Cap PO 300 mg TID LOIS Administration Nitroglycerin 0.4 mg 03/08/23 16:20 Nitroglycerin Sl Tabs 0.4 Mg Tab SUBLINGUAL Q5M PRN Chest Pain Nitroglycerin 1 inch 03/08/23 18:00 03/09/23 06:02 Nitroglycerin Oint 1 Inch/Gm Packet TOPICAL Not Given Q6HR [facility] Ropinirole HCl 2 mg 03/08/23 22:45 03/08/23 23:09 Ropinirole Hcl 1 Mg Tab PO 2 mg HS LOIS Administration Trazodone HCl 50 mg 03/08/23 22:45 03/08/23 23:10 Trazodone Hcl 50 Mg Tab PO 50 mg HS LOIS Administration Intake and Output 03/08/23 03/09/23 03/09/23 22:59 06:59 14:59 Other: # Voids 1 1 Weight 122.47 kg 03/08/23 14:02 03/08/23 14:02
[2023-03-09 11:28] VITALS: BP 123/74; PULSE 86
[2023-03-09] MEDS ORDERED: INSULIN ASPART (NovoLOG) 100 UNIT/ML VIAL SQ SCH (12:30)
--- NOTE | 2023-03-09 18:58 | P.HPIM ---
History of Present Illness H&P Date: 03/09/23 Chief Complaint: Chest pressure History and Physical and Discharge Summary Past Medical History Past Medical History: Asthma, COPD, GI Bleed, Hypertension, Myocardial Infarction ([place]), Osteoarthritis (OA), Sleep Apnea/CPAP/BIPAP Additional Past Medical History / Comment(s): Tinnitus; OA in backs, knees, hands; uses home CPAP; gastric ulcers in her 30s, HX LT MACULAR HOLE-REPAIRED. 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 RT CTR. EGD. REPAIR LT MACULAR HOLE AND LT CATARACT REMOVED Past Anesthesia/Blood Transfusion Reactions: Motion Sickness Past Psychological History: Anxiety Smoking Status: Former smoker Past Alcohol Use History: None Reported Additional Past Alcohol Use History / Comment(s): QUIT SMOKING 1989 Past Drug Use History: None Reported - Past Family History Father Family Medical History: Unable to Obtain Mother History Unknown: Yes Family Medical History: No Reported History, Cancer Additional Family Medical History / Comment(s): Esophageal cancer, arthritis Medications and Allergies Home Medications Medication Instructions Recorded Confirmed Type Albuterol Sulfate [Proair Hfa] 2 puff INHALATION RT-QID PRN 09/11/18 03/08/23 History Citalopram Hydrobromide [CeleXA] 20 mg PO DAILY 09/11/18 03/08/23 History rOPINIRole HCL [Requip] 2 mg PO HS 06/08/19 03/08/23 History traZODone HCL 50 mg PO HS 06/08/19 03/08/23 History allopurinoL [Zyloprim] 100 mg PO HS 05/13/20 03/08/23 History Cyclobenzaprine [Flexeril] 5 mg PO TID PRN 07/30/22 03/08/23 History Fluticasone/Umeclidin/Vilanter 1 puff INHALATION RT-DAILY 07/30/22 03/08/23 History [Trelegy Ellipta 200-62.5-25] Semaglutide [Ozempic] 0.5 mg SQ SEBASTIAN 07/30/22 03/08/23 History Atorvastatin [Lipitor] 40 mg PO HS #30 tab 08/04/22 03/08/23 Rx Clopidogrel [Plavix] 75 mg PO DAILY #30 tab 08/04/22 03/08/23 Rx Furosemide [Lasix] 40 mg PO DAILY #30 tab 08/11/22 03/08/23 Rx lisinopriL [Zestril] 5 mg PO DAILY #30 tab 08/11/22 03/08/23 Rx Gabapentin [Neurontin] 300 mg PO TID 03/08/23 03/08/23 History HYDROcodone/APAP 7.5-325MG [[place] 1 tab PO BID 03/08/23 03/08/23 History 7.5-325] Magnesium Oxide [Delgado] 500 mg PO DAILY 03/08/23 03/08/23 History carvediloL [Coreg] 3.125 mg PO BID 03/08/23 03/08/23 History hydrOXYzine HCL [Atarax] 10 mg PO DAILY PRN 03/08/23 03/08/23 History Isosorbide Mononitrate ER [Imdur] 30 mg PO DAILY #30 tab 03/09/23 Rx Allergies Allergy/AdvReac Type Severity Reaction Status Date / Time No Known Allergies Allergy Verified 03/08/23 16:17 Physical Exam Vitals: Vital Signs Temp Pulse Pulse Resp BP BP Pulse Ox 03/09/23 07:00 97.7 F 76 12 112/68 89 L 03/09/23 02:19 98.4 F 83 15 119/59 97 03/08/23 21:30 98.1 F 73 15 116/65 93 L 03/08/23 20:31 98.1 F 70 16 122/78 97 03/08/23 18:00 84 22 117/95 97 03/08/23 15:01 78 03/08/23 15:00 98 F 75 16 126/67 96 03/08/23 13:37 98.1 F 78 18 166/90 99 Intake and Output 03/08/23 03/09/23 03/09/23 22:59 06:59 14:59 Other: # Voids 1 1 Weight 122.47 kg Results CBC & Chem 7: 03/08/23 14:02 03/08/23 14:02 Labs: Abnormal Lab Results - Last 24 Hours (Table) 03/08/23 03/08/23 03/08/23 Range/Units 14:02 14:02 14:02 WBC 11.3 H (3.8-10.6) k/uL Neutrophils # 8.1 H (1.3-7.7) k/uL BUN 30 H (7-17) mg/dL Creatinine 1.50 H (0.52-1.04) mg/dL Glucose 129 H (74-99) mg/dL Triglycerides 191.00 H (0.00-149.00) mg/dL Thrombosis Risk Factor Assmnt - Choose All That Apply Any of the Below Risk Factors Present?: Yes Each Factor Represents 1 point: Obesity (BMI >25), Swollen legs (current) Other Risk Factors: Yes Each Risk Factor Represents 2 Points: Age 61-74 years Other congenital or acquired thrombophilia - If yes, enter type in comment: No Thrombosis Risk Factor Assessment Total Risk Factor Score: 4 Thrombosis Risk Factor Assessment Level: Moderate Risk
[2023-03-10] MEDS ORDERED: SYMBICORT 160-4.5 MCG INHALER INHALATION SCH (08:00)
[2023-03-10] MEDS ORDERED: IPRATROPIUM 0.5 MG/2.5 ML NEBU INHALATION SCH (08:00)
[2023-03-10] MEDS ORDERED: MAGNESIUM OXIDE 400 MG TAB PO SCH (09:00)
== END 2023-03-09 12:26 | disposition home or self-care (01) ==
LOC: EC 13:21 → 6NMEDSUR 14:17
PROVIDERS: ADMIT Family Medicine; ATTEND Family Medicine
DX: R07.89 Other chest pain (principal); I25.10 Atherosclerotic heart disease of native coronary artery without angina pectoris; I25.5 Ischemic cardiomyopathy; I11.9 Hypertensive heart disease without heart failure; E78.5 Hyperlipidemia, unspecified; I08.1 Rheumatic disorders of both mitral and tricuspid valves; J44.9 Chronic obstructive pulmonary disease, unspecified; G47.30 Sleep apnea, unspecified; M17.0 Bilateral primary osteoarthritis of knee; H93.19 Tinnitus, unspecified ear; M47.819 Spondylosis without myelopathy or radiculopathy, site unspecified; M19.042 Primary osteoarthritis, left hand; M19.041 Primary osteoarthritis, right hand; I25.2 Old myocardial infarction; F41.9 Anxiety disorder, unspecified; E66.9 Obesity, unspecified; R60.0 Localized edema; Z68.43 Body mass index [BMI] 50.0-59.9, adult; Z11.52 Encounter for screening for COVID-19; Z79.82 Long term (current) use of aspirin; Z79.85 Long-term (current) use of injectable non-insulin antidiabetic drugs; Z79.02 Long term (current) use of antithrombotics/antiplatelets; Z79.51 Long term (current) use of inhaled steroids; Z79.899 Other long term (current) drug therapy; Z87.891 Personal history of nicotine dependence; Z90.710 Acquired absence of both cervix and uterus; Z98.42 Cataract extraction status, left eye; Z98.890 Other specified postprocedural states; Z87.11 Personal history of peptic ulcer disease; Z87.19 Personal history of other diseases of the digestive system; Z86.69 Personal history of other diseases of the nervous system and sense organs; Z80.0 Family history of malignant neoplasm of digestive organs; Z82.61 Family history of arthritis
CPT/HCPCS: 96374; 99285; 36415; 93005; 80061; 80053; 83735; 84484; 85025; 85610; 85730; 87636; 71046; G0378 ×2; J2060

== ENCOUNTER 2023-05-12 11:30 | Emergency (ER) | payer MEDICARE, OTHER ==
[2023-05-12] MEDS ORDERED: SODIUM CHLORIDE 0.9% 1,000 ML IV STA (12:07)
[2023-05-12] MEDS ORDERED: ACETAMINOPHEN TAB 500 MG TAB PO STA ×2 (12:08→14:08)
--- NOTE | 2023-05-12 12:08 | ED ---
General Adult HPI <StricklandMike - Last Filed: 05/12/23 14:46> - General Source: patient Mode of arrival: wheelchair Limitations: no limitations <Barrie Ortega - Last Filed: 05/12/23 16:33> - General Chief complaint: Abdominal Pain Stated complaint: abd pain - History of Present Illness Initial comments: This is a 73-year-old female presents emergency department stating that she has lost her taste since [place] and she states she hasn't been feeling well for about a month. Patient states as of yesterday she started having significant diarrhea and then this morning started vomiting about 5:30. Patient states she has some epigastric abdominal discomfort but no significant pain. Patient denies any back pain. Patient denies any dysuria hematuria urinary frequency. Patient denies any chest pain difficulty breathing shortness of breath. (Mike Strickland) QN: Patient lost her taste on [place]. She has been having nausea vomiting diarrhea and abdominal pain since last night. Pain is in her upper stomach. Verbally signed by Barrie Ortega PAC 05/12/22 16 (Barrie Ortega) - Related Data Home Medications Medication Instructions Recorded Confirmed Albuterol Sulfate [Proair Hfa] 2 puff INHALATION RT-QID PRN 09/11/18 03/08/23 Citalopram Hydrobromide [CeleXA] 20 mg PO DAILY 09/11/18 03/08/23 rOPINIRole HCL [Requip] 2 mg PO HS 06/08/19 03/08/23 traZODone HCL 50 mg PO HS 06/08/19 03/08/23 allopurinoL [Zyloprim] 100 mg PO HS 05/13/20 03/08/23 Cyclobenzaprine [Flexeril] 5 mg PO TID PRN 07/30/22 03/08/23 Fluticasone/Umeclidin/Vilanter 1 puff INHALATION RT-DAILY 07/30/22 03/08/23 [Trelegy Ellipta 200-62.5-25] Semaglutide [Ozempic] 0.5 mg SQ SEBASTIAN 07/30/22 03/08/23 Gabapentin [Neurontin] 300 mg PO TID 03/08/23 03/08/23 HYDROcodone/APAP 7.5-325MG [[place] 1 tab PO BID 03/08/23 03/08/23 7.5-325] Magnesium Oxide [Delgado] 500 mg PO DAILY 03/08/23 03/08/23 carvediloL [Coreg] 3.125 mg PO BID 03/08/23 03/08/23 hydrOXYzine HCL [Atarax] 10 mg PO DAILY PRN 03/08/23 03/08/23 Previous Rx's Medication Instructions Recorded Atorvastatin [Lipitor] 40 mg PO HS #30 tab 08/04/22 Clopidogrel [Plavix] 75 mg PO DAILY #30 tab 08/04/22 Furosemide [Lasix] 40 mg PO DAILY #30 tab 08/11/22 lisinopriL [Zestril] 5 mg PO DAILY #30 tab 08/11/22 Isosorbide Mononitrate ER [Imdur] 30 mg PO DAILY #30 tab 03/09/23 Allergies Allergy/AdvReac Type Severity Reaction Status Date / Time No Known Allergies Allergy Verified 05/12/23 11:56 Review of Systems ROS Other: All systems not noted in ROS Statement are negative. <Mike Strickland - Last Filed: 05/12/23 14:46> ROS Other: All systems not noted in ROS Statement are negative. <Barrie Ortega - Last Filed: 05/12/23 16:33> ROS Statement: Those systems with pertinent positive or pertinent negative responses have been documented in the HPI. Past Medical History Past Medical History: Asthma, COPD, GI Bleed, Hypertension, Myocardial Infarction ([place]), Osteoarthritis (OA), Sleep Apnea/CPAP/BIPAP Additional Past Medical History / Comment(s): Tinnitus; OA in backs, knees, hands; uses home CPAP; gastric ulcers in her 30s, HX LT MACULAR HOLE-REPAIRED. 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 RT CTR. EGD. REPAIR LT MACULAR HOLE AND LT CATARACT REMOVED Past Anesthesia/Blood Transfusion Reactions: Motion Sickness Past Psychological History: Anxiety Smoking Status: Former smoker Past Alcohol Use History: None Reported Past Drug Use History: None Reported - Past Family History Father Family Medical History: Unable to Obtain Mother History Unknown: Yes Family Medical History: No Reported History, Cancer Additional Family Medical History / Comment(s): Esophageal cancer, arthritis <Barrie Ortega - Last Filed: 05/12/23 16:33> General Exam <Mike Strickland - Last Filed: 05/12/23 14:46> Limitations: no limitations <Barrie Ortega - Last Filed: 05/12/23 16:33> - General Exam Comments Initial Comments: GENERAL: Patient is well-developed and well-nourished. Patient is nontoxic and well- hydrated and is no acute distress. ENT: Neck is soft and supple. No significant lymphadenopathy is noted. Oropharynx is clear. Moist mucous membranes. Neck has full range of motion without eliciting any pain. EYES: The sclera were anicteric and conjunctiva were pink and moist. Extraocular movements were intact and pupils were equal round and reactive to light. Eyelids were unremarkable. PULMONARY: Unlabored respirations. Good breath sounds bilaterally. No audible rales rhonchi or wheezing was noted. CARDIOVASCULAR: There is a regular rate and rhythm without any murmurs gallops or rubs. ABDOMEN: Soft and nontender with normal bowel sounds. SKIN: Skin is clear with no lesions or rashes and otherwise unremarkable. NEUROLOGIC: Patient is alert and oriented x3. Cranial nerves II through XII are grossly intact. Motor and sensory are also intact. Normal speech, volume and content. Symmetrical smile. MUSCULOSKELETAL: Normal extremities with adequate strength and full range of motion. LYMPHATICS: No significant lymphadenopathy is noted PSYCHIATRIC: Normal psychiatric evaluation. (Mike Strickland) Course Vital Signs 05/12/23 05/12/23 05/12/23 11:56 15:18 16:12 Temperature 100.4 F H 98.1 F 97.9 F Pulse Rate 76 84 79 Respiratory 16 18 18 Rate Blood Pressure 117/76 108/74 120/73 O2 Sat by Pulse 96 95 95 Oximetry Medical Decision Making - Lab Data Result diagrams: 05/12/23 13:51 05/12/23 13:51 <Mike Strickland - Last Filed: 05/12/23 14:46> - Lab Data Result diagrams: 05/12/23 13:51 05/12/23 13:51 <Barrie Ortega - Last Filed: 05/12/23 16:33> - Medical Decision Making EKG as interpreted by myself. EKG shows sinus rhythm at 90 bpm OH interval 259 QRSs 80 QT interval 362 QTC is 409. Was pt. sent in by a medical professional or institution (LYRIC Argueta, BRISTLE MACHINE OPERATOR, urgent care, hospital, or shelter...) When possible be specific @ -No Did you speak to anyone other than the patient for history (EMS, parent, family, police, friend...)? What history was obtained from this source @ -No Did you review nursing and triage notes (agree or disagree)? Why? @ -I reviewed and agree with nursing and triage notes Were old charts reviewed (outside hosp., previous admission, EMS record, old EKG, old radiological studies, urgent care reports/EKG's, shelter records)? Report findings @ -I reviewed prior charts in prior lab work on this patient Differential Diagnosis (chest pain, altered mental status, abdominal pain women, abdominal pain men, vaginal bleeding, weakness, fever, dyspnea, syncope, headache, dizziness, GI bleed, back pain, seizure, CVA, palpatations, mental health, musculoskeletal)? @ -Differential Abdominal Pain Women: Appendicitis, Cholecystitis, diverticulosis, ischemic bowel, pancreatitis, hepatitis, UTI, gastroenteritis, AAA, incarcerated hernia, bowel obstruction, constipation, inflammatory bowel, hepatitis, peptic ulcer disease, splenic infarction, perforated viscus, vulvitis, ovarian torsion, PID, kidney stone, placenta abruption, this is not meant to be an all-inclusive list EKG interpreted by me (3pts min.). @ -As above X-rays interpreted by me (1pt min.). @ -None done CT interpreted by me (1pt min.). @ -None done U/S interpreted by me (1pt. min.). @ -None done What testing was considered but not performed or refused? (CT, X-rays, U/S, labs)? Why? @ -None What meds were considered but not given or refused? Why? @ -None Did you discuss the management of the patient with other professionals (professionals i.e. LYRIC Argueta, BRISTLE MACHINE OPERATOR, lab, RT, psych nurse, social media editor, net fisher, teacher, anti air warfare operations officer, director case)? Give summary @ -No Was smoking cessation discussed for >3mins.? @ -No Was critical care preformed (if so, how long)? @ -No Were there social determinants of health that impacted care today? How? (Homelessness, low income, unemployed, alcoholism, drug addiction, transportation, low edu. Level, literacy, decrease access to med. care, longterm, rehab)? @ -No Was there de-escalation of care discussed even if they declined (Discuss DNR or withdrawal of care, Hospice)? DNR status @ -No What co-morbidities impacted this encounter? (DM, HTN, Smoking, COPD, CAD, Cancer, CVA, ARF, Chemo, Hep., AIDS, mental health diagnosis, sleep apnea, morbid obesity)? @ -None Was patient admitted / discharged? Hospital course, mention meds given and route, prescriptions, significant lab abnormalities, going to OR and other pertinent info. @ -Patient received Lomotil and Zofran emergency department she also received a liter fluid. Patient was reevaluated by myself and she had no vomiting or diarrhea while in the emergency department. Patient was drinking water without becoming nauseous vomiting. Patient was not having any more abdominal pain at this point. Patient will be discharged home with Lomotil and Zofran Undiagnosed new problem with uncertain prognosis? @ -No Drug Therapy requiring intensive monitoring for toxicity (Heparin, Nitro, Insulin, Cardizem)? @ -No Were any procedures done? @ -No Diagnosis/symptom? @ -Gastroenteritis Acute, or Chronic, or Acute on Chronic? @ -Acute Uncomplicated (without systemic symptoms) or Complicated (systemic symptoms)? @ -Uncomplicated Side effects of treatment? @ -No Exacerbation, Progression, or Severe Exacerbation? @ -No Poses a threat to life or bodily function? How? (Chest pain, [place], [place], pneumonia, PE, COPD, DKA, ARF, appy, cholecystitis, CVA, Diverticulitis, Homicidal, Suicidal, threat to staff... and all critical care pts) @ -No (Mike Strickland) - Lab Data Lab Results 05/12/23 05/12/23 05/12/23 Range/Units 12:01 13:51 13:51 WBC 10.0 (3.8-10.6) k/uL RBC 4.76 (3.80-5.40) m/uL Hgb 13.3 (11.4-16.0) gm/dL Hct 40.9 (34.0-46.0) % MCV 85.9 (80.0-100.0) fL MCH 27.9 (25.0-35.0) pg MCHC 32.4 (31.0-37.0) g/dL RDW 13.9 (11.5-15.5) % Plt Count 204 (150-450) k/uL MPV 10.2 Neutrophils % 76 % Lymphocytes % 11 % Monocytes % 6 % Eosinophils % 5 % Basophils % 0 % Neutrophils # 7.6 (1.3-7.7) k/uL Lymphocytes # 1.1 (1.0-4.8) k/uL Monocytes # 0.6 (0-1.0) k/uL Eosinophils # 0.5 (0-0.7) k/uL Basophils # 0.0 (0-0.2) k/uL Sodium 140 (137-145) mmol/L Potassium 3.7 (3.5-5.1) mmol/L Chloride 105 (98-107) mmol/L Carbon Dioxide 23 (22-30) mmol/L Anion Gap 12 mmol/L BUN 25 H (7-17) mg/dL Creatinine 1.37 H (0.52-1.04) mg/dL Est GFR (CKD-EPI)AfAm 44 (>60 ml/min/1.73 sqM) Est GFR (CKD-EPI)NonAf 38 (>60 ml/min/1.73 sqM) Glucose 126 H (74-99) mg/dL Calcium 8.4 (8.4-10.2) mg/dL Total Bilirubin 0.6 (0.2-1.3) mg/dL AST 19 (14-36) U/L ALT 15 (4-34) U/L Alkaline Phosphatase 98 (38-126) U/L Total Protein 5.8 L (6.3-8.2) g/dL Albumin 3.3 L (3.5-5.0) g/dL Amylase 74 (30-110) U/L Lipase 122 (23-300) U/L Influenza Type A (PCR) Not Detected (Not Detectd) Influenza Type B (PCR) Not Detected (Not Detectd) RSV (PCR) Not Detected (Not Detectd) SARS-CoV-2 (PCR) Not Detected (Not Detectd) Disposition Is patient prescribed a controlled substance at d/c from ED?: No Time of Disposition: 14:48 <Mike Strickland - Last Filed: 05/12/23 14:46> <Barrie Ortega - Last Filed: 05/12/23 16:33> Clinical Impression: Gastroenteritis Disposition: HOME SELF-CARE Condition: Good Instructions (If sedation given, give patient instructions): Gastroenteritis (ED) Referrals: Charlene Johnson DO [Primary Care Provider] - 1-2 days
[2023-05-12] MEDS ORDERED: DIPHENOX-ATROP 2.5-0.025 MG 1 EACH TAB PO STA (14:03)
[2023-05-12 14:24] LABS: ALT 15 U/L (4-34); AST 19 U/L (14-36); African American GFR (CKD) 44 (>60 ml/min/1.73 sqM); Albumin 3.3 g/dL (3.5-5.0); Alkaline Phosphatase 98 U/L (38-126); Amylase 74 U/L (30-110); Anion Gap 12 mmol/L; Blood Urea Nitrogen 25 mg/dL (7-17); Calcium 8.4 mg/dL (8.4-10.2); Carbon Dioxide 23 mmol/L (22-30); Chloride 105 mmol/L (98-107); Glucose 126 mg/dL (74-99); Lipase 122 U/L (23-300); Non-African American GFR(CKD) 38 (>60 ml/min/1.73 sqM); Potassium 3.7 mmol/L (3.5-5.1); Sodium 140 mmol/L (137-145); Total Bilirubin 0.6 mg/dL (0.2-1.3); Total Protein 5.8 g/dL (6.3-8.2)
[2023-05-12 14:34] LABS: Basophils % (A) 0 %; Eosinophils # (A) 0.5 k/uL (0-0.7); Eosinophils % (A) 5 %; HCT 40.9 % (34.0-46.0); HGB 13.3 gm/dL (11.4-16.0); Lymphocytes # (A) 1.1 k/uL (1.0-4.8); Lymphocytes % (A) 11 %; MCH 27.9 pg (25.0-35.0); MCHC 32.4 g/dL (31.0-37.0); MCV 85.9 fL (80.0-100.0); Mean Platelet Volume 10.2; Monocytes # (A) 0.6 k/uL (0-1.0); Monocytes % (A) 6 %; Neutrophils # (A) 7.6 k/uL (1.3-7.7); Neutrophils % (A) 76 %; Platelet Count 204 k/uL (150-450); RBC 4.76 m/uL (3.80-5.40); RDW 13.9 % (11.5-15.5)
[2023-05-12] MEDS ORDERED: DIPHENOX-ATROP STARTER PACK 8 TAB BTL PO STA (14:48)
[2023-05-12] MEDS ORDERED: ONDANSETRON 4 MG ODT STARTER PACK 2 TAB BTL PO STA (14:48)
[2023-05-12 15:26] VITALS: RESP 18
[2023-05-12 16:31] VITALS: BP 120/73; PULSE 79; TEMP 97.9
== END 2023-05-12 16:19 | disposition home or self-care (01) ==
LOC: EC 11:30
DX: K52.9 Noninfective gastroenteritis and colitis, unspecified (principal); J44.89 Other specified chronic obstructive pulmonary disease; I10 Essential (primary) hypertension; I25.2 Old myocardial infarction; G47.30 Sleep apnea, unspecified; F41.9 Anxiety disorder, unspecified; Z87.891 Personal history of nicotine dependence; Z20.822 Contact with and (suspected) exposure to COVID-19; Z79.899 Other long term (current) drug therapy
CPT/HCPCS: 99285 ×2; 96360 ×2; 96361 ×2; 36415; 80053; 82150; 83690; 85025; 87636; S0119

== ENCOUNTER 2023-08-28 01:51 | Observation (INO) | payer MEDICARE, OTHER ==
--- NOTE | 2023-08-28 02:05 | ED ---
General Adult HPI - General Chief complaint: Chest Pain Stated complaint: chest pain Time Seen by Provider: 08/28/23 01:53 Source: patient, EMS Mode of arrival: EMS Limitations: no limitations - History of Present Illness Initial comments: Dictation was produced using Pley dictation software. please excuse any grammatical, word or spelling errors. Chief Complaint: 73-year-old female past medical history of coronary artery disease and COPD presents with chest pain History of Present Illness: Patient 73-year-old female presents to the emergency department with chest pain she states that it feels like a pressure after like she got kicked in the chest. She tried taking a breathing treatment which she thought might help her symptoms but it did not work. Patient denies any fever, chills or night sweats. Denies any associated diaphoresis. She states that the pain radiates to her bilateral shoulders. She does report associated nausea. She contacted her senior advisory yesterday. Patient was given aspirin by prehospital providers The ROS documented in this emergency department record has been reviewed and confirmed by me. Those systems with pertinent positive or negative responses have been documented in the HPI. All other systems are other negative and/or noncontributory. - Related Data Home Medications Medication Instructions Recorded Confirmed Albuterol Sulfate [Proair Hfa] 2 puff INHALATION RT-QID PRN 09/11/18 03/08/23 Citalopram Hydrobromide [CeleXA] 20 mg PO DAILY 09/11/18 03/08/23 rOPINIRole HCL [Requip] 2 mg PO HS 06/08/19 03/08/23 traZODone HCL 50 mg PO HS 06/08/19 03/08/23 allopurinoL [Zyloprim] 100 mg PO HS 05/13/20 03/08/23 Cyclobenzaprine [Flexeril] 5 mg PO TID PRN 07/30/22 03/08/23 Fluticasone/Umeclidin/Vilanter 1 puff INHALATION RT-DAILY 07/30/22 03/08/23 [Trelegy Ellipta 200-62.5-25] Semaglutide [Ozempic] 0.5 mg SQ SEBASTIAN 07/30/22 03/08/23 Gabapentin [Neurontin] 300 mg PO TID 03/08/23 03/08/23 HYDROcodone/APAP 7.5-325MG [[place] 1 tab PO BID 03/08/23 03/08/23 7.5-325] Magnesium Oxide [Delgado] 500 mg PO DAILY 03/08/23 03/08/23 carvediloL [Coreg] 3.125 mg PO BID 03/08/23 03/08/23 hydrOXYzine HCL [Atarax] 10 mg PO DAILY PRN 03/08/23 03/08/23 Previous Rx's Medication Instructions Recorded Atorvastatin [Lipitor] 40 mg PO HS #30 tab 08/04/22 Clopidogrel [Plavix] 75 mg PO DAILY #30 tab 08/04/22 Furosemide [Lasix] 40 mg PO DAILY #30 tab 08/11/22 lisinopriL [Zestril] 5 mg PO DAILY #30 tab 08/11/22 Isosorbide Mononitrate ER [Imdur] 30 mg PO DAILY #30 tab 03/09/23 Oseltamivir [Tamiflu] 75 mg PO Q12HR 5 Days #10 cap 07/09/23 Allergies Allergy/AdvReac Type Severity Reaction Status Date / Time No Known Allergies Allergy Verified 05/12/23 11:56 Review of Systems ROS Statement: Those systems with pertinent positive or pertinent negative responses have been documented in the HPI. ROS Other: All systems not noted in ROS Statement are negative. Past Medical History Past Medical History: Asthma, COPD, GI Bleed, Hypertension, Myocardial Infarction (MD), Osteoarthritis (OA), Sleep Apnea/CPAP/BIPAP Additional Past Medical History / Comment(s): Tinnitus; OA in backs, knees, hands; uses home CPAP; gastric ulcers in her 30s, HX LT MACULAR HOLE-REPAIRED. 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 RT CTR. EGD. REPAIR LT MACULAR HOLE AND LT CATARACT REMOVED Past Anesthesia/Blood Transfusion Reactions: Motion Sickness Past Psychological History: Anxiety Smoking Status: Former smoker Past Alcohol Use History: None Reported Past Drug Use History: None Reported - Past Family History Father Family Medical History: Unable to Obtain Mother History Unknown: Yes Family Medical History: No Reported History, Cancer Additional Family Medical History / Comment(s): Esophageal cancer, arthritis General Exam - General Exam Comments Initial Comments: PHYSICAL EXAM: General Impression: Alert and oriented x3, not in acute distress HEENT: Normocephalic atraumatic, extra-ocular movements intact, pupils equal and reactive to light bilaterally, mucous membranes moist. Cardiovascular: Heart regular rate and rhythm Chest: Able to complete full sentences, no retractions, no tachypnea Abdomen: abdomen soft, non-tender, non-distended, no organomegaly Musculoskeletal: Pulses present and equal in all extremities, no peripheral edema Motor: no focal deficits noted Neurological: CN II-XII grossly intact, no focal motor or sensory deficits noted Skin: Intact with no visualized rashes Psych: Normal affect and mood Limitations: no limitations Course Vital Signs 08/28/23 08/28/23 08/28/23 01:54 01:59 02:07 Temperature 100.1 F H Pulse Rate 96 90 Pulse Rate [ 90 Machine Grainer ] Respiratory 20 18 Rate Blood Pressure 162/98 167/101 O2 Sat by Pulse 96 96 Oximetry 08/28/23 08/28/23 03:06 04:31 Temperature Pulse Rate 89 90 Pulse Rate [ Machine Grainer ] Respiratory 12 20 Rate Blood Pressure 150/79 123/102 O2 Sat by Pulse 96 92 L Oximetry EKG Findings - EKG Comments: EKG Findings:: My EKG interpretation: Ventricular rate 94, sinus rhythm,. #169, QRS 82, QTc 4 1. No MS prolongation, no QTC prolongation, no ST or T-wave changes noted. Overall, this EKG is unremarkable Medical Decision Making - Medical Decision Making Was pt. sent in by a medical professional or institution (, PA, PHYSICIAN SPECIALIST, urgent care, hospital, or fdc...) When possible be specific @ -No Did you speak to anyone other than the patient for history (EMS, parent, family, police, friend...)? What history was obtained from this source @ -No Did you review nursing and triage notes (agree or disagree)? Why? @ -I reviewed and agree with nursing and triage notes Were old charts reviewed (outside hosp., previous admission, EMS record, old EKG, old radiological studies, urgent care reports/EKG's, fdc records)? Report findings @ -No old charts were reviewed Differential Diagnosis (chest pain, altered mental status, abdominal pain women, abdominal pain men, vaginal bleeding, musculoskeletal, weakness, fever, dyspnea, syncope, headache, dizziness, GI bleed, back pain, seizure, CVA, palpatations, mental health)? @ -Differential Chest Pain: Stable Angina, Unstable Angina, STEMI, NSTEMI Aortic Dissection, Pneumothorax, Musculoskeletal, Esophageal Spasm GERD, Cholecystitis, Pancreatitis, Zoster, this is not meant to be an all-inclusive list. EKG interpreted by me (3pts min.). @ -See above X-rays interpreted by me (1pt min.). @ - CT interpreted by me (1pt min.). @ -None done U/S interpreted by me (1pt. min.). @ -None done What testing was considered but not performed or refused? (CT, X-rays, U/S, labs)? Why? @ -None What meds were considered but not given or refused? Why? @ -None Did you discuss the management of the patient with other professionals (pro fessionals i.e. , PA, PHYSICIAN SPECIALIST, lab, RT, psych nurse, social services manager, outside cutter, teacher, special officer, pillowcase folder)? Give summary @ -Case discussed with hospitalist for admission Was smoking cessation discussed for >3mins.? @ -No Was critical care preformed (if so, how long)? @ -No Were there social determinants of health that impacted care today? How? (Homelessness, low income, unemployed, alcoholism, drug addiction, transportation, low edu. Level, literacy, decrease access to med. care, long term, rehab)? @ -No Was there de-escalation of care discussed even if they declined (Discuss DNR or withdrawal of care, Hospice)? DNR status @ -No What co-morbidities impacted this encounter? (DM, HTN, Smoking, COPD, CAD, Cancer, CVA, ARF, Chemo, Hep., AIDS, mental health diagnosis, sleep apnea, morbid obesity)? @ -Coronary artery disease Was patient admitted / discharged? Hospital course, mention meds given and route, prescriptions, significant lab abnormalities, going to OR and other pertinent info. @ -73-year-old female presents to the emergency department for chest pain. Symptoms are suspicious for acute coronary syndrome. Vital signs upon arrival are within acceptable limits. EKG shows no ischemia infarction. Laboratory evaluation obtained. CBC, coag panel within acceptable limits. Metabolic panel within acceptable limits. Viral testing negative. Chest x-ray shows some vascular congestion. Patient received aspirin by prehospital providers. She will be admitted for serial troponins, cardiac monitoring and cardiology consultation. Patient had some chest pain while in the ER. She was given nitro repeat EKG did not show any dynamic changes. Patient admitted to [facility]. Initial troponin is 0.016 Undiagnosed new problem with uncertain prognosis? @ -No Drug Therapy requiring intensive monitoring for toxicity (Heparin, Nitro, Insulin, Cardizem)? @ -No Were any procedures done? @ -No Diagnosis/symptom? Acute, or Chronic, or Acute on Chronic? Uncomplicated (without systemic symptoms) or Complicated (systemic symptoms)? @ -Chest pain Side effects of treatment? @ -No Exacerbation, Progression, or Severe Exacerbation? @ -No Poses a threat to life or bodily function? How? (Chest pain, USA, MD, pneumonia, PE, COPD, DKA, ARF, appy, cholecystitis, CVA, Diverticulitis, Homicidal, Suicidal, threat to staff... and all critical care pts) @ -Yes - Lab Data Result diagrams: 08/28/23 02:05 08/28/23 02:05 Lab Results 08/28/23 08/28/23 08/28/23 Range/Units 02:05 02:05 02:05 WBC 12.2 H (3.8-10.6) k/uL RBC 4.12 (3.80-5.40) m/uL Hgb 11.7 (11.4-16.0) gm/dL Hct 37.2 (34.0-46.0) % MCV 90.1 (80.0-100.0) fL MCH 28.4 (25.0-35.0) pg MCHC 31.5 (31.0-37.0) g/dL RDW 15.1 (11.5-15.5) % Plt Count 227 (150-450) k/uL MPV 10.0 Neutrophils % 80 % Lymphocytes % 11 % Monocytes % 5 % Eosinophils % 3 % Basophils % 0 % Neutrophils # 9.8 H (1.3-7.7) k/uL Lymphocytes # 1.3 (1.0-4.8) k/uL Monocytes # 0.6 (0-1.0) k/uL Eosinophils # 0.4 (0-0.7) k/uL Basophils # 0.0 (0-0.2) k/uL PT 10.5 (10.0-12.5) sec INR 1.0 (<1.2) APTT 22.9 (22.0-30.0) sec Sodium 137 (137-145) mmol/L Potassium (3.5-5.1) mmol/L Chloride 110 H (98-107) mmol/L Carbon Dioxide 22 (22-30) mmol/L Anion Gap 5 mmol/L BUN 25 H (7-17) mg/dL Creatinine 1.40 H (0.52-1.04) mg/dL Est GFR (CKD-EPI)AfAm 43 (>60 ml/min/1.73 sqM) Est GFR (CKD-EPI)NonAf 37 (>60 ml/min/1.73 sqM) Glucose 158 H (74-99) mg/dL Calcium 8.9 (8.4-10.2) mg/dL Magnesium 2.0 (1.6-2.3) mg/dL Total Bilirubin 0.7 (0.2-1.3) mg/dL AST 37 H (14-36) U/L ALT 15 (4-34) U/L Alkaline Phosphatase 71 (38-126) U/L Troponin I (0.000-0.034) ng/mL Total Protein 6.4 (6.3-8.2) g/dL Albumin 3.5 (3.5-5.0) g/dL Influenza Type A (PCR) (Not Detectd) Influenza Type B (PCR) (Not Detectd) RSV (PCR) (Not Detectd) SARS-CoV-2 (PCR) (Not Detectd) 08/28/23 08/28/23 Range/Units 02:05 02:05 WBC (3.8-10.6) k/uL RBC (3.80-5.40) m/uL Hgb (11.4-16.0) gm/dL Hct (34.0-46.0) % MCV (80.0-100.0) fL MCH (25.0-35.0) pg MCHC (31.0-37.0) g/dL RDW (11.5-15.5) % Plt Count (150-450) k/uL MPV Neutrophils % % Lymphocytes % % Monocytes % % Eosinophils % % Basophils % % Neutrophils # (1.3-7.7) k/uL Lymphocytes # (1.0-4.8) k/uL Monocytes # (0-1.0) k/uL Eosinophils # (0-0.7) k/uL Basophils # (0-0.2) k/uL PT (10.0-12.5) sec INR (<1.2) APTT (22.0-30.0) sec Sodium (137-145) mmol/L Potassium (3.5-5.1) mmol/L Chloride (98-107) mmol/L Carbon Dioxide (22-30) mmol/L Anion Gap mmol/L BUN (7-17) mg/dL Creatinine (0.52-1.04) mg/dL Est GFR (CKD-EPI)AfAm (>60 ml/min/1.73 sqM) Est GFR (CKD-EPI)NonAf (>60 ml/min/1.73 sqM) Glucose (74-99) mg/dL Calcium (8.4-10.2) mg/dL Magnesium (1.6-2.3) mg/dL Total Bilirubin (0.2-1.3) mg/dL AST (14-36) U/L ALT (4-34) U/L Alkaline Phosphatase (38-126) U/L Troponin I 0.016 (0.000-0.034) ng/mL Total Protein (6.3-8.2) g/dL Albumin (3.5-5.0) g/dL Influenza Type A (PCR) Not Detected (Not Detectd) Influenza Type B (PCR) Not Detected (Not Detectd) RSV (PCR) Not Detected (Not Detectd) SARS-CoV-2 (PCR) Not Detected (Not Detectd) Disposition Clinical Impression: Chest pain Disposition: ADMITTED IP TO THIS HOSP Condition: Fair Referrals: None,Stated [REFERRING] - 1-2 days Decision Time: 06:52
[2023-08-28 02:22] LABS: Basophils % (A) 0 %; Eosinophils # (A) 0.4 k/uL (0-0.7); Eosinophils % (A) 3 %; HCT 37.2 % (34.0-46.0); HGB 11.7 gm/dL (11.4-16.0); Lymphocytes # (A) 1.3 k/uL (1.0-4.8); Lymphocytes % (A) 11 %; MCH 28.4 pg (25.0-35.0); MCHC 31.5 g/dL (31.0-37.0); MCV 90.1 fL (80.0-100.0); Monocytes # (A) 0.6 k/uL (0-1.0); Monocytes % (A) 5 %; Neutrophils # (A) 9.8 k/uL (1.3-7.7); Neutrophils % (A) 80 %; Platelet Count 227 k/uL (150-450); RBC 4.12 m/uL (3.80-5.40); RDW 15.1 % (11.5-15.5); WBC 12.2 k/uL (3.8-10.6)
--- NOTE | 2023-08-28 02:31 | XR ---
EXAM: XR Chest, 2 Views CLINICAL HISTORY: ITS.REASON XR Reason: Chest Pain TECHNIQUE: Frontal and lateral views of the chest. COMPARISON: No relevant prior studies available. IMPRESSION: Cardiomegaly. Mild vascular congestion
[2023-08-28 03:11] LABS: ALT 15 U/L (4-34); African American GFR (CKD) 43 (>60 ml/min/1.73 sqM); Anion Gap 5 mmol/L; Blood Urea Nitrogen 25 mg/dL (7-17); Calcium 8.9 mg/dL (8.4-10.2); Carbon Dioxide 22 mmol/L (22-30); Chloride 110 mmol/L (98-107); Glucose 158 mg/dL (74-99); Non-African American GFR(CKD) 37 (>60 ml/min/1.73 sqM); Partial Thromboplastin Time 22.9 sec (22.0-30.0); Prothrombin Time 10.5 sec (10.0-12.5); Sodium 137 mmol/L (137-145); Total Bilirubin 0.7 mg/dL (0.2-1.3)
[2023-08-28 03:20] LABS: AST 37 U/L (14-36); Albumin 3.5 g/dL (3.5-5.0); Alkaline Phosphatase 71 U/L (38-126); Total Protein 6.4 g/dL (6.3-8.2)
[2023-08-28] MEDS: ACETAMINOPHEN TAB 500 MG TAB PO STA (04:46)
[2023-08-28] MEDS: NITROGLYCERIN SL TABS 0.4 MG TAB SUBLINGUAL PRN (06:02)
[2023-08-28] MEDS ORDERED: carvediloL 3.125 MG TAB PO SCH (09:00)
[2023-08-28] MEDS: FUROSEMIDE 40 MG TAB PO SCH (10:33)
[2023-08-28] MEDS: CLOPIDOGREL 75 MG TAB PO SCH (10:33)
[2023-08-28] MEDS: DAPAGLIFLOZIN PROPANEDIOL 10 MG TABLET PO SCH (10:34)
[2023-08-28] MEDS: carvediloL 6.25 MG TAB PO SCH (10:34)
[2023-08-28] MEDS: ISOSORBIDE MONONITRATE ER 30 MG TAB.ER.24H PO SCH (10:34)
--- NOTE | 2023-08-28 11:10 | P.CRDCN ---
History of Present Illness History of present illness: HISTORY OF PRESENT ILLNESS: This is a 73-year-old female with a past medical history significant for coronary artery disease, cardiomyopathy, hypertension, hyperlipidemia, and morbid obesity. Patient follows in the office with Dr. Heredia. We have been asked to see the patient in consultation for chest pain. Patient examined at the bedside emergency room. Patient states that she felt very tired and slept all day on Sunday. She states yesterday morning she began to have chest discomfort in the morning that got worse in the afternoon. She states the pain was across both sides of her chest. She denied any radiation of pain. This morning she is having dry heaves at the time of examination. Patient's blood pressure has been elevated with a systolic between 1501 60. DIAGNOSTICS: - EKG reveals sinus mechanism with no signs of acute ischemia. - Chest xray mild pulmonary vascular congestion. - Laboratory data: WBC 12.2. Hemoglobin 11.7. Platelet count 227. Sodium 137. BUN 25. Creatinine 1.40. Troponin negative x 2. - Current home cardiac medications include lisinopril 5 mg daily, Lipitor 40 mg at night, Plavix 75 mg daily, Lasix 40 mg daily, carvedilol 3.125 mg twice a day. - Most recent echocardiogram obtained in August 2022 revealed ejection fraction 40 to 45% - Cardiac catheterization history: July 2022 revealing intermediate nonobstructive tubular lesion involving the mid RCA REVIEW OF SYSTEMS: At the time of my exam: CONSTITUTIONAL: Denies fever or chills. HEENT: Denies blurred vision, vision changes, or eye pain. Denies hemoptysis CARDIOVASCULAR: Denies chest pain. Denies orthopnea. Denies PND. Denies palpitations RESPIRATORY: Denies shortness of breath. GASTROINTESTINAL: Denies abdominal pain. Denies nausea or vomiting. HEMATOLOGIC: Denies bleeding disorders. GENITOURINARY: Denies any blood in urine. SKIN: Denies pruitis. Denies rash. PHYSICAL EXAM: VITAL SIGNS: Reviewed. GENERAL: Well-developed in no acute distress. HEENT: Head is normocephalic. Pupils are equal, round. Sclerae anicteric. Mucous membranes of the mouth are moist. Neck supple. No JVD or thyromegaly LUNGS: Respirations even and unlabored. Lungs essentially clear to auscultation bilaterally. HEART: Regular rate and rhythm. S1 and S2 heard. ABDOMEN: Soft. Nondistended. Nontender. EXTREMITIES: Normal range of motion. No clubbing or cyanosis. Peripheral pulses intact. No lower extremity edema NEUROLOGIC: Awake and alert. Oriented x 3. ASSESSMENT: Chest pain, troponin negative x 2 Coronary artery disease Ischemic cardiomyopathy Congestive heart failure with reduced EF, currently euvolemic Chronic kidney disease Hypertension Hyperlipidemia Morbid obesity PLAN: Check potassium level Increase carvedilol to 6.25 mg twice a day Add Farxiga 10 mg daily Discontinue lisinopril Begin Entresto starting tomorrow morning Continue to monitor blood pressure Further recommendations pending patient course Nurse practitioner note has been reviewed by physician. Signing provider agrees with the documented findings, assessment, and plan of care documented by DIESEL ROLLER OPERATOR as a scribe. Past Medical History Past Medical History: Asthma, COPD, GI Bleed, Hypertension, Myocardial Infarction (RI), Osteoarthritis (OA), Sleep Apnea/CPAP/BIPAP Additional Past Medical History / Comment(s): Tinnitus; OA in backs, knees, hands; uses home CPAP; gastric ulcers in her 30s, HX LT MACULAR HOLE-REPAIRED. 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 RT CTR. EGD. REPAIR LT MACULAR HOLE AND LT CATARACT REMOVED Past Anesthesia/Blood Transfusion Reactions: Motion Sickness Past Psychological History: Anxiety Smoking Status: Former smoker Past Alcohol Use History: None Reported Past Drug Use History: None Reported - Past Family History Father Family Medical History: Unable to Obtain Mother History Unknown: Yes Family Medical History: No Reported History, Cancer Additional Family Medical History / Comment(s): Esophageal cancer, arthritis Medications and Allergies Home Medications Medication Instructions Recorded Confirmed Type Albuterol Sulfate [Proair Hfa] 2 puff INHALATION RT-QID PRN 09/11/18 08/28/23 History Citalopram Hydrobromide [CeleXA] 20 mg PO DAILY 09/11/18 08/28/23 History rOPINIRole HCL [Requip] 2 mg PO HS 06/08/19 08/28/23 History traZODone HCL 50 mg PO HS 06/08/19 08/28/23 History allopurinoL [Zyloprim] 100 mg PO HS 05/13/20 08/28/23 History Fluticasone/Umeclidin/Vilanter 1 puff INHALATION RT-DAILY 07/30/22 08/28/23 History [Tim Ellipta 200-62.5-25] Atorvastatin [Lipitor] 40 mg PO HS #30 tab 08/04/22 08/28/23 Rx Clopidogrel [Plavix] 75 mg PO DAILY #30 tab 08/04/22 08/28/23 Rx Furosemide [Lasix] 40 mg PO DAILY #30 tab 08/11/22 08/28/23 Rx Gabapentin [Neurontin] 300 mg PO TID 03/08/23 08/28/23 History HYDROcodone/APAP 7.5-325MG [[place] 1 tab PO BID 03/08/23 08/28/23 History 7.5-325] carvediloL [Coreg] 3.125 mg PO BID 03/08/23 08/28/23 History Isosorbide Mononitrate ER [Imdur] 30 mg PO DAILY #30 tab 03/09/23 08/28/23 Rx Alendronate Sodium [Fosamax] 70 mg PO TH 08/28/23 08/28/23 History Citalopram Hydrobromide [CeleXA] 10 mg PO DAILY 08/28/23 08/28/23 History Famotidine [Pepcid] 20 mg PO DAILY 08/28/23 08/28/23 History Ibuprofen [Motrin] 800 mg PO BID PRN 08/28/23 08/28/23 History Ipratropium-Albuterol Nebulize 3 ml INHALATION RT-BID 08/28/23 08/28/23 History [Duoneb 0.5 mg-3 mg/3 ml Soln] Tirzepatide [Mounjaro] 2.5 mg SQ TH 08/28/23 08/28/23 History Allergies Allergy/AdvReac Type Severity Reaction Status Date / Time No Known Allergies Allergy Verified 08/28/23 07:47 Physical Exam Vitals: Vital Signs Temp Pulse Pulse Resp BP Pulse Ox 08/28/23 07:09 77 18 132/60 92 L 08/28/23 06:02 97.8 F 82 18 156/80 94 L 08/28/23 04:31 90 20 123/102 92 L 08/28/23 03:06 89 12 150/79 96 08/28/23 02:07 90 18 167/101 96 08/28/23 01:59 90 08/28/23 01:54 100.1 F H 96 20 162/98 96 Intake and Output 08/27/23 08/28/23 08/28/23 22:59 06:59 14:59 Other: Weight 111.13 kg Results 08/28/23 02:05 08/28/23 02:05 Cardiac Enzymes 08/28/23 08/28/23 08/28/23 Range/Units 02:05 02:05 07:44 AST 37 H (14-36) U/L Troponin I 0.016 0.030 (0.000-0.034) ng/mL Coagulation 08/28/23 Range/Units 02:05 PT 10.5 (10.0-12.5) sec APTT 22.9 (22.0-30.0) sec CBC 08/28/23 Range/Units 02:05 WBC 12.2 H (3.8-10.6) k/uL RBC 4.12 (3.80-5.40) m/uL Hgb 11.7 (11.4-16.0) gm/dL Hct 37.2 (34.0-46.0) % Plt Count 227 (150-450) k/uL Comprehensive Metabolic Panel 08/28/23 Range/Units 02:05 Sodium 137 (137-145) mmol/L Potassium (3.5-5.1) mmol/L Chloride 110 H (98-107) mmol/L Carbon Dioxide 22 (22-30) mmol/L BUN 25 H (7-17) mg/dL Creatinine 1.40 H (0.52-1.04) mg/dL Glucose 158 H (74-99) mg/dL Calcium 8.9 (8.4-10.2) mg/dL AST 37 H (14-36) U/L ALT 15 (4-34) U/L Alkaline Phosphatase 71 (38-126) U/L Total Protein 6.4 (6.3-8.2) g/dL Albumin 3.5 (3.5-5.0) g/dL Current Medications Generic Name Dose Route Start Last Admin Trade Name Freq PRN Reason Stop Dose Admin Atorvastatin Calcium 40 mg 08/28/23 21:00 Atorvastatin 40 Mg Tab PO HS LOIS Carvedilol 6.25 mg 08/28/23 09:00 08/28/23 10:34 Carvedilol 6.25 Mg Tab PO 6.25 mg BID-W/MEALS LOIS Administration Clopidogrel Bisulfate 75 mg 08/28/23 09:00 08/28/23 10:33 Clopidogrel 75 Mg Tab PO 75 mg DAILY LOIS Administration Dapagliflozin 10 mg 08/28/23 09:00 08/28/23 10:34 Dapagliflozin Propanediol 10 Mg Tablet PO 10 mg DAILY LOIS Administration Furosemide 40 mg 08/28/23 09:00 08/28/23 10:33 Furosemide 40 Mg Tab PO 40 mg DAILY [facility] Administration Isosorbide Mononitrate 30 mg 08/28/23 09:00 08/28/23 10:34 Isosorbide Mononitrate Er 30 Mg Tab.Er.24h PO 30 mg DAILY LOIS Administration Nitroglycerin 0.4 mg 08/28/23 05:32 08/28/23 06:16 Nitroglycerin Sl Tabs 0.4 Mg Tab SUBLINGUAL 0.4 mg Q5M PRN Administration Chest Pain Sacubitril/Valsartan 1 each 08/29/23 09:00 Sacubitril/Valsartan 24 Mg-26 Mg Tablet PO BID [facility] Intake and Output 08/27/23 08/28/23 08/28/23 22:59 06:59 14:59 Other: Weight 111.13 kg 08/28/23 02:05 08/28/23 02:05
[2023-08-28] MEDS: ACETAMINOPHEN TAB 500 MG TAB PO PRN (16:41)
[2023-08-28] MEDS ORDERED: DEXTROSE 50% SYRINGE 50 ML IVP PRN ×2 (17:46)
[2023-08-28] MEDS: GABAPENTIN 300 MG CAP PO SCH (18:15)
[2023-08-28 20:41] LABS: Glucose,Whole Blood 166 mg/dL (70-110)
[2023-08-28] MEDS: IPRATROPIUM-ALBUTEROL 3 ML NEB INHALATION SCH (20:44)
[2023-08-28] MEDS: traZODone HCL 50 MG TAB PO SCH (21:35)
[2023-08-28] MEDS: HYDROcodone/APAP 7.5-325MG 1 EACH TAB PO SCH (21:35)
[2023-08-28] MEDS: ATORVASTATIN 40 MG TAB PO SCH (21:35)
[2023-08-28] MEDS: INSULIN ASPART (NovoLOG) 100 UNIT/ML VIAL SQ SCH (21:36)
[2023-08-29 06:51] LABS: Glucose,Whole Blood 140 mg/dL (70-110)
[2023-08-29] MEDS ORDERED: NON FORMULARY DRUG (Fluticasone/Umeclidin/Vilanter [Trelegy Ellipta 200-62.5-25] 1 EACH Bl INHALATION SCH (08:00)
[2023-08-29 08:40] LABS: African American GFR (CKD) 42 (>60 ml/min/1.73 sqM); Anion Gap 7 mmol/L; Blood Urea Nitrogen 22 mg/dL (7-17); Calcium 8.5 mg/dL (8.4-10.2); Carbon Dioxide 22 mmol/L (22-30); Chloride 109 mmol/L (98-107); Glucose 130 mg/dL (74-99); Non-African American GFR(CKD) 37 (>60 ml/min/1.73 sqM); Potassium 3.7 mmol/L (3.5-5.1); Sodium 138 mmol/L (137-145)
[2023-08-29] MEDS ORDERED: ASPIRIN 325 MG TAB PO SCH (09:00)
[2023-08-29] MEDS: SACUBITRIL/VALSARTAN 24 MG-26 MG TABLET PO SCH (09:32)
[2023-08-29] MEDS: FAMOTIDINE 20 MG TAB PO SCH (09:33)
[2023-08-29] MEDS: CITALOPRAM HYDROBROMIDE 20 MG TAB PO SCH (09:33)
[2023-08-29] MEDS: CITALOPRAM HYDROBROMIDE 10 MG TAB PO SCH (09:33)
--- NOTE | 2023-08-29 09:46 | P.HPIM ---
History of Present Illness H&P Date: 08/29/23 Chief Complaint: chest pain History and Physical and Discharge Summary: This is a 73-year-old female initially admitted to 2 other groups previously and finally admitted to us last night with complaints of midsternal chest pain radiating across bilateral chest accompanied by increased fatigue, nausea in a patient with past medical history significant for morbid obesity, osteoarthritis, obstructive sleep apnea- wears CPAP, former nicotine dependence, COPD, chronic hypoxic respiratory failure wears 2 L nasal cannula O2 at home, CAD, IL, cardiomyopathy, hypertension, CKD stage III, baseline 1.4. On admission, temperature 100.1, WBC 12.2, hypertensive with blood pressures of 160s over 100. Evaluated by cardiology, antihypertensives further adjusted with Faxiga added to med regimen. Troponins negative x 3. EKG reported sinus rhythm, repeat EKG pending. Chest x-ray reported cardiomegaly, mild vascular congestion. Hemoglobin 11.7, platelets 227, INR 1. Sodium 138, potassium 3.7, bicarb 22, BUN 22, creatinine 1.42 blood sugars controlled, magnesium 2, viral studies negative. Currently denies chest pain, palpitations or shortness of breath, vital signs stable. Review of Systems ROS Statement: Those systems with pertinent positive or pertinent negative responses have been documented in the HPI. ROS Other: All systems not noted in ROS Statement are negative. Past Medical History Past Medical History: Asthma, COPD, GI Bleed, Hypertension, Myocardial Infarction (IL), Osteoarthritis (OA), Sleep Apnea/CPAP/BIPAP Additional Past Medical History / Comment(s): Tinnitus; OA in backs, knees, hands; uses home CPAP; gastric ulcers in her 30s, HX LT MACULAR HOLE-REPAIRED. 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 RT CTR. EGD. REPAIR LT MACULAR HOLE AND LT CATARACT REMOVED Past Anesthesia/Blood Transfusion Reactions: Motion Sickness Past Psychological History: Anxiety Smoking Status: Former smoker Past Alcohol Use History: None Reported Additional Past Alcohol Use History / Comment(s): QUIT SMOKING 1989 Past Drug Use History: None Reported - Past Family History Father Family Medical History: Unable to Obtain Mother History Unknown: Yes Family Medical History: No Reported History, Cancer Additional Family Medical History / Comment(s): Esophageal cancer, arthritis Medications and Allergies Home Medications Medication Instructions Recorded Confirmed Type Albuterol Sulfate [Proair Hfa] 2 puff INHALATION RT-QID PRN 09/11/18 08/28/23 History Citalopram Hydrobromide [CeleXA] 20 mg PO DAILY 09/11/18 08/28/23 History rOPINIRole HCL [Requip] 2 mg PO HS 06/08/19 08/28/23 History traZODone HCL 50 mg PO HS 06/08/19 08/28/23 History allopurinoL [Zyloprim] 100 mg PO HS 05/13/20 08/28/23 History Fluticasone/Umeclidin/Vilanter 1 puff INHALATION RT-DAILY 07/30/22 08/28/23 History [Trelegy Ellipta 200-62.5-25] Atorvastatin [Lipitor] 40 mg PO HS #30 tab 08/04/22 08/28/23 Rx Clopidogrel [Plavix] 75 mg PO DAILY #30 tab 08/04/22 08/28/23 Rx Furosemide [Lasix] 40 mg PO DAILY #30 tab 08/11/22 08/28/23 Rx Gabapentin [Neurontin] 300 mg PO TID 03/08/23 08/28/23 History HYDROcodone/APAP 7.5-325MG [[place] 1 tab PO BID 03/08/23 08/28/23 History 7.5-325] Isosorbide Mononitrate ER [Imdur] 30 mg PO DAILY #30 tab 03/09/23 08/28/23 Rx Alendronate Sodium [Fosamax] 70 mg PO TH 08/28/23 08/28/23 History Citalopram Hydrobromide [CeleXA] 10 mg PO DAILY 08/28/23 08/28/23 History Famotidine [Pepcid] 20 mg PO DAILY 08/28/23 08/28/23 History Ipratropium-Albuterol Nebulize 3 ml INHALATION RT-BID 08/28/23 08/28/23 History [Duoneb 0.5 mg-3 mg/3 ml Soln] Tirzepatide [Mounjaro] 2.5 mg SQ TH 08/28/23 08/28/23 History Dapagliflozin Propanediol [Farxiga] 10 mg PO DAILY #30 tab 08/29/23 Rx Sacubitril/Valsartan [Entresto 24 1 each PO BID #60 tab 08/29/23 Rx mg-26 mg Tablet] carvediloL [Coreg] 6.25 mg PO BID-W/MEALS #60 tab 08/29/23 Rx Allergies Allergy/AdvReac Type Severity Reaction Status Date / Time No Known Allergies Allergy Verified 08/28/23 07:47 Physical Exam Vitals: Vital Signs Temp Pulse Pulse Pulse Resp BP BP 08/29/23 09:26 80 08/29/23 09:14 82 08/29/23 07:00 98.3 F 71 16 137/68 08/29/23 02:00 69 16 08/29/23 01:28 97.9 F 58 L 16 108/62 08/28/23 21:07 68 08/28/23 20:52 68 08/28/23 20:00 69 16 08/28/23 19:18 98.1 F 70 15 133/78 08/28/23 17:30 98 F 66 16 129/72 08/28/23 16:58 72 18 139/61 Pulse Ox 08/29/23 09:26 08/29/23 09:14 94 L 08/29/23 07:00 97 08/29/23 02:00 08/29/23 01:28 94 L 08/28/23 21:07 08/28/23 20:52 08/28/23 20:00 08/28/23 19:18 98 08/28/23 17:30 97 08/28/23 16:58 Intake and Output 08/28/23 08/29/23 08/29/23 22:59 06:59 14:59 Other: Voiding Method Toilet Toilet # Voids 2 1 Weight 111.13 kg PHYSICAL EXAM: VITAL SIGNS: [As above] GENERAL: Morbidly obese, alert and oriented x 3, sitting up at bedside eating breakfast,MMM,NAD. HEENT: Normocephalic, conjunctivae normal. eyes normal. NECK: Supple, no JVD. No thyroid enlargement. No LNs CARDIOVASCULAR: S1, S2 regular.No murmur RESPIRATION: Unlabored, equal air entry, clear to auscultation with bilateral bases diminished. ABDOMEN: Obese, soft, nontender . No guarding. no masses palpable. No ascites, No hepatosplenomegaly.Bowel sounds heard. LEGS: No edema. no swelling PSYCHIATRY: Alert and oriented X3, mood and affect normal. NERVOUS SYSTEM: Cranial N 2-12 grossly normal. No focal deficits. Strength and sensation grossly intact.. Skin: Warm and dry, no rash Results CBC & Chem 7: 08/28/23 02:05 08/29/23 06:36 Labs: Abnormal Lab Results - Last 24 Hours (Table) 08/28/23 08/29/23 08/29/23 Range/Units 20:39 06:36 06:49 Chloride 109 H (98-107) mmol/L BUN 22 H (7-17) mg/dL Creatinine 1.42 H (0.52-1.04) mg/dL Glucose 130 H (74-99) mg/dL POC Glucose (mg/dL) 166 H 140 H (70-110) mg/dL Thrombosis Risk Factor Assmnt - Choose All That Apply Each Risk Factor Represents 2 Points: Age 61-74 years Thrombosis Risk Factor Assessment Total Risk Factor Score: 2 Thrombosis Risk Factor Assessment Level: Low Risk Assessment and Plan Assessment: Chest pain, negative troponins Hypertension CAD, history of IL Congestive heart failure, systolic dysfunction Ischemic cardiomyopathy Hyperlipidemia Chronic hypoxic respiratory failure, wears 2 L nasal cannula at home Obstructive sleep apnea, wears CPAP COPD CKD, stage III, baseline creatinine 1.4 OA Prior nicotine dependence Morbid obesity, BMI 46 Plan: Continue on current medication regimen ,monitoring and symptomatic treatment. Further med adjustments as per cardiology. Entresto initiated this morning. Close monitoring of worsening renal function, hypotension. Titrate oxygen/COPD. Discharge planning in progress for today pending final DC recommendations and clearance per cardiology. Discharge Medication List Albuterol Sulfate [Proair Hfa] 2 puff INHALATION RT-QID PRN 09/11/18 [History] Citalopram Hydrobromide [CeleXA] 20 mg PO DAILY 09/11/18 [History] rOPINIRole HCL [Requip] 2 mg PO HS 06/08/19 [History] traZODone HCL 50 mg PO HS 06/08/19 [History] allopurinoL [Zyloprim] 100 mg PO HS 05/13/20 [History] Fluticasone/Umeclidin/Vilanter [Trelegy Ellipta 200-62.5-25] 1 puff INHALATION RT-DAILY 07/30/22 [History] Atorvastatin [Lipitor] 40 mg PO HS #30 tab 08/04/22 [Rx] Clopidogrel [Plavix] 75 mg PO DAILY #30 tab 08/04/22 [Rx] Furosemide [Lasix] 40 mg PO DAILY #30 tab 08/11/22 [Rx] Gabapentin [Neurontin] 300 mg PO TID 03/08/23 [History] HYDROcodone/APAP 7.5-325MG [[place] 7.5-325] 1 tab PO BID 03/08/23 [History] Isosorbide Mononitrate ER [Imdur] 30 mg PO DAILY #30 tab 03/09/23 [Rx] Alendronate Sodium [Fosamax] 70 mg PO TH 08/28/23 [History] Citalopram Hydrobromide [CeleXA] 10 mg PO DAILY 08/28/23 [History] Famotidine [Pepcid] 20 mg PO DAILY 08/28/23 [History] Ipratropium-Albuterol Nebulize [Duoneb 0.5 mg-3 mg/3 ml Soln] 3 ml INHALATION RT-BID 08/28/23 [History] Tirzepatide [Mounjaro] 2.5 mg SQ TH 08/28/23 [History] Dapagliflozin Propanediol [Farxiga] 10 mg PO DAILY #30 tab 08/29/23 [Rx] Sacubitril/Valsartan [Entresto 24 mg-26 mg Tablet] 1 each PO BID #60 tab 08/29/23 [Rx] carvediloL [Coreg] 6.25 mg PO BID-W/MEALS #60 tab 08/29/23 [Rx] The impression and plan of care has been dictated as directed. : I performed a history and examination of this patient, discussed the same with the dictator. I agree with the dictator's note ,documented as a scribe. Any additional findings or plans will be noted.
--- NOTE | 2023-08-29 11:33 | P.PN ---
Subjective HISTORY OF PRESENT ILLNESS: This is a 73-year-old female with a past medical history significant for coronary artery disease, cardiomyopathy, hypertension, hyperlipidemia, and morbid obesity. Patient follows in the office with Dr. Heredia. We have been asked to see the patient in consultation for chest pain. Patient examined at the bedside emergency room. Patient states that she felt very tired and slept all day on Sunday. She states yesterday morning she began to have chest discomfort in the morning that got worse in the afternoon. She states the pain was across both sides of her chest. She denied any radiation of pain. This morning she is having dry heaves at the time of examination. Patient's blood pressure has been elevated with a systolic between 1501 60. DIAGNOSTICS: - EKG reveals sinus mechanism with no signs of acute ischemia. - Chest xray mild pulmonary vascular congestion. - Laboratory data: WBC 12.2. Hemoglobin 11.7. Platelet count 227. Sodium 137. BUN 25. Creatinine 1.40. Troponin negative x 2. - Current home cardiac medications include lisinopril 5 mg daily, Lipitor 40 mg at night, Plavix 75 mg daily, Lasix 40 mg daily, carvedilol 3.125 mg twice a day. - Most recent echocardiogram obtained in August 2022 revealed ejection fraction 40 to 45% - Cardiac catheterization history: July 2022 revealing intermediate nonobstructive tubular lesion involving the mid RCA 08/29/2023 Patient examined this morning at the bedside. Patient states she is feeling much better today. Patient denies chest pain or pressure. Denies SOB. Vital signs are stable. PHYSICAL EXAM: VITAL SIGNS: Reviewed. GENERAL: Well-developed in no acute distress. HEENT: Head is normocephalic. Pupils are equal, round. Sclerae anicteric. Mucous membranes of the mouth are moist. Neck supple. No JVD or thyromegaly LUNGS: Respirations even and unlabored. Lungs essentially clear to auscultation bilaterally. HEART: Regular rate and rhythm. S1 and S2 heard. ABDOMEN: Soft. Nondistended. Nontender. EXTREMITIES: Normal range of motion. No clubbing or cyanosis. Peripheral pulses intact. No lower extremity edema NEUROLOGIC: Awake and alert. Oriented x 3. ASSESSMENT: Chest pain, troponin negative x 2 Coronary artery disease Ischemic cardiomyopathy Congestive heart failure with reduced EF, currently euvolemic Chronic kidney disease Hypertension Hyperlipidemia Morbid obesity PLAN: Continue current cardiac medications Patient started on Entresto this morning Repeat kidney function in a.m. Recommend eventual addition of Aldactone Anticipate discharge home tomorrow Nurse practitioner note has been reviewed by physician. Signing provider agrees with the documented findings, assessment, and plan of care documented by LABORATORY TECH as a scribe. Objective - Vital Signs Vital signs: Vital Signs Temp 98.3 F 08/29/23 07:00 Pulse 80 08/29/23 09:26 Resp 16 08/29/23 07:00 BP 137/68 08/29/23 07:00 Pulse Ox 94 L 08/29/23 09:14 FiO2 Intake & Output 08/28/23 08/29/23 08/29/23 18:59 06:59 18:59 Weight 111.13 kg Other: Voiding Method Toilet # Voids 1 - Labs CBC & Chem 7: 08/28/23 02:05 08/29/23 06:36 Labs: Abnormal Lab Results - Last 24 Hours (Table) 08/28/23 08/29/23 08/29/23 Range/Units 20:39 06:36 06:36 Chloride 109 H (98-107) mmol/L BUN 22 H (7-17) mg/dL Creatinine 1.42 H (0.52-1.04) mg/dL Glucose 130 H (74-99) mg/dL POC Glucose (mg/dL) 166 H (70-110) mg/dL Hemoglobin A1c 7.0 H (<=6.0) % 08/29/23 Range/Units 06:49 Chloride (98-107) mmol/L BUN (7-17) mg/dL Creatinine (0.52-1.04) mg/dL Glucose (74-99) mg/dL POC Glucose (mg/dL) 140 H (70-110) mg/dL Hemoglobin A1c (<=6.0) %
[2023-08-29 12:16] LABS: Glucose,Whole Blood 139 mg/dL (70-110)
[2023-08-29 15:39] LABS: Chol/HDL Ratio 2.65 Ratio; LDL Cholesterol,Calculated 58.8 mg/dL (0.0-131.0)
[2023-08-29 17:01] LABS: Glucose,Whole Blood 128 mg/dL (70-110)
[2023-08-29 21:00] LABS: Glucose,Whole Blood 169 mg/dL (70-110)
[2023-08-29 22:48] VITALS: TEMP 97.8
[2023-08-30 06:18] LABS: Glucose,Whole Blood 150 mg/dL (70-110)
[2023-08-30 08:41] VITALS: RESP 17
--- NOTE | 2023-08-30 09:46 | P.PN ---
Subjective HISTORY OF PRESENT ILLNESS: This is a 73-year-old female with a past medical history significant for coronary artery disease, cardiomyopathy, hypertension, hyperlipidemia, and morbid obesity. Patient follows in the office with Dr. Heredia. We have been asked to see the patient in consultation for chest pain. Patient examined at the bedside emergency room. Patient states that she felt very tired and slept all day on Sunday. She states yesterday morning she began to have chest discomfort in the morning that got worse in the afternoon. She states the pain was across both sides of her chest. She denied any radiation of pain. This morning she is having dry heaves at the time of examination. Patient's blood pressure has been elevated with a systolic between 1501 60. DIAGNOSTICS: - EKG reveals sinus mechanism with no signs of acute ischemia. - Chest xray mild pulmonary vascular congestion. - Laboratory data: WBC 12.2. Hemoglobin 11.7. Platelet count 227. Sodium 137. BUN 25. Creatinine 1.40. Troponin negative x 2. - Current home cardiac medications include lisinopril 5 mg daily, Lipitor 40 mg at night, Plavix 75 mg daily, Lasix 40 mg daily, carvedilol 3.125 mg twice a day. - Most recent echocardiogram obtained in August 2022 revealed ejection fraction 40 to 45% - Cardiac catheterization history: July 2022 revealing intermediate nonobstructive tubular lesion involving the mid RCA 08/29/2023 Patient examined this morning at the bedside. Patient states she is feeling much better today. Patient denies chest pain or pressure. Denies SOB. Vital signs are stable. 08/30/2023 Patient examined this morning the bedside. Patient reports having an episode of chest discomfort around 2:00 in the morning. She states that she did not report this to the staff. She does report having another mild episode this morning around 7 AM. She does report some tenderness with chest wall palpation. At the time of examination, she denies any chest pain or pressure. Denies any shortness of breath. Vital signs are stable. Kidney function from this morning is currently pending. Repeat EKG obtained this morning reveals sinus mechanism with no signs of acute ischemia. PHYSICAL EXAM: VITAL SIGNS: Reviewed. GENERAL: Well-developed in no acute distress. HEENT: Head is normocephalic. Pupils are equal, round. Sclerae anicteric. Mucous membranes of the mouth are moist. Neck supple. No JVD or thyromegaly LUNGS: Respirations even and unlabored. Lungs essentially clear to auscultation bilaterally. HEART: Regular rate and rhythm. S1 and S2 heard. ABDOMEN: Soft. Nondistended. Nontender. EXTREMITIES: Normal range of motion. No clubbing or cyanosis. Peripheral pulses intact. No lower extremity edema NEUROLOGIC: Awake and alert. Oriented x 3. ASSESSMENT: Chest pain, troponin negative x 2 Coronary artery disease Ischemic cardiomyopathy Congestive heart failure with reduced EF, currently euvolemic Chronic kidney disease Hypertension Hyperlipidemia Morbid obesity PLAN: Continue current cardiac medications Recommend eventual addition of Aldactone on an outpatient basis Awaiting kidney function from this morning. If kidney function remains stable, patient may be discharged home today from a cardiac standpoint Nurse practitioner note has been reviewed by physician. Signing provider agrees with the documented findings, assessment, and plan of care documented by [employer] MEMBER as a scribe. Objective - Vital Signs Vital signs: Vital Signs Temp 97.8 F 08/30/23 07:00 Pulse 70 08/30/23 09:31 Resp 17 08/30/23 07:00 BP 105/55 08/30/23 07:00 Pulse Ox 97 08/30/23 09:18 FiO2 Intake & Output 08/29/23 08/30/23 08/30/23 18:59 06:59 18:59 Intake Total 444 240 Balance 444 240 Intake: Oral 444 240 Other: Voiding Method Toilet # Voids 5 5 - Labs CBC & Chem 7: 08/28/23 02:05 08/29/23 06:36 Labs: Abnormal Lab Results - Last 24 Hours (Table) 08/29/23 08/29/23 08/29/23 Range/Units 06:36 12:14 17:00 POC Glucose (mg/dL) 139 H 128 H (70-110) mg/dL Hemoglobin A1c 7.0 H (<=6.0) % 08/29/23 08/30/23 Range/Units 20:59 06:17 POC Glucose (mg/dL) 169 H 150 H (70-110) mg/dL Hemoglobin A1c (<=6.0) %
[2023-08-30 10:59] VITALS: BP 125/85; PULSE 71
[2023-08-30 11:14] LABS: Calcium 8.8 mg/dL (8.7-10.3); Carbon Dioxide 26.7 mmol/L (21.6-31.8); Chloride 105 mmol/L (96-109); Glucose 116 mg/dL (70-110); Potassium 3.9 mmol/L (3.5-5.5); Sodium 143 mmol/L (135-145)
[2023-08-30 12:17] LABS: Glucose,Whole Blood 147 mg/dL (70-110)
== END 2023-08-30 14:19 | disposition home or self-care (01) ==
LOC: EC 01:51 → 6NMEDSUR 05:33
PROVIDERS: ADMIT Family Medicine; ATTEND Family Medicine
DX: R07.89 Other chest pain (principal); I25.10 Atherosclerotic heart disease of native coronary artery without angina pectoris; I25.5 Ischemic cardiomyopathy; I13.0 Hypertensive heart and chronic kidney disease with heart failure and stage 1 through stage 4 chronic kidney disease, or unspecified chronic kidney disease; I50.20 Unspecified systolic (congestive) heart failure; N18.30 Chronic kidney disease, stage 3 unspecified; J44.9 Chronic obstructive pulmonary disease, unspecified; G47.33 Obstructive sleep apnea (adult) (pediatric); J96.11 Chronic respiratory failure with hypoxia; E78.5 Hyperlipidemia, unspecified; M19.90 Unspecified osteoarthritis, unspecified site; I25.2 Old myocardial infarction; E66.01 Morbid (severe) obesity due to excess calories; Z68.42 Body mass index [BMI] 45.0-49.9, adult; Z11.52 Encounter for screening for COVID-19; Z11.59 Encounter for screening for other viral diseases; Z79.85 Long-term (current) use of injectable non-insulin antidiabetic drugs; Z79.83 Long term (current) use of bisphosphonates; Z79.51 Long term (current) use of inhaled steroids; Z79.02 Long term (current) use of antithrombotics/antiplatelets; Z79.899 Other long term (current) drug therapy; Z87.891 Personal history of nicotine dependence
CPT/HCPCS: 99285; 36415; 94640 ×4; 94760 ×2; 93005; 80061; 80053; 80048 ×2; 83735; 84132; 84484; 85025; 85610; 85730; 83036; 87636; 71046; G0378 ×3

== ENCOUNTER 2023-12-03 23:57 | Observation (INO) | payer MEDICARE, OTHER ==
[2023-12-04 01:08] LABS: Basophils % (A) 0 %; Eosinophils # (A) 0.4 k/uL (0-0.7); Eosinophils % (A) 3 %; HCT 42.3 % (34.0-46.0); HGB 13.6 gm/dL (11.4-16.0); Hypochromasia Slight; Lymphocytes # (A) 1.2 k/uL (1.0-4.8); Lymphocytes % (A) 10 %; MCH 28.1 pg (25.0-35.0); MCHC 32.1 g/dL (31.0-37.0); MCV 87.6 fL (80.0-100.0); Mean Platelet Volume 8.8; Monocytes # (A) 0.6 k/uL (0-1.0); Monocytes % (A) 5 %; Neutrophils # (A) 9.8 k/uL (1.3-7.7); Neutrophils % (A) 81 %; Platelet Count 259 k/uL (150-450); RBC 4.82 m/uL (3.80-5.40); RDW 14.3 % (11.5-15.5); WBC 12.1 k/uL (3.8-10.6)
[2023-12-04 01:29] LABS: ALT 13 U/L (4-34); African American GFR (CKD) 53 (>60 ml/min/1.73 sqM); Amylase 139 U/L (30-110); Anion Gap 7 mmol/L; Blood Urea Nitrogen 25 mg/dL (7-17); Calcium 8.4 mg/dL (8.4-10.2); Carbon Dioxide 24 mmol/L (22-30); Chloride 106 mmol/L (98-107); Glucose 100 mg/dL (74-99); Lipase 445 U/L (23-300); Non-African American GFR(CKD) 46 (>60 ml/min/1.73 sqM); Sodium 137 mmol/L (137-145); Total Bilirubin 0.9 mg/dL (0.2-1.3)
[2023-12-04 01:33] LABS: Partial Thromboplastin Time 22.8 sec (22.0-30.0); Prothrombin Time 10.6 sec (10.0-12.5)
[2023-12-04 01:34] LABS: AST 30 U/L (14-36); Albumin 3.6 g/dL (3.5-5.0); Alkaline Phosphatase 44 U/L (38-126); Magnesium 1.6 mg/dL (1.6-2.3); Potassium 4.4 mmol/L (3.5-5.1); Total Protein 5.9 g/dL (6.3-8.2)
--- NOTE | 2023-12-04 02:12 | XR ---
EXAM: XR Chest, 2 Views CLINICAL HISTORY: ITS.REASON XR Reason: Chest Pain TECHNIQUE: Frontal and lateral views of the chest. COMPARISON: No relevant prior studies available. FINDINGS: Lungs: Unremarkable. No consolidation. Pleural space: Unremarkable. No pneumothorax. Heart: Cardiomegaly. Mediastinum: Unremarkable. Normal mediastinal contour. Bones/joints: Unremarkable. No acute fracture. Vasculature: Calcified aorta. Other findings: ACDF. IMPRESSION: No acute findings in the chest.
[2023-12-04] MEDS: ONDANSETRON 4 MG/2 ML VIAL IVP STA (03:02)
--- NOTE | 2023-12-04 03:51 | CT ---
EXAM: CT Abdomen and Pelvis Without Intravenous Contrast CLINICAL HISTORY: ITS.REASON CT Reason: abdominal pain TECHNIQUE: Axial computed tomography images of the abdomen and pelvis without intravenous contrast. CTDI is 47 mGy and DLP is 2693 mGy-cm. This CT exam was performed using one or more of the following dose reduction techniques: automated exposure control, adjustment of the mA and/or kV according to patient size, and/or use of iterative reconstruction technique. COMPARISON: No relevant prior studies available. FINDINGS: Lung bases: Unremarkable. No mass. No consolidation. ABDOMEN: Liver: Unremarkable. Gallbladder and bile ducts: Unremarkable. No calcified stones. No ductal dilation. Pancreas: Unremarkable. No ductal dilation. Spleen: Unremarkable. No splenomegaly. Adrenals: Unremarkable. No mass. Kidneys and ureters: Atrophy of the LEFT kidney. No hydronephrosis, nephrolithiasis, or obstructive uropathy. Stomach and bowel: Diverticulosis, without acute diverticulitis. No small bowel obstruction. No free intraperitoneal air. PELVIS: Appendix: No acute appendicitis. Bladder: Unremarkable. No stones. Reproductive: Hysterectomy. ABDOMEN and PELVIS: Intraperitoneal space: Unremarkable. No free air. No significant fluid collection. Bones/joints: Degenerative changes of the spine. No acute fracture. No dislocation. Soft tissues: Unremarkable. Vasculature: Atherosclerotic changes of the aorta. No abdominal aortic aneurysm. Lymph nodes: Unremarkable. No enlarged lymph nodes. IMPRESSION: 1. No hydronephrosis, nephrolithiasis, or obstructive uropathy. 2. Atrophy of the LEFT kidney. 3. Hysterectomy. 4. Diverticulosis, without acute diverticulitis. No small bowel obstruction. No free intraperitoneal air.
--- NOTE | 2023-12-04 06:44 | ED ---
Chest Pain HPI - General Source: patient Mode of arrival: EMS Limitations: no limitations - History of Present Illness MD Complaint: chest pain -: hour(s) Onset: during rest Pain Location: substernal, epigastric Pain Radiation: none Severity: moderate Quality: tightness Consistency: intermittent Improves With: nothing Worsens With: nothing Anginal Symptoms: nausea, vomiting Treatments Prior to Arrival: none <Jamari Brownlee - Last Filed: 12/04/23 06:41> <Erasmo Johnson - Last Filed: 12/04/23 08:08> - General Chief Complaint: Chest Pain Stated Complaint: Chest Pain, Nausea/Vomiting Time Seen by Provider: 12/04/23 00:03 - History of Present Illness Initial Comments: Is a 73-year-old woman who presents for evaluation of epigastric and substernal chest pain. She states that it had come on in the afternoon and has been intermittent. She also has had a number of episodes of vomiting associated with the symptoms. She has not noted hematemesis or coffee-ground material. Patient denies diaphoresis, dyspnea, lightheadedness or syncope. (Jamari Brownlee) - Related Data Home Medications Medication Instructions Recorded Confirmed Albuterol Sulfate [Proair Hfa] 2 puff INHALATION RT-QID PRN 09/11/18 08/28/23 Citalopram Hydrobromide [CeleXA] 20 mg PO DAILY 09/11/18 08/28/23 rOPINIRole HCL [Requip] 2 mg PO HS 06/08/19 08/28/23 traZODone HCL 50 mg PO HS 06/08/19 08/28/23 allopurinoL [Zyloprim] 100 mg PO HS 05/13/20 08/28/23 Fluticasone/Umeclidin/Vilanter 1 puff INHALATION RT-DAILY 07/30/22 08/28/23 [Trelegy Ellipta 200-62.5-25] Gabapentin [Neurontin] 300 mg PO TID 03/08/23 08/28/23 HYDROcodone/APAP 7.5-325MG [[place] 1 tab PO BID 03/08/23 08/28/23 7.5-325] Alendronate Sodium [Fosamax] 70 mg PO TH 08/28/23 08/28/23 Citalopram Hydrobromide [CeleXA] 10 mg PO DAILY 08/28/23 08/28/23 Famotidine [Pepcid] 20 mg PO DAILY 08/28/23 08/28/23 Ipratropium-Albuterol Nebulize 3 ml INHALATION RT-BID 08/28/23 08/28/23 [Duoneb 0.5 mg-3 mg/3 ml Soln] Tirzepatide [Mounjaro] 2.5 mg SQ TH 08/28/23 08/28/23 Previous Rx's Medication Instructions Recorded Atorvastatin [Lipitor] 40 mg PO HS #30 tab 08/04/22 Clopidogrel [Plavix] 75 mg PO DAILY #30 tab 08/04/22 Furosemide [Lasix] 40 mg PO DAILY #30 tab 08/11/22 Isosorbide Mononitrate ER [Imdur] 30 mg PO DAILY #30 tab 03/09/23 Dapagliflozin Propanediol [Farxiga] 10 mg PO DAILY #30 tab 08/29/23 Sacubitril/Valsartan [Entresto 24 1 each PO BID #60 tab 08/29/23 mg-26 mg Tablet] carvediloL [Coreg] 6.25 mg PO BID-W/MEALS #60 tab 08/29/23 Allergies Allergy/AdvReac Type Severity Reaction Status Date / Time No Known Allergies Allergy Verified 08/28/23 07:47 Review of Systems ROS Other: All systems not noted in ROS Statement are negative. Constitutional: Denies: fever, chills Respiratory: Denies: cough, dyspnea Cardiovascular: Reports: chest pain. Denies: palpitations, edema, syncope Gastrointestinal: Reports: abdominal pain, nausea, vomiting. Denies: diarrhea, constipation, melena, hematochezia Genitourinary: Denies: dysuria, hematuria Musculoskeletal: Denies: back pain Skin: Denies: rash Neurological: Denies: headache, weakness <Jamari Brownlee - Last Filed: 12/04/23 06:41> ROS Other: All systems not noted in ROS Statement are negative. <Erasmo Johnson - Last Filed: 12/04/23 08:08> ROS Statement: Those systems with pertinent positive or pertinent negative responses have been documented in the HPI. Past Medical History Past Medical History: Asthma, COPD, GI Bleed, Hypertension, Myocardial Infar ction ([place]), Osteoarthritis (OA), Sleep Apnea/CPAP/BIPAP Additional Past Medical History / Comment(s): Tinnitus; OA in backs, knees, hands; uses home CPAP; gastric ulcers in her 30s, HX LT MACULAR HOLE-REPAIRED. 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 RT CTR. EGD. REPAIR LT MACULAR HOLE AND LT CATARACT REMOVED Past Anesthesia/Blood Transfusion Reactions: Motion Sickness Past Psychological History: Anxiety Smoking Status: Former smoker Past Alcohol Use History: None Reported Past Drug Use History: None Reported - Past Family History Father Family Medical History: Unable to Obtain Mother History Unknown: Yes Family Medical History: No Reported History, Cancer Additional Family Medical History / Comment(s): Esophageal cancer, arthritis <Jamari Brownlee - Last Filed: 12/04/23 06:41> General Exam Limitations: no limitations General appearance: alert, in no apparent distress Head exam: Present: atraumatic, normocephalic Eye exam: Present: normal appearance. Absent: scleral icterus, conjunctival injection Neck exam: Present: normal inspection Respiratory exam: Present: normal lung sounds bilaterally. Absent: respiratory distress, wheezes, rales, rhonchi, stridor, accessory muscle use Cardiovascular Exam: Present: regular rate, normal rhythm, normal heart sounds. Absent: systolic murmur, diastolic murmur, rubs, gallop GI/Abdominal exam: Present: soft, tenderness (There is epigastric tenderness). Absent: distended, guarding, rebound, rigid, mass, hernia Extremities exam: Present: normal inspection, normal capillary refill. Absent: tenderness, pedal edema, calf tenderness Back exam: Present: normal inspection. Absent: CVA tenderness (R), CVA tenderness (L) Neurological exam: Present: alert Skin exam: Present: warm, dry, intact, normal color. Absent: rash <Jamari Brownlee - Last Filed: 12/04/23 06:41> Course Vital Signs 12/04/23 12/04/23 12/04/23 00:04 02:00 02:54 Temperature 100.2 F H 98.6 F 98.8 F Pulse Rate 83 74 74 Respiratory 20 20 16 Rate Blood Pressure 144/84 131/65 109/55 O2 Sat by Pulse 96 97 98 Oximetry 12/04/23 12/04/23 03:59 06:00 Temperature Pulse Rate 74 73 Respiratory 18 18 Rate Blood Pressure 114/77 126/72 O2 Sat by Pulse 98 97 Oximetry Chest Pain MDM <Erasmo Johnson - Last Filed: 12/04/23 08:08> - [facility] Patient signed out to me pending results of gallbladder ultrasound. Briefly, patient presents with epigastric abdominal discomfort with nausea, vomiting, diarrhea, all nonbloody. This is the third episode of this over the last few weeks. States the pain did radiate mildly into the lower part of her chest near her stomach. Has no other acute complaints at this time. Patient signed out to me pending results of gallbladder ultrasound. Cardiac workup unremarkable. Labs remarkable for elevated amylase and lipase, as well as slight leukocytosis of 12.1. CT abdomen pelvis as interpreted by myself reveals no obvious acute intra-abdominal process.'s x-rays interpreted by myself reveals no obvious acute process. As interpreted by myself, abdominal ultrasound reveals hepatic steatosis with a small cystic structure near the pancreatic head which was not seen on CT. Could be a pseudocyst. Radiology concern for possible neoplasm as well has a cannot be definitively excluded based on this test. After the patient at this time. We discussed results of her imaging as well as her symptoms. She is still having pain with nausea and vomiting. I did recommend observation admission and we do have gastroenterology here in the hospital this week for evaluation. She was in agreement this plan. I spoke with Dr. Gamez who accepted the admission. Dr. Heredia [facility] was consulted for evaluation. Patient administered additional pain medication and nausea meds. She was placed on low-flow maintenance fluids as patient does have risk of volume overload and is on Lasix at baseline. Diagnosis/symptom? @ -Pancreatitis, intractable nausea and vomiting and abdominal pain Acute, or Chronic, or Acute on Chronic? @ -Acute Uncomplicated (without systemic symptoms) or Complicated (systemic symptoms)? @ -Complicated Side effects of treatment? @ -None Exacerbation, Progression, or Severe Exacerbation] @ -No Poses a threat to life or bodily function? @ -Yes (Erasmo Johnson) Disposition <Jamari Brownlee - Last Filed: 12/04/23 06:41> Time of Disposition: 08:00 <Erasmo Johnson - Last Filed: 12/04/23 08:08> Clinical Impression: Intractable nausea and vomiting, Intractable abdominal pain, Pancreatitis Disposition: ADMITTED IP TO THIS [facility] Condition: Stable Referrals: Juve Gamez MD [Primary Care Provider] - 1-2 days
--- NOTE | 2023-12-04 07:51 | US ---
EXAMINATION TYPE: US abdomen limited DATE OF EXAM: 12/04/2023 COMPARISON: NONE CLINICAL INDICATION: Female, 73 years old with history of Attention right upper quadrant; Abd pain wi th nausea TECHNIQUE: Multiple sonographic images of the right upper quadrant are obtained. FINDINGS: EXAM MEASUREMENTS: Liver Length: 11.6 x 5.3 x 5.5 cm Gallbladder Wall: 0.2 cm CBD: 0.8 cm Right Kidney: 11.6 x 5.3 x 5.5 cm Pancreas: cystic structure adjacent to pancreas head = 0.8 x 0.9 x 0.9cm Liver: difficult to penetrate Gallbladder: comet tail artifacts seen on anterior wall may represent adenomyomatosis Evidence for sonographic Castro's sign: no CBD: upper limits of normal Right Kidney: wnl IMPRESSION: 1. Hepatic steatosis. 2. Cystic structure adjacent to the pancreatic head could reflect pseudocyst. Cystic pancreatic neopl asm not excluded. Consider contrast-enhanced CT of the pancreas and/or MRI.
[2023-12-04] MEDS ORDERED: NALOXONE 0.4 MG/ML 1 ML VIAL IV PRN (08:00)
[2023-12-04] MEDS ORDERED: ONDANSETRON 4 MG/2 ML VIAL IVP PRN (08:00)
[2023-12-04] MEDS: PANTOPRAZOLE 40 MG/10 ML VIAL IV SCH ×2 (08:19→22:04)
[2023-12-04] MEDS: SODIUM CHLORIDE 0.9% 1,000 ML IV SCH (08:23)
[2023-12-04] MEDS: MORPHINE SULFATE 2 MG/ML SYRINGE IV PRN (09:39)
[2023-12-04] MEDS ORDERED: DEXTROSE 50% SYRINGE 50 ML IVP PRN ×2 (10:04)
--- NOTE | 2023-12-04 10:04 | P.HPIM ---
History of Present Illness H&P Date: 12/04/23 Chief Complaint: Abdominal pain This is a 73-year-old female with past medical history significant for CAD, OR, occluded LAD- medical management, ischemic cardiomyopathy hyperlipidemia, hypertension, diabetes, neuropathy, morbid obesity, obstructive sleep apnea, CKD and multiple other medical issues presented to the ER with complaints of nausea, vomiting, sharp fluctuating epigastric abdominal pain over the last 2 weeks.Denies alcohol use or fatty food intake. Reports she consumed pork chops on Sunday without symptoms. States her symptoms of nausea and vomiting progre ssed yesterday along with some dizziness. Patient still has her gallbladder. Last pancreatitis episode was 06/2019, etiology unclear. Patient had been on Mounjaro and dose was recently increased from 2.5 mg to 5 mg a couple weeks ago. Abdomen/pelvis CT reported no hydronephrosis, nephrolithiasis or obstructive uropathy, atrophy of the left kidney, pancreas unremarkable with no ductal dilation, diverticulosis without acute diverticulitis, no small bowel obstruction no free intraperitoneal air. Abdominal ultrasound reported hepatic steatosis, possible pseudocyst on pancreas-cystic structure adjacent to pancreas head 0.8 x 0.9 x 0.9 cm, cystic pancreatic neoplasm not excluded,liver difficult to penetrate, gallbladder,comet tail artifacts seen on anterior wall may repr esent adenomyomatosis, common bile duct upper limits of normal. Chest x-ray reported no acute findings. Denies chest pain, palpitations or shortness of breath. Telemetry sinus rhythm. Troponin negative x 1. No emesis since admission, reports nausea. Positive epigastric tenderness to palpation. Tmax 100.2, currently afebrile, WBC 12.1, hemoglobin 13.6, platelets 259, INR 1, electrolytes within normal limits, bicarb 24, BUN 25, creatinine 1.17, glucose 100, magnesium 1.6, LFTs within normal limits, amylase 139, lipase 445. Review of Systems ROS Statement: Those systems with pertinent positive or pertinent negative responses have been documented in the HPI. ROS Other: All systems not noted in ROS Statement are negative. Past Medical History Past Medical History: Asthma, COPD, GI Bleed, Hypertension, Myocardial Infarction ([place]), Osteoarthritis (OA), Sleep Apnea/CPAP/BIPAP Additional Past Medical History / Comment(s): Tinnitus; OA in backs, knees, hands; uses home CPAP; gastric ulcers in her 30s, HX LT MACULAR HOLE-REPAIRED. 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 RT C TR. EGD. REPAIR LT MACULAR HOLE AND LT CATARACT REMOVED Past Anesthesia/Blood Transfusion Reactions: Motion Sickness Past Psychological History: Anxiety Smoking Status: Former smoker Past Alcohol Use History: None Reported Past Drug Use History: None Reported - Past Family History Father Family Medical History: Unable to Obtain Mother History Unknown: Yes Family Medical History: No Reported History, Cancer Additional Family Medical History / Comment(s): Esophageal cancer, arthritis Medications and Allergies Home Medications Medication Instructions Recorded Confirmed Type Albuterol Sulfate [Proair Hfa] 2 puff INHALATION RT-QID PRN 09/11/18 12/04/23 History Citalopram Hydrobromide [CeleXA] 20 mg PO AC-SUPPER 09/11/18 12/04/23 History rOPINIRole HCL [Requip] 2 mg PO HS 06/08/19 12/04/23 History traZODone HCL 50 mg PO HS 06/08/19 12/04/23 History allopurinoL [Zyloprim] 100 mg PO HS 05/13/20 12/04/23 History Fluticasone/Umeclidin/Vilanter 1 puff INHALATION RT-DAILY 07/30/22 12/04/23 History [Trelegy Ellipta 200-62.5-25] Atorvastatin [Lipitor] 40 mg PO HS #30 tab 08/04/22 12/04/23 Rx Clopidogrel [Plavix] 75 mg PO DAILY #30 tab 08/04/22 12/04/23 Rx Furosemide [Lasix] 40 mg PO DAILY #30 tab 08/11/22 12/04/23 Rx Gabapentin [Neurontin] 300 mg PO TID 03/08/23 12/04/23 History HYDROcodone/APAP 7.5-325MG [[place] 1 tab PO TID 03/08/23 12/04/23 History 7.5-325] Isosorbide Mononitrate ER [Imdur] 30 mg PO DAILY #30 tab 03/09/23 12/04/23 Rx Alendronate Sodium [Fosamax] 70 mg PO TH 08/28/23 12/04/23 History Citalopram Hydrobromide [CeleXA] 10 mg PO DAILY 08/28/23 12/04/23 History Famotidine [Pepcid] 20 mg PO DAILY 08/28/23 12/04/23 History Ipratropium-Albuterol Nebulize 3 ml INHALATION RT-BID 08/28/23 12/04/23 History [Duoneb 0.5 mg-3 mg/3 ml Soln] Dapagliflozin Propanediol [Farxiga] 10 mg PO DAILY #30 tab 08/29/23 12/04/23 Rx Sacubitril/Valsartan [Entresto 24 1 each PO BID #60 tab 08/29/23 12/04/23 Rx mg-26 mg Tablet] Escitalopram Oxalate [Lexapro] 10 mg PO HS 12/04/23 12/04/23 History Ibuprofen [Motrin] 800 mg PO BID 12/04/23 12/04/23 History Magnesium Oxide [Magnesium] 500 mg PO HS 12/04/23 12/04/23 History Tirzepatide [Mounjaro] 5 mg SQ TU 12/04/23 12/04/23 History carvediloL [Coreg] 3.125 mg PO BID-W/MEALS 12/04/23 12/04/23 History Allergies Allergy/AdvReac Type Severity Reaction Status Date / Time No Known Allergies Allergy Verified 12/04/23 08:37 Physical Exam Vitals: Vital Signs Temp Pulse Resp BP Pulse Ox 12/04/23 09:36 98.1 F 71 18 127/73 99 12/04/23 08:24 98.3 F 73 18 116/54 99 12/04/23 06:00 73 18 126/72 97 12/04/23 03:59 74 18 114/77 98 12/04/23 02:54 98.8 F 74 16 109/55 98 12/04/23 02:00 98.6 F 74 20 131/65 97 12/04/23 00:04 100.2 F H 83 20 144/84 96 Intake and Output 12/03/23 12/04/23 12/04/23 22:59 06:59 14:59 Other: Weight 107.501 kg PHYSICAL EXAM: VITAL SIGNS: [As above] GENERAL: Obese, sitting up in bed, no acute distress HEENT: Atraumatic ,normocephalic, conjunctivae normal. eyes normal. NECK: Supple, no JVD. No thyroid enlargement. No LNs CARDIOVASCULAR: S1, S2 regular. No murmur RESPIRATION: Unlabored, equal air entry, CTA. Bilateral breath sounds diminished. ABDOMEN: Soft, epigastric, right upper quadrant tenderness, no guarding, no rigidity no masses palpable. No ascites, No hepatosplenomegaly. +BS LEGS: No edema. no swelling, no calf tenderness. PSYCHIATRY: Alert and oriented X3, mood and affect normal. NERVOUS SYSTEM: Cranial N 2-12 grossly normal. No focal deficits. Strength and sensation grossly intact. Skin: Warm and dry, no rash Results CBC & Chem 7: 12/04/23 00:52 12/04/23 00:52 Labs: Abnormal Lab Results - Last 24 Hours (Table) 12/04/23 12/04/23 Range/Units 00:52 00:52 WBC 12.1 H (3.8-10.6) k/uL Neutrophils # 9.8 H (1.3-7.7) k/uL BUN 25 H (7-17) mg/dL Creatinine 1.17 H (0.52-1.04) mg/dL Glucose 100 H (74-99) mg/dL Total Protein 5.9 L (6.3-8.2) g/dL Amylase 139 H (30-110) U/L Lipase 445 H (23-300) U/L Assessment and Plan Assessment: Acute pancreatitis, last occurrence 06/2019, etiology unclear, in a patient who denies alcohol use, on Mounjaro-dose recently increased 2 weeks ago; possibly med induced. possible pseudocyst on pancreas reported per abdominal ultrasound. Chronic CHF, systolic dysfunction Ischemic cardiomyopathy, EF 40 to 45% CAD Hypertension Hyperlipidemia Chronic kidney disease stage III Diabetes mellitus type 2 Obstructive sleep apnea Morbid obesity, BMI 43 Plan: Continue on current medication resume ,monitoring and symptomatic treatment. IV fluid hydration. Mounjaro on hold. PRN antiemetics. PPI for GI prophylaxis. GI consult in place. The impression and plan of care has been dictated as directed. : I performed a history and examination of this patient, discussed the same with the dictator. I agree with the dictator's note ,documented as a scribe. Any additional findings or plans will be noted.
[2023-12-04] MEDS ORDERED: ALBUTEROL NEBULIZED 2.5 MG/3 ML INHALATION PRN (10:07)
[2023-12-04] MEDS: carvediloL 3.125 MG TAB PO SCH (10:57)
[2023-12-04] MEDS: ISOSORBIDE MONONITRATE ER 30 MG TAB.ER.24H PO SCH (10:57)
[2023-12-04 12:11] LABS: Glucose,Whole Blood 88 mg/dL (70-110)
[2023-12-04] MEDS: IPRATROPIUM 0.5 MG/2.5 ML NEBU INHALATION SCH (12:13)
[2023-12-04] MEDS: MAGNESIUM SULFATE-D5W PMX 1 GM in DEXTROSE/WATER 1 100ML.BAG IVPB ONE (12:39)
[2023-12-04] MEDS: INSULIN ASPART (NovoLOG) 100 UNIT/ML VIAL SQ SCH (12:43)
--- NOTE | 2023-12-04 13:46 | P.CONS ---
History of Present Illness - Reason for Consult Consult date: 12/04/23 Pancreatitis, questionable pancreatic cyst Requesting physician: Erasmo Johnson - Chief Complaint Abdominal pain - History of Present Illness This a pleasant 73-year-old female who presented to the emergency department yesterday with complaints of abdominal pain. States that she has had pain for the past 2 weeks in the epigastric region that has been sharp like a knife with nausea and vomiting and diarrhea. It has been intermittent however got progressively worse yesterday. Her friend called 911 and she was brought into the emergency department. Past medical history includes pancreatitis, GERD, abdominal pain, coronary artery disease, SD, occluded LAD with medical management, ischemic cardiomyopathy, hyperlipidemia, hypertension, diabetes, neuropathy, morbid obesity, obstructive sleep apnea and chronic kidney disease. Patient is on Mounjaro and dose was increased from 2.5 mg to 5 mg about 2 weeks ago when the pain had started. She states that she hide does have a history of pancreatitis in 2019. At that time it was unknown etiology. She denies any history of alcohol abuse, she had some workup including triglycerides and IgG4 which overall were normal. She did undergo upper endoscopy 06/27/[address] Heredia which reported a moderate hiatal hernia and mild antral gastritis. This admission she had mild elevation of amylase and lipase which reported 139 and 445 respectively. LFTs are all within normal limits Past Medical History Past Medical History: Asthma, COPD, GI Bleed, Hypertension, Myocardial Infarction (SD), Osteoarthritis (OA), Sleep Apnea/CPAP/BIPAP Additional Past Medical History / Comment(s): Tinnitus; OA in backs, knees, hands; uses home CPAP; gastric ulcers in her 30s, HX LT MACULAR HOLE-REPAIRED. 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 RT CTR. EGD. REPAIR LT MACULAR HOLE AND LT CATARACT REMOVED Past Anesthesia/Blood Transfusion Reactions: Motion Sickness Past Psychological History: Anxiety Smoking Status: Former smoker Past Alcohol Use History: None Reported Past Drug Use History: None Reported - Past Family History Father Family Medical History: Unable to Obtain Mother History Unknown: Yes Family Medical History: No Reported History, Cancer Additional Family Medical History / Comment(s): Esophageal cancer, arthritis Medications and Allergies Home Medications Medication Instructions Recorded Confirmed Type Albuterol Sulfate [Proair Hfa] 2 puff INHALATION RT-QID PRN 09/11/18 12/04/23 History Citalopram Hydrobromide [CeleXA] 20 mg PO AC-SUPPER 09/11/18 12/04/23 History rOPINIRole HCL [Requip] 2 mg PO HS 06/08/19 12/04/23 History traZODone HCL 50 mg PO HS 06/08/19 12/04/23 History allopurinoL [Zyloprim] 100 mg PO HS 05/13/20 12/04/23 History Fluticasone/Umeclidin/Vilanter 1 puff INHALATION RT-DAILY 07/30/22 12/04/23 History [Trelegy Ellipta 200-62.5-25] Atorvastatin [Lipitor] 40 mg PO HS #30 tab 08/04/22 12/04/23 Rx Clopidogrel [Plavix] 75 mg PO DAILY #30 tab 08/04/22 12/04/23 Rx Furosemide [Lasix] 40 mg PO DAILY #30 tab 08/11/22 12/04/23 Rx Gabapentin [Neurontin] 300 mg PO TID 03/08/23 12/04/23 History HYDROcodone/APAP 7.5-325MG [[place] 1 tab PO TID 03/08/23 12/04/23 History 7.5-325] Isosorbide Mononitrate ER [Imdur] 30 mg PO DAILY #30 tab 03/09/23 12/04/23 Rx Alendronate Sodium [Fosamax] 70 mg PO TH 08/28/23 12/04/23 History Citalopram Hydrobromide [CeleXA] 10 mg PO DAILY 08/28/23 12/04/23 History Famotidine [Pepcid] 20 mg PO DAILY 08/28/23 12/04/23 History Ipratropium-Albuterol Nebulize 3 ml INHALATION RT-BID 08/28/23 12/04/23 History [Duoneb 0.5 mg-3 mg/3 ml Soln] Dapagliflozin Propanediol [Farxiga] 10 mg PO DAILY #30 tab 08/29/23 12/04/23 Rx Sacubitril/Valsartan [Entresto 24 1 each PO BID #60 tab 08/29/23 12/04/23 Rx mg-26 mg Tablet] Escitalopram Oxalate [Lexapro] 10 mg PO HS 12/04/23 12/04/23 History Ibuprofen [Motrin] 800 mg PO BID 12/04/23 12/04/23 History Magnesium Oxide [Magnesium] 500 mg PO HS 12/04/23 12/04/23 History Tirzepatide [Mounjaro] 5 mg SQ TU 12/04/23 12/04/23 History carvediloL [Coreg] 3.125 mg PO BID-W/MEALS 12/04/23 12/04/23 History Allergies Allergy/AdvReac Type Severity Reaction Status Date / Time No Known Allergies Allergy Verified 12/04/23 08:37 Physical Exam Vitals: Vital Signs Temp Pulse Resp BP Pulse Ox 12/04/23 08:24 98.3 F 73 18 116/54 99 12/04/23 06:00 73 18 126/72 97 12/04/23 03:59 74 18 114/77 98 12/04/23 02:54 98.8 F 74 16 109/55 98 12/04/23 02:00 98.6 F 74 20 131/65 97 12/04/23 00:04 100.2 F H 83 20 144/84 96 Intake and Output 12/03/23 12/04/23 12/04/23 22:59 06:59 14:59 Other: Weight 107.501 kg General appearance: The patient is alert, oriented, appears in no acute distress. HET: Head is normocephalic and atraumatic. Conjunctiva pink. Sclera anicteric. Neck: Supple without lymphadenopathy. Trachea midline. Heart: Regular. Lungs: Equal expansion, normal respiratory effort. Abdomen: Soft, mild right upper quadrant/epigastric tenderness, nondistended. Skin: No rashes. No jaundice. Extremities: Normal skin color and turgor. No pedal edema. Neurological: No focal deficits. Alert and oriented x3. Results CBC & Chem 7: 12/04/23 00:52 12/04/23 00:52 Labs: Abnormal Lab Results - Last 24 Hours (Table) 12/04/23 12/04/23 Range/Units 00:52 00:52 WBC 12.1 H (3.8-10.6) k/uL Neutrophils # 9.8 H (1.3-7.7) k/uL BUN 25 H (7-17) mg/dL Creatinine 1.17 H (0.52-1.04) mg/dL Glucose 100 H (74-99) mg/dL Total Protein 5.9 L (6.3-8.2) g/dL Amylase 139 H (30-110) U/L Lipase 445 H (23-300) U/L Comments: CT abdomen pelvis without contrast reports no hydronephrosis, nephrolithiasis or obstructive uropathy. Atrophy of the left kidney. Hysterectomy. Diverticulosis, without acute diverticulitis. No small bowel obstruction. No free intraperitoneal air. Gallbladder ultrasound reports hepatic steatosis. Cystic structure adjacent to the pancreatic head could reflect pseudocyst. Cystic pancreatic neoplasm not excluded. Consider contrast-enhanced CT of the pancreas and/or MRI. Assessment and Plan (1) Pancreatitis Narrative/Plan: 73-year-old female with a history of pancreatitis unknown etiology presents to the emergency department with complaints of intermittent abdominal pain in the right upper quadrant radiating into her back associated with nausea and vomiting over the last 2 weeks duration. Patient is diabetic and was on Mounjaro 2.5 mg with an increase to 5 mg 2 weeks ago. Following that she started experiencing abdominal pain. She had mild elevation in amylase and lipase CT abdomen pelvis without contrast showed no evidence of pancreatitis however gallbladder ultrasound does show cystic structure adjacent to the pancreatic head that could reflect pseudocyst however this is less than 1 cm. Likely medication induced pancreatitis secondary to Mounjaro. Recommend stopping Mounjaro. Will order triglycerides. Continue symptomatic treatment. Current Visit: Yes Status: Acute Code(s): K85.90 - ACUTE PANCREATITIS WITHOUT NECROSIS OR INFECTION, UNSP SNOMED Code(s): 34341559 (2) Abdominal pain Current Visit: Yes Status: Acute Code(s): R10.9 - UNSPECIFIED ABDOMINAL PAIN SNOMED Code(s): 33090256 Plan: 1. Continue symptomatic and supportive care 2. Continue with pain medication 3. Aggressive IV hydration 4. Antiemetics as needed 5. Protonix 40 mg daily 6. Triglycerides ordered 7. Recommend discontinuing Mounjaro, likely dealing with medication induced pancreatitis secondary to Mounjaro Thank you for this consultation, we will continue to follow. Dr. Bry Heredia I agree with the dictator's note, documented as a scribe by Renetta Miranda.
[2023-12-04 17:09] LABS: Glucose,Whole Blood 88 mg/dL (70-110)
[2023-12-04] MEDS: ONDANSETRON 4 MG/2 ML VIAL IVP PRN (17:09)
[2023-12-04] MEDS ORDERED: SYMBICORT 80-4.5 MCG INHALER INHALATION SCH (20:00)
[2023-12-04 20:08] LABS: Glucose,Whole Blood 133 mg/dL (70-110)
[2023-12-04] MEDS: SYMBICORT 80-4.5 MCG INHALER INHALATION SCH (20:53)
[2023-12-04] MEDS: IPRATROPIUM-ALBUTEROL 3 ML NEB INHALATION SCH (20:53)
[2023-12-04] MEDS: HYDROcodone/APAP 7.5-325MG 1 EACH TAB PO SCH (22:02)
[2023-12-04] MEDS: traZODone HCL 50 MG TAB PO SCH (22:02)
[2023-12-04] MEDS: ESCITALOPRAM 10 MG TAB PO SCH (22:40)
[2023-12-05 02:06] VITALS: RESP 17
[2023-12-05 05:50] LABS: Glucose,Whole Blood 89 mg/dL (70-110)
[2023-12-05 06:55] VITALS: BP 113/71; PULSE 70; TEMP 98.2
[2023-12-05 08:35] LABS: Basophils # (A) 0.02 X 10*3/uL (0.00-0.10); Basophils % (A) 0.2 %; Eosinophils % (A) 11.1 %; HCT 39.3 % (37.2-46.3); HGB 11.7 g/dL (12.0-15.0); Lymphocytes # (A) 2.04 X 10*3/uL (0.90-5.00); Lymphocytes % (A) 22.6 %; MCH 27.5 pg (27.0-32.0); MCHC 29.8 g/dL (32.0-37.0); MCV 92.5 FL (80.0-97.0); Mean Platelet Volume 11.9 FL (9.5-12.2); Monocytes # (A) 0.65 X 10*3/uL (0.20-1.00); Monocytes % (A) 7.2 %; NRBC Per 100 WBC 0 X 10*3/uL (0.00-0.01); Neutrophils # (A) 5.29 X 10*3/uL (1.80-7.70); Neutrophils % (A) 58.5 %; Platelet Count 224 X 10*3/uL (140-440); RBC 4.25 X 10*6/uL (4.10-5.20); RDW 14.5 % (11.5-14.5); WBC 9.04 X 10*3/uL (4.50-10.00)
[2023-12-05] MEDS ORDERED: PANTOPRAZOLE 40 MG TABLET PO SCH (08:45)
[2023-12-05] MEDS: PANTOPRAZOLE 40 MG TABLET PO SCH (09:14)
[2023-12-05 09:35] LABS: ALT 9 U/L (8-44); AST 11 U/L (13-35); Albumin 3.2 g/dL (3.8-4.9); Albumin/Globulin Ratio 1.78 Ratio (1.60-3.17); Alkaline Phosphatase 55 U/L (41-126); BUN/Creat Ratio 11.85 Ratio (12.00-20.00); Blood Urea Nitrogen 15.4 mg/dL (9.0-27.0); Chloride 108 mmol/L (96-109); Globulin 1.8 g/dL (1.6-3.3); Glucose 99 mg/dL (70-110); Lipase 17 U/L (14-63); Potassium 3.7 mmol/L (3.5-5.5); Sodium 142 mmol/L (135-145); Total Bilirubin 0.4 mg/dL (0.3-1.2)
[2023-12-05] MEDS ORDERED: POTASSIUM CHLORIDE ER 20 MEQ TAB.ER PO STA (11:53)
--- NOTE | 2023-12-05 11:59 | P.DS ---
Providers Date of admission: 12/04/23 08:01 Expected date of discharge: 12/05/23 Attending physician: Juve Gamez MD Consults: 12/04/23 08:00 Consult Physician Routine Consulting Provider: Yanna Heredia Consult Reason/Comments: pancreatitis. pseudocyst? Do you want consulting provider notified?: Yes Primary care physician: Juve Gamez MD Hospital Course: Final Diagnoses: Acute pancreatitis, last occurrence 06/2019, etiology unclear, in a patient who denies alcohol use, on Mounjaro-dose recently increased 2 weeks ago; possibly med induced. possible pseudocyst on pancreas reported per abdominal ultrasound. Chronic CHF, systolic dysfunction Ischemic cardiomyopathy, EF 40 to 45% CAD Hypertension Hyperlipidemia Chronic kidney disease stage III Diabetes mellitus type 2 Obstructive sleep apnea Morbid obesity, BMI 43 Hospital course:This is a 73-year-old female with past medical history significant for CAD, GA, occluded LAD- medical management, ischemic cardiomyo bay hyperlipidemia, hypertension, diabetes, neuropathy, morbid obesity, obstructive sleep apnea, CKD and multiple other medical issues presented to the ER with complaints of nausea, vomiting, sharp fluctuating epigastric abdominal pain over the last 2 weeks.Denies alcohol use or fatty food intake. Reports she consumed pork chops on Sunday without symptoms. States her symptoms of nausea and vomiting progressed yesterday along with some dizziness. Patient still has her gallbladder. Last pancreatitis episode was 06/2019, etiology unclear. Patient had been on Mounjaro and dose was recently increased from 2.5 mg to 5 mg a couple weeks ago. Abdomen/pelvis CT reported no hydronephrosis, nephrolithiasis or obstructive uropathy, atrophy of the left kidney, pancreas unremarkable with no ductal dilation, diverticulosis without acute diverticulitis, no small bowel obstruction no free intraperitoneal air. Abdominal ultrasound reported hepatic steatosis, possible pseudocyst on pancreas-cystic structure adjacent to pancreas head 0.8 x 0.9 x 0.9 cm, cystic pancreatic neoplasm not excluded,liver difficult to penetrate, gallbladder,comet tail artifacts seen on anterior wall may represent adenomyomatosis, common bile duct upper limits of normal. Chest x-ray reported no acute findings. Denies chest pain, palpitations or shortness of breath. Telemetry sinus rhythm. T roponin negative x 1. No emesis since admission, reports nausea. Positive epigastric tenderness to palpation. Tmax 100.2, currently afebrile, WBC 12.1, hemoglobin 13.6, platelets 259, INR 1, electrolytes within normal limits, bicarb 24, BUN 25, creatinine 1.17, glucose 100, magnesium 1.6, LFTs within normal limits, amylase 139, lipase 445. IV fluid hydration. Mounjaro on hold. PRN antiemetics. PPI for GI prophylaxis. GI consult in place. Significant clinical improvement. Abdominal pain resolved, lipase 17. Evaluated by GI with recommendations noted and appreciated. GI recommending discontinuing Mounjaro, likely dealing with medication induced pancreatitis secondary to Mounjaro. Mounjaro discontinued, Jardiance will be initiated at [place]. Denies chest pain, palpitations or shortness of breath. Patient is eager for discharge home. Patient will be discharged home today in a stable condition with guarded prognosis. The impression and plan of care has been dictated as directed. : I performed a history and examination of this patient, discussed the same with the dictator. I agree with the dictator's note ,documented as a scribe. Any additional findings or plans will be noted. Patient Condition at Discharge: Stable Plan - Discharge Summary New Discharge Prescriptions: New sitaGLIPtin [Januvia] 100 mg PO DAILY #30 tab Continue Citalopram Hydrobromide [CeleXA] 20 mg PO AC-SUPPER Albuterol Sulfate [Proair Hfa] 2 puff INHALATION RT-QID PRN PRN Reason: Shortness Of Breath traZODone HCL 50 mg PO HS rOPINIRole HCL [Requip] 2 mg PO HS allopurinoL [Zyloprim] 100 mg PO HS Fluticasone/Umeclidin/Vilanter [Trelegy Ellipta 200-62.5-25] 1 puff INHALATION RT-DAILY Gabapentin [Neurontin] 300 mg PO TID HYDROcodone/APAP 7.5-325MG [[place] 7.5-325] 1 tab PO TID Isosorbide Mononitrate ER [Imdur] 30 mg PO DAILY #30 tab Ipratropium-Albuterol Nebulize [Duoneb 0.5 mg-3 mg/3 ml Soln] 3 ml INHALATION RT-BID Dapagliflozin Propanediol [Farxiga] 10 mg PO DAILY #30 tab carvediloL [Coreg] 3.125 mg PO BID-W/MEALS Atorvastatin [Lipitor] 40 mg PO HS #30 tab Clopidogrel [Plavix] 75 mg PO DAILY #30 tab Furosemide [Lasix] 40 mg PO DAILY #30 tab Famotidine [Pepcid] 20 mg PO DAILY Alendronate Sodium [Fosamax] 70 mg PO TH Citalopram Hydrobromide [CeleXA] 10 mg PO DAILY Sacubitril/Valsartan [Entresto 24 mg-26 mg Tablet] 1 each PO BID #60 tab Escitalopram Oxalate [Lexapro] 10 mg PO HS Ibuprofen [Motrin] 800 mg PO BID Tirzepatide [Mounjaro] 5 mg SQ TU Magnesium Oxide [Magnesium] 500 mg PO HS Discharge Medication List Albuterol Sulfate [Proair Hfa] 2 puff INHALATION RT-QID PRN 09/11/18 [History] Citalopram Hydrobromide [CeleXA] 20 mg PO AC-SUPPER 09/11/18 [History] rOPINIRole HCL [Requip] 2 mg PO HS 06/08/19 [History] traZODone HCL 50 mg PO HS 06/08/19 [History] allopurinoL [Zyloprim] 100 mg PO HS 05/13/20 [History] Fluticasone/Umeclidin/Vilanter [Trelegy Ellipta 200-62.5-25] 1 puff INHALATION RT-DAILY 07/30/22 [History] Atorvastatin [Lipitor] 40 mg PO HS #30 tab 08/04/22 [Rx] Clopidogrel [Plavix] 75 mg PO DAILY #30 tab 08/04/22 [Rx] Furosemide [Lasix] 40 mg PO DAILY #30 tab 08/11/22 [Rx] Gabapentin [Neurontin] 300 mg PO TID 03/08/23 [History] HYDROcodone/APAP 7.5-325MG [[place] 7.5-325] 1 tab PO TID 03/08/23 [History] Isosorbide Mononitrate ER [Imdur] 30 mg PO DAILY #30 tab 03/09/23 [Rx] Alendronate Sodium [Fosamax] 70 mg PO TH 08/28/23 [History] Citalopram Hydrobromide [CeleXA] 10 mg PO DAILY 08/28/23 [History] Famotidine [Pepcid] 20 mg PO DAILY 08/28/23 [History] Ipratropium-Albuterol Nebulize [Duoneb 0.5 mg-3 mg/3 ml Soln] 3 ml INHALATION RT-BID 08/28/23 [History] Dapagliflozin Propanediol [Farxiga] 10 mg PO DAILY #30 tab 08/29/23 [Rx] Sacubitril/Valsartan [Entresto 24 mg-26 mg Tablet] 1 each PO BID #60 tab 08/29/23 [Rx] Escitalopram Oxalate [Lexapro] 10 mg PO HS 12/04/23 [History] Ibuprofen [Motrin] 800 mg PO BID 12/04/23 [History] Magnesium Oxide [Magnesium] 500 mg PO HS 12/04/23 [History] Tirzepatide [Mounjaro] 5 mg SQ TU 12/04/23 [History] carvediloL [Coreg] 3.125 mg PO BID-W/MEALS 12/04/23 [History] sitaGLIPtin [Januvia] 100 mg PO DAILY #30 tab 12/05/23 [Rx] Follow up Appointment(s)/Referral(s): Juve Gamez MD [Primary Care Provider] - 1-2 days Patient Instructions/Handouts: Pancreatitis (DC) Discharge Disposition: HOME SELF-CARE
== END 2023-12-05 11:00 | disposition home or self-care (01) ==
LOC: EC 23:57 → 6NMEDSUR 12-04 08:01
PROVIDERS: ADMIT Family Medicine; ATTEND Family Medicine
DX: K85.90 Acute pancreatitis without necrosis or infection, unspecified (principal); K21.9 Gastro-esophageal reflux disease without esophagitis; I25.10 Atherosclerotic heart disease of native coronary artery without angina pectoris; F41.9 Anxiety disorder, unspecified; E78.5 Hyperlipidemia, unspecified; E11.40 Type 2 diabetes mellitus with diabetic neuropathy, unspecified; G47.33 Obstructive sleep apnea (adult) (pediatric); I13.0 Hypertensive heart and chronic kidney disease with heart failure and stage 1 through stage 4 chronic kidney disease, or unspecified chronic kidney disease; I50.20 Unspecified systolic (congestive) heart failure; N18.30 Chronic kidney disease, stage 3 unspecified; E11.22 Type 2 diabetes mellitus with diabetic chronic kidney disease; I25.5 Ischemic cardiomyopathy; I25.2 Old myocardial infarction; E66.01 Morbid (severe) obesity due to excess calories; Z68.41 Body mass index [BMI] 40.0-44.9, adult; Z87.11 Personal history of peptic ulcer disease; Z87.891 Personal history of nicotine dependence; Z79.899 Other long term (current) drug therapy; Z79.84 Long term (current) use of oral hypoglycemic drugs; Z79.85 Long-term (current) use of injectable non-insulin antidiabetic drugs; Z79.51 Long term (current) use of inhaled steroids; Z79.02 Long term (current) use of antithrombotics/antiplatelets
CPT/HCPCS: 96376; 96361 ×3; 96365; 96375; 99285; 36415; 93005; 80053 ×2; 82150; 83690 ×2; 83735; 84478; 84484; 85025 ×2; 85610; 85730; 83036; 71046; 76705; 74176; G0378 ×2; J2405; J2270; J3475; J2470

== ENCOUNTER → 2024-08-14 | Outpatient (CLI) | payer MEDICARE, OTHER ==
[2024-08-15 03:59] LABS: NT-Pro-B-Type Natriuretic Pept 1902 pg/mL (0-125)
[2024-08-15 04:14] LABS: BUN/Creat Ratio 16.47 Ratio (12.00-20.00); Blood Urea Nitrogen 24.7 mg/dL (9.0-27.0); Calcium 9.2 mg/dL (8.7-10.3); Carbon Dioxide 22.3 mmol/L (21.6-31.8); Chloride 103 mmol/L (96-109); Glucose 82 mg/dL (70-110); Potassium 4.3 mmol/L (3.5-5.5); Sodium 145 mmol/L (135-145)
== END | disposition home or self-care (01) ==
LOC: LABWHC1 15:55
PROVIDERS: ATTEND Internal Medicine Cardiovascular Disease
DX: I50.23 Acute on chronic systolic (congestive) heart failure (principal)
CPT/HCPCS: 36415; 80048; 83880; 84443

== ENCOUNTER → 2024-08-27 | Outpatient (CLI) | payer MEDICARE, OTHER ==
--- NOTE | 2024-08-27 14:41 | MM ---
Reason for Exam: Screening (asymptomatic). Last mammogram was performed 23 year(s) and 1 month(s) ago. Patient History: Menarche at age 14. First Full-Term at age 18. Left ovary removed at age 32. Right ovary removed at age 32. Hysterectomy at age 32. Postmenopausal. Core Biopsy on the Left side. 08/16/2001, Benign Stereotactic Core Biopsy on the left side. Risk Values: Mohini 5 year model risk: 1.7%. NCI Lifetime model risk: 4.0%. Prior Study Comparison: 07/19/2001 Bilateral Screening Mammogram, [facility]. 08/01/2001 Left Diagnostic Mammogram, [facility]. Tissue Density: There are scattered areas of fibroglandular density. Findings: There is no suspicious group of microcalcifications or new suspicious mass in either breast. Overall Assessment: Benign, BI-RAD 2 Management: Screening Mammogram of both breasts in 1 year. . Patient should continue monthly self-breast exams. A clinical breast exam by your physician is recommended on an annual basis. This exam should not preclude additional follow-up of suspicious palpable abnormalities. Note on Mohini scores and lifetime risk: 1. A Mohini score greater than 3% is considered moderate risk. If this is the case, consider specialist referral to assess eligibility for a risk reducing agent. 2. If overall lifetime risk for the development of breast cancer is 20% or higher, the patient may qualify for future screening with alternating mammogram and breast MRI. [facility], , 08/27/2024 2:38 PM. Electronically signed and approved by: Jose Darnell M.D. Radiolog[facility]
== END | disposition home or self-care (01) ==
LOC: RADMAMWWP 12:57
PROVIDERS: ATTEND Family Medicine
DX: Z12.31 Encounter for screening mammogram for malignant neoplasm of breast (principal); R92.323 Mammographic fibroglandular density, bilateral breasts; Z78.0 Asymptomatic menopausal state
CPT/HCPCS: 77063; 77067

== ENCOUNTER → 2024-10-24 | Outpatient (CLI) | payer MEDICARE, OTHER ==
[2024-10-24 16:39] LABS: NT-Pro-B-Type Natriuretic Pept 1191 pg/mL (0-125)
[2024-10-24 16:46] LABS: Blood Urea Nitrogen 22.2 mg/dL (9.0-27.0); Calcium 8.8 mg/dL (8.7-10.3); Carbon Dioxide 28.5 mmol/L (21.6-31.8); Chloride 104 mmol/L (96-109); Glucose 117 mg/dL (70-110); Potassium 4.3 mmol/L (3.5-5.5); Sodium 142 mmol/L (135-145)
== END | disposition home or self-care (01) ==
LOC: LABWHC1 11:27
PROVIDERS: ATTEND Internal Medicine Cardiovascular Disease
DX: I50.23 Acute on chronic systolic (congestive) heart failure (principal)
CPT/HCPCS: 36415; 80048; 83880